=== PATIENT | male | born 1955 | race Hispanic/Latino ===

== ENCOUNTER 2017-08-30 22:08 | Observation (INO) | payer BC, OTHER ==
[2017-08-30] MEDS ORDERED: oxyCODONE 10 mg Immediate Release Tab PO STA (22:39)
[2017-08-30] MEDS ORDERED: Insulin Regular 100 units/ml SC STA (22:51)
[2017-08-30 23:16] LABS: BASO # 0.1 K/uL (0.0-0.2); EOS % 0.2 % (0.0-4.0); HEMOGLOBIN 8.4 g/dL (12.0-18.0); LYMPH # 0.5 K/uL (1.0-4.3); LYMPH % 8.2 % (20.0-40.0); MEAN CELL VOLUME 93.8 fl (80.0-94.0); MEAN CORPUSCULAR HEMOGLOBIN 30.8 pg (27.0-31.0); MEAN CORPUSCULAR HGB CONC 32.8 g/dL (33.0-37.0); MEAN PLATELET VOLUME 8.3 fl (7.2-11.7); MONO # 0.5 K/uL (0.0-0.8); MONO % 8.2 % (0.0-10.0); NEUT % 82.4 % (50.0-75.0); NRBC % 0.4 % (0.0-0.0); PLATELET COUNT 196 K/uL (130-400); RBC 2.74 Mil/uL (4.40-5.90); RED CELL DISTRIBUTION WIDTH 26.3 % (11.5-14.5); WHITE BLOOD COUNT 6.1 K/uL (4.8-10.8)
[2017-08-30] MEDS ORDERED: oxyCODONE 40 mg ER Tab (oxyCONTIN) PO STA (23:18)
[2017-08-30] MEDS ORDERED: oxyCODONE 40 mg ER Tab (oxyCONTIN) PO ONE (23:21)
[2017-08-30] MEDS ORDERED: Lidocaine 1% Inj (20ml) ONE (23:21)
[2017-08-30 23:26] LABS: GFR AFRICAN-AMERICAN > 60; GFR NON-AFRICAN AMERICAN > 60
[2017-08-30 23:28] LABS: PARTIAL THROMBOPLASTIN TIME 28.7 Seconds (25.6-37.1); PROTHROMBIN TIME 10.5 Seconds (9.8-13.1)
[2017-08-30 23:29] LABS: ALB/GLOB RATIO 1.3 (1.0-2.1); ALBUMIN 3.6 g/dL (3.5-5.0); ALT/SGPT 47 U/L (21-72); AST/SGOT 82 U/L (17-59); BLOOD UREA NITROGEN 26 mg/dl (9-20)
[2017-08-30] MEDS ORDERED: Insulin Regular 100 units/ml ONE (23:29)
[2017-08-30 23:33] LABS: B-TYPE NATRIURETIC PEPTIDE 609 pg/ml (0-900)
[2017-08-30] MEDS ORDERED: Povidone Iodine Oint 10% Foilpak UD ONE (23:36)
--- NOTE | 2017-08-30 23:45 | ED PDOC ---
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 Patient currently reports pain to the site and states there was excessive bleeding, which has now stopped. He also reports left leg swelling and weakness secondary to the sarcoma; he denies any new weakness or numbness. Patient states he irrigated the wound prior to arrival. Additionally, patient states he was discharged from [facility] this morning after a 10 day stay. He has no other complaints. PMD: Dr. Wellington MSK - Risk Factors DVT Risk Factors: Pos: History Of DVT Past Medical History Reviewed: Historical Data, Nursing Documentation, Vital Signs Vital Signs: Last Vital Signs Temp 98 F 08/30/17 22:12 Pulse 84 08/30/17 22:12 Resp 16 08/30/17 22:12 BP 131/70 08/30/17 22:12 Pulse Ox 95 08/30/17 22:12 - Medical History PMH: Asthma, Diabetes, Deep Vein Thrombosis, HTN, Hypercholesterolemia, Chronic Pain Other PMH: sarcoma left thigh - Family History Family History: States: No Known Family Hx - Social History Current smoker - smoking cessation education provided: No Alcohol: None Drugs: Denies - Home Medications Home Medications: Ambulatory Orders Medication Instructions Recorded Albuterol HFA [Ventolin HFA 90 2 puff INH Q4 PRN 08/31/17 mcg/actuation (8 g)] Albuterol/Ipratropium [Duoneb 3 2.5 ml NEB Q4 PRN 08/31/17 mg/0.5 mg (3 ml) UD] Atorvastatin [Lipitor] 20 mg PO DAILY 08/31/17 Azithromycin [Z-Abdoulaye] 250 mg PO MWF 08/31/17 Benzonatate [Tessalon Perle] 100 mg PO TID 08/31/17 Budesonide [Pulmicort Respules] 2 ml NEB BID 08/31/17 Celecoxib [CeleBREX] 100 mg PO DAILY PRN 08/31/17 Codeine Phosphate/Guaifenesin 10 ml PO Q4 PRN 08/31/17 [Codeine-Guaifen 10-100 mg/5 ml] Docusate Sodium [Roberts' 100 mg PO TID 08/31/17 Laxative] Empagliflozin [Jardiance] 10 mg PO DAILY 08/31/17 Enoxaparin Sodium [Enoxaparin 40 mg SUBCON Q12 08/31/17 Sodium] Insulin Aspart [Novolog Flexpen] 0 - 12 units SUBCON TID 08/31/17 Insulin Glargine, Recombina 32 units SUBCON HS 08/31/17 [Lantus] Ipratropium [Atrovent HFA] 17 mcg INH Q6 PRN 08/31/17 LORazepam [Ativan] 0.5 mg PO BID PRN 08/31/17 Liraglutide [Saxenda] 18 mg SUBCUT DAILY 08/31/17 MetFORMIN [glucoPHAGE] 2,000 mg PO DAILY 08/31/17 Montelukast [Singulair] 10 mg PO DAILY 08/31/17 Nystatin [Nystop Topical Powder] 100,000 units TOP Q6 08/31/17 Ondansetron [Zofran Tab] 8 mg PO TID PRN 08/31/17 Oxybutynin [Ditropan Tab] 5 mg PO DAILY 08/31/17 PARoxetine [Paxil] 40 mg PO DAILY 08/31/17 Pantoprazole [Protonix EC Tab] 40 mg PO DAILY 08/31/17 Polyethylene Glycol 3350 [Miralax] 17 gm PO BID 08/31/17 Prednisone [Prednisone] 35 mg PO DAILY 08/31/17 QUEtiapine [SEROquel] 50 mg PO HS 08/31/17 Sennosides [Senna] 17.2 mg PO HS 08/31/17 Sulfamethoxazole/Trimethoprim 1 tab PO DAILY 08/31/17 [Bactrim DS Tab] Tamsulosin [Flomax] 0.4 mg PO DAILY 08/31/17 Triamcinolone 0.1% [Triamcinolone 1 appl TOP Q12 08/31/17 0.1% Cream] buPROPion [Wellbutrin] 50 mg PO Q12 08/31/17 oxyCODONE [oxyCODONE Immediate 20 mg PO Q4 PRN 08/31/17 Release Tab] oxyCODONE [oxyCONTIN Extended 40 mg PO Q12 08/31/17 Release Tab] - Allergies Allergies/Adverse Reactions: Allergies Allergy/AdvReac Type Severity Reaction Status Date / Time DOXYTACIL Allergy ANAPHYLAXIS Uncoded 08/30/17 22:18 Review of Systems ROS Statement: Except As Marked, All Systems Reviewed And Found Negative (as per HPI) Cardiovascular: Negative for: Chest Pain Respiratory: Negative for: Shortness of Breath Musculoskeletal: Positive for: Leg Pain (laceration left lower leg) Physical Exam - Reviewed Nursing Documentation Reviewed: Yes Vital Signs Reviewed: Yes - Physical Exam Appears: Positive for: Non-toxic, No Acute Distress (Morbidly obese) Head Exam: Positive for: ATRAUMATIC, NORMOCEPHALIC Skin: Positive for: Warm, Dry, Pallor Eye Exam: Positive for: EOMI, PERRL ENT: Negative for: Pharyngeal Erythema, Tonsillar Exudate Neck: Positive for: Painless ROM, Supple Cardiovascular/Chest: Positive for: Regular Rate, Rhythm, Edema. Negative for: Murmur Respiratory: Negative for: Accessory Muscle Use, Respiratory Distress Gastrointestinal/Abdominal: Positive for: Soft, Other (multiple ecchymotic lesions noted to abdomen). Negative for: Tenderness Back: Negative for: Vertebral Tenderness Extremity: Positive for: Normal ROM, Pedal Edema (left > right), Other (18cm crescent shaped gaping (5cm wide) laceration to left mid anterior tibia with visible muscle fascia; muscle appears to be intact through movement of ankle. No exposed bone, no muscle laceration. Mild oozing noted. +multiple ecchymotic lesions to arms and legs). Negative for: Calf Tenderness, Deformity Lymphatic: Negative for: Adenopathy Neurologic/Psych: Positive for: Alert, Oriented. Negative for: Motor/Sensory Deficits - Laboratory Results Result Diagrams: 08/31/17 18:29 08/31/17 12:10 - ECG O2 Sat by Pulse Oximetry: 95 (RA) Pulse Ox Interpretation: Normal Medical Decision Making Medical Decision Making: Impression: 1. Left lower extremity laceration, complicated 2. Acute on chronic pain 3. Hyperglycemia Plan: -- EKG -- Labs -- CXR -- Insulin 6 units -- Oxycodone 40mg PO Time: 2237 Surgical consult placed with Dr. Grant, surgeon auto parts salesperson due to complicated laceration. vice president supply chain to evaluate patient at bedside. 2344 Pt with difficulty walking secondary to chronic medical conditions, now with complicated laceration to LEFT lower leg. Risk for falls high given history and management of leg. Will hospitalize for PT/OT. Dr Nye made aware. ----- Scribe Attestation: Documented by Katie Aceves, acting as a scribe for Helen Wesley MD. Provider Scribe Attestation: All medical record entries made by the Scribe were at my direction and personally dictated by me. I have reviewed the chart and agree that the record accurately reflects my personal performance of the history, physical exam, medical decision making, and the department course for this patient. I have also personally directed, reviewed, and agree with the discharge instructions and disposition. Disposition - Clinical Impression Clinical Impression: Leg laceration, Sarcoma Counseled Patient/Family Regarding: Studies Performed, Diagnosis - Disposition Disposition Time: 23:30 Condition: FAIR - Pt Status Changed To: Hospital Disposition Of: Observation - POA Present On Arrival: Falls Or Trauma, Deep Vein Thrombosis / PE
[2017-08-31] MEDS ORDERED: oxyCODONE 10 mg Immediate Release Tab PO PRN (00:28)
[2017-08-31 01:48] LABS: LYMPHOCYTE 9 % (20-50); MONOCYTE 4 % (0-10); NEUTROPHIL 87 % (42-75); PLATELET ESTIMATE NORMAL (NORMAL); SMUDGE CELLS PRESENT; TOTAL CELLS COUNTED 100
[2017-08-31 01:49] LABS: ANISOCYTOSIS SLIGHT
[2017-08-31 01:50] LABS: ACANTHOCYTES SLIGHT
[2017-08-31 01:52] LABS: HYPOCHROMIC SLIGHT
--- NOTE | 2017-08-31 03:01 | PCM.PROC ---
Procedures Attestation:: I certify that I have explained the specified Operation(s) or Procedure(s), risks, benefits and reasonable alternatives to the Patient and/or other person responsible. The opportunity was given to ask questions and all questions answered - Laceration lidocaine 1% simple, single layer irregular irrigated extensively left lower extremity 3-0 other Site: lower extremity Side (if applicable): left Description: irregular Depth: simple, single layer Anesthesia used: lidocaine 1% Anesthesia technique: local infiltration Amount (mLs): 10 Pre-repair: irrigated extensively (with normal saline) Skin layer closed with: other (nylon ) Size: 3-0 Number of sutures: 15 Technique: other (vertical mattress)
[2017-08-31] MEDS ORDERED: Albuterol-Ipratrop 3 mg / 0.5 (3 ml) UD INH STA ×2 (03:06→07:30)
--- NOTE | 2017-08-31 03:07 | CP.PCM.CON ---
History of Present Illness - History of Present Illness History of Present Illness: General Surgery Consult Note: Dr. 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 General surgery was consulted to evaluate the wound and repair the laceration. At time of examination patient was laying in bed comfortably. He was noted to have a left lower extremity irregular laceration. Deep tissue structures were observed to be intact. There was no fascia violation. Wound was extensively irrigated with normal saline. Circumferential laceration area was prepped with betadine. 1% lidocaine was used for local anesthesia. 3-0 Nylon was used to approximate wound edges using vertical mattress x15. After laceration was repaired bacitracin was applied to the site and sterile dressing was applied. Patient tolerated procedure well with no complications. PMHx: as stated above PSurgHx: Sarcoma resection of left lower leg Allergies: Doxytacil Fam Hx: non-contributory Review of Systems - Review of Systems Review of Systems: 12 pt ROS unremarkable, except as stated in HPI Past Patient History - Past Social History Alcohol: None Drugs: Denies - CARDIAC Hx Cardiac Disorders: Yes (HTN) - PULMONARY Hx Asthma: Yes - ENDOCRINE/METABOLIC Hx Endocrine Disorders: Yes (DM) - MUSCULOSKELETAL/RHEUMATOLOGICAL Other/Comment: chronic pain due to left thigh sarcoma - PSYCHIATRIC Hx Anxiety: Yes Hx Substance Use: No - SURGICAL HISTORY Other/Comment: removal of left thigh sarcoma. 2 lung Laparoscopy due to sarcoma - ANESTHESIA Hx Anesthesia: Yes Hx Anesthesia Reactions: No Meds Allergies/Adverse Reactions: Allergies Allergy/AdvReac Type Severity Reaction Status Date / Time DOXYTACIL Allergy ANAPHYLAXIS Uncoded 08/30/17 22:18 - Medications Medications: Current Medications Oxycodone HCl (Oxycodone Immediate Release Tab) 20 mg PO Q6 PRN PRN Reason: Pain, severe (8-10) Physical Exam - Constitutional Appears: Non-toxic, Chronically Ill Additional comments: obese - Head Exam Head Exam: NORMOCEPHALIC - Eye Exam Eye Exam: Normal appearance - ENT Exam ENT Exam: Mucous Membranes Moist - Respiratory Exam Respiratory Exam: NORMAL BREATHING PATTERN - Cardiovascular Exam Cardiovascular Exam: +S1, +S2 - GI/Abdominal Exam Additional comments: abdominal wall hematoma - Extremities Exam Extremities exam: Positive for: pedal edema Additional comments: left anterior frias laceration, irregular superficial laceration - Neurological Exam Neurological exam: Alert, Oriented x3 - Psychiatric Exam Psychiatric exam: Normal Mood - Skin Skin Exam: Warm Results - Vital Signs Recent Vital Signs: Last Vital Signs Temp 98.2 F 08/31/17 02:42 Pulse 73 08/31/17 02:42 Resp 20 08/31/17 02:42 BP 117/72 08/31/17 02:42 Pulse Ox 98 08/31/17 02:42 - Labs Result Diagrams: 08/30/17 23:12 08/30/17 23:12 Labs: Laboratory Results - last 24 hr 08/30/17 08/30/17 08/30/17 22:41 23:12 23:12 WBC 6.1 RBC 2.74 L Hgb 8.4 L Hct 25.7 L MCV 93.8 MCH 30.8 MCHC 32.8 L RDW 26.3 H Plt Count 196 MPV 8.3 Neut % (Auto) 82.4 H Lymph % (Auto) 8.2 L [place] % (Auto) 8.2 Eos % (Auto) 0.2 Baso % (Auto) 1.0 Neut # (Auto) 5.0 Lymph # (Auto) 0.5 L [place] # (Auto) 0.5 Eos # (Auto) 0.0 Baso # (Auto) 0.1 Neutrophils % (Manual) 87 H Lymphocytes % (Manual) 9 L Monocytes % (Manual) 4 Smudge Cells Present Platelet Estimate Normal Hypochromasia (manual) Slight Anisocytosis (manual) Slight Macrocytosis (manual) Slight Acanthocytes (Spur) Slight PT INR APTT Sodium 133 Potassium 5.6 H Chloride 94 L Carbon Dioxide 28 Anion Gap 17 BUN 26 H Creatinine 0.6 L Est GFR ( Amer) > 60 Est GFR (Non-Af Amer) > 60 POC Glucose (mg/dL) 307 H Random Glucose 311 H Calcium 9.0 Total Bilirubin 1.7 H AST 82 H ALT 47 Alkaline Phosphatase 49 NT-Pro-B Natriuret Pep 609 Total Protein 6.5 Albumin 3.6 Globulin 2.9 Albumin/Globulin Ratio 1.3 Alcohol, Quantitative < 10 08/30/17 08/31/17 23:12 00:48 WBC RBC Hgb Hct MCV MCH MCHC RDW Plt Count MPV Neut % (Auto) Lymph % (Auto) Harmon % (Auto) Eos % (Auto) Baso % (Auto) Neut # (Auto) Lymph # (Auto) [place] # (Auto) Eos # (Auto) Baso # (Auto) Neutrophils % (Manual) Lymphocytes % (Manual) Monocytes % (Manual) Smudge Cells Platelet Estimate Hypochromasia (manual) Anisocytosis (manual) Macrocytosis (manual) Acanthocytes (Spur) PT 10.5 INR 1.0 APTT 28.7 Sodium Potassium Chloride Carbon Dioxide Anion Gap BUN Creatinine Est GFR ( Amer) Est GFR (Non-Af Amer) POC Glucose (mg/dL) 277 H Random Glucose Calcium Total Bilirubin AST ALT Alkaline Phosphatase NT-Pro-B Natriuret Pep Total Protein Albumin Globulin Albumin/Globulin Ratio Alcohol, Quantitative Assessment & Plan - Assessment and Plan (Free Text) Assessment: 61M with left lower leg anterior laceration s/p laceration repair Plan: No further surgical intervention needed C/w ABx Daily dressing changes Return to ED or Surgery clinic office in 10-14 days for removal of stitches Keep area clean and dry Further recs per Dr. Rudy LAU PGY2
[2017-08-31] MEDS ORDERED: Albuterol-Ipratrop 3 mg / 0.5 (3 ml) UD ONE (07:34)
[2017-08-31] MEDS ORDERED: POLYETHYLENE GLYCOL 3350 17 GM/Dose PACKET PO PRN (08:21)
[2017-08-31] MEDS ORDERED: Enoxaparin 120 mg Syringe SC SCH (09:00)
[2017-08-31] MEDS ORDERED: LIRAGLUTIDE 1.8 MG SUBCUT SCH (09:00)
[2017-08-31] MEDS: oxyCODONE 10 mg Immediate Release Tab PO PRN ×3 (09:16→17:14)
[2017-08-31] MEDS: oxyCODONE 40 mg ER Tab (oxyCONTIN) PO SCH ×2 (09:17→21:01)
--- NOTE | 2017-08-31 09:20 | RAD ---
HISTORY: fall COMPARISON: 02/16/2008 FINDINGS: LUNGS: Examination limited due to oblique positioning of patient. There is small moderate left pleural effusion. There is no definite consolidation. There is diffusely increased density of the left emmie thorax likely due to pleural effusion. Also likely due to body habitus and patient positioning. PLEURA: No significant pleural effusion identified, no pneumothorax apparent. CARDIOVASCULAR: Normal. OSSEOUS STRUCTURES: No significant abnormalities. VISUALIZED UPPER ABDOMEN: Normal. OTHER FINDINGS: None. IMPRESSION: Left pleural effusion.
[2017-08-31] MEDS: Tmp-Smz 800 mg-160 mg DS Tab PO SCH (10:26)
[2017-08-31] MEDS: Pantoprazole 40 mg EC Tab PO SCH (10:27)
[2017-08-31] MEDS: Enoxaparin 40 mg Syringe SC SCH ×2 (10:29→22:21)
[2017-08-31] MEDS: buPROPion SR 150 MG TABLET PO SCH ×2 (10:31→21:01)
[2017-08-31] MEDS ORDERED: Insulin Lispro (humaLOG) 100 Units/ml Inj SC SCH (11:30)
[2017-08-31] MEDS: Albuterol-Ipratrop 3 mg / 0.5 (3 ml) UD INH SCH ×5 (11:35→23:21)
--- NOTE | 2017-08-31 11:56 | CARD ---
APPROVED REPORT EKG Measurement Heart [id number] OH [id number] [id number] <Conclusion> Normal sinus rhythm Normal ECG
[2017-08-31 12:14] LABS: HEMOGLOBIN 8.3 g/dL (12.0-18.0); MEAN CELL VOLUME 94.7 fl (80.0-94.0); MEAN CORPUSCULAR HEMOGLOBIN 30.4 pg (27.0-31.0); MEAN CORPUSCULAR HGB CONC 32.1 g/dL (33.0-37.0); RBC 2.73 Mil/uL (4.40-5.90); RED CELL DISTRIBUTION WIDTH 27.7 % (11.5-14.5); WHITE BLOOD COUNT 4.6 K/uL (4.8-10.8)
[2017-08-31 12:41] LABS: BLOOD UREA NITROGEN 23 mg/dl (9-20); CALCIUM 8.7 mg/dL (8.4-10.2); GFR AFRICAN-AMERICAN > 60; GFR NON-AFRICAN AMERICAN > 60
[2017-08-31] MEDS: Insulin Lispro (humaLOG) 100 Units/ml Inj SC SCH ×4 (12:52→22:21)
--- NOTE | 2017-08-31 17:02 | CP.PCM.HP ---
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 Present on Admission - Present on Admission Any Indicators Present on Admission: No Past Patient History - Past Medical History & Family History Past Medical History?: Yes - Past Social History Smoking Status: Former Smoker - CARDIAC Hx Cardiac Disorders: Yes (HTN) Hx Hypercholesterolemia: Yes Hx Hypertension: Yes - PULMONARY Hx Respiratory Disorders: Yes Hx Asthma: Yes - RENAL Hx Chronic Kidney Disease: No - ENDOCRINE/METABOLIC Hx Endocrine Disorders: Yes (DM) Hx Diabetes Mellitus Type 2: Yes - HEMATOLOGICAL/ONCOLOGICAL Hx Blood Disorders: Yes - MUSCULOSKELETAL/RHEUMATOLOGICAL Hx Musculoskeletal Disorders: Yes Hx Falls: No Other/Comment: chronic pain due to left thigh sarcoma - GASTROINTESTINAL Hx Gastrointestinal Disorders: No - GENITOURINARY/GYNECOLOGICAL Hx Genitourinary Disorders: No - PSYCHIATRIC Hx Psychophysiologic Disorder: Yes Hx Anxiety: Yes Hx Substance Use: No - SURGICAL HISTORY Other/Comment: removal of left thigh sarcoma. 2 lung Laparoscopy due to sarcoma - ANESTHESIA Hx Anesthesia: Yes Hx Anesthesia Reactions: No Meds Allergies/Adverse Reactions: Allergies Allergy/AdvReac Type Severity Reaction Status Date / Time DOXYTACIL Allergy ANAPHYLAXIS Uncoded 08/30/17 22:18 Physical Exam - Respiratory Exam Respiratory Exam: NORMAL BREATHING PATTERN - Cardiovascular Exam Cardiovascular Exam: REGULAR RHYTHM - GI/Abdominal Exam GI & Abdominal Exam: Normal Bowel Sounds Results - Vital Signs Recent Vital Signs: Last Vital Signs Temp 97.7 F 08/31/17 15:38 Pulse 91 H 08/31/17 15:38 Resp 20 08/31/17 15:38 BP 111/69 08/31/17 15:38 Pulse Ox 93 L 08/31/17 15:38 - Labs Result Diagrams: 08/31/17 12:10 08/31/17 12:10 Labs: Laboratory Results - last 24 hr 08/30/17 08/30/17 08/30/17 22:41 23:12 23:12 WBC 6.1 RBC 2.74 L Hgb 8.4 L Hct 25.7 L MCV 93.8 MCH 30.8 MCHC 32.8 L RDW 26.3 H Plt Count 196 MPV 8.3 Neut % (Auto) 82.4 H Lymph % (Auto) 8.2 L [place] % (Auto) 8.2 Eos % (Auto) 0.2 Baso % (Auto) 1.0 Neut # (Auto) 5.0 Lymph # (Auto) 0.5 L [place] # (Auto) 0.5 Eos # (Auto) 0.0 Baso # (Auto) 0.1 Neutrophils % (Manual) 87 H Lymphocytes % (Manual) 9 L Monocytes % (Manual) 4 Smudge Cells Present Platelet Estimate Normal Hypochromasia (manual) Slight Anisocytosis (manual) Slight Macrocytosis (manual) Slight Acanthocytes (Spur) Slight PT INR APTT Sodium 133 Potassium 5.6 H Chloride 94 L Carbon Dioxide 28 Anion Gap 17 BUN 26 H Creatinine 0.6 L Est GFR ( Amer) > 60 Est GFR (Non-Af Amer) > 60 POC Glucose (mg/dL) 307 H Random Glucose 311 H Calcium 9.0 Total Bilirubin 1.7 H AST 82 H ALT 47 Alkaline Phosphatase 49 NT-Pro-B Natriuret Pep 609 Total Protein 6.5 Albumin 3.6 Globulin 2.9 Albumin/Globulin Ratio 1.3 Alcohol, Quantitative < 10 Blood Type Blood Type Confirm Antibody Screen BBK History Checked 08/30/17 08/31/17 08/31/17 23:12 00:48 05:40 WBC RBC Hgb Hct MCV MCH MCHC RDW Plt Count MPV Neut % (Auto) Lymph % (Auto) [place] % (Auto) Eos % (Auto) Baso % (Auto) Neut # (Auto) Lymph # (Auto) [place] # (Auto) Eos # (Auto) Baso # (Auto) Neutrophils % (Manual) Lymphocytes % (Manual) Monocytes % (Manual) Smudge Cells Platelet Estimate Hypochromasia (manual) Anisocytosis (manual) Macrocytosis (manual) Acanthocytes (Spur) PT 10.5 INR 1.0 APTT 28.7 Sodium Potassium Chloride Carbon Dioxide Anion Gap BUN Creatinine Est GFR ( Amer) Est GFR (Non-Af Amer) POC Glucose (mg/dL) 277 H 160 H Random Glucose Calcium Total Bilirubin AST ALT Alkaline Phosphatase NT-Pro-B Natriuret Pep Total Protein Albumin Globulin Albumin/Globulin Ratio Alcohol, Quantitative Blood Type Blood Type Confirm Antibody Screen BBK History Checked 08/31/17 08/31/17 08/31/17 06:25 07:56 11:12 WBC RBC Hgb Hct MCV MCH MCHC RDW Plt Count MPV Neut % (Auto) Lymph % (Auto) [place] % (Auto) Eos % (Auto) Baso % (Auto) Neut # (Auto) Lymph # (Auto) [place] # (Auto) Eos # (Auto) Baso # (Auto) Neutrophils % (Manual) Lymphocytes % (Manual) Monocytes % (Manual) Smudge Cells Platelet Estimate Hypochromasia (manual) Anisocytosis (manual) Macrocytosis (manual) Acanthocytes (Spur) PT INR APTT Sodium Potassium Chloride Carbon Dioxide Anion Gap BUN Creatinine Est GFR ( Amer) Est GFR (Non-Af Amer) POC Glucose (mg/dL) 264 H Random Glucose Calcium Total Bilirubin AST ALT Alkaline Phosphatase NT-Pro-B Natriuret Pep Total Protein Albumin Globulin Albumin/Globulin Ratio Alcohol, Quantitative Blood Type AB POSITIVE Blood Type Confirm AB POSITIVE Antibody Screen Negative BBK History Checked No verified bt 08/31/17 08/31/17 08/31/17 12:10 12:10 16:00 WBC 4.6 L RBC 2.73 L Hgb 8.3 L Hct 25.8 L MCV 94.7 H MCH 30.4 MCHC 32.1 L RDW 27.7 H Plt Count 176 MPV Neut % (Auto) Lymph % (Auto) [place] % (Auto) Eos % (Auto) Baso % (Auto) Neut # (Auto) Lymph # (Auto) [place] # (Auto) Eos # (Auto) Baso # (Auto) Neutrophils % (Manual) Lymphocytes % (Manual) Monocytes % (Manual) Smudge Cells Platelet Estimate Hypochromasia (manual) Anisocytosis (manual) Macrocytosis (manual) Acanthocytes (Spur) PT INR APTT Sodium 137 Potassium 4.0 Chloride 96 L Carbon Dioxide 31 H Anion Gap 14 BUN 23 H Creatinine 0.6 L Est GFR ( Amer) > 60 Est GFR (Non-Af Amer) > 60 POC Glucose (mg/dL) 307 H Random Glucose 123 H Calcium 8.7 Total Bilirubin AST ALT Alkaline Phosphatase NT-Pro-B Natriuret Pep Total Protein Albumin Globulin Albumin/Globulin Ratio Alcohol, Quantitative Blood Type Blood Type Confirm Antibody Screen BBK History Checked Assessment & Plan - Assessment and Plan (Free Text) Assessment: Laceration left lower extremity 2 to fall Surgery Hx Sarcoma left thigh Oncology Chronic pain Pain management Diabetes Metformin 4000?? Endo - Date & Time Date: 08/31/17 Time: 22:22
--- NOTE | 2017-08-31 17:27 | CP.PCM.PN ---
Subjective - Date & Time of Evaluation Date of Evaluation: 08/31/17 Time of Evaluation: 17:22 - Subjective Subjective: Surgery Pt s&e with Dr. Grant. Pain controlled. Pt has appointment at [facility] and wishes to be seen by his oncologist. Objective - Vital Signs/Intake and Output Vital Signs (last 24 hours): Temp Pulse Resp BP Pulse Ox 97.7 F 91 H 20 111/69 93 L 08/31/17 15:38 08/31/17 15:38 08/31/17 15:38 08/31/17 15:38 08/31/17 15:38 - Medications Medications: Current Medications Albuterol/Ipratropium (Duoneb 3 Mg/0.5 Mg (3 Ml) Ud) 2.5 ml INH RQ4 [facility] Last Admin: 08/31/17 15:49 Dose: 2.5 ml Atorvastatin Calcium (Lipitor) 20 mg PO DAILY [facility] Last Admin: 08/31/17 10:29 Dose: 20 mg Benzonatate (Tessalon Perles) 100 mg PO TID [facility] Last Admin: 08/31/17 17:17 Dose: 100 mg Bupropion HCl (Wellbutrin Sr 150 Mg) 150 mg PO Q12 [facility] Last Admin: 08/31/17 10:31 Dose: 150 mg Celecoxib (Celebrex) 100 mg PO DAILY PRN PRN Reason: Pain, moderate (4-7) Cephalexin Monohydrate (Keflex) 500 mg PO Q6 [facility] PRN Reason: Protocol Last Admin: 08/31/17 17:16 Dose: 500 mg Docusate Sodium (Colace) 100 mg PO TID PRN PRN Reason: Constipation Enoxaparin Sodium (Lovenox) 40 mg SC Q12 [facility] PRN Reason: Protocol Last Admin: 08/31/17 10:29 Dose: 40 mg Home Med (Empagliflozin [Jardiance]) 10 mg PO DAILY [facility] Home Med (Liraglutide [Saxenda]) 1.8 mg SUBCUT DAILY [facility] Insulin Detemir (Levemir) 32 units SC HS [facility] Insulin Human Lispro (Humalog) 8 units SC AC [facility] Last Admin: 08/31/17 17:16 Dose: 8 units Insulin Human Lispro (Humalog) 0 units SC ACHS [facility] PRN Reason: Protocol Last Admin: 08/31/17 17:17 Dose: 4 units Lorazepam (Ativan) 0.5 mg PO BID PRN PRN Reason: Anxiety Metformin HCl (Glucophage) 1,000 mg PO BID [facility] Last Admin: 08/31/17 17:17 Dose: 1,000 mg Montelukast Sodium (Singulair) 10 mg PO DAILY [facility] Last Admin: 08/31/17 10:27 Dose: 10 mg Nystatin (Nystop Topical Powder) 1 applic TOP Q6 [facility] Last Admin: 08/31/17 17:09 Dose: Not Given Ondansetron HCl (Zofran Tab) 8 mg PO TID PRN PRN Reason: nauesa Last Admin: 08/31/17 14:35 Dose: 8 mg Oxybutynin Chloride (Ditropan Tab) 5 mg PO DAILY [facility] Last Admin: 08/31/17 10:30 Dose: 5 mg Oxycodone HCl (Oxycodone Immediate Release Tab) 20 mg PO Q4 PRN PRN Reason: Pain, moderate (4-7) Last Admin: 08/31/17 17:14 Dose: 20 mg Oxycodone HCl (Oxycontin Extended Release Tab) 40 mg PO Q12 [facility] Last Admin: 08/31/17 09:17 Dose: 40 mg Pantoprazole Sodium (Protonix Ec Tab) 40 mg PO DAILY [facility] Last Admin: 08/31/17 10:27 Dose: 40 mg Paroxetine HCl (Paxil) 40 mg PO DAILY [facility] Last Admin: 08/31/17 10:28 Dose: 40 mg Polyethylene Glycol (Miralax) 17 gm PO BID PRN PRN Reason: Constipation Prednisone (Prednisone Tab) 35 mg PO DAILY [facility] Last Admin: 08/31/17 10:33 Dose: 35 mg Quetiapine Fumarate (Seroquel) 50 mg PO HS [facility] Sennosides (Senokot Tab) 17.2 mg PO HS PRN PRN Reason: Constipation Tamsulosin HCl (Flomax) 0.4 mg PO DAILY [facility] Last Admin: 08/31/17 10:27 Dose: 0.4 mg Triamcinolone Acetonide (Kenalog 0.1% Cream) 1 appl TOP Q12 [facility] Last Admin: 08/31/17 10:28 Dose: 1 appl Trimethoprim/Sulfamethoxazole (Bactrim Ds Tab) 1 tab PO DAILY [facility] PRN Reason: Protocol Last Admin: 08/31/17 10:26 Dose: 1 tab - Labs Labs: 08/31/17 12:10 08/31/17 12:10 PT 10.5 Seconds (9.8-13.1) 08/30/17 23:12 INR 1.0 (0.9-1.2) 08/30/17 23:12 APTT 28.7 Seconds (25.6-37.1) 08/30/17 23:12 - Constitutional Appears: No Acute Distress - Head Exam Head Exam: ATRAUMATIC, NORMAL INSPECTION, NORMOCEPHALIC - Eye Exam Eye Exam: EOMI, Normal appearance, PERRL Pupil Exam: NORMAL ACCOMODATION, PERRL - ENT Exam ENT Exam: Mucous Membranes Moist, Normal Exam - Neck Exam Neck Exam: Full ROM, Normal Inspection. absent: Lymphadenopathy - Respiratory Exam Respiratory Exam: Clear to Ausculation Bilateral, NORMAL BREATHING PATTERN - Cardiovascular Exam Cardiovascular Exam: REGULAR RHYTHM, +S1, +S2. absent: Murmur - GI/Abdominal Exam GI & Abdominal Exam: Soft, Normal Bowel Sounds. absent: Tenderness - Extremities Exam Extremities Exam: Pedal Edema, Tenderness. absent: Normal Inspection Additional comments: multiple ecchymosis. Dressing in place. Incision C/D?I - Back Exam Back Exam: NORMAL INSPECTION - Neurological Exam Neurological Exam: Alert, Awake, CN II-XII Intact, Oriented x3. absent: Normal Gait - Psychiatric Exam Psychiatric exam: Normal Affect, Normal Mood - Skin Skin Exam: Abrasion, Dry, Intact, Warm. absent: Normal Color Additional comments: multiple ecchymosis Assessment and Plan - Assessment and Plan (Free Text) Assessment: venous stasis with LLE laceration s/p repair -Ok to DC tomorrow to follow up with his oncologist at [facility] -May follow up at Dr. Grant's office in 10-14days (09/10-09/13) to get stitches removed. May get them removed by your primary doctor as well. -Keep legs elevated. -compression Stocking DW Dr. Grant
[2017-08-31 19:22] LABS: HEMOGLOBIN 8.2 g/dL (12.0-18.0); MEAN CELL VOLUME 95.9 fl (80.0-94.0); MEAN CORPUSCULAR HEMOGLOBIN 30.2 pg (27.0-31.0); MEAN CORPUSCULAR HGB CONC 31.5 g/dL (33.0-37.0); RBC 2.7 Mil/uL (4.40-5.90); RED CELL DISTRIBUTION WIDTH 27.2 % (11.5-14.5); WHITE BLOOD COUNT 5.5 K/uL (4.8-10.8)
[2017-08-31] MEDS ORDERED: Insulin Detemir 100 Units/ml Inj SC SCH (22:00)
--- NOTE | 2017-08-31 22:57 | CON ---
ENDOCRINOLOGY CONSULT DATE: LOCATION: In room 663. HISTORY OF PRESENT ILLNESS: This is a 61-year-old male with known history of type 2 insulin-requiring diabetes and hypertension, presenting here with left lower extremity laceration from a recent physical injury and is now being referred for diabetic evaluation because of persistent hyperglycemic accelerations as noted thereof. 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 He admits to chronic pain in the lower extremities and also the lower lumbosacral area as noted. FAMILY HISTORY: Positive for hypertension and diabetes. SOCIAL HISTORY: The patient has a supportive family. No known substance use. REVIEW OF SYSTEMS: As mentioned above, admits to generalized body weakness with episodic bouts of dizziness and lightheadedness worse on the day of admission. Also admits to occasional bifrontal headaches and visual blurring, again worse in the last few days prior to admission. Also admits to precordial chest pain especially on exertion with occasional bouts of shortness of breath also on exertion. His oral intake has been variable with occasional dyspepsia and vague upper abdominal pain with recent marked polyuria, nocturia, and polydipsia. Also admits to lower extremity painful paresthesias, especially nocturnally and sustained a left lower extremity laceration as mentioned. PHYSICAL EXAMINATION: GENERAL: This is an obese male in no apparent distress. VITAL SIGNS: Blood pressure /90, pulse of 70 beats per minute and regular, temperature 98, respirations 20, height is 5 feet 11 inches, and weight is 320 pounds. HEENT: Head is normocephalic. Eyes anicteric with pink conjunctivae. Funduscopy not possible at this time. Ears, nose, and throat otherwise normal. NECK: Supple. Thyroid gland is normal in size. No carotid bruits or cervical adenopathy. CARDIOPULMONARY: Some adynamic precordium. S1 and S2 is rapid and regular. LUNGS: Clear to auscultation. ABDOMEN: Obese and soft with positive bowel sounds. EXTREMITIES: The left lower extremity lacerations has a dry dressing as noted. Pulses are +2 bilaterally. LABORATORY DATA: His chemistry showed a BUN of 26, sodium 133, potassium 5.6, chloride 94, CO2 of , and creatinine is 0.6. The glucose levels have ranged from 264 to 277 and 307 mg/dL. ASSESSMENT: This is a 61-year-old male with uncontrolled and decompensated type 2 insulin-requiring diabetes with marked hyperglycemic accelerations and also concomitant hyperosmolar hyperglycemic state with dehydration and prerenal azotemia with spurious hyponatremia and hyperkalemia as noted thereof. He also has sarcoma of the left thigh with chronic pain syndrome and intractable lower back pain episodically as noted and is currently on prednisone given as 35 mg once daily as ordered. This will also contribute to the increased insulin resistance and further impaired glucose tolerance thereof besides these underlying super morbid obesity, which will also further contribute to the impaired glucose tolerance thereof. PLAN OF MANAGEMENT: As discussed with the patient and staff, we will modify his current basal and bolus insulin regimen as the patient is clearly insulin resistant and needs a higher dose regimen to override the underlying metabolic syndrome as noted thereof. We will add Humalog given as 10 units subcutaneously t.i.d. before meals to start today as ordered. We will modify the coverage scale to obviate hypoglycemia and detailed orders have been given. We will also continue the Levemir given as 32 units subcutaneously at bedtime daily and we will titrate to a much higher dose to optimize metabolic control. We will reinforce diabetic education and especially dietary evaluation with emphasis on healthier food choices and weight loss efforts as noted. We will also obtain a hemoglobin A1c to confirm his prior glycemic control and baseline thyroid function studies will be ordered. We will follow and advise accordingly. Sheryl Adams MD
--- NOTE | 2017-08-31 23:19 | CP.PCM.CON ---
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 The patient reports to being diagnosed with a left thigh sarcoma during prostate cancer staging. He underwent sarcoma treatment for localized disease but was found to have lung metastasis shortly after tumor resection. He underwent radiation and lung resection for oligometastatic disease but unfortunately was later found to have more pronounced lung metastasis and was placed on systemic therapy. He notes to a new treatment which was initiated in the last few weeks. He plans to f/u with his primary oncologist on D/C for further oncologic treatment. 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 Past surgical history: Left thigh sarcoma resection Family history: Father had prostate cancer Social history: Denies tobacco, alcohol, and illicit drug use. Allergies: Docetaxel Review of systems: All remaining review of systems including HEENT, cardiovascular, respiratory, gastrointestinal, genitourinary, musculoskeletal, dermatologic, neurologic, and psychiatric are negative unless mentioned in the HPI. Past Patient History - Past Medical History & Family History Past Medical History?: Yes - Past Social History Smoking Status: Former Smoker - CARDIAC Hx Cardiac Disorders: Yes (HTN) Hx Hypercholesterolemia: Yes Hx Hypertension: Yes - PULMONARY Hx Respiratory Disorders: Yes Hx Asthma: Yes - RENAL Hx Chronic Kidney Disease: No - ENDOCRINE/METABOLIC Hx Endocrine Disorders: Yes (DM) Hx Diabetes Mellitus Type 2: Yes - HEMATOLOGICAL/ONCOLOGICAL Hx Blood Disorders: Yes - MUSCULOSKELETAL/RHEUMATOLOGICAL Hx Musculoskeletal Disorders: Yes Hx Falls: No Other/Comment: chronic pain due to left thigh sarcoma - GASTROINTESTINAL Hx Gastrointestinal Disorders: No - GENITOURINARY/GYNECOLOGICAL Hx Genitourinary Disorders: No - PSYCHIATRIC Hx Psychophysiologic Disorder: Yes Hx Anxiety: Yes Hx Substance Use: No - SURGICAL HISTORY Other/Comment: removal of left thigh sarcoma. 2 lung Laparoscopy due to sarcoma - ANESTHESIA Hx Anesthesia: Yes Hx Anesthesia Reactions: No Meds Allergies/Adverse Reactions: Allergies Allergy/AdvReac Type Severity Reaction Status Date / Time DOXYTACIL Allergy ANAPHYLAXIS Uncoded 08/30/17 22:18 - Medications Medications: Current Medications Albuterol/Ipratropium (Duoneb 3 Mg/0.5 Mg (3 Ml) Ud) 2.5 ml INH RQ4 [facility] Last Admin: 08/31/17 19:49 Dose: 2.5 ml Atorvastatin Calcium (Lipitor) 20 mg PO DAILY [facility] Last Admin: 08/31/17 10:29 Dose: 20 mg Benzonatate (Tessalon Perles) 100 mg PO TID [facility] Last Admin: 08/31/17 17:17 Dose: 100 mg Bupropion HCl (Wellbutrin Sr 150 Mg) 150 mg PO Q12 [facility] Last Admin: 08/31/17 21:01 Dose: 150 mg Celecoxib (Celebrex) 100 mg PO DAILY PRN PRN Reason: Pain, moderate (4-7) Cephalexin Monohydrate (Keflex) 500 mg PO Q6 [facility] PRN Reason: Protocol Last Admin: 08/31/17 21:01 Dose: 500 mg Docusate Sodium (Colace) 100 mg PO TID PRN PRN Reason: Constipation Enoxaparin Sodium (Lovenox) 40 mg SC Q12 [facility] PRN Reason: Protocol Last Admin: 08/31/17 22:21 Dose: 40 mg Home Med (Empagliflozin [Jardiance]) 10 mg PO DAILY [facility] Home Med (Liraglutide [Saxenda]) 1.8 mg SUBCUT DAILY [facility] Insulin Detemir (Levemir) 32 units SC HS [facility] Last Admin: 08/31/17 22:19 Dose: 32 units Insulin Human Lispro (Humalog) 8 units SC AC [facility] Last Admin: 08/31/17 17:16 Dose: 8 units Insulin Human Lispro (Humalog) 0 units SC ACHS [facility] PRN Reason: Protocol Last Admin: 08/31/17 22:21 Dose: Not Given Lorazepam (Ativan) 0.5 mg PO BID PRN PRN Reason: Anxiety Metformin HCl (Glucophage) 1,000 mg PO BID [facility] Last Admin: 08/31/17 17:17 Dose: 1,000 mg Montelukast Sodium (Singulair) 10 mg PO DAILY [facility] Last Admin: 08/31/17 10:27 Dose: 10 mg Nystatin (Nystop Topical Powder) 1 applic TOP Q6 [facility] Last Admin: 08/31/17 22:22 Dose: Not Given Ondansetron HCl (Zofran Tab) 8 mg PO TID PRN PRN Reason: nauesa Last Admin: 08/31/17 14:35 Dose: 8 mg Oxybutynin Chloride (Ditropan Tab) 5 mg PO DAILY [facility] Last Admin: 08/31/17 10:30 Dose: 5 mg Oxycodone HCl (Oxycodone Immediate Release Tab) 20 mg PO Q4 PRN PRN Reason: Pain, moderate (4-7) Last Admin: 08/31/17 17:14 Dose: 20 mg Oxycodone HCl (Oxycontin Extended Release Tab) 40 mg PO Q12 [facility] Last Admin: 08/31/17 21:01 Dose: 40 mg Pantoprazole Sodium (Protonix Ec Tab) 40 mg PO DAILY [facility] Last Admin: 08/31/17 10:27 Dose: 40 mg Paroxetine HCl (Paxil) 40 mg PO DAILY [facility] Last Admin: 08/31/17 10:28 Dose: 40 mg Polyethylene Glycol (Miralax) 17 gm PO BID PRN PRN Reason: Constipation Prednisone (Prednisone Tab) 35 mg PO DAILY [facility] Last Admin: 08/31/17 10:33 Dose: 35 mg Quetiapine Fumarate (Seroquel) 50 mg PO HS [facility] Last Admin: 08/31/17 22:23 Dose: Not Given Sennosides (Senokot Tab) 17.2 mg PO HS PRN PRN Reason: Constipation Tamsulosin HCl (Flomax) 0.4 mg PO DAILY [facility] Last Admin: 08/31/17 10:27 Dose: 0.4 mg Triamcinolone Acetonide (Kenalog 0.1% Cream) 1 appl TOP Q12 [facility] Last Admin: 08/31/17 22:19 Dose: 1 appl Trimethoprim/Sulfamethoxazole (Bactrim Ds Tab) 1 tab PO DAILY [facility] PRN Reason: Protocol Last Admin: 08/31/17 10:26 Dose: 1 tab Physical Exam - Head Exam Head Exam: ATRAUMATIC - Eye Exam Eye Exam: Normal appearance - ENT Exam ENT Exam: Mucous Membranes Dry - Respiratory Exam Respiratory Exam: Decreased Breath Sounds - Cardiovascular Exam Cardiovascular Exam: +S1, +S2 - GI/Abdominal Exam GI & Abdominal Exam: Normal Bowel Sounds - Extremities Exam Extremities exam: Positive for: pedal edema - Neurological Exam Neurological exam: Oriented x3 - Psychiatric Exam Psychiatric exam: Normal Affect, Normal Mood - Skin Skin Exam: Warm Results - Vital Signs Recent Vital Signs: Last Vital Signs Temp 97.7 F 08/31/17 15:38 Pulse 91 H 08/31/17 15:38 Resp 20 08/31/17 15:38 BP 111/69 08/31/17 15:38 Pulse Ox 93 L 08/31/17 15:38 - Labs Result Diagrams: 08/31/17 18:29 08/31/17 12:10 Labs: Laboratory Results - last 24 hr 08/30/17 08/30/17 08/30/17 23:12 23:12 23:12 WBC 6.1 RBC 2.74 L Hgb 8.4 L Hct 25.7 L MCV 93.8 MCH 30.8 MCHC 32.8 L RDW 26.3 H Plt Count 196 MPV 8.3 Neut % (Auto) 82.4 H Lymph % (Auto) 8.2 L [place] % (Auto) 8.2 Eos % (Auto) 0.2 Baso % (Auto) 1.0 Neut # (Auto) 5.0 Lymph # (Auto) 0.5 L [place] # (Auto) 0.5 Eos # (Auto) 0.0 Baso # (Auto) 0.1 Neutrophils % (Manual) 87 H Lymphocytes % (Manual) 9 L Monocytes % (Manual) 4 Smudge Cells Present Platelet Estimate Normal Hypochromasia (manual) Slight Anisocytosis (manual) Slight Macrocytosis (manual) Slight Acanthocytes (Spur) Slight PT 10.5 INR 1.0 APTT 28.7 Sodium 133 Potassium 5.6 H Chloride 94 L Carbon Dioxide 28 Anion Gap 17 BUN 26 H Creatinine 0.6 L Est GFR ( Amer) > 60 Est GFR (Non-Af Amer) > 60 POC Glucose (mg/dL) Random Glucose 311 H Calcium 9.0 Total Bilirubin 1.7 H AST 82 H ALT 47 Alkaline Phosphatase 49 NT-Pro-B Natriuret Pep 609 Total Protein 6.5 Albumin 3.6 Globulin 2.9 Albumin/Globulin Ratio 1.3 Alcohol, Quantitative < 10 Blood Type Blood Type Confirm Antibody Screen BBK History Checked 08/31/17 08/31/17 08/31/17 00:48 05:40 06:25 WBC RBC Hgb Hct MCV MCH MCHC RDW Plt Count MPV Neut % (Auto) Lymph % (Auto) [place] % (Auto) Eos % (Auto) Baso % (Auto) Neut # (Auto) Lymph # (Auto) [place] # (Auto) Eos # (Auto) Baso # (Auto) Neutrophils % (Manual) Lymphocytes % (Manual) Monocytes % (Manual) Smudge Cells Platelet Estimate Hypochromasia (manual) Anisocytosis (manual) Macrocytosis (manual) Acanthocytes (Spur) PT INR APTT Sodium Potassium Chloride Carbon Dioxide Anion Gap BUN Creatinine Est GFR ( Amer) Est GFR (Non-Af Amer) POC Glucose (mg/dL) 277 H 160 H Random Glucose Calcium Total Bilirubin AST ALT Alkaline Phosphatase NT-Pro-B Natriuret Pep Total Protein Albumin Globulin Albumin/Globulin Ratio Alcohol, Quantitative Blood Type AB POSITIVE Blood Type Confirm Antibody Screen Negative BBK History Checked No verified bt 08/31/17 08/31/17 08/31/17 07:56 11:12 12:10 WBC 4.6 L RBC 2.73 L Hgb 8.3 L Hct 25.8 L MCV 94.7 H MCH 30.4 MCHC 32.1 L RDW 27.7 H Plt Count 176 MPV Neut % (Auto) Lymph % (Auto) [place] % (Auto) Eos % (Auto) Baso % (Auto) Neut # (Auto) Lymph # (Auto) [place] # (Auto) Eos # (Auto) Baso # (Auto) Neutrophils % (Manual) Lymphocytes % (Manual) Monocytes % (Manual) Smudge Cells Platelet Estimate Hypochromasia (manual) Anisocytosis (manual) Macrocytosis (manual) Acanthocytes (Spur) PT INR APTT Sodium Potassium Chloride Carbon Dioxide Anion Gap BUN Creatinine Est GFR ( Amer) Est GFR (Non-Af Amer) POC Glucose (mg/dL) 264 H Random Glucose Calcium Total Bilirubin AST ALT Alkaline Phosphatase NT-Pro-B Natriuret Pep Total Protein Albumin Globulin Albumin/Globulin Ratio Alcohol, Quantitative Blood Type Blood Type Confirm AB POSITIVE Antibody Screen BBK History Checked 08/31/17 08/31/17 08/31/17 12:10 16:00 18:29 WBC 5.5 RBC 2.70 L Hgb 8.2 L Hct 25.9 L MCV 95.9 H MCH 30.2 MCHC 31.5 L RDW 27.2 H Plt Count 168 MPV Neut % (Auto) Lymph % (Auto) [place] % (Auto) Eos % (Auto) Baso % (Auto) Neut # (Auto) Lymph # (Auto) [place] # (Auto) Eos # (Auto) Baso # (Auto) Neutrophils % (Manual) Lymphocytes % (Manual) Monocytes % (Manual) Smudge Cells Platelet Estimate Hypochromasia (manual) Anisocytosis (manual) Macrocytosis (manual) Acanthocytes (Spur) PT INR APTT Sodium 137 Potassium 4.0 Chloride 96 L Carbon Dioxide 31 H Anion Gap 14 BUN 23 H Creatinine 0.6 L Est GFR ( Amer) > 60 Est GFR (Non-Af Amer) > 60 POC Glucose (mg/dL) 307 H Random Glucose 123 H Calcium 8.7 Total Bilirubin AST ALT Alkaline Phosphatase NT-Pro-B Natriuret Pep Total Protein Albumin Globulin Albumin/Globulin Ratio Alcohol, Quantitative Blood Type Blood Type Confirm Antibody Screen BBK History Checked 08/31/17 21:27 WBC RBC Hgb Hct MCV MCH MCHC RDW Plt Count MPV Neut % (Auto) Lymph % (Auto) [place] % (Auto) Eos % (Auto) Baso % (Auto) Neut # (Auto) Lymph # (Auto) [place] # (Auto) Eos # (Auto) Baso # (Auto) Neutrophils % (Manual) Lymphocytes % (Manual) Monocytes % (Manual) Smudge Cells Platelet Estimate Hypochromasia (manual) Anisocytosis (manual) Macrocytosis (manual) Acanthocytes (Spur) PT INR APTT Sodium Potassium Chloride Carbon Dioxide Anion Gap BUN Creatinine Est GFR ( Amer) Est GFR (Non-Af Amer) POC Glucose (mg/dL) 253 H Random Glucose Calcium Total Bilirubin AST ALT Alkaline Phosphatase NT-Pro-B Natriuret Pep Total Protein Albumin Globulin Albumin/Globulin Ratio Alcohol, Quantitative Blood Type Blood Type Confirm Antibody Screen BBK History Checked Assessment & Plan (1) Sarcoma Assessment and Plan: stage IV with lung metastasis outpatient treatment with primary oncologist Status: Acute (2) Anemia Assessment and Plan: likely chronic disease from malignancy hx of intra abdominal hemorrhage while on anticoagulation Status: Acute (3) DVT (deep venous thrombosis) Assessment and Plan: provoked from malignancy hx of intra abdominal hemorrhage while on therapeutic anticoagulation on lower BID dosed lovenox Thank you for this interesting consult. Status: Acute
[2017-09-01 00:12] VITALS: RESP 18
[2017-09-01] MEDS: Albuterol-Ipratrop 3 mg / 0.5 (3 ml) UD INH SCH ×2 (04:13→07:07)
[2017-09-01] MEDS: Insulin Lispro (humaLOG) 100 Units/ml Inj SC SCH ×2 (07:09→07:43)
[2017-09-01] MEDS: Pantoprazole 40 mg EC Tab PO SCH (08:29)
[2017-09-01] MEDS: Enoxaparin 40 mg Syringe SC SCH (08:30)
[2017-09-01] MEDS: Tmp-Smz 800 mg-160 mg DS Tab PO SCH (08:31)
[2017-09-01] MEDS: buPROPion SR 150 MG TABLET PO SCH (08:33)
[2017-09-01 08:39] VITALS: BP 103/67; PULSE 82; TEMP 98; O2SAT 94
[2017-09-01] MEDS: oxyCODONE 40 mg ER Tab (oxyCONTIN) PO SCH (08:39)
[2017-09-01] MEDS ORDERED: Enoxaparin 40 mg Syringe SC SCH (08:45)
--- NOTE | 2017-09-01 10:36 | CP.PCM.CON ---
History of Present Illness - History of Present Illness History of Present Illness: Patient seen but going shortly to [facility] [place]. He feels very stable on current narcotic regimen Thank you for thinking of my input to his care. 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 2 lung Laparoscopy due to sarcoma - ANESTHESIA Hx Anesthesia: Yes Hx Anesthesia Reactions: No Meds Home Medications: Home Medication List Medication Instructions Recorded Confirmed Type Cephalexin [Keflex] 500 mg PO Q8 #15 cap 09/01/17 Rx Enoxaparin [Lovenox] 40 mg SC Q12 syr 09/01/17 Rx Lactobacillus Acidophilus [Bacid 1 cap PO BID #10 cap 09/01/17 Rx Acidophilus] Allergies/Adverse Reactions: Allergies Allergy/AdvReac Type Severity Reaction Status Date / Time DOXYTACIL Allergy ANAPHYLAXIS Uncoded 08/30/17 22:18 - Medications Medications: Current Medications Albuterol/Ipratropium (Duoneb 3 Mg/0.5 Mg (3 Ml) Ud) 3 ml INH RQ4 [facility] Atorvastatin Calcium (Lipitor) 20 mg PO DAILY [facility] Last Admin: 09/01/17 08:29 Dose: 20 mg Benzonatate (Tessalon Perles) 100 mg PO TID [facility] Last Admin: 09/01/17 08:28 Dose: 100 mg Bupropion HCl (Wellbutrin Sr 150 Mg) 150 mg PO Q12 [facility] Last Admin: 09/01/17 08:33 Dose: 150 mg Celecoxib (Celebrex) 100 mg PO DAILY PRN PRN Reason: Pain, moderate (4-7) Cephalexin Monohydrate (Keflex) 500 mg PO Q6 [facility] PRN Reason: Protocol Last Admin: 09/01/17 05:00 Dose: 500 mg Docusate Sodium (Colace) 100 mg PO TID PRN PRN Reason: Constipation Enoxaparin Sodium (Lovenox) 40 mg SC Q12 [facility] PRN Reason: Protocol Last Admin: 09/01/17 09:24 Dose: Not Given Home Med (Empagliflozin [Jardiance]) 10 mg PO DAILY [facility] Home Med (Liraglutide [Saxenda]) 1.8 mg SUBCUT DAILY [facility] Insulin Detemir (Levemir) 32 units SC HS [facility] Last Admin: 08/31/17 22:19 Dose: 32 units Insulin Human Lispro (Humalog) 8 units SC AC [facility] Last Admin: 09/01/17 07:43 Dose: 8 units Insulin Human Lispro (Humalog) 0 units SC ACHS [facility] PRN Reason: Protocol Last Admin: 09/01/17 07:09 Dose: Not Given Lorazepam (Ativan) 0.5 mg PO BID PRN PRN Reason: Anxiety Metformin HCl (Glucophage) 1,000 mg PO BID [facility] Last Admin: 09/01/17 08:25 Dose: 1,000 mg Montelukast Sodium (Singulair) 10 mg PO DAILY [facility] Last Admin: 09/01/17 08:29 Dose: 10 mg Nystatin (Nystop Topical Powder) 1 applic TOP Q6 [facility] Last Admin: 09/01/17 04:00 Dose: Not Given Ondansetron HCl (Zofran Tab) 8 mg PO TID PRN PRN Reason: nauesa Last Admin: 08/31/17 14:35 Dose: 8 mg Oxybutynin Chloride (Ditropan Tab) 5 mg PO DAILY [facility] Last Admin: 09/01/17 08:29 Dose: 5 mg Oxycodone HCl (Oxycodone Immediate Release Tab) 20 mg PO Q4 PRN PRN Reason: Pain, moderate (4-7) Last Admin: 08/31/17 17:14 Dose: 20 mg Oxycodone HCl (Oxycontin Extended Release Tab) 40 mg PO Q12 [facility] Last Admin: 09/01/17 08:39 Dose: 40 mg Pantoprazole Sodium (Protonix Ec Tab) 40 mg PO DAILY [facility] Last Admin: 09/01/17 08:29 Dose: 40 mg Paroxetine HCl (Paxil) 40 mg PO DAILY [facility] Last Admin: 09/01/17 08:32 Dose: 40 mg Polyethylene Glycol (Miralax) 17 gm PO BID PRN PRN Reason: Constipation Last Admin: 09/01/17 08:29 Dose: 17 gm Prednisone (Prednisone Tab) 35 mg PO DAILY [facility] Last Admin: 09/01/17 08:30 Dose: 35 mg Quetiapine Fumarate (Seroquel) 50 mg PO HS [facility] Last Admin: 08/31/17 22:23 Dose: Not Given Sennosides (Senokot Tab) 17.2 mg PO HS PRN PRN Reason: Constipation Tamsulosin HCl (Flomax) 0.4 mg PO DAILY [facility] Last Admin: 09/01/17 08:25 Dose: 0.4 mg Triamcinolone Acetonide (Kenalog 0.1% Cream) 1 appl TOP Q12 [facility] Last Admin: 09/01/17 08:32 Dose: 1 appl Trimethoprim/Sulfamethoxazole (Bactrim Ds Tab) 1 tab PO DAILY [facility] PRN Reason: Protocol Last Admin: 09/01/17 08:31 Dose: 1 tab Results - Vital Signs Recent Vital Signs: Last Vital Signs Temp 98 F 09/01/17 08:38 Pulse 82 09/01/17 08:38 Resp 18 09/01/17 08:38 BP 103/67 09/01/17 08:38 Pulse Ox 94 L 09/01/17 08:38 - Labs Result Diagrams: 08/31/17 18:29 08/31/17 12:10 Labs: Laboratory Results - last 24 hr 08/31/17 08/31/17 08/31/17 11:12 12:10 12:10 WBC 4.6 L RBC 2.73 L Hgb 8.3 L Hct 25.8 L MCV 94.7 H MCH 30.4 MCHC 32.1 L RDW 27.7 H Plt Count 176 Sodium 137 Potassium 4.0 Chloride 96 L Carbon Dioxide 31 H Anion Gap 14 BUN 23 H Creatinine 0.6 L Est GFR ( Amer) > 60 Est GFR (Non-Af Amer) > 60 POC Glucose (mg/dL) 264 H Random Glucose 123 H Calcium 8.7 08/31/17 08/31/17 08/31/17 16:00 18:29 21:27 WBC 5.5 RBC 2.70 L Hgb 8.2 L Hct 25.9 L MCV 95.9 H MCH 30.2 MCHC 31.5 L RDW 27.2 H Plt Count 168 Sodium Potassium Chloride Carbon Dioxide Anion Gap BUN Creatinine Est GFR ( Amer) Est GFR (Non-Af Amer) POC Glucose (mg/dL) 307 H 253 H Random Glucose Calcium 09/01/17 06:43 WBC RBC Hgb Hct MCV MCH MCHC RDW Plt Count Sodium Potassium Chloride Carbon Dioxide Anion Gap BUN Creatinine Est GFR ( Amer) Est GFR (Non-Af Amer) POC Glucose (mg/dL) 199 H Random Glucose Calcium
[2017-09-01] MEDS ORDERED: Insulin Lispro (humaLOG) 100 Units/ml Inj SC SCH (11:30)
[2017-09-01] MEDS ORDERED: Albuterol-Ipratrop 3 mg / 0.5 (3 ml) UD INH SCH (12:00)
--- NOTE | 2017-09-01 13:16 | PN ---
DATE: 09/01/2017 ENDO FOLLOWUP NOTE LOCATION: Room 663. SUBJECTIVE: This is a 61-year-old male with recent uncontrolled type 2 insulin-requiring diabetes, now being followed closely for metabolic management. He presented here with left lower extremity laceration and is undergoing local debridement and IV antibiotic management as given. His glycemic levels are fluctuating, but improved and the latest glucose values have ranged from 199 mg/dL to 266 mg/dL. It was 253 at bedtime last night. His latest chemistries showed BUN of 23, sodium of 137, potassium of 4, chloride of 96, CO2 of , glucose of 123, and creatinine of 0.6. ASSESSMENT: This is a -61-year-old male with uncontrolled and decompensated type 2 insulin-requiring diabetes presenting here with the lower extremity laceration and supervening hyperglycemic accelerations and is now being followed closely for metabolic management. PLAN OF MANAGEMENT: We will modify once again his basal and bolus insulin regimen and increase the Humalog to 10 units subcu 3 times a day before meals to start today as ordered. We will also titrate and increase his basal insulin with Levemir to be given as 34 units subcu at bedtime daily to start tonight. We will modify the coverage scale with very low dose of Humalog coverage to obviate hypoglycemia and detailed order has been given. We will obtain serial chemistries and supplement accordingly as needed. He is also on metformin given as 1 g 2 times a day as ordered. We will obtain serial chemistries and supplement accordingly as needed. We will reinforce diabetic education and dietary instructions at the time of this admission, especially for healthier food choices and weight loss efforts as noted. We will follow. Sheryl Adams MD
--- NOTE | 2017-09-01 19:32 | CP.PCM.PN ---
Subjective - Date & Time of Evaluation Date of Evaluation: 09/01/17 Time of Evaluation: 22:22 - Subjective Subjective: Above noted Objective - Vital Signs/Intake and Output Vital Signs (last 24 hours): Temp Pulse Resp BP Pulse Ox 98 F 82 18 103/67 94 L 09/01/17 08:38 09/01/17 08:38 09/01/17 08:38 09/01/17 08:38 09/01/17 08:38 - Labs Labs: 08/31/17 18:29 08/31/17 12:10 PT 10.5 Seconds (9.8-13.1) 08/30/17 23:12 INR 1.0 (0.9-1.2) 08/30/17 23:12 APTT 28.7 Seconds (25.6-37.1) 08/30/17 23:12 - Respiratory Exam Respiratory Exam: NORMAL BREATHING PATTERN - Cardiovascular Exam Cardiovascular Exam: REGULAR RHYTHM - GI/Abdominal Exam GI & Abdominal Exam: Normal Bowel Sounds Assessment and Plan - Assessment and Plan (Free Text) Assessment: Laceration left lower extremity 2 to fall Surgery Hx Sarcoma left thigh Oncology Chronic pain Pain management Diabetes Metformin 4000?? Endo
[2017-09-01] MEDS ORDERED: Insulin Detemir 100 Units/ml Inj SC SCH (22:00)
== END 2017-09-01 12:20 | disposition home or self-care (01) ==
LOC: H.ER 22:08 → INTOOBSV 08-31 00:19 → H.ERHOLD 08-31 00:19 → H.MEDSURG1 08-31 02:14
PROVIDERS: ADMIT Family Medicine Geriatric Medicine; ATTEND Family Medicine Geriatric Medicine
DX: S81.812A Laceration without foreign body, left lower leg, initial encounter (principal); C49.22 Malignant neoplasm of connective and soft tissue of left lower limb, including hip; G89.4 Chronic pain syndrome; M54.5 Low back pain; E11.65 Type 2 diabetes mellitus with hyperglycemia; E66.01 Morbid (severe) obesity due to excess calories; Z68.41 Body mass index [BMI] 40.0-44.9, adult; W01.0XXA Fall on same level from slipping, tripping and stumbling without subsequent striking against object, initial encounter; D63.0 Anemia in neoplastic disease; C78.00 Secondary malignant neoplasm of unspecified lung; I10 Essential (primary) hypertension; E78.00 Pure hypercholesterolemia, unspecified; I87.8 Other specified disorders of veins; J45.909 Unspecified asthma, uncomplicated; F41.9 Anxiety disorder, unspecified; Z85.46 Personal history of malignant neoplasm of prostate; Z86.718 Personal history of other venous thrombosis and embolism; Z92.21 Personal history of antineoplastic chemotherapy; Z92.3 Personal history of irradiation; Z87.891 Personal history of nicotine dependence; Z79.4 Long term (current) use of insulin; Z79.01 Long term (current) use of anticoagulants; Z79.84 Long term (current) use of oral hypoglycemic drugs; Y92.9 Unspecified place or not applicable
CPT/HCPCS: 12001; 36415; 71045; 80048; 80053; 82948; 83880; 85025; 85027; 85610; 85730; 86850; 86900; 93005; 94640; 96372; 97162; 97166; 99283; G0378; G0480; G8978; G8979; G8987; G8988; J1650

== ENCOUNTER 2018-01-29 01:34 | Emergency (ER) | payer BC ==
[2018-01-29 01:59] VITALS: O2SAT 98
[2018-01-29] MEDS ORDERED: Albuterol-Ipratrop 3 mg / 0.5 (3 ml) UD INH STA ×2 (02:12)
[2018-01-29] MEDS ORDERED: Budesonide 0.25 mg/2 ml Inhal Susp UD INH STA (02:12)
[2018-01-29] MEDS ORDERED: Budesonide 0.25 mg/2 ml Inhal Susp UD ONE ×2 (02:32→02:40)
[2018-01-29] MEDS ORDERED: Albuterol-Ipratrop 3 mg / 0.5 (3 ml) UD ONE (02:33)
[2018-01-29] MEDS ORDERED: oxyCODONE 10 mg Immediate Release Tab PO STA (02:36)
[2018-01-29 02:59] LABS: VENOUS BLOOD GAS BASE EXCESS 5.7 mmol/L (0.0-2.0); VENOUS BLOOD GAS PCO2 53 mmHg (40-60); VENOUS BLOOD GAS PO2 62 mm/Hg (30-55); VENOUS BLOOD PH 7.39 (7.32-7.43)
--- NOTE | 2018-01-29 03:02 | ED PDOC ---
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 Otherwise denies fever and significant cough. PMD: Andrew Nye Oncologist: Dr. Acuña at [facility] Past Medical History Reviewed: Historical Data, Nursing Documentation, Vital Signs Vital Signs: Last Vital Signs Temp 98.3 F 01/29/18 01:54 Pulse 94 H 01/29/18 01:54 Resp 20 01/29/18 01:59 BP 123/74 01/29/18 01:54 Pulse Ox 98 01/29/18 01:59 - Medical History PMH: Anxiety, Asthma, Diabetes, Deep Vein Thrombosis, HTN, Hypercholesterolemia, Malignancy (metastatic lung cancer, sarcoma), Pulmonary Embolism, Chronic Pain Denies: Chronic Kidney Disease - Surgical History Other surgeries: removal of left thigh sarcoma. 2 lung Laparoscopy due to sarcoma - Family History Family History: States: Unknown Family Hx - Social History Ex-Smoker (has not smoked in the last 12 months): Yes Alcohol: None Drugs: Denies - Home Medications Home Medications: Ambulatory Orders Medication Instructions Recorded Albuterol HFA [Ventolin HFA 90 2 puff INH Q4 PRN 08/31/17 mcg/actuation (8 g)] Albuterol/Ipratropium [Duoneb 3 2.5 ml NEB Q4 PRN 08/31/17 mg/0.5 mg (3 ml) UD] Atorvastatin [Lipitor] 20 mg PO DAILY 08/31/17 Azithromycin [Z-Abdoulaye] 250 mg PO MW 08/31/17 Benzonatate [Tessalon Perle] 100 mg PO TID 08/31/17 Budesonide [Pulmicort Respules] 2 ml NEB BID 08/31/17 Celecoxib [celeBREX] 100 mg PO DAILY PRN 08/31/17 Codeine Phosphate/Guaifenesin 10 ml PO Q4 PRN 08/31/17 [Codeine-Guaifen 10-100 mg/5 ml] Docusate Sodium [Roberts' 100 mg PO TID 08/31/17 Laxative] Empagliflozin [Jardiance] 10 mg PO DAILY 08/31/17 Enoxaparin Sodium 40 mg SUBCON Q12 08/31/17 Insulin Aspart [Novolog Flexpen] 0 - 12 units SUBCON TID 08/31/17 Insulin Glargine, Recombina 32 units SUBCON HS 08/31/17 [Lantus] Ipratropium [Atrovent HFA] 17 mcg INH Q6 PRN 08/31/17 LORazepam [Ativan] 0.5 mg PO BID PRN 08/31/17 Liraglutide [Saxenda] 18 mg SUBCUT DAILY 08/31/17 MetFORMIN [glucoPHAGE] 2,000 mg PO DAILY 08/31/17 Montelukast [Singulair] 10 mg PO DAILY 08/31/17 Nystatin [Nystop Topical Powder] 100,000 units TOP Q6 08/31/17 Ondansetron [Zofran Tab] 8 mg PO TID PRN 08/31/17 Oxybutynin [Ditropan Tab] 5 mg PO DAILY 08/31/17 PARoxetine [Paxil] 40 mg PO DAILY 08/31/17 Pantoprazole [Protonix EC Tab] 40 mg PO DAILY 08/31/17 Polyethylene Glycol 3350 [Miralax] 17 gm PO BID 08/31/17 Prednisone 35 mg PO DAILY 08/31/17 QUEtiapine [SEROquel] 50 mg PO HS 08/31/17 Sennosides [Senna] 17.2 mg PO HS 08/31/17 Sulfamethoxazole/Trimethoprim 1 tab PO DAILY 08/31/17 [Bactrim DS Tab] Tamsulosin [Flomax] 0.4 mg PO DAILY 08/31/17 Triamcinolone 0.1% [Triamcinolone 1 appl TOP Q12 08/31/17 0.1% Cream] buPROPion [Wellbutrin] 50 mg PO Q12 08/31/17 oxyCODONE [oxyCODONE Immediate 20 mg PO Q4 PRN 08/31/17 Release Tab] oxyCODONE [oxyCONTIN Extended 40 mg PO Q12 08/31/17 Release Tab] Cephalexin [Keflex] 500 mg PO Q8 #15 cap 09/01/17 Enoxaparin [Lovenox] 40 mg SC Q12 syr 09/01/17 Lactobacillus Acidophilus [Bacid 1 cap PO BID #10 cap 09/01/17 Acidophilus] - Allergies Allergies/Adverse Reactions: Allergies Allergy/AdvReac Type Severity Reaction Status Date / Time DOXYTACIL Allergy ANAPHYLAXIS Uncoded 08/30/17 22:18 Review of Systems ROS Statement: Except As Marked, All Systems Reviewed And Found Negative Constitutional: Negative for: Fever Cardiovascular: Positive for: Other (chest tightness) Respiratory: Positive for: Shortness of Breath. Negative for: Cough Psych: Positive for: Anxiety Physical Exam - Reviewed Nursing Documentation Reviewed: Yes Vital Signs Reviewed: Yes - Physical Exam Appears: Positive for: No Acute Distress (but obese) Head Exam: Positive for: ATRAUMATIC, NORMOCEPHALIC Skin: Positive for: Normal Color Eye Exam: Positive for: Normal appearance ENT: Positive for: Normal ENT Inspection Neck: Positive for: Normal, Painless ROM, Supple Cardiovascular/Chest: Positive for: Regular Rate, Rhythm Respiratory: Positive for: Wheezing (best heard anteriorly bilaterally). Negative for: Respiratory Distress (speaking in full sentences) Gastrointestinal/Abdominal: Positive for: Normal Exam, Soft. Negative for: Tenderness Extremity: Positive for: Normal ROM. Negative for: Calf Tenderness Neurologic/Psych: Positive for: Alert, Oriented (x3) - Laboratory Results Result Diagrams: 01/29/18 02:50 01/29/18 02:50 - ECG ECG: Positive for: Interpreted By Me, Viewed By Me ECG Rhythm: Positive for: Sinus Rhythm (normal at 94bpm) Interpretation Of ECG: t wave inversion in avl O2 Sat by Pulse Oximetry: 98 (RA) Pulse Ox Interpretation: Normal Medical Decision Making Medical Decision Making: A/P: pt with hx of metastatic lung cancer, sarcoma, and PE presenting with SOB -- comfortable appearing, vitals currently stable --ddx includes: asthma vs URI vs anxiety vs possible PE Time: 211 Initial Plan: --VBG --EKG --BMP --Trop I --D Dimer --PT / PTT --Duoneb 3ml INH x2 --Budesonide 0.5mg INH --Percocet 20mg PO --Peak flow pre/post --Urinalysis --Reevaluation 6AM --Labwork shows normal testing, no evidence of PE or acute pathology --Patient is feeling better, no longer wheezing, breathing better --Advised patient to followup today at [facility] for re-eval and potential medi-port placement --Well appearing with normal vitals upon discharge Scribe Attestation: Documented by Georgina Díaz, acting as a scribe for Guero Morris MD. Provider Scribe Attestation: All medical record entries made by the Scribe were at my direction and personally dictated by me. I have reviewed the chart and agree that the record accurately reflects my personal performance of the history, physical exam, medi vanessa decision making, and the department course for this patient. I have also personally directed, reviewed, and agree with the discharge instructions and disposition. Disposition - Clinical Impression Clinical Impression: Dyspnea - Disposition Referrals: Andrew Nye MD [Staff Provider] - Disposition Time: 06:00 Condition: STABLE Additional Instructions: Please followup with [facility] today for your medi-port placement. Instructions: Shortness of Breath (Dyspnea) (DC) Forms: [employer] (Dominican)
[2018-01-29 03:22] LABS: BASO % 0.3 % (0.0-2.0); EOS % 0.1 % (0.0-4.0); HEMOGLOBIN 12.4 g/dL (12.0-18.0); LYMPH # 0.3 K/uL (1.0-4.3); LYMPH % 3.6 % (20.0-40.0); MEAN CORPUSCULAR HEMOGLOBIN 28.4 pg (27.0-31.0); MEAN CORPUSCULAR HGB CONC 32.2 g/dL (33.0-37.0); MEAN PLATELET VOLUME 9.4 fl (7.2-11.7); MONO # 0.3 K/uL (0.0-0.8); MONO % 4.9 % (0.0-10.0); NEUT # 6.3 K/uL (1.8-7.0); NEUT % 91.1 % (50.0-75.0); NRBC % 0.1 % (0.0-0.0); PLATELET COUNT 155 K/uL (130-400); RBC 4.35 Mil/uL (4.40-5.90); RED CELL DISTRIBUTION WIDTH 18.3 % (11.5-14.5); WHITE BLOOD COUNT 6.9 K/uL (4.8-10.8)
[2018-01-29 03:24] LABS: PROTHROMBIN TIME 10.6 Seconds (9.8-13.1)
[2018-01-29] MEDS ORDERED: Insulin Regular 100 units/ml SC STA (03:24)
[2018-01-29] MEDS ORDERED: oxyCODONE 10 mg Immediate Release Tab PO PRN (03:24)
[2018-01-29 03:26] LABS: PARTIAL THROMBOPLASTIN TIME 29.5 Seconds (25.6-37.1)
[2018-01-29 03:27] LABS: BLOOD UREA NITROGEN 24 mg/dl (9-20); GFR NON-AFRICAN AMERICAN > 60
[2018-01-29 03:28] LABS: D DIMER < 200 ng/mlDDU (0-230)
[2018-01-29 03:56] LABS: B-TYPE NATRIURETIC PEPTIDE 340 pg/ml (0-900)
[2018-01-29] MEDS ORDERED: Levalbuterol 1.25 MG/3 ML Inhal Soln UD INH ONE (04:50)
[2018-01-29 05:34] LABS: URINE BILIRUBIN NEGATIVE (NEGATIVE); URINE BLOOD NEGATIVE (NEGATIVE); URINE CLARITY CLEAR (Clear); URINE COLOR STRAW (YELLOW); URINE GLUCOSE (UA) >=500 mg/dL (Normal); URINE LEUKOCYTE ESTERASE NEG Leu/uL (Negative); URINE PROTEIN 30 mg/dL (NEGATIVE); URINE UROBILINOGEN 0.2-1.0 mg/dL (0.2-1.0)
[2018-01-29 05:41] LABS: ANISOCYTOSIS SLIGHT; BANDS 2 % (0-2); BASOPHIL 1 % (0-2); HYPOCHROMIC SLIGHT; LYMPHOCYTE 2 % (20-50); MONOCYTE 4 % (0-10); NEUTROPHIL 91 % (42-75); OVALOCYTES SLIGHT; PLATELET ESTIMATE NORMAL (NORMAL); TOTAL CELLS COUNTED 100
[2018-01-29 06:14] VITALS: BP 118/68; PULSE 86; RESP 21; TEMP 98.4
--- NOTE | 2018-01-29 10:41 | RAD ---
Date of service: 01/29/2018 HISTORY: SOB COMPARISON: Frontal chest radiograph 08/31/2017. FINDINGS: LUNGS: Right lung remains clear diffusely. Left lung volume loss is reiterated with chronic fibrosis or pleural effusion blunts the left costophrenic sulcus once again. PLEURA: No significant pleural effusion identified, no pneumothorax apparent. CARDIOVASCULAR: Somewhat distorted but stable mediastinal silhouette related to elevated left hemidiaphragm/volume loss left lung OSSEOUS STRUCTURES: No significant abnormalities. VISUALIZED UPPER ABDOMEN: Normal. OTHER FINDINGS: Unchanged in the interval. IMPRESSION: Chronic volume loss left lung with fibrosis or possible pleural effusion blunting left costophrenic sulcus reiterated. No definite pulmonary vascular congestion. Right lung remains clear.
--- NOTE | 2018-01-29 14:51 | CARD ---
APPROVED REPORT Date of service: 01/29/2018 EKG Measurement Heart [id number] <Conclusion> Normal sinus rhythm Left anterior fascicular block Inferior infarct, age undetermined Abnormal ECG
== END 2018-01-29 06:58 | disposition home or self-care (01) ==
LOC: H.ER 01:34
DX: R06.00 Dyspnea, unspecified (principal); C34.90 Malignant neoplasm of unspecified part of unspecified bronchus or lung; E78.00 Pure hypercholesterolemia, unspecified; F41.9 Anxiety disorder, unspecified; Z79.4 Long term (current) use of insulin; Z86.718 Personal history of other venous thrombosis and embolism

== ENCOUNTER 2018-06-26 13:48 | Inpatient (IN) | payer BC ==
[2018-06-26] MEDS ORDERED: oxyCODONE 10 mg ER Tab (oxyCONTIN) PO STA (15:23)
--- NOTE | 2018-06-26 15:49 | ED PDOC ---
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 Yan Acuña. Patient reports throat pain since yesterday, states he was informed oral thrush is a side effect of his medications and is concerned his symptom is related tot hat. Patient also states he is non-compliant with his medication, has not taken his prednisone or lasix. Patient states for the throat pain, he took methadone 2x this morning, then when pain worsened took 2 30mg oxycodone with no relief, prompting ER visit. Patient also reports some nasal irritation, and took Claritin and Benadryl at home. Patient states since he was missing his water pills, he now has developed weeping wounds to his legs. Patient is concerned with medication list and going over each individual medication and wanting to know what he can and cannot take. No fever, chills, chest pain or other complaints. PMD: Dr. Bardales Past Medical History Reviewed: Historical Data, Nursing Documentation, Vital Signs Vital Signs: Last Vital Signs Temp 98.3 F 06/26/18 13:53 Pulse 108 H 06/26/18 13:53 Resp 20 06/26/18 13:53 BP 129/69 06/26/18 13:53 Pulse Ox 100 06/26/18 13:53 - Medical History PMH: Anxiety, Asthma, Diabetes, Deep Vein Thrombosis, HTN, Hypercholesterolemia, Malignancy (metastatic lung cancer, sarcoma), Pulmonary Embolism, Chronic Pain Denies: Chronic Kidney Disease - Surgical History Surgical History: No Surg Hx - Family History Family History: States: Unknown Family Hx - Social History Current smoker - smoking cessation education provided: No Alcohol: None Drugs: Denies - Immunization History Hx Tetanus Toxoid Vaccination: No Hx Influenza Vaccination: No Hx Pneumococcal Vaccination: No - Home Medications Home Medications: Ambulatory Orders Medication Instructions Recorded Albuterol HFA [Ventolin HFA 90 2 puff INH Q4 PRN 08/31/17 mcg/actuation (8 g)] Albuterol/Ipratropium [Duoneb 3 3 ml IH Q6 PRN 08/31/17 mg/0.5 mg (3 ml) UD] Atorvastatin [Lipitor] 20 mg PO DAILY 08/31/17 Azithromycin [Z-Abdoulaye] 250 mg PO MWF 08/31/17 Docusate Sodium [Roberts' 100 mg PO Q8 PRN 08/31/17 Laxative] Empagliflozin [Jardiance] 10 mg PO DAILY 08/31/17 LORazepam [Ativan] 0.5 mg PO BID PRN 08/31/17 Montelukast [Singulair] 10 mg PO DAILY 08/31/17 PARoxetine [Paxil] 40 mg PO DAILY 08/31/17 Pantoprazole [Protonix EC Tab] 40 mg PO DAILY 08/31/17 Polyethylene Glycol 3350 [Miralax] 17 gm PO BID PRN 08/31/17 Sennosides [Senna] 8.6 mg PO BID PRN 08/31/17 Sulfamethoxazole/Trimethoprim 1 tab PO [facility] 08/31/17 [Bactrim DS Tab] Tamsulosin [Flomax] 0.4 mg PO DAILY 08/31/17 Triamcinolone 0.1% [Triamcinolone 1 appl TOP Q12 08/31/17 0.1% Cream] Enoxaparin [Lovenox] 40 mg SC Q12 syr 09/01/17 Bisacodyl [Dulcolax] 10 mg PO DAILY PRN 06/26/18 Budesonide [Pulmicort Respules] 0.5 mg IH Q12 06/26/18 Fluticasone Nasal [Flonase] 2 spray TIM DAILY 06/26/18 Furosemide [Lasix] 20 mg PO DAILY 06/26/18 Guaifenesin [Mucinex] 600 mg PO Q12 PRN 06/26/18 Insulin Glargine, Recombina 26 unit SC DAILY 06/26/18 [Lantus] Insulin Lispro [humALOG] 12 unit SC DAILY 06/26/18 Lactulose [Generlac] 30 ml PO DAILY PRN 06/26/18 Lidocaine 5% [Lidoderm] 1 patch TD DAILY PRN 06/26/18 Liraglutide [Victoza 2-Abdoulaye] 1.8 mg SC DAILY 06/26/18 MetFORMIN ER [Glucophage XR] 1,000 mg PO DAILY 06/26/18 Methadone 25 mg PO Q12 06/26/18 Ondansetron ODT [Zofran ODT] 8 mg PO Q8 PRN 06/26/18 Oxybutynin XL [Ditropan XL] 5 mg PO DAILY 06/26/18 Prochlorperazine [Compazine] 10 mg PO Q6 PRN 06/26/18 oxyCODONE [oxyCODONE Immediate 60 mg PO Q4 PRN 06/26/18 Release Tab] predniSONE [predniSONE Tab] 35 mg PO DAILY 06/26/18 traZODone [Desyrel] 50 mg PO HS 06/26/18 - Allergies Allergies/Adverse Reactions: Allergies Allergy/AdvReac Type Severity Reaction Status Date / Time DOXYTACIL Allergy ANAPHYLAXIS Uncoded 08/30/17 22:18 Review of Systems ROS Statement: Except As Marked, All Systems Reviewed And Found Negative Constitutional: Negative for: Fever, Chills ENT: Positive for: Throat Pain Cardiovascular: Negative for: Chest Pain Respiratory: Positive for: Shortness of Breath Physical Exam - Reviewed Nursing Documentation Reviewed: Yes Vital Signs Reviewed: Yes (vitals stable, O2 via NC, sitting upright) - Physical Exam Appears: Positive for: Non-toxic Head Exam: Positive for: ATRAUMATIC, NORMAL INSPECTION, NORMOCEPHALIC Skin: Positive for: Normal Color Eye Exam: Positive for: EOMI, PERRL ENT: Positive for: Other (beefy red ooropharynx, no white plaques noted). Negative for: Tonsillar Swelling Neck: Positive for: Supple Cardiovascular/Chest: Positive for: Regular Rate, Rhythm, Other (observable asymmetry with left side of neck and chest being greater than right) Respiratory: Positive for: Crackles (mild bilaterally). Negative for: Wheezing Gastrointestinal/Abdominal: Positive for: Normal Exam, Soft. Negative for: Tenderness Extremity: Positive for: Other (difficulty to visualize & examine asa patient is wearing pants and socks) Neurological/Psych: Positive for: Awake, Oriented (x 3) - Laboratory Results Result Diagrams: 06/26/18 16:58 06/26/18 16:58 - ECG O2 Sat by Pulse Oximetry: 100 (RA) Pulse Ox Interpretation: Normal Medical Decision Making Medical Decision Making: Patient to be given lasix in ER, agreeable Symptoms likely due to fluid overload Patient agrees to take one oxycodone for pain management, per pain protocol; will only get more if pain is unrelieved. -- Chest x-ray -- EKG -- labs Likely shortness of breath, fluid overload vs. infection vs. progression of metastatic cancer Will consult with Dr. Bardales [id number] Labs reviewed. Case discussed with Dr. Bardales, who is agreeable with plan for admission; Dr. Barnett for heme-onc consult. Discussed with Dr. Barnett regarding plan, patient to be given magic mouthwash with nystatin; order placed as recommended. Plan for admission discussed with patient, who is agreeable. Scribe Attestation: Documented by Katie Aceves acting as a scribe for Yi Booth MD. Provider Attestation: All medical record entries made by the Scribe were at my direction and personally dictated by me. I have reviewed the chart and agree that the record accurately reflects my personal performance of the history, physical exam, medical decision making, and the department course for this patient. I have also personally directed, reviewed, and agree with the discharge instructions and disposition. Disposition - Clinical Impression Clinical Impression: Sore throat, Cancer associated pain - Disposition Disposition Time: 17:51 Condition: GUARDED
[2018-06-26] MEDS ORDERED: oxyCODONE 10 mg ER Tab (oxyCONTIN) PO ONE (16:03)
[2018-06-26] MEDS ORDERED: Morphine 4 MG/ML VIAL IVP ONE ×2 (16:19→18:17)
[2018-06-26] MEDS ORDERED: Morphine 4 MG/ML VIAL ONE ×2 (16:52→18:24)
[2018-06-26 17:00] LABS: VENOUS BLOOD GAS BASE EXCESS 10.4 mmol/L (0.0-2.0); VENOUS BLOOD GAS PCO2 59 mmHg (40-60); VENOUS BLOOD GAS PO2 46 mm/Hg (30-55); VENOUS BLOOD PH 7.41 (7.32-7.43)
[2018-06-26 17:07] LABS: BASO % 0.5 % (0.0-2.0); EOS % 0.5 % (0.0-4.0); HEMOGLOBIN 9.8 g/dL (12.0-18.0); LYMPH # 0.3 K/uL (1.0-4.3); LYMPH % 5.9 % (20.0-40.0); MEAN CELL VOLUME 80.3 fl (80.0-94.0); MEAN CORPUSCULAR HEMOGLOBIN 25.5 pg (27.0-31.0); MEAN CORPUSCULAR HGB CONC 31.7 g/dL (33.0-37.0); MEAN PLATELET VOLUME 7.9 fl (7.2-11.7); MONO # 0.2 K/uL (0.0-0.8); MONO % 4.3 % (0.0-10.0); NEUT # 3.8 K/uL (1.8-7.0); NEUT % 88.8 % (50.0-75.0); NRBC % 0.1 % (0.0-0.0); PLATELET COUNT 154 K/uL (130-400); RBC 3.87 Mil/uL (4.40-5.90); RED CELL DISTRIBUTION WIDTH 18.7 % (11.5-14.5); WHITE BLOOD COUNT 4.3 K/uL (4.8-10.8)
[2018-06-26] MEDS ORDERED: Albuterol-Ipratrop 3 mg / 0.5 (3 ml) UD INH STA (17:10)
[2018-06-26] MEDS ORDERED: Albuterol-Ipratrop 3 mg / 0.5 (3 ml) UD ONE (17:21)
[2018-06-26 17:22] LABS: ALB/GLOB RATIO 1.3 (1.0-2.1); ALBUMIN 3.4 g/dL (3.5-5.0); ALT/SGPT 25 U/L (21-72); AST/SGOT 27 U/L (17-59); BLOOD UREA NITROGEN 12 mg/dl (9-20); CALCIUM 8.9 mg/dL (8.4-10.2); GFR NON-AFRICAN AMERICAN > 60
[2018-06-26] MEDS ORDERED: Potassium CL 10 MEQ/50 ML 50 ML ONE (17:22)
[2018-06-26] MEDS ORDERED: Potassium CL 10 MEQ/50 ML 50 ML IVPB STA (17:29)
[2018-06-26 17:33] LABS: B-TYPE NATRIURETIC PEPTIDE 684 pg/ml (0-900)
[2018-06-26] MEDS ORDERED: Nystatin 100,000 Units/ml Oral Susp 5 ml UD PO STA (17:48)
--- NOTE | 2018-06-26 17:48 | RAD ---
Date of service: 06/26/2018 HISTORY: possible admission COMPARISON: 01/29/2018 single-view chest FINDINGS: LUNGS: Progressive opacification of the left hemithorax. Underlying mass occupies most of the left hemithorax displacing mediastinal structures to the right. There is a component of volume loss in the left lung. PLEURA: Left pleural effusion inseparable from consolidative changes in the left lung. CARDIOVASCULAR: No atherosclerotic calcification present No radiographic findings to suggest acute or significant cardiovascular disease. Venous access catheter in satisfactory position. OSSEOUS STRUCTURES: No significant abnormalities. VISUALIZED UPPER ABDOMEN: Normal. OTHER FINDINGS: None. IMPRESSION: Progressive changes in the left hemithorax primarily related to increase in size of the left upper lobe mass. Progressive shift of mediastinal structures to the contralateral side. Satisfactory position venous access catheter right IJ approach representing a new finding compared to the prior study.
[2018-06-26] MEDS ORDERED: Mag&Al/Simet/Diphen/Lido 237 ML KIT PO STA (17:49)
[2018-06-26] MEDS ORDERED: Potassium CL 10 MEQ/50 ML 50 ML IVPB SCH (18:00)
--- NOTE | 2018-06-26 18:29 | CP.PCM.PN ---
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 admitted for sore throat Objective - Vital Signs/Intake and Output Vital Signs (last 24 hours): Temp Pulse Resp BP Pulse Ox 98.3 F 108 H 20 129/69 100 06/26/18 13:53 06/26/18 13:53 06/26/18 13:53 06/26/18 13:53 06/26/18 17:52 - Medications Medications: Current Medications Potassium Chloride (Potassium Cl 10meq/50ml Sterile Water) 50 mls @ 50 mls/hr IVPB STAT STA Stop: 06/26/18 18:28 Morphine Sulfate (Morphine) 4 mg IVP ONCE ONE Stop: 06/26/18 18:18 - Labs Labs: 06/26/18 16:58 06/26/18 16:58 - Respiratory Exam Respiratory Exam: NORMAL BREATHING PATTERN - Cardiovascular Exam Cardiovascular Exam: Tachycardia - GI/Abdominal Exam GI & Abdominal Exam: Normal Bowel Sounds Assessment and Plan - Assessment and Plan (Free Text) Assessment: Mucositis/ Thrush Sore throat 2 to chemotherapy Oncology Topical Prostate cancer / sarcoma with metastatic dx to the lung Hx COPD Asthma [facility] Chronic pain Pain management consult
[2018-06-26 19:30] LABS: BANDS 2 % (0-2); BASOPHIL 1 % (0-2); EOSINOPHIL 2 % (0-7); LYMPHOCYTE 7 % (20-50); MONOCYTE 5 % (0-10); NEUTROPHIL 83 % (42-75); PLATELET ESTIMATE NORMAL (NORMAL); TOTAL CELLS COUNTED 100
[2018-06-26 19:31] LABS: ANISOCYTOSIS SLIGHT; HYPOCHROMIC SLIGHT; MICROCYTOSIS SLIGHT; POIKILOCYTOSIS SLIGHT
[2018-06-26 20:23] LABS: SQUAMOUS EPITHIAL < 1 /hpf (0-5); URINE BILIRUBIN NEGATIVE (NEGATIVE); URINE BLOOD NEGATIVE (NEGATIVE); URINE CLARITY CLOUDY (Clear); URINE COLOR AMBER (YELLOW); URINE GLUCOSE (UA) NEG (NEGATIVE); URINE LEUKOCYTE ESTERASE NEG Leu/uL (Negative); URINE PROTEIN 30 mg/dL (NEGATIVE)
--- NOTE | 2018-06-26 21:37 | CP.PCM.CON ---
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 The patient recently began a new chemotherapy this past Monday and notes to worsening sores in his mouth over the past 1-2 days. He also admits to sore throat but denies fevers and chills. He has chronic shortness of breath which requires oxygen (4L). In regards to his sarcoma history, he was diagnosed with a left thigh sarcoma during prostate cancer staging. He underwent sarcoma treatment for localized disease but was found to have lung metastasis shortly after tumor resection. He underwent radiation and lung resection for oligometastatic disease but unfortunately was later found to have more pronounced lung metastasis and was placed on systemic therapy. 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 Past surgical history: Left thigh sarcoma resection Family history: Father had prostate cancer Social history: Denies tobacco, alcohol, and illicit drug use. Allergies: Docetaxel Review of systems: All remaining review of systems including HEENT, cardiovascular, respiratory, gastrointestinal, genitourinary, musculoskeletal, dermatologic, neurologic, and psychiatric are negative unless mentioned in the HPI. Past Patient History - Past Medical History & Family History Past Medical History?: Yes - Past Social History Alcohol: None Drugs: Denies - CARDIAC Hx Hypercholesterolemia: Yes Hx Hypertension: Yes - PULMONARY Hx Asthma: Yes Hx Pulmonary Embolism: Yes - RENAL Hx Chronic Kidney Disease: No - ENDOCRINE/METABOLIC Hx Diabetes Mellitus Type 2: Yes - HEMATOLOGICAL/ONCOLOGICAL Hx Blood Disorders: Yes - MUSCULOSKELETAL/RHEUMATOLOGICAL Hx Musculoskeletal Disorders: Yes Hx Falls: No Other/Comment: 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 2 lung Laparoscopy due to sarcoma - ANESTHESIA Hx Anesthesia: Yes Hx Anesthesia Reactions: No Meds Allergies/Adverse Reactions: Allergies Allergy/AdvReac Type Severity Reaction Status Date / Time DOXYTACIL Allergy ANAPHYLAXIS Uncoded 05/16/18 22:18 Physical Exam - Head Exam Head Exam: ATRAUMATIC - Eye Exam Eye Exam: Normal appearance - ENT Exam ENT Exam: Mucous Membranes Dry - Respiratory Exam Respiratory Exam: NORMAL BREATHING PATTERN - Cardiovascular Exam Cardiovascular Exam: +S1, +S2 - GI/Abdominal Exam GI & Abdominal Exam: Normal Bowel Sounds - Neurological Exam Neurological exam: Oriented x3 - Psychiatric Exam Psychiatric exam: Normal Affect, Normal Mood - Skin Skin Exam: Warm Results - Vital Signs Recent Vital Signs: Last Vital Signs Temp 98.3 F 06/26/18 13:53 Pulse 102 H 06/26/18 20:23 Resp 18 06/26/18 20:23 BP 114/70 06/26/18 20:23 Pulse Ox 100 06/26/18 20:23 - Labs Result Diagrams: 06/26/18 16:58 06/26/18 16:58 Labs: Laboratory Results - last 24 hr 06/26/18 06/26/18 06/26/18 16:45 16:58 16:58 WBC 4.3 L RBC 3.87 L Hgb 9.8 L D Hct 31.1 L MCV 80.3 D MCH 25.5 L MCHC 31.7 L RDW 18.7 H Plt Count 154 MPV 7.9 Neut % (Auto) 88.8 H Lymph % (Auto) 5.9 L [place] % (Auto) 4.3 Eos % (Auto) 0.5 Baso % (Auto) 0.5 Neut # (Auto) 3.8 Lymph # (Auto) 0.3 L [place] # (Auto) 0.2 Eos # (Auto) 0.0 Baso # (Auto) 0.0 Neutrophils % (Manual) 83 H Band Neutrophils % 2 Lymphocytes % (Manual) 7 L Monocytes % (Manual) 5 Eosinophils % (Manual) 2 Basophils % (Manual) 1 Platelet Estimate Normal Hypochromasia (manual) Slight Poikilocytosis (manual Slight Anisocytosis (manual) Slight Microcytosis (manual) Slight pO2 46 VBG pH 7.41 VBG pCO2 59 VBG HCO3 32.6 VBG Total CO2 39.2 H VBG O2 Sat (Calc) 87.3 H VBG Base Excess 10.4 H VBG Potassium 3.1 L Sodium 134.0 133 Chloride 97.0 L 93 L Glucose 82 Lactate 1.0 FiO2 21.0 Potassium 3.2 L Carbon Dioxide 34 H Anion Gap 9 L BUN 12 Creatinine 0.6 L Est GFR ( Amer) > 60 Est GFR (Non-Af Amer) > 60 Random Glucose 80 Calcium 8.9 Total Bilirubin 0.7 AST 27 ALT 25 Alkaline Phosphatase 55 Troponin I < 0.0120 NT-Pro-B Natriuret Pep 684 Total Protein 6.1 L Albumin 3.4 L Globulin 2.7 Albumin/Globulin Ratio 1.3 Venous Blood Potassium 3.1 L Urine Color Urine Clarity Urine pH Ur Specific [place] Urine Protein Urine Glucose (UA) Urine Ketones Urine Blood Urine Nitrate Urine Bilirubin Urine Urobilinogen Ur Leukocyte Esterase Urine RBC (Auto) Urine Microscopic WBC Ur Squamous Epith Cells Influenza Typ A,B (EIA) Grp A Beta Strep Ag 06/26/18 06/26/18 06/26/18 19:50 19:50 19:50 WBC RBC Hgb Hct MCV MCH MCHC RDW Plt Count MPV Neut % (Auto) Lymph % (Auto) [place] % (Auto) Eos % (Auto) Baso % (Auto) Neut # (Auto) Lymph # (Auto) [place] # (Auto) Eos # (Auto) Baso # (Auto) Neutrophils % (Manual) Band Neutrophils % Lymphocytes % (Manual) Monocytes % (Manual) Eosinophils % (Manual) Basophils % (Manual) Platelet Estimate Hypochromasia (manual) Poikilocytosis (manual Anisocytosis (manual) Microcytosis (manual) pO2 VBG pH VBG pCO2 VBG HCO3 VBG Total CO2 VBG O2 Sat (Calc) VBG Base Excess VBG Potassium Sodium Chloride Glucose Lactate FiO2 Potassium Carbon Dioxide Anion Gap BUN Creatinine Est GFR ( Amer) Est GFR (Non-Af Amer) Random Glucose Calcium Total Bilirubin AST ALT Alkaline Phosphatase Troponin I NT-Pro-B Natriuret Pep Total Protein Albumin Globulin Albumin/Globulin Ratio Venous Blood Potassium Urine Color [place] Urine Clarity Cloudy Urine pH 6.0 Ur Specific [place] 1.019 Urine Protein 30 Urine Glucose (UA) Neg Urine Ketones 20 Urine Blood Negative Urine Nitrate Negative Urine Bilirubin Negative Urine Urobilinogen 4.0 Ur Leukocyte Esterase Neg Urine RBC (Auto) 1 Urine Microscopic WBC 3 Ur Squamous Epith Cells < 1 Influenza Typ A,B (EIA) Negative for flu a/b Grp A Beta Strep Ag Negative Assessment & Plan (1) Mucositis Assessment and Plan: secondary to chemotherapy will start magic mouth wash + nystatin to cover for oral thrush IV fluids PRN if unable to tolerate much PO Status: Acute (2) Leukopenia Assessment and Plan: secondary to chemotherapy no current neutropenia Status: Acute (3) Anemia Assessment and Plan: chronic disease from malignancy anemia of chemotherapy no current transfusion requirement Status: Acute (4) Sarcoma Assessment and Plan: lung metastasis requires home oxygen outpatient chemotherapy with primary oncologist Status: Acute (5) History of DVT (deep vein thrombosis) Assessment and Plan: anticoagulation complicated by retroperitoneal bleeding okay to use DVT prophylaxis Thank you for this interesting consult. Status: Acute
[2018-06-26] MEDS ORDERED: Albuterol-Ipratrop 3 mg / 0.5 (3 ml) UD IH PRN (22:59)
[2018-06-26] MEDS ORDERED: Bisacodyl 5mg EC Tab PO PRN (22:59)
[2018-06-26] MEDS ORDERED: guaiFENesin 600 mg ER Tab PO PRN (23:00)
[2018-06-26] MEDS ORDERED: Lactulose 10 gm/15 ml (Rectal Use) PR PRN (23:02)
[2018-06-26] MEDS ORDERED: POLYETHYLENE GLYCOL 3350 17 GM/Dose PACKET PO PRN (23:02)
[2018-06-26] MEDS ORDERED: oxyCODONE 10 mg Immediate Release Tab PO PRN (23:18)
[2018-06-26] MEDS: oxyCODONE 10 mg Immediate Release Tab PO SCH (23:29)
--- NOTE | 2018-06-27 04:19 | CON ---
DATE: 06/26/2018 ENDOCRINOLOGY CONSULT LOCATION: Room 416. HISTORY OF PRESENT ILLNESS: This is a 62-year-old male with known history of type 2 insulin-requiring diabetes, presenting here with progressive shortness of breath and generalized body weakness and is now being referred for diabetic evaluation and management. 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 [place]. History of hypertension and dyslipidemia, history of generalized anxiety and depression, history of deep vein thrombosis and pulmonary embolism, on oral anticoagulant therapy. History of asthmatic bronchitis. FAMILY HISTORY: Positive for hypertension and heart disease. SOCIAL HISTORY: The patient has a supportive family. No known substance use. REVIEW OF SYSTEMS: As mentioned above. Admits to generalized body weakness with progressive bouts of dizziness and lightheadedness and suboptimal energy level. Also admits to episodic bifrontal headaches as noted. No chest pains, but admits to progressive shortness of breath initially on exertion and then at rest with paroxysmal nocturnal dyspnea. His oral intake has been variable with nausea, dyspepsia and vague upper abdominal pains. He denies any recent alterations of bowel and urinary patterns. PHYSICAL EXAMINATION: GENERAL: This is an average-built male in no apparent distress. VITAL SIGNS: Blood pressure of 150/90, pulse of 100 beats per minute and regular, temperature 98, respirations 20, height is 5 feet 10 inches. Weight is 300 pounds. HEENT: Head normocephalic. Eyes anicteric with pink conjunctivae. Funduscopy not possible at this time. Ears, nose, and throat otherwise normal. NECK: Supple. Thyroid gland is normal size. No carotid bruits or any cervical adenopathy. CARDIOPULMONARY: Some adynamic precordium. S1, S2. Rapid and regular. LUNGS: Show scattered rhonchi. ABDOMEN: Obese, soft with positive bowel sounds. EXTREMITIES: There is +1 bipedal edema. Pulses are +2 bilaterally. LABORATORY DATA: His chemistry showed a BUN of 12, sodium 133, potassium 3.2, chloride 93, CO2 of 34, glucose 80 and creatinine 0.6. His random glucose was 116. ASSESSMENT: This is a 62-year-old male with uncontrolled type 2 insulin-requiring diabetes with variable oral intake, presenting here with progressive shortness of breath and on the background of underlying metastatic lung carcinoma with known history of sarcoma and recent chemotherapy given. PLAN OF MANAGEMENT: We will modify his current insulin regimen because of the suboptimal meal portions at this time. We will lower the Levemir to 14 units subcu at bedtime daily to start tomorrow night. We will lower the Humalog to 4 units t.i.d. before meals to start tomorrow morning as ordered. We will also modify his coverage scale using a very low-dose algorithm with Humalog insulin as given. Hemoglobin A1c will be done to confirm his prior glycemic control and baseline thyroid function studies and a lipid panel will be ordered. We will continue the IV hydration as given and also obtain serial chemistries and supplement accordingly as needed. We will follow. Sheryl Adams MD
[2018-06-27 05:55] LABS: ALB/GLOB RATIO 1.3 (1.0-2.1); ALBUMIN 3.5 g/dL (3.5-5.0); ALT/SGPT 29 U/L (21-72); AST/SGOT 32 U/L (17-59); BLOOD UREA NITROGEN 11 mg/dl (9-20); GFR NON-AFRICAN AMERICAN > 60; HDL CHOLESTEROL 48 MG/DL (30-70)
[2018-06-27 05:56] LABS: BASO % 0.4 % (0.0-2.0); EOS % 0.6 % (0.0-4.0); HEMOGLOBIN 10.1 g/dL (12.0-18.0); LYMPH # 0.2 K/uL (1.0-4.3); MEAN CELL VOLUME 81.3 fl (80.0-94.0); MEAN CORPUSCULAR HEMOGLOBIN 25.5 pg (27.0-31.0); MEAN CORPUSCULAR HGB CONC 31.3 g/dL (33.0-37.0); MEAN PLATELET VOLUME 8.5 fl (7.2-11.7); MONO # 0.2 K/uL (0.0-0.8); MONO % 4.4 % (0.0-10.0); NEUT # 3.6 K/uL (1.8-7.0); NEUT % 88.6 % (50.0-75.0); NRBC % 0.1 % (0.0-0.0); RBC 3.98 Mil/uL (4.40-5.90); RED CELL DISTRIBUTION WIDTH 18.7 % (11.5-14.5); WHITE BLOOD COUNT 4.1 K/uL (4.8-10.8)
[2018-06-27 06:06] LABS: LDL CHOLESTEROL 78 mg/dL (0-129)
[2018-06-27] MEDS: Budesonide 0.5 mg/2 ml Inhal Susp UD IH SCH (07:59)
--- NOTE | 2018-06-27 08:40 | CARD ---
APPROVED REPORT Date of service: 06/26/2018 EKG Measurement Heart [id number] <Conclusion> Sinus tachycardia Left axis deviation Inferior infarct, age undetermined Abnormal ECG
[2018-06-27] MEDS: oxyCODONE 10 mg Immediate Release Tab PO SCH (08:50)
[2018-06-27] MEDS: Enoxaparin 80 mg Syringe SC SCH (08:52)
[2018-06-27] MEDS: Pantoprazole 40 mg EC Tab PO SCH (08:54)
[2018-06-27] MEDS: Tmp-Smz 800 mg-160 mg DS Tab PO SCH ×2 (08:59→16:57)
[2018-06-27] MEDS ORDERED: Insulin Detemir 100 Units/ml Inj SC SCH ×3 (09:00→22:00)
[2018-06-27] MEDS ORDERED: Enoxaparin 40 mg Syringe SC SCH (09:00)
[2018-06-27] MEDS ORDERED: INSULIN GLARGINE SC SCH (09:00)
[2018-06-27] MEDS ORDERED: METFORMIN 1000 MG PO SCH (09:00)
[2018-06-27] MEDS ORDERED: Insulin Lispro (humaLOG) 100 Units/ml Inj SC SCH (09:00)
[2018-06-27] MEDS: Insulin Lispro (humaLOG) 100 Units/ml Inj SC SCH ×7 (09:02→21:52)
--- NOTE | 2018-06-27 10:06 | CP.PCM.CON ---
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 He has been receiving therapy at [facility] in [facility] and presented to the emergency room here because of severe pain in the thr oat which was not relieved by his medications at home. He is slightly somnolent this morning having had opiate analgesics earlier today. His medical record is reviewed for details regarding his illness. He avila been having throat discomfort and voice change for a few days which has worsened subsequent to his last chemo treatment which he received last week. He also states that there has been productive cough at home with expectoration of green colored phlegm. He has a lengthy list of medications that he has been prescribed, but he has been not completely compliant with these recently. He does relate being aware of the lung metastases and has been on supplemental oxygen at home. He is unaware of any recent fever and denies chills. Past Patient History - Past Medical History & Family History Past Medical History?: Yes - Past Social History Smoking Status: Former Smoker Chewing Tobacco Use: No Cigar Use: No Alcohol: None Drugs: Denies - CARDIAC Hx Hypercholesterolemia: Yes Hx Hypertension: Yes - PULMONARY Hx Asthma: Yes Hx Pulmonary Embolism: Yes Other/Comment: metastatic lung disease - HEENT Other/Comment: throat pain and hoarsness of voice - RENAL Hx Chronic Kidney Disease: No - ENDOCRINE/METABOLIC Hx Diabetes Mellitus Type 2: Yes - HEMATOLOGICAL/ONCOLOGICAL Hx Anemia: Yes Hx Cancer: Yes - INTEGUMENTARY Hx Dermatological Problems: Yes Other/Comment: Left thigh sarcoma - MUSCULOSKELETAL/RHEUMATOLOGICAL Hx Musculoskeletal Disorders: Yes Hx Falls: No Other/Comment: 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 2 lung Laparoscopy due to sarcoma - ANESTHESIA Hx Anesthesia: Yes Hx Anesthesia Reactions: No Meds Allergies/Adverse Reactions: Allergies Allergy/AdvReac Type Severity Reaction Status Date / Time DOXYTACIL Allergy ANAPHYLAXIS Uncoded 08/30/17 22:18 - Medications Medications: Current Medications Albuterol/Ipratropium (Duoneb 3 Mg/0.5 Mg (3 Ml) Ud) 3 ml IH RQ6 PRN PRN Reason: Shortness of Breath Atorvastatin Calcium (Lipitor) 20 mg PO DAILY [facility] Last Admin: 06/27/18 08:58 Dose: 20 mg Bisacodyl (Dulcolax) 10 mg PO DAILY PRN PRN Reason: Constipation Budesonide (Pulmicort Respules) 0.5 mg IH Q12 [facility] Last Admin: 06/27/18 07:59 Dose: 0.5 mg Docusate Sodium (Colace) 100 mg PO Q8 PRN PRN Reason: Constipation Enoxaparin Sodium (Lovenox) 70 mg SC DAILY [facility]; Protocol Last Admin: 06/27/18 08:52 Dose: 70 mg Fluticasone Propionate (Flonase) 2 spr TIM DAILY [facility] Last Admin: 06/27/18 08:52 Dose: 2 spr Furosemide (Lasix) 20 mg PO DAILY [facility] Last Admin: 06/27/18 08:55 Dose: Not Given Guaifenesin (Mucinex La) 600 mg PO Q12 PRN PRN Reason: Cough Last Admin: 06/27/18 09:15 Dose: 600 mg Insulin Detemir (Levemir) 14 units SC HS [facility] Insulin Human Lispro (Humalog) 4 units SC AC [facility] Last Admin: 06/27/18 09:02 Dose: 4 unit Insulin Human Lispro (Humalog) 0 units SC ACHS [facility] Last Admin: 06/27/18 09:04 Dose: Not Given Lactulose (Generlac) 20 gm WA DAILY PRN PRN Reason: Constipation Lidocaine (Lidoderm) 1 ea TD DAILY PRN PRN Reason: Pain, moderate (4-7) Lorazepam (Ativan) 0.5 mg PO BID PRN PRN Reason: Anxiety Metformin HCl (Glucophage) 500 mg PO BIDWM [facility] Last Admin: 06/27/18 08:55 Dose: 500 mg Methadone HCl (Methadone) 25 mg PO Q12 [facility] Montelukast Sodium (Singulair) 10 mg PO DAILY [facility] Last Admin: 06/27/18 08:54 Dose: 10 mg Ondansetron HCl (Zofran Odt) 8 mg PO Q8 PRN PRN Reason: Nausea/Vomiting Oxybutynin Chloride (Ditropan Tab) 5 mg PO DAILY [facility] Last Admin: 06/27/18 08:55 Dose: 5 mg Oxycodone HCl (Oxycodone Immediate Release Tab) 40 mg PO Q12 [facility] Last Admin: 06/27/18 08:50 Dose: 40 mg Oxycodone HCl (Oxycodone Immediate Release Tab) 20 mg PO Q4H PRN PRN Reason: Pain, moderate (4-7) Last Admin: 06/26/18 23:30 Dose: 20 mg Pantoprazole Sodium (Protonix Ec Tab) 40 mg PO DAILY [facility] Last Admin: 06/27/18 08:54 Dose: 40 mg Paroxetine HCl (Paxil) 40 mg PO DAILY [facility] Last Admin: 06/27/18 08:56 Dose: 40 mg Polyethylene Glycol (Miralax) 17 gm PO BID PRN PRN Reason: Constipation Prednisone (Prednisone Tab) 35 mg PO DAILY [facility] Last Admin: 06/27/18 08:55 Dose: 35 mg Prochlorperazine (Compazine Tab) 10 mg PO Q6 PRN PRN Reason: Nausea/Vomiting Sennosides (Senokot Tab) 8.6 mg PO BID PRN PRN Reason: Constipation Tamsulosin HCl (Flomax) 0.4 mg PO DAILY [facility] Last Admin: 06/27/18 08:55 Dose: 0.4 mg Trazodone HCl (Desyrel) 50 mg PO HS [facility] Last Admin: 06/26/18 23:59 Dose: 50 mg Triamcinolone Acetonide (Kenalog 0.1% Cream) 1 appl TOP Q12 [facility] Last Admin: 06/27/18 08:52 Dose: 1 appl Trimethoprim/Sulfamethoxazole (Bactrim Ds Tab) 1 tab PO BID [facility]; Protocol Last Admin: 06/27/18 08:59 Dose: 1 tab Physical Exam - Additional Findings Additional findings: Obese male seated in a bedside chair. Whitish patches are visible on the soft palate. Voice is horse, but speech is clear. Sedated and having jerking type movements of the hands. Dependant edema ++. Dusky nail beds, cool digits. Neck is supple and trachea seems midline. Dullness on percussion over the left hemithorax. Breath sounds are diminished bilaterally, much more so on the left. Expiratory phase is prolonged with low pitched E wheezes heard. Scattered sonorous rhonchi are heard bilaterally. Scattered medium rales bilaterally, more right than left. heart sounds are very distant, appear regular. Results - Vital Signs Recent Vital Signs: Last Vital Signs Temp 98.5 F 06/27/18 08:00 Pulse 114 H 06/27/18 08:00 Resp 18 06/27/18 08:00 BP 94/72 L 06/27/18 08:00 Pulse Ox 97 06/27/18 08:00 - Labs Result Diagrams: 06/27/18 04:50 06/27/18 04:50 Labs: Laboratory Results - last 24 hr 06/26/18 06/26/18 06/26/18 16:45 16:58 16:58 WBC 4.3 L RBC 3.87 L Hgb 9.8 L D Hct 31.1 L MCV 80.3 D MCH 25.5 L MCHC 31.7 L RDW 18.7 H Plt Count 154 MPV 7.9 Neut % (Auto) 88.8 H Lymph % (Auto) 5.9 L Coffey % (Auto) 4.3 Eos % (Auto) 0.5 Baso % (Auto) 0.5 Neut # (Auto) 3.8 Lymph # (Auto) 0.3 L Coffey # (Auto) 0.2 Eos # (Auto) 0.0 Baso # (Auto) 0.0 Neutrophils % (Manual) 83 H Band Neutrophils % 2 Lymphocytes % (Manual) 7 L Monocytes % (Manual) 5 Eosinophils % (Manual) 2 Basophils % (Manual) 1 Platelet Estimate Normal Hypochromasia (manual) Slight Poikilocytosis (manual Slight Anisocytosis (manual) Slight Microcytosis (manual) Slight pO2 46 VBG pH 7.41 VBG pCO2 59 VBG HCO3 32.6 VBG Total CO2 39.2 H VBG O2 Sat (Calc) 87.3 H VBG Base Excess 10.4 H VBG Potassium 3.1 L Sodium 134.0 133 Chloride 97.0 L 93 L Glucose 82 Lactate 1.0 FiO2 21.0 Potassium 3.2 L Carbon Dioxide 34 H Anion Gap 9 L BUN 12 Creatinine 0.6 L Est GFR ( Amer) > 60 Est GFR (Non-Af Amer) > 60 POC Glucose (mg/dL) Random Glucose 80 Calcium 8.9 Magnesium Total Bilirubin 0.7 AST 27 ALT 25 Alkaline Phosphatase 55 Troponin I < 0.0120 NT-Pro-B Natriuret Pep 684 Total Protein 6.1 L Albumin 3.4 L Globulin 2.7 Albumin/Globulin Ratio 1.3 Triglycerides Cholesterol LDL Cholesterol Direct HDL Cholesterol TSH 3rd Generation Venous Blood Potassium 3.1 L Urine Color Urine Clarity Urine pH Ur Specific Sheldon Urine Protein Urine Glucose (UA) Urine Ketones Urine Blood Urine Nitrate Urine Bilirubin Urine Urobilinogen Ur Leukocyte Esterase Urine RBC (Auto) Urine Microscopic WBC Ur Squamous Epith Cells Influenza Typ A,B (EIA) Grp A Beta Strep Ag 06/26/18 06/26/18 06/26/18 19:50 19:50 19:50 WBC RBC Hgb Hct MCV MCH MCHC RDW Plt Count MPV Neut % (Auto) Lymph % (Auto) Coffey % (Auto) Eos % (Auto) Baso % (Auto) Neut # (Auto) Lymph # (Auto) Coffey # (Auto) Eos # (Auto) Baso # (Auto) Neutrophils % (Manual) Band Neutrophils % Lymphocytes % (Manual) Monocytes % (Manual) Eosinophils % (Manual) Basophils % (Manual) Platelet Estimate Hypochromasia (manual) Poikilocytosis (manual Anisocytosis (manual) Microcytosis (manual) pO2 VBG pH VBG pCO2 VBG HCO3 VBG Total CO2 VBG O2 Sat (Calc) VBG Base Excess VBG Potassium Sodium Chloride Glucose Lactate FiO2 Potassium Carbon Dioxide Anion Gap BUN Creatinine Est GFR ( Amer) Est GFR (Non-Af Amer) POC Glucose (mg/dL) Random Glucose Calcium Magnesium Total Bilirubin AST ALT Alkaline Phosphatase Troponin I NT-Pro-B Natriuret Pep Total Protein Albumin Globulin Albumin/Globulin Ratio Triglycerides Cholesterol LDL Cholesterol Direct HDL Cholesterol TSH 3rd Generation Venous Blood Potassium Urine Color Maryjo Urine Clarity Cloudy Urine pH 6.0 Ur Specific Sheldon 1.019 Urine Protein 30 Urine Glucose (UA) Neg Urine Ketones 20 Urine Blood Negative Urine Nitrate Negative Urine Bilirubin Negative Urine Urobilinogen 4.0 Ur Leukocyte Esterase Neg Urine RBC (Auto) 1 Urine Microscopic WBC 3 Ur Squamous Epith Cells < 1 Influenza Typ A,B (EIA) Negative for flu a/b Grp A Beta Strep Ag Negative 06/26/18 06/27/18 06/27/18 21:43 04:50 04:50 WBC 4.1 L RBC 3.98 L Hgb 10.1 L Hct 32.4 L MCV 81.3 MCH 25.5 L MCHC 31.3 L RDW 18.7 H Plt Count 164 MPV 8.5 Neut % (Auto) 88.6 H Lymph % (Auto) 6.0 L Coffey % (Auto) 4.4 Eos % (Auto) 0.6 Baso % (Auto) 0.4 Neut # (Auto) 3.6 Lymph # (Auto) 0.2 L Coffey # (Auto) 0.2 Eos # (Auto) 0.0 Baso # (Auto) 0.0 Neutrophils % (Manual) Band Neutrophils % Lymphocytes % (Manual) Monocytes % (Manual) Eosinophils % (Manual) Basophils % (Manual) Platelet Estimate Hypochromasia (manual) Poikilocytosis (manual Anisocytosis (manual) Microcytosis (manual) pO2 VBG pH VBG pCO2 VBG HCO3 VBG Total CO2 VBG O2 Sat (Calc) VBG Base Excess VBG Potassium Sodium 135 Chloride 92 L Glucose Lactate FiO2 Potassium 3.6 Carbon Dioxide 36 H Anion Gap 11 BUN 11 Creatinine 0.7 L Est GFR ( Amer) > 60 Est GFR (Non-Af Amer) > 60 POC Glucose (mg/dL) 116 H Random Glucose 171 H Calcium 9.0 Magnesium 1.9 Total Bilirubin 0.8 AST 32 ALT 29 Alkaline Phosphatase 56 Troponin I NT-Pro-B Natriuret Pep Total Protein 6.2 L Albumin 3.5 Globulin 2.7 Albumin/Globulin Ratio 1.3 Triglycerides 196 H Cholesterol 160 LDL Cholesterol Direct 78 HDL Cholesterol 48 TSH 3rd Generation 7.30 H Venous Blood Potassium Urine Color Urine Clarity Urine pH Ur Specific Sheldon Urine Protein Urine Glucose (UA) Urine Ketones Urine Blood Urine Nitrate Urine Bilirubin Urine Urobilinogen Ur Leukocyte Esterase Urine RBC (Auto) Urine Microscopic WBC Ur Squamous Epith Cells Influenza Typ A,B (EIA) Grp A Beta Strep Ag 06/27/18 05:05 WBC RBC Hgb Hct MCV MCH MCHC RDW Plt Count MPV Neut % (Auto) Lymph % (Auto) Coffey % (Auto) Eos % (Auto) Baso % (Auto) Neut # (Auto) Lymph # (Auto) Coffey # (Auto) Eos # (Auto) Baso # (Auto) Neutrophils % (Manual) Band Neutrophils % Lymphocytes % (Manual) Monocytes % (Manual) Eosinophils % (Manual) Basophils % (Manual) Platelet Estimate Hypochromasia (manual) Poikilocytosis (manual Anisocytosis (manual) Microcytosis (manual) pO2 VBG pH VBG pCO2 VBG HCO3 VBG Total CO2 VBG O2 Sat (Calc) VBG Base Excess VBG Potassium Sodium Chloride Glucose Lactate FiO2 Potassium Carbon Dioxide Anion Gap BUN Creatinine Est GFR ( Amer) Est GFR (Non-Af Amer) POC Glucose (mg/dL) 183 H Random Glucose Calcium Magnesium Total Bilirubin AST ALT Alkaline Phosphatase Troponin I NT-Pro-B Natriuret Pep Total Protein Albumin Globulin Albumin/Globulin Ratio Triglycerides Cholesterol LDL Cholesterol Direct HDL Cholesterol TSH 3rd Generation Venous Blood Potassium Urine Color Urine Clarity Urine pH Ur Specific Sheldon Urine Protein Urine Glucose (UA) Urine Ketones Urine Blood Urine Nitrate Urine Bilirubin Urine Urobilinogen Ur Leukocyte Esterase Urine RBC (Auto) Urine Microscopic WBC Ur Squamous Epith Cells Influenza Typ A,B (EIA) Grp A Beta Strep Ag Assessment & Plan (1) Oral thrush Status: Acute Priority: High 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 He has been placed on Bactrim orally at the time of admission. He has apparently been on suppressive therapy with Bactrim and azithromycin as an outpatient. A sputum culture has been requested and treatment can be dictated by these results. Capnography has been requested as well, but this may be difficult to manage with the treatment required because of cancer related pain. I will change his aerosol therapy to scheduled rather than PRN for the present time. I will temporarily hold the Budesonide aerosol treatments considering he is on PO prednisone at 35MG daily and already has evidence of thrush. - Date & Time Date: 06/27/18 Time: 10:18
[2018-06-27] MEDS ORDERED: Sodium Chloride 3% for Inhalation 4 ML VIAL.NEB IH PRN (10:22)
[2018-06-27] MEDS ORDERED: oxyCODONE 10 mg Immediate Release Tab PO PRN (10:55)
--- NOTE | 2018-06-27 11:06 | CP.PCM.CON ---
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 Patient is difficult to arouse this morning. At home, he states that his pain regimen include Methadone 25mg q12h, and R oxicodone every 4 hours from 40-60mg depending on the pain. His pain is diffuse, but not the reason for this admission. Review of drug monitoring program only revealed Fentanyl patches 100mcg/hr and Oxycodone 30mg only, I didn't see scripts for Methadone. Past Patient History - Past Medical History & Family History Past Medical History?: Yes - Past Social History Smoking Status: Former Smoker Chewing Tobacco Use: No Cigar Use: No Alcohol: None Drugs: Denies - CARDIAC Hx Hypercholesterolemia: Yes Hx Hypertension: Yes - PULMONARY Hx Asthma: Yes Hx Pulmonary Embolism: Yes Other/Comment: metastatic lung disease - HEENT Other/Comment: throat pain and hoarsness of voice - RENAL Hx Chronic Kidney Disease: No - ENDOCRINE/METABOLIC Hx Diabetes Mellitus Type 2: Yes - HEMATOLOGICAL/ONCOLOGICAL Hx Anemia: Yes Hx Cancer: Yes - INTEGUMENTARY Hx Dermatological Problems: Yes Other/Comment: Left thigh sarcoma - MUSCULOSKELETAL/RHEUMATOLOGICAL Hx Musculoskeletal Disorders: Yes Hx Falls: No Other/Comment: 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 2 lung Laparoscopy due to sarcoma - ANESTHESIA Hx Anesthesia: Yes Hx Anesthesia Reactions: No Meds Allergies/Adverse Reactions: Allergies Allergy/AdvReac Type Severity Reaction Status Date / Time DOXYTACIL Allergy ANAPHYLAXIS Uncoded 08/30/17 22:18 - Medications Medications: Current Medications Albuterol Sulfate (Albuterol 0.083% Inhal Emilia (2.5 Mg/3 Ml) Ud) 2.5 mg INH RQ4 PRN PRN Reason: Shortness of Breath Albuterol/Ipratropium (Duoneb 3 Mg/0.5 Mg (3 Ml) Ud) 3 ml INH RQID [facility] Atorvastatin Calcium (Lipitor) 20 mg PO DAILY [facility] Last Admin: 06/27/18 08:58 Dose: 20 mg Bisacodyl (Dulcolax) 10 mg PO DAILY PRN PRN Reason: Constipation Budesonide (Pulmicort Respules) 0.5 mg IH Q12 [facility] Last Admin: 06/27/18 07:59 Dose: 0.5 mg Docusate Sodium (Colace) 100 mg PO Q8 PRN PRN Reason: Constipation Enoxaparin Sodium (Lovenox) 70 mg SC DAILY [facility]; Protocol Last Admin: 06/27/18 08:52 Dose: 70 mg Fluticasone Propionate (Flonase) 2 spr TIM DAILY [facility] Last Admin: 06/27/18 08:52 Dose: 2 spr Furosemide (Lasix) 20 mg PO DAILY [facility] Last Admin: 06/27/18 08:55 Dose: Not Given Guaifenesin (Mucinex La) 600 mg PO Q12 PRN PRN Reason: Cough Last Admin: 06/27/18 09:15 Dose: 600 mg Insulin Detemir (Levemir) 14 units SC HS [facility] Insulin Human Lispro (Humalog) 4 units SC AC [facility] Last Admin: 06/27/18 09:02 Dose: 4 unit Insulin Human Lispro (Humalog) 0 units SC ACHS [facility] Last Admin: 06/27/18 09:04 Dose: Not Given Lactulose (Generlac) 20 gm MT DAILY PRN PRN Reason: Constipation Lidocaine (Lidoderm) 1 ea TD DAILY PRN PRN Reason: Pain, moderate (4-7) Lorazepam (Ativan) 0.5 mg PO BID PRN PRN Reason: Anxiety Metformin HCl (Glucophage) 500 mg PO BIDWM [facility] Last Admin: 06/27/18 08:55 Dose: 500 mg Methadone HCl (Methadone) 25 mg PO Q12 [facility] Montelukast Sodium (Singulair) 10 mg PO DAILY [facility] Last Admin: 06/27/18 08:54 Dose: 10 mg Nystatin (Nystatin Oral Susp) 5 ml PO QID [facility] Ondansetron HCl (Zofran Odt) 8 mg PO Q8 PRN PRN Reason: Nausea/Vomiting Oxybutynin Chloride (Ditropan Tab) 5 mg PO DAILY [facility] Last Admin: 06/27/18 08:55 Dose: 5 mg Oxycodone HCl (Oxycodone Immediate Release Tab) 30 mg PO Q4 PRN PRN Reason: Pain, moderate (4-7) Oxycodone HCl (Oxycodone Immediate Release Tab) 40 mg PO Q4 PRN PRN Reason: Pain, severe (8-10) Pantoprazole Sodium (Protonix Ec Tab) 40 mg PO DAILY [facility] Last Admin: 06/27/18 08:54 Dose: 40 mg Paroxetine HCl (Paxil) 40 mg PO DAILY [facility] Last Admin: 06/27/18 08:56 Dose: 40 mg Polyethylene Glycol (Miralax) 17 gm PO BID PRN PRN Reason: Constipation Prednisone (Prednisone Tab) 35 mg PO DAILY [facility] Last Admin: 06/27/18 08:55 Dose: 35 mg Prochlorperazine (Compazine Tab) 10 mg PO Q6 PRN PRN Reason: Nausea/Vomiting Sennosides (Senokot Tab) 8.6 mg PO BID PRN PRN Reason: Constipation Tamsulosin HCl (Flomax) 0.4 mg PO DAILY [facility] Last Admin: 06/27/18 08:55 Dose: 0.4 mg Trazodone HCl (Desyrel) 50 mg PO HS [facility] Last Admin: 06/26/18 23:59 Dose: 50 mg Triamcinolone Acetonide (Kenalog 0.1% Cream) 1 appl TOP Q12 [facility] Last Admin: 06/27/18 08:52 Dose: 1 appl Trimethoprim/Sulfamethoxazole (Bactrim Ds Tab) 1 tab PO BID [facility]; Protocol Last Admin: 06/27/18 08:59 Dose: 1 tab Physical Exam - Constitutional Appears: No Acute Distress Additional comments: Somnolent, but arousable. Results - Vital Signs Recent Vital Signs: Last Vital Signs Temp 98.5 F 06/27/18 08:00 Pulse 114 H 06/27/18 08:00 Resp 18 06/27/18 08:00 BP 94/72 L 06/27/18 08:00 Pulse Ox 97 06/27/18 08:00 - Labs Result Diagrams: 06/27/18 04:50 06/27/18 04:50 Labs: Laboratory Results - last 24 hr 06/26/18 06/26/18 06/26/18 16:45 16:58 16:58 WBC 4.3 L RBC 3.87 L Hgb 9.8 L D Hct 31.1 L MCV 80.3 D MCH 25.5 L MCHC 31.7 L RDW 18.7 H Plt Count 154 MPV 7.9 Neut % (Auto) 88.8 H Lymph % (Auto) 5.9 L [place] % (Auto) 4.3 Eos % (Auto) 0.5 Baso % (Auto) 0.5 Neut # (Auto) 3.8 Lymph # (Auto) 0.3 L [place] # (Auto) 0.2 Eos # (Auto) 0.0 Baso # (Auto) 0.0 Neutrophils % (Manual) 83 H Band Neutrophils % 2 Lymphocytes % (Manual) 7 L Monocytes % (Manual) 5 Eosinophils % (Manual) 2 Basophils % (Manual) 1 Platelet Estimate Normal Hypochromasia (manual) Slight Poikilocytosis (manual Slight Anisocytosis (manual) Slight Microcytosis (manual) Slight pO2 46 VBG pH 7.41 VBG pCO2 59 VBG HCO3 32.6 VBG Total CO2 39.2 H VBG O2 Sat (Calc) 87.3 H VBG Base Excess 10.4 H VBG Potassium 3.1 L Sodium 134.0 133 Chloride 97.0 L 93 L Glucose 82 Lactate 1.0 FiO2 21.0 Potassium 3.2 L Carbon Dioxide 34 H Anion Gap 9 L BUN 12 Creatinine 0.6 L Est GFR ( Amer) > 60 Est GFR (Non-Af Amer) > 60 POC Glucose (mg/dL) Random Glucose 80 Calcium 8.9 Magnesium Total Bilirubin 0.7 AST 27 ALT 25 Alkaline Phosphatase 55 Troponin I < 0.0120 NT-Pro-B Natriuret Pep 684 Total Protein 6.1 L Albumin 3.4 L Globulin 2.7 Albumin/Globulin Ratio 1.3 Triglycerides Cholesterol LDL Cholesterol Direct HDL Cholesterol TSH 3rd Generation Venous Blood Potassium 3.1 L Urine Color Urine Clarity Urine pH Ur Specific [place] Urine Protein Urine Glucose (UA) Urine Ketones Urine Blood Urine Nitrate Urine Bilirubin Urine Urobilinogen Ur Leukocyte Esterase Urine RBC (Auto) Urine Microscopic WBC Ur Squamous Epith Cells Influenza Typ A,B (EIA) Grp A Beta Strep Ag 06/26/18 06/26/18 06/26/18 19:50 19:50 19:50 WBC RBC Hgb Hct MCV MCH MCHC RDW Plt Count MPV Neut % (Auto) Lymph % (Auto) [place] % (Auto) Eos % (Auto) Baso % (Auto) Neut # (Auto) Lymph # (Auto) [place] # (Auto) Eos # (Auto) Baso # (Auto) Neutrophils % (Manual) Band Neutrophils % Lymphocytes % (Manual) Monocytes % (Manual) Eosinophils % (Manual) Basophils % (Manual) Platelet Estimate Hypochromasia (manual) Poikilocytosis (manual Anisocytosis (manual) Microcytosis (manual) pO2 VBG pH VBG pCO2 VBG HCO3 VBG Total CO2 VBG O2 Sat (Calc) VBG Base Excess VBG Potassium Sodium Chloride Glucose Lactate FiO2 Potassium Carbon Dioxide Anion Gap BUN Creatinine Est GFR ( Amer) Est GFR (Non-Af Amer) POC Glucose (mg/dL) Random Glucose Calcium Magnesium Total Bilirubin AST ALT Alkaline Phosphatase Troponin I NT-Pro-B Natriuret Pep Total Protein Albumin Globulin Albumin/Globulin Ratio Triglycerides Cholesterol LDL Cholesterol Direct HDL Cholesterol TSH 3rd Generation Venous Blood Potassium Urine Color Mary[place] Urine Clarity Cloudy Urine pH 6.0 Ur Specific [place] 1.019 Urine Protein 30 Urine Glucose (UA) Neg Urine Ketones 20 Urine Blood Negative Urine Nitrate Negative Urine Bilirubin Negative Urine Urobilinogen 4.0 Ur Leukocyte Esterase Neg Urine RBC (Auto) 1 Urine Microscopic WBC 3 Ur Squamous Epith Cells < 1 Influenza Typ A,B (EIA) Negative for flu a/b Grp A Beta Strep Ag Negative 06/26/18 06/27/18 06/27/18 21:43 04:50 04:50 WBC 4.1 L RBC 3.98 L Hgb 10.1 L Hct 32.4 L MCV 81.3 MCH 25.5 L MCHC 31.3 L RDW 18.7 H Plt Count 164 MPV 8.5 Neut % (Auto) 88.6 H Lymph % (Auto) 6.0 L [place] % (Auto) 4.4 Eos % (Auto) 0.6 Baso % (Auto) 0.4 Neut # (Auto) 3.6 Lymph # (Auto) 0.2 L [place] # (Auto) 0.2 Eos # (Auto) 0.0 Baso # (Auto) 0.0 Neutrophils % (Manual) Band Neutrophils % Lymphocytes % (Manual) Monocytes % (Manual) Eosinophils % (Manual) Basophils % (Manual) Platelet Estimate Hypochromasia (manual) Poikilocytosis (manual Anisocytosis (manual) Microcytosis (manual) pO2 VBG pH VBG pCO2 VBG HCO3 VBG Total CO2 VBG O2 Sat (Calc) VBG Base Excess VBG Potassium Sodium 135 Chloride 92 L Glucose Lactate FiO2 Potassium 3.6 Carbon Dioxide 36 H Anion Gap 11 BUN 11 Creatinine 0.7 L Est GFR ( Amer) > 60 Est GFR (Non-Af Amer) > 60 POC Glucose (mg/dL) 116 H Random Glucose 171 H Calcium 9.0 Magnesium 1.9 Total Bilirubin 0.8 AST 32 ALT 29 Alkaline Phosphatase 56 Troponin I NT-Pro-B Natriuret Pep Total Protein 6.2 L Albumin 3.5 Globulin 2.7 Albumin/Globulin Ratio 1.3 Triglycerides 196 H Cholesterol 160 LDL Cholesterol Direct 78 HDL Cholesterol 48 TSH 3rd Generation 7.30 H Venous Blood Potassium Urine Color Urine Clarity Urine pH Ur Specific [place] Urine Protein Urine Glucose (UA) Urine Ketones Urine Blood Urine Nitrate Urine Bilirubin Urine Urobilinogen Ur Leukocyte Esterase Urine RBC (Auto) Urine Microscopic WBC Ur Squamous Epith Cells Influenza Typ A,B (EIA) Grp A Beta Strep Ag 06/27/18 05:05 WBC RBC Hgb Hct MCV MCH MCHC RDW Plt Count MPV Neut % (Auto) Lymph % (Auto) [place] % (Auto) Eos % (Auto) Baso % (Auto) Neut # (Auto) Lymph # (Auto) [place] # (Auto) Eos # (Auto) Baso # (Auto) Neutrophils % (Manual) Band Neutrophils % Lymphocytes % (Manual) Monocytes % (Manual) Eosinophils % (Manual) Basophils % (Manual) Platelet Estimate Hypochromasia (manual) Poikilocytosis (manual Anisocytosis (manual) Microcytosis (manual) pO2 VBG pH VBG pCO2 VBG HCO3 VBG Total CO2 VBG O2 Sat (Calc) VBG Base Excess VBG Potassium Sodium Chloride Glucose Lactate FiO2 Potassium Carbon Dioxide Anion Gap BUN Creatinine Est GFR ( Amer) Est GFR (Non-Af Amer) POC Glucose (mg/dL) 183 H Random Glucose Calcium Magnesium Total Bilirubin AST ALT Alkaline Phosphatase Troponin I NT-Pro-B Natriuret Pep Total Protein Albumin Globulin Albumin/Globulin Ratio Triglycerides Cholesterol LDL Cholesterol Direct HDL Cholesterol TSH 3rd Generation Venous Blood Potassium Urine Color Urine Clarity Urine pH Ur Specific [place] Urine Protein Urine Glucose (UA) Urine Ketones Urine Blood Urine Nitrate Urine Bilirubin Urine Urobilinogen Ur Leukocyte Esterase Urine RBC (Auto) Urine Microscopic WBC Ur Squamous Epith Cells Influenza Typ A,B (EIA) Grp A Beta Strep Ag Assessment & Plan (1) Cancer associated pain Assessment and Plan: 62 yo w/ extensive cancer history with chronic pain and on high dose opioids. Monitoring program showed Fentanyl patch but not Methadone. Patien is being managed by [facility] for his pain. - check patient for Fentanyl patch - will stay with Methadone for now, if too sedating need to wean patient down - will stay with Oxycodone for now, but patient may not need the high dosage that he is supposed on Status: Chronic Priority: High
[2018-06-27] MEDS: Nystatin 100,000 Units/ml Oral Susp 5 ml UD PO SCH ×3 (12:38→21:48)
[2018-06-27] MEDS: Albuterol-Ipratrop 3 mg / 0.5 (3 ml) UD INH SCH ×3 (13:26→19:08)
[2018-06-27 13:52] LABS: ABG ALLEN TEST YES; ARTERIAL BLOOD GAS HCO3 31.6 mmol/L (21-28); ARTERIAL BLOOD GAS O2 CAPACITY 13.8 mL/dL (16-24); ARTERIAL BLOOD GAS O2 CONTENT 13.7 ML/dL (15-23); ARTERIAL BLOOD GAS O2 SAT 99.6 % (95-98); ARTERIAL BLOOD GAS PCO2 47 mm/Hg (35-45); ARTERIAL BLOOD GAS PH 7.46 (7.35-7.45); ARTERIAL BLOOD GAS PO2 96 mm/Hg (80-100); ARTERIAL BLOOD GAS TCO2 34.8 mmol/L (22-28)
--- NOTE | 2018-06-27 18:22 | CP.PCM.PN ---
Subjective - Date & Time of Evaluation Date of Evaluation: 06/27/18 Time of Evaluation: 22:22 - Subjective Subjective: Multiple calls to staff Transfer to [facility] Objective - Vital Signs/Intake and Output Vital Signs (last 24 hours): Temp Pulse Resp BP Pulse Ox 98.2 F 99 H 18 90/57 L 98 06/27/18 16:10 06/27/18 16:10 06/27/18 16:10 06/27/18 16:10 06/27/18 16:10 - Medications Medications: Current Medications Albuterol Sulfate (Albuterol 0.083% Inhal Emilia (2.5 Mg/3 Ml) Ud) 2.5 mg INH RQ4 PRN PRN Reason: Shortness of Breath Albuterol/Ipratropium (Duoneb 3 Mg/0.5 Mg (3 Ml) Ud) 3 ml INH RQID [facility] Last Admin: 06/27/18 15:43 Dose: 3 ml Atorvastatin Calcium (Lipitor) 20 mg PO DAILY [facility] Last Admin: 06/27/18 08:58 Dose: 20 mg Bisacodyl (Dulcolax) 10 mg PO DAILY PRN PRN Reason: Constipation Budesonide (Pulmicort Respules) 0.5 mg IH Q12 [facility] Last Admin: 06/27/18 07:59 Dose: 0.5 mg Docusate Sodium (Colace) 100 mg PO Q8 PRN PRN Reason: Constipation Enoxaparin Sodium (Lovenox) 70 mg SC DAILY [facility]; Protocol Last Admin: 06/27/18 08:52 Dose: 70 mg Fluticasone Propionate (Flonase) 2 spr TIM DAILY [facility] Last Admin: 06/27/18 08:52 Dose: 2 spr Furosemide (Lasix) 20 mg PO DAILY [facility] Last Admin: 06/27/18 08:55 Dose: Not Given Guaifenesin (Mucinex La) 600 mg PO Q12 PRN PRN Reason: Cough Last Admin: 06/27/18 09:15 Dose: 600 mg Insulin Detemir (Levemir) 20 units SC HS [facility] Insulin Human Lispro (Humalog) 0 units SC ACHS [facility] Last Admin: 06/27/18 16:59 Dose: Not Given Insulin Human Lispro (Humalog) 6 units SC AC [facility] Last Admin: 06/27/18 16:58 Dose: 6 unit Lactulose (Generlac) 20 gm ID DAILY PRN PRN Reason: Constipation Lidocaine (Lidoderm) 1 ea TD DAILY PRN PRN Reason: Pain, moderate (4-7) Lorazepam (Ativan) 0.5 mg PO BID PRN PRN Reason: Anxiety Metformin HCl (Glucophage) 500 mg PO BIDWM [facility] Last Admin: 06/27/18 16:58 Dose: 500 mg Methadone HCl (Methadone) 25 mg PO Q12 [facility] Montelukast Sodium (Singulair) 10 mg PO DAILY [facility] Last Admin: 06/27/18 08:54 Dose: 10 mg Nystatin (Nystatin Oral Susp) 5 ml PO QID [facility] Last Admin: 06/27/18 16:58 Dose: 5 ml Ondansetron HCl (Zofran Odt) 8 mg PO Q8 PRN PRN Reason: Nausea/Vomiting Oxybutynin Chloride (Ditropan Tab) 5 mg PO DAILY [facility] Last Admin: 06/27/18 08:55 Dose: 5 mg Oxycodone HCl (Oxycodone Immediate Release Tab) 30 mg PO Q4 PRN PRN Reason: Pain, moderate (4-7) Oxycodone HCl (Oxycodone Immediate Release Tab) 40 mg PO Q4 PRN PRN Reason: Pain, severe (8-10) Pantoprazole Sodium (Protonix Ec Tab) 40 mg PO DAILY [facility] Last Admin: 06/27/18 08:54 Dose: 40 mg Paroxetine HCl (Paxil) 40 mg PO DAILY [facility] Last Admin: 06/27/18 08:56 Dose: 40 mg Polyethylene Glycol (Miralax) 17 gm PO BID PRN PRN Reason: Constipation Prednisone (Prednisone Tab) 35 mg PO DAILY [facility] Last Admin: 06/27/18 08:55 Dose: 35 mg Prochlorperazine (Compazine Tab) 10 mg PO Q6 PRN PRN Reason: Nausea/Vomiting Sennosides (Senokot Tab) 8.6 mg PO BID PRN PRN Reason: Constipation Tamsulosin HCl (Flomax) 0.4 mg PO DAILY [facility] Last Admin: 06/27/18 08:55 Dose: 0.4 mg Trazodone HCl (Desyrel) 50 mg PO HS [facility] Last Admin: 06/26/18 23:59 Dose: 50 mg Triamcinolone Acetonide (Kenalog 0.1% Cream) 1 appl TOP Q12 [facility] Last Admin: 06/27/18 08:52 Dose: 1 appl Trimethoprim/Sulfamethoxazole (Bactrim Ds Tab) 1 tab PO BID [facility]; Protocol Last Admin: 06/27/18 16:57 Dose: Not Given - Labs Labs: 06/27/18 04:50 06/27/18 04:50 - Respiratory Exam Respiratory Exam: NORMAL BREATHING PATTERN - Cardiovascular Exam Cardiovascular Exam: REGULAR RHYTHM - GI/Abdominal Exam GI & Abdominal Exam: Normal Bowel Sounds Assessment and Plan - Assessment and Plan (Free Text) Assessment: ? Pneumonia Hx Prostate cancer / sarcoma with metastatic dx to the lung Hx COPD Asthma [facility] Pulmonary ID ABX Mucositis/ Thrush 2 to chemotherapy Oncology Topical Chronic pain Pain management consult
--- NOTE | 2018-06-27 19:16 | PN ---
DATE: 06/27/2018 SUBJECTIVE: This is a 62-year-old male with metastatic lung carcinoma, presenting here with progressive shortness of breath and generalized body weakness with electrolyte abnormalities including hyponatremia as noted thereof. He is being followed closely now also for metabolic management of recent hyperglycemic accelerations as noted. His glucose levels have ranged from 183-205 mg/dL today as noted and it was 116 at bedtime last night. His TSH, however, is elevated at 7.30 which is only an initial screening tool at this time with no prior usage of any levothyroxine replacement therapy. LABORATORY DATA: His chemistry showed a BUN of 11, sodium 135, potassium 3.6, chloride 92, CO2 of 36, glucose 171 and creatinine 0.7. His A1c is optimal range which is 6.9% as noted. ASSESSMENT This is a 62-year-old male with uncontrolled and decompensated type 2 insulin-requiring diabetes with metastatic lung carcinoma and underlying sarcoma in the left lower extremity and is now being followed closely for metabolic management. PLAN OF MANAGEMENT: With a variability of his oral intake, further we will hold off marked dose adjustments and only titrate prudently his insulin dose regimen as ordered. We will increase the Humalog to 6 units t.i.d. before meals to start today as ordered. We will titrate his basal insulin with Levemir to be given as 20 units subcu at bedtime daily as given. He was taking a much higher dose regimen at home with Lantus given as 26 units at bedtime and NovoLog given as 12 units t.i.d. before meals as ordered. Would recommend a followup of his thyroid studies to be done on an outpatient if he is discharged from the hospital and if indeed persistently elevated would recommend hormonal replacement therapy for the thyroid dysfunction accordingly. We will obtain serial chemistries and supplement accordingly as needed. We will follow. Sheryl Adams MD
--- NOTE | 2018-06-27 21:30 | CP.PCM.PN ---
Subjective - Date & Time of Evaluation Date of Evaluation: 06/27/18 Time of Evaluation: 12:00 - Subjective Subjective: Has pain in mouth. Objective - Vital Signs/Intake and Output Vital Signs (last 24 hours): Temp Pulse Resp BP Pulse Ox 97.7 F 105 H 18 109/64 97 06/27/18 19:58 06/27/18 19:58 06/27/18 19:58 06/27/18 19:58 06/27/18 19:58 - Medications Medications: Current Medications Albuterol Sulfate (Albuterol 0.083% Inhal Emilia (2.5 Mg/3 Ml) Ud) 2.5 mg INH RQ4 PRN PRN Reason: Shortness of Breath Albuterol/Ipratropium (Duoneb 3 Mg/0.5 Mg (3 Ml) Ud) 3 ml INH RQID [facility] Last Admin: 06/27/18 19:08 Dose: 3 ml Atorvastatin Calcium (Lipitor) 20 mg PO DAILY [facility] Last Admin: 06/27/18 08:58 Dose: 20 mg Bisacodyl (Dulcolax) 10 mg PO DAILY PRN PRN Reason: Constipation Budesonide (Pulmicort Respules) 0.5 mg IH Q12 [facility] Last Admin: 06/27/18 07:59 Dose: 0.5 mg Docusate Sodium (Colace) 100 mg PO Q8 PRN PRN Reason: Constipation Enoxaparin Sodium (Lovenox) 70 mg SC DAILY [facility]; Protocol Last Admin: 06/27/18 08:52 Dose: 70 mg Fluticasone Propionate (Flonase) 2 spr TIM DAILY [facility] Last Admin: 06/27/18 08:52 Dose: 2 spr Furosemide (Lasix) 20 mg PO DAILY [facility] Last Admin: 06/27/18 08:55 Dose: Not Given Guaifenesin (Mucinex La) 600 mg PO Q12 PRN PRN Reason: Cough Last Admin: 06/27/18 09:15 Dose: 600 mg Insulin Detemir (Levemir) 20 units SC HS [facility] Insulin Human Lispro (Humalog) 0 units SC ACHS [facility] Last Admin: 06/27/18 16:59 Dose: Not Given Insulin Human Lispro (Humalog) 6 units SC AC [facility] Last Admin: 06/27/18 16:58 Dose: 6 unit Lactulose (Generlac) 20 gm CO DAILY PRN PRN Reason: Constipation Lidocaine (Lidoderm) 1 ea TD DAILY PRN PRN Reason: Pain, moderate (4-7) Lorazepam (Ativan) 0.5 mg PO BID PRN PRN Reason: Anxiety Metformin HCl (Glucophage) 500 mg PO BIDWM [facility] Last Admin: 06/27/18 16:58 Dose: 500 mg Methadone HCl (Methadone) 25 mg PO Q12 [facility] Montelukast Sodium (Singulair) 10 mg PO DAILY [facility] Last Admin: 06/27/18 08:54 Dose: 10 mg Nystatin (Nystatin Oral Susp) 5 ml PO QID [facility] Last Admin: 06/27/18 16:58 Dose: 5 ml Ondansetron HCl (Zofran Odt) 8 mg PO Q8 PRN PRN Reason: Nausea/Vomiting Oxybutynin Chloride (Ditropan Tab) 5 mg PO DAILY [facility] Last Admin: 06/27/18 08:55 Dose: 5 mg Oxycodone HCl (Oxycodone Immediate Release Tab) 30 mg PO Q4 PRN PRN Reason: Pain, moderate (4-7) Oxycodone HCl (Oxycodone Immediate Release Tab) 40 mg PO Q4 PRN PRN Reason: Pain, severe (8-10) Pantoprazole Sodium (Protonix Ec Tab) 40 mg PO DAILY [facility] Last Admin: 06/27/18 08:54 Dose: 40 mg Paroxetine HCl (Paxil) 40 mg PO DAILY [facility] Last Admin: 06/27/18 08:56 Dose: 40 mg Polyethylene Glycol (Miralax) 17 gm PO BID PRN PRN Reason: Constipation Prednisone (Prednisone Tab) 35 mg PO DAILY [facility] Last Admin: 06/27/18 08:55 Dose: 35 mg Prochlorperazine (Compazine Tab) 10 mg PO Q6 PRN PRN Reason: Nausea/Vomiting Sennosides (Senokot Tab) 8.6 mg PO BID PRN PRN Reason: Constipation Tamsulosin HCl (Flomax) 0.4 mg PO DAILY [facility] Last Admin: 06/27/18 08:55 Dose: 0.4 mg Trazodone HCl (Desyrel) 50 mg PO HS [facility] Last Admin: 06/26/18 23:59 Dose: 50 mg Triamcinolone Acetonide (Kenalog 0.1% Cream) 1 appl TOP Q12 [facility] Last Admin: 06/27/18 08:52 Dose: 1 appl Trimethoprim/Sulfamethoxazole (Bactrim Ds Tab) 1 tab PO BID [facility]; Protocol Last Admin: 06/27/18 16:57 Dose: Not Given - Labs Labs: 06/27/18 04:50 06/27/18 04:50 - Head Exam Head Exam: ATRAUMATIC - Eye Exam Eye Exam: Normal appearance - ENT Exam ENT Exam: Mucous Membranes Dry - Respiratory Exam Respiratory Exam: Decreased Breath Sounds - Cardiovascular Exam Cardiovascular Exam: +S1, +S2 - GI/Abdominal Exam GI & Abdominal Exam: Normal Bowel Sounds - Extremities Exam Extremities Exam: Pedal Edema Assessment and Plan (1) Mucositis Assessment & Plan: secondary to chemotherapy on magic mouth wash + nystatin Status: Acute (2) Leukopenia Assessment & Plan: secondary to chemotherapy no neutropenia Status: Acute (3) Anemia Assessment & Plan: anemia of chronic disease from malignancy anemia of chemotherapy Status: Acute (4) 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
[2018-06-27] MEDS: oxyCODONE 10 mg Immediate Release Tab PO PRN (21:44)
[2018-06-27] MEDS ORDERED: guaiFENesin 200 mg/10 ml Syrup UD PO PRN (22:08)
[2018-06-28] MEDS: Lidocaine 5% Patch TD PRN (00:02)
[2018-06-28 06:47] LABS: MEAN CELL VOLUME 80.4 fl (80.0-94.0); MEAN CORPUSCULAR HEMOGLOBIN 25.6 pg (27.0-31.0); MEAN CORPUSCULAR HGB CONC 31.8 g/dL (33.0-37.0); RBC 3.5 Mil/uL (4.40-5.90); RED CELL DISTRIBUTION WIDTH 18.9 % (11.5-14.5); WHITE BLOOD COUNT 2.1 K/uL (4.8-10.8)
[2018-06-28 06:54] LABS: BLOOD UREA NITROGEN 11 mg/dl (9-20); CALCIUM 8.8 mg/dL (8.4-10.2); GFR NON-AFRICAN AMERICAN > 60
[2018-06-28] MEDS: Insulin Lispro (humaLOG) 100 Units/ml Inj SC SCH ×9 (07:02→23:40)
[2018-06-28] MEDS: Albuterol-Ipratrop 3 mg / 0.5 (3 ml) UD INH SCH ×4 (07:38→19:08)
[2018-06-28] MEDS: Tmp-Smz 800 mg-160 mg DS Tab PO SCH (08:02)
[2018-06-28] MEDS: Enoxaparin 80 mg Syringe SC SCH (08:15)
[2018-06-28] MEDS: Nystatin 100,000 Units/ml Oral Susp 5 ml UD PO SCH ×4 (08:16→21:42)
[2018-06-28] MEDS: Pantoprazole 40 mg EC Tab PO SCH (08:26)
--- NOTE | 2018-06-28 08:43 | CP.PCM.CON ---
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 Patient reports that he is feeling more depressed because he feels like he is not receiving adequate medical treatment and wants to be transferred to [facility]. He reports that he has a history of major depression, treated with Paxil and sleep disturbances, treated with Trazodone PRN. He is not agreeable to increasing his depression medications at this time because he feels that his current depressed mood is d irectly a result of feeling he is not receiving the medical treatment he believes he needs and he does not have the emotional strength he used to have to advocate for himself. He denies acute AH/VH/SI/HI. 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 Past surgical history: Left thigh sarcoma resection Family history: Father had prostate cancer Social history: Denies tobacco, alcohol, and illicit drug use. Allergies: Docetaxel Impression: 62 yo male w/ h/o major depressive disorder, does not require acute psychiatric admission at this time. -Continue Paxil and Trazodone -Recommend treatment team discuss the patient's treatment options with the patient Past Patient History - Past Medical History & Family History Past Medical History?: Yes - Past Social History Smoking Status: Former Smoker Chewing Tobacco Use: No Cigar Use: No Alcohol: None Drugs: Denies - CARDIAC Hx Hypercholesterolemia: Yes Hx Hypertension: Yes - PULMONARY Hx Asthma: Yes Hx Pulmonary Embolism: Yes Other/Comment: metastatic lung disease - HEENT Other/Comment: throat pain and hoarsness of voice - RENAL Hx Chronic Kidney Disease: No - ENDOCRINE/METABOLIC Hx Diabetes Mellitus Type 2: Yes - HEMATOLOGICAL/ONCOLOGICAL Hx Anemia: Yes Hx Cancer: Yes - INTEGUMENTARY Hx Dermatological Problems: Yes Other/Comment: Left thigh sarcoma - MUSCULOSKELETAL/RHEUMATOLOGICAL Hx Musculoskeletal Disorders: Yes Hx Falls: No Other/Comment: 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 2 lung Laparoscopy due to sarcoma - ANESTHESIA Hx Anesthesia: Yes Hx Anesthesia Reactions: No Meds Allergies/Adverse Reactions: Allergies Allergy/AdvReac Type Severity Reaction Status Date / Time DOXYTACIL Allergy ANAPHYLAXIS Uncoded 08/30/17 22:18 - Medications Medications: Current Medications Albuterol Sulfate (Albuterol 0.083% Inhal Emilia (2.5 Mg/3 Ml) Ud) 2.5 mg INH RQ4 PRN PRN Reason: Shortness of Breath Albuterol/Ipratropium (Duoneb 3 Mg/0.5 Mg (3 Ml) Ud) 3 ml INH RQID [facility] Last Admin: 06/28/18 07:38 Dose: 3 ml Atorvastatin Calcium (Lipitor) 20 mg PO DAILY [facility] Last Admin: 06/28/18 08:15 Dose: 20 mg Bisacodyl (Dulcolax) 10 mg PO DAILY PRN PRN Reason: Constipation Last Admin: 06/28/18 08:09 Dose: 10 mg Budesonide (Pulmicort Respules) 0.5 mg IH Q12 [facility] Last Admin: 06/27/18 07:59 Dose: 0.5 mg Docusate Sodium (Colace) 100 mg PO Q8 PRN PRN Reason: Constipation Enoxaparin Sodium (Lovenox) 70 mg SC DAILY [facility]; Protocol Last Admin: 06/28/18 08:15 Dose: 70 mg Fluticasone Propionate (Flonase) 2 spr TIM DAILY [facility] Last Admin: 06/28/18 08:04 Dose: 2 spr Furosemide (Lasix) 20 mg PO DAILY [facility] Last Admin: 06/27/18 08:55 Dose: Not Given Guaifenesin (Robitussin) 200 mg PO Q4 PRN PRN Reason: Cough Last Admin: 06/27/18 22:28 Dose: 200 mg Insulin Detemir (Levemir) 20 units SC HS [facility] Last Admin: 06/27/18 21:56 Dose: 20 units Insulin Human Lispro (Humalog) 0 units SC ACHS [facility] Last Admin: 06/28/18 07:02 Dose: Not Given Insulin Human Lispro (Humalog) 6 units SC AC [facility] Last Admin: 06/28/18 08:12 Dose: 6 unit Lactulose (Generlac) 20 gm [place] DAILY PRN PRN Reason: Constipation Lidocaine (Lidoderm) 1 ea TD DAILY PRN PRN Reason: Pain, moderate (4-7) Last Admin: 06/28/18 00:02 Dose: 1 ea Lorazepam (Ativan) 0.5 mg PO BID PRN PRN Reason: Anxiety Last Admin: 06/28/18 08:31 Dose: 0.5 mg Metformin HCl (Glucophage) 500 mg PO BIDWM [facility] Last Admin: 06/28/18 08:05 Dose: 500 mg Methadone HCl (Methadone) 25 mg PO Q12 [facility] Last Admin: 06/28/18 08:32 Dose: 25 mg Montelukast Sodium (Singulair) 10 mg PO DAILY [facility] Last Admin: 06/28/18 08:27 Dose: 10 mg Nystatin (Nystatin Oral Susp) 5 ml PO QID [facility] Last Admin: 06/28/18 08:16 Dose: 5 ml Ondansetron HCl (Zofran Odt) 8 mg PO Q8 PRN PRN Reason: Nausea/Vomiting Oxybutynin Chloride (Ditropan Tab) 5 mg PO DAILY [facility] Last Admin: 06/28/18 08:04 Dose: 5 mg Oxycodone HCl (Oxycodone Immediate Release Tab) 30 mg PO Q4 PRN PRN Reason: Pain, moderate (4-7) Oxycodone HCl (Oxycodone Immediate Release Tab) 40 mg PO Q4 PRN PRN Reason: Pain, severe (8-10) Last Admin: 06/27/18 21:44 Dose: 40 mg Pantoprazole Sodium (Protonix Ec Tab) 40 mg PO DAILY [facility] Last Admin: 06/28/18 08:26 Dose: 40 mg Paroxetine HCl (Paxil) 40 mg PO DAILY [facility] Last Admin: 06/28/18 08:25 Dose: 40 mg Polyethylene Glycol (Miralax) 17 gm PO BID PRN PRN Reason: Constipation Potassium Chloride (Potassium Chloride Oral Soln) 20 meq PO ONCE ONE Stop: 06/28/18 08:46 Prednisone (Prednisone Tab) 35 mg PO DAILY [facility] Last Admin: 06/28/18 08:25 Dose: 35 mg Prochlorperazine (Compazine Tab) 10 mg PO Q6 PRN PRN Reason: Nausea/Vomiting Sennosides (Senokot Tab) 8.6 mg PO BID PRN PRN Reason: Constipation Tamsulosin HCl (Flomax) 0.4 mg PO DAILY [facility] Last Admin: 06/28/18 08:04 Dose: 0.4 mg Trazodone HCl (Desyrel) 50 mg PO HS [facility] Last Admin: 06/27/18 21:48 Dose: 50 mg Triamcinolone Acetonide (Kenalog 0.1% Cream) 1 appl TOP Q12 [facility] Last Admin: 06/28/18 08:12 Dose: 1 appl Trimethoprim/Sulfamethoxazole (Bactrim Ds Tab) 1 tab PO BID [facility]; Protocol Last Admin: 06/28/18 08:02 Dose: 1 tab Results - Vital Signs Recent Vital Signs: Last Vital Signs Temp 97.0 F L 06/28/18 05:31 Pulse 90 06/28/18 05:31 Resp 16 06/28/18 05:31 BP 124/72 06/28/18 05:31 Pulse Ox 99 06/28/18 05:31 - Labs Result Diagrams: 06/28/18 06:15 06/28/18 06:15 Labs: Laboratory Results - last 24 hr 06/27/18 06/27/18 06/27/18 04:50 11:20 12:27 WBC RBC Hgb Hct MCV MCH MCHC RDW Plt Count pCO2 47 H pO2 96 HCO3 31.6 H ABG pH 7.46 H ABG Total CO2 34.8 H ABG O2 Saturation 99.6 H ABG O2 Content 13.7 L ABG Base Excess 8.5 H ABG Hemoglobin 10.0 L ABG Carboxyhemoglobin 2.2 H POC ABG HHb (Measured) 0.4 ABG Methemoglobin 1.1 ABG O2 Capacity 13.8 L Gilbert Test Yes A-a O2 Difference 102.0 Hgb O2 Saturation 96.4 Liter Flow 4 Vent Mode Nc FiO2 36.0 Sodium Potassium Chloride Carbon Dioxide Anion Gap BUN Creatinine Est GFR ( Amer) Est GFR (Non-Af Amer) POC Glucose (mg/dL) 205 H Random Glucose Hemoglobin A1c 6.9 H Calcium 06/27/18 06/27/18 06/28/18 16:19 20:49 05:45 WBC RBC Hgb Hct MCV MCH MCHC RDW Plt Count pCO2 pO2 HCO3 ABG pH ABG Total CO2 ABG O2 Saturation ABG O2 Content ABG Base Excess ABG Hemoglobin ABG Carboxyhemoglobin POC ABG HHb (Measured) ABG Methemoglobin ABG O2 Capacity Gilbert Test A-a O2 Difference Hgb O2 Saturation Liter Flow Vent Mode FiO2 Sodium Potassium Chloride Carbon Dioxide Anion Gap BUN Creatinine Est GFR ( Amer) Est GFR (Non-Af Amer) POC Glucose (mg/dL) 257 H 353 H 138 H Random Glucose Hemoglobin A1c Calcium 06/28/18 06/28/18 06:15 06:15 WBC 2.1 L RBC 3.50 L Hgb 9.0 L Hct 28.1 L MCV 80.4 MCH 25.6 L MCHC 31.8 L RDW 18.9 H Plt Count 138 pCO2 pO2 HCO3 ABG pH ABG Total CO2 ABG O2 Saturation ABG O2 Content ABG Base Excess ABG Hemoglobin ABG Carboxyhemoglobin POC ABG HHb (Measured) ABG Methemoglobin ABG O2 Capacity Gilbert Test A-a O2 Difference Hgb O2 Saturation Liter Flow Vent Mode FiO2 Sodium 136 Potassium 3.4 L Chloride 92 L Carbon Dioxide 38 H Anion Gap 9 L BUN 11 Creatinine 0.6 L Est GFR ( Amer) > 60 Est GFR (Non-Af Amer) > 60 POC Glucose (mg/dL) Random Glucose 134 H Hemoglobin A1c Calcium 8.8
[2018-06-28] MEDS ORDERED: Potassium Chloride 20 mEq/15 ml LIQ UD PO ONE (08:45)
--- NOTE | 2018-06-28 09:59 | CP.PCM.PN ---
Subjective - Date & Time of Evaluation Date of Evaluation: 06/28/18 Time of Evaluation: 09:59 - Subjective Subjective: Seated in bedside chair. Congested cough ++. Claims copious green sputum overnight. Remains afebrile, WBC down to 2.1 this morning. Coarse rhonchi on the right with bronchial breath sounds in right mid-lung popsteriorly. Oral thrush appears slightly better this morning. Will initiate antibiotic coverage for nosocomial process with cefepime and vancomycin. Suggest infectious disease consult as well. Reduce PO steroid dose and resume Budesonide aerosol. Objective - Vital Signs/Intake and Output Vital Signs (last 24 hours): Temp Pulse Resp BP Pulse Ox 99.3 F 103 H 18 92/57 L 100 06/28/18 08:00 06/28/18 09:00 06/28/18 08:00 06/28/18 08:00 06/28/18 08:00 - Medications Medications: Current Medications Albuterol Sulfate (Albuterol 0.083% Inhal Emilia (2.5 Mg/3 Ml) Ud) 2.5 mg INH RQ4 PRN PRN Reason: Shortness of Breath Albuterol/Ipratropium (Duoneb 3 Mg/0.5 Mg (3 Ml) Ud) 3 ml INH RQID [facility] Last Admin: 06/28/18 07:38 Dose: 3 ml Atorvastatin Calcium (Lipitor) 20 mg PO DAILY [facility] Last Admin: 06/28/18 08:15 Dose: 20 mg Bisacodyl (Dulcolax) 10 mg PO DAILY PRN PRN Reason: Constipation Last Admin: 06/28/18 08:09 Dose: 10 mg Budesonide (Pulmicort Respules) 0.5 mg IH Q12 [facility] Last Admin: 06/27/18 07:59 Dose: 0.5 mg Docusate Sodium (Colace) 100 mg PO Q8 PRN PRN Reason: Constipation Enoxaparin Sodium (Lovenox) 70 mg SC DAILY [facility]; Protocol Last Admin: 06/28/18 08:15 Dose: 70 mg Fluticasone Propionate (Flonase) 2 spr TIM DAILY [facility] Last Admin: 06/28/18 08:04 Dose: 2 spr Furosemide (Lasix) 20 mg PO DAILY [facility] Last Admin: 06/27/18 08:55 Dose: Not Given Guaifenesin (Robitussin) 200 mg PO Q4 PRN PRN Reason: Cough Last Admin: 06/27/18 22:28 Dose: 200 mg Insulin Detemir (Levemir) 20 units SC HS [facility] Last Admin: 06/27/18 21:56 Dose: 20 units Insulin Human Lispro (Humalog) 0 units SC ACHS [facility] Last Admin: 06/28/18 07:02 Dose: Not Given Insulin Human Lispro (Humalog) 6 units SC AC [facility] Last Admin: 06/28/18 08:12 Dose: 6 unit Lactulose (Generlac) 20 gm [place] DAILY PRN PRN Reason: Constipation Lidocaine (Lidoderm) 1 ea TD DAILY PRN PRN Reason: Pain, moderate (4-7) Last Admin: 06/28/18 00:02 Dose: 1 ea Lorazepam (Ativan) 0.5 mg PO BID PRN PRN Reason: Anxiety Last Admin: 06/28/18 08:31 Dose: 0.5 mg Metformin HCl (Glucophage) 500 mg PO BIDWM [facility] Last Admin: 06/28/18 08:05 Dose: 500 mg Methadone HCl (Methadone) 25 mg PO Q12 [facility] Last Admin: 06/28/18 08:32 Dose: 25 mg Montelukast Sodium (Singulair) 10 mg PO DAILY [facility] Last Admin: 06/28/18 08:27 Dose: 10 mg Nystatin (Nystatin Oral Susp) 5 ml PO QID [facility] Last Admin: 06/28/18 08:16 Dose: 5 ml Ondansetron HCl (Zofran Odt) 8 mg PO Q8 PRN PRN Reason: Nausea/Vomiting Oxybutynin Chloride (Ditropan Tab) 5 mg PO DAILY [facility] Last Admin: 06/28/18 08:04 Dose: 5 mg Oxycodone HCl (Oxycodone Immediate Release Tab) 30 mg PO Q4 PRN PRN Reason: Pain, moderate (4-7) Oxycodone HCl (Oxycodone Immediate Release Tab) 40 mg PO Q4 PRN PRN Reason: Pain, severe (8-10) Last Admin: 06/27/18 21:44 Dose: 40 mg Pantoprazole Sodium (Protonix Ec Tab) 40 mg PO DAILY [facility] Last Admin: 06/28/18 08:26 Dose: 40 mg Paroxetine HCl (Paxil) 40 mg PO DAILY [facility] Last Admin: 06/28/18 08:25 Dose: 40 mg Polyethylene Glycol (Miralax) 17 gm PO BID PRN PRN Reason: Constipation Prednisone (Prednisone Tab) 35 mg PO DAILY [facility] Last Admin: 06/28/18 08:25 Dose: 35 mg Prochlorperazine (Compazine Tab) 10 mg PO Q6 PRN PRN Reason: Nausea/Vomiting Sennosides (Senokot Tab) 8.6 mg PO BID PRN PRN Reason: Constipation Tamsulosin HCl (Flomax) 0.4 mg PO DAILY [facility] Last Admin: 06/28/18 08:04 Dose: 0.4 mg Trazodone HCl (Desyrel) 50 mg PO HS [facility] Last Admin: 06/27/18 21:48 Dose: 50 mg Triamcinolone Acetonide (Kenalog 0.1% Cream) 1 appl TOP Q12 [facility] Last Admin: 06/28/18 08:12 Dose: 1 appl Trimethoprim/Sulfamethoxazole (Bactrim Ds Tab) 1 tab PO BID [facility]; Protocol Last Admin: 06/28/18 08:02 Dose: 1 tab - Labs Labs: 06/28/18 06:15 06/28/18 06:15 Assessment and Plan (1) Oral thrush Status: Acute 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
--- NOTE | 2018-06-28 10:39 | CP.PCM.CON ---
History of Present Illness - History of Present Illness History of Present Illness: THE PATIENT IS A 62 YEAR OLD MALE WITH A HISTORY OF ANGIOSARCOMA WITH LUNG METASTASIS WHO HAS BEEN RECEIVING CHEMOTHERAPY AT [facility], PROSTATE CA, HYPERLIPIDEMIA, DIABETES MELLITUS AND DEPRESSION. HE WENT TO THE HOSPITAL FOR T HROAT PAIN. CARDIOLOGY WAS CALLED FOR AN ABNORMAL EKG. HE DENIES AND HISTORY OF CAD SUCH AN OR OR TYPICAL CHEST PAIN. HE DOES HAVE OCCASIONAL CHEST WALL SYNDROME PAIN. Past Patient History - Past Medical History & Family History Past Medical History?: Yes - Past Social History Smoking Status: Former Smoker Chewing Tobacco Use: No Cigar Use: No Alcohol: None Drugs: Denies - CARDIAC Hx Hypercholesterolemia: Yes Hx Hypertension: Yes - PULMONARY Hx Asthma: Yes Hx Pulmonary Embolism: Yes Other/Comment: metastatic lung disease - HEENT Other/Comment: throat pain and hoarsness of voice - RENAL Hx Chronic Kidney Disease: No - ENDOCRINE/METABOLIC Hx Diabetes Mellitus Type 2: Yes - HEMATOLOGICAL/ONCOLOGICAL Hx Anemia: Yes Hx Cancer: Yes - INTEGUMENTARY Hx Dermatological Problems: Yes Other/Comment: Left thigh sarcoma - MUSCULOSKELETAL/RHEUMATOLOGICAL Hx Musculoskeletal Disorders: Yes Hx Falls: No Other/Comment: 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 2 lung Laparoscopy due to sarcoma - ANESTHESIA Hx Anesthesia: Yes Hx Anesthesia Reactions: No Meds Allergies/Adverse Reactions: Allergies Allergy/AdvReac Type Severity Reaction Status Date / Time DOXYTACIL Allergy ANAPHYLAXIS Uncoded 08/30/17 22:18 - Medications Medications: Current Medications Albuterol Sulfate (Albuterol 0.083% Inhal Emilia (2.5 Mg/3 Ml) Ud) 2.5 mg INH RQ4 PRN PRN Reason: Shortness of Breath Albuterol/Ipratropium (Duoneb 3 Mg/0.5 Mg (3 Ml) Ud) 3 ml INH RQID [facility] Last Admin: 06/28/18 07:38 Dose: 3 ml Atorvastatin Calcium (Lipitor) 20 mg PO DAILY [facility] Last Admin: 06/28/18 08:15 Dose: 20 mg Bisacodyl (Dulcolax) 10 mg PO DAILY PRN PRN Reason: Constipation Last Admin: 03/14/19 08:09 Dose: 10 mg Budesonide (Pulmicort Respules) 0.5 mg IH Q12 [facility] Last Admin: 06/27/18 07:59 Dose: 0.5 mg Docusate Sodium (Colace) 100 mg PO Q8 PRN PRN Reason: Constipation Enoxaparin Sodium (Lovenox) 70 mg SC DAILY [facility]; Protocol Last Admin: 06/28/18 08:15 Dose: 70 mg Fluticasone Propionate (Flonase) 2 spr TIM DAILY [facility] Last Admin: 06/28/18 08:04 Dose: 2 spr Furosemide (Lasix) 20 mg PO DAILY [facility] Last Admin: 06/27/18 08:55 Dose: Not Given Guaifenesin/Dextromethorphan (Mucinex-Dm 600-30 Mg) 2 tab PO Q12 [facility] Cefepime HCl 1 gm/ Sodium (Chloride) 100 mls @ 100 mls/hr IVPB Q12 [facility]; Protocol Vancomycin HCl 1,000 mg/ (Sodium Chloride) 250 mls @ 250 mls/hr IVPB ONCE ONE; Protocol Stop: 06/28/18 11:21 Insulin Detemir (Levemir) 20 units SC HS [facility] Last Admin: 06/27/18 21:56 Dose: 20 units Insulin Human Lispro (Humalog) 0 units SC ACHS [facility] Last Admin: 06/28/18 07:02 Dose: Not Given Insulin Human Lispro (Humalog) 6 units SC AC [facility] Last Admin: 06/28/18 08:12 Dose: 6 unit Lactulose (Generlac) 20 gm CO DAILY PRN PRN Reason: Constipation Lidocaine (Lidoderm) 1 ea TD DAILY PRN PRN Reason: Pain, moderate (4-7) Last Admin: 06/28/18 00:02 Dose: 1 ea Lorazepam (Ativan) 0.5 mg PO BID PRN PRN Reason: Anxiety Last Admin: 06/28/18 08:31 Dose: 0.5 mg Metformin HCl (Glucophage) 500 mg PO BIDWM [facility] Last Admin: 06/28/18 08:05 Dose: 500 mg Methadone HCl (Methadone) 25 mg PO Q12 [facility] Last Admin: 06/28/18 08:32 Dose: 25 mg Montelukast Sodium (Singulair) 10 mg PO DAILY [facility] Last Admin: 06/28/18 08:27 Dose: 10 mg Nystatin (Nystatin Oral Susp) 5 ml PO QID [facility] Last Admin: 06/28/18 08:16 Dose: 5 ml Ondansetron HCl (Zofran Odt) 8 mg PO Q8 PRN PRN Reason: Nausea/Vomiting Oxybutynin Chloride (Ditropan Tab) 5 mg PO DAILY [facility] Last Admin: 06/28/18 08:04 Dose: 5 mg Oxycodone HCl (Oxycodone Immediate Release Tab) 30 mg PO Q4 PRN PRN Reason: Pain, moderate (4-7) Oxycodone HCl (Oxycodone Immediate Release Tab) 40 mg PO Q4 PRN PRN Reason: Pain, severe (8-10) Last Admin: 06/27/18 21:44 Dose: 40 mg Pantoprazole Sodium (Protonix Ec Tab) 40 mg PO DAILY [facility] Last Admin: 06/28/18 08:26 Dose: 40 mg Paroxetine HCl (Paxil) 40 mg PO DAILY [facility] Last Admin: 06/28/18 08:25 Dose: 40 mg Polyethylene Glycol (Miralax) 17 gm PO BID PRN PRN Reason: Constipation Prednisone (Prednisone Tab) 20 mg PO DAILY [facility] Prochlorperazine (Compazine Tab) 10 mg PO Q6 PRN PRN Reason: Nausea/Vomiting Sennosides (Senokot Tab) 8.6 mg PO BID PRN PRN Reason: Constipation Tamsulosin HCl (Flomax) 0.4 mg PO DAILY [facility] Last Admin: 06/28/18 08:04 Dose: 0.4 mg Trazodone HCl (Desyrel) 50 mg PO HS [facility] Last Admin: 06/27/18 21:48 Dose: 50 mg Triamcinolone Acetonide (Kenalog 0.1% Cream) 1 appl TOP Q12 [facility] Last Admin: 06/28/18 08:12 Dose: 1 appl Physical Exam - Respiratory Exam Respiratory Exam: Decreased Breath Sounds, Rhonchi - Cardiovascular Exam Cardiovascular Exam: REGULAR RHYTHM, +S1, +S2 - Additional Findings Additional findings: EKG SHOWS SINUS RHYTHM AND WAS READ BY THE EKG MACHINE SHOWING AN IWMI BUT UPON CLOSE INSPECTION A SMALL R BLIP CAN BE SEEN IN THE INFERIOR WALL LEADS Results - Vital Signs Recent Vital Signs: Last Vital Signs Temp 99.3 F 06/28/18 08:00 Pulse 103 H 06/28/18 09:00 Resp 18 06/28/18 08:00 BP 92/57 L 06/28/18 08:00 Pulse Ox 100 06/28/18 08:00 - Labs Result Diagrams: 06/28/18 06:15 06/28/18 06:15 Labs: Laboratory Results - last 24 hr 06/27/18 06/27/18 06/27/18 04:50 11:20 12:27 WBC RBC Hgb Hct MCV MCH MCHC RDW Plt Count pCO2 47 H pO2 96 HCO3 31.6 H ABG pH 7.46 H ABG Total CO2 34.8 H ABG O2 Saturation 99.6 H ABG O2 Content 13.7 L ABG Base Excess 8.5 H ABG Hemoglobin 10.0 L ABG Carboxyhemoglobin 2.2 H POC ABG HHb (Measured) 0.4 ABG Methemoglobin 1.1 ABG O2 Capacity 13.8 L Gilbert Test Yes A-a O2 Difference 102.0 Hgb O2 Saturation 96.4 Liter Flow 4 Vent Mode Nc FiO2 36.0 Sodium Potassium Chloride Carbon Dioxide Anion Gap BUN Creatinine Est GFR ( Amer) Est GFR (Non-Af Amer) POC Glucose (mg/dL) 205 H Random Glucose Hemoglobin A1c 6.9 H Calcium 06/27/18 06/27/18 06/28/18 16:19 20:49 05:45 WBC RBC Hgb Hct MCV MCH MCHC RDW Plt Count pCO2 pO2 HCO3 ABG pH ABG Total CO2 ABG O2 Saturation ABG O2 Content ABG Base Excess ABG Hemoglobin ABG Carboxyhemoglobin POC ABG HHb (Measured) ABG Methemoglobin ABG O2 Capacity Gilbert Test A-a O2 Difference Hgb O2 Saturation Liter Flow Vent Mode FiO2 Sodium Potassium Chloride Carbon Dioxide Anion Gap BUN Creatinine Est GFR ( Amer) Est GFR (Non-Af Amer) POC Glucose (mg/dL) 257 H 353 H 138 H Random Glucose Hemoglobin A1c Calcium 06/28/18 06/28/18 06:15 06:15 WBC 2.1 L RBC 3.50 L Hgb 9.0 L Hct 28.1 L MCV 80.4 MCH 25.6 L MCHC 31.8 L RDW 18.9 H Plt Count 138 pCO2 pO2 HCO3 ABG pH ABG Total CO2 ABG O2 Saturation ABG O2 Content ABG Base Excess ABG Hemoglobin ABG Carboxyhemoglobin POC ABG HHb (Measured) ABG Methemoglobin ABG O2 Capacity Gilbert Test A-a O2 Difference Hgb O2 Saturation Liter Flow Vent Mode FiO2 Sodium 136 Potassium 3.4 L Chloride 92 L Carbon Dioxide 38 H Anion Gap 9 L BUN 11 Creatinine 0.6 L Est GFR ( Amer) > 60 Est GFR (Non-Af Amer) > 60 POC Glucose (mg/dL) Random Glucose 134 H Hemoglobin A1c Calcium 8.8 Assessment & Plan - Assessment and Plan (Free Text) Assessment: ANGIOSARCOMA WITH LUNG METASTASIS HYPERLIPIDEMIA DM DEPRESSION PROBABLE PNEUMONIA Plan: CONTINUE ATORVASTATIN, FUROSEMIDE, INSULIN, METFORMEN, ANTIBIOTICS, BRONCHODILATORS AND DEPRESSION MEDICATIONS LIPID PROFILE IN AM
--- NOTE | 2018-06-28 10:54 | CP.PCM.PCO ---
Assessment & Plan - Assessment and Plan (Free Text) Assessment: pt. seen and examined reports worsening sore throat, cough and congestion sinc last night lungs w/ scattered ronchi, sitting oob to chair w/ periods of sob able to tolerate soft diet pt. requesting transfer to [facility]; Dr.William Acuña's office contacted at and spoke with clerical secretary Ainsley /Guero. All records were sent to yesterday; awaiting call back from who is covering ; pending transfer to [facility] upon callback from MD flores. IV abx CT chest w/o contrast PT eval - Functional Status Prior to Admission: . Current Status: . Impairment Code: .
[2018-06-28] MEDS: oxyCODONE 10 mg Immediate Release Tab PO PRN (11:01)
[2018-06-28] MEDS: Budesonide 0.5 mg/2 ml Inhal Susp UD IH SCH ×2 (11:20→19:08)
[2018-06-28] MEDS: Cefepime 1 GM in Sodium Chloride 0.9% 100 ML IVPB SCH ×2 (12:29→21:50)
--- NOTE | 2018-06-28 16:30 | CP.PCM.PN ---
Subjective - Date & Time of Evaluation Date of Evaluation: 06/28/18 Time of Evaluation: 14:00 - Subjective Subjective: Less pain in mouth, seen eating lunch. Objective - Vital Signs/Intake and Output Vital Signs (last 24 hours): Temp Pulse Resp BP Pulse Ox 99.2 F 107 H 18 101/66 94 L 06/28/18 12:00 06/28/18 12:00 06/28/18 12:00 06/28/18 12:27 06/28/18 12:00 Intake and Output: 06/28/18 06/28/18 06:59 18:59 Intake Total 710 Output Total 300 Balance 410 - Medications Medications: Current Medications Albuterol Sulfate (Albuterol 0.083% Inhal Emilia (2.5 Mg/3 Ml) Ud) 2.5 mg INH RQ4 PRN PRN Reason: Shortness of Breath Albuterol/Ipratropium (Duoneb 3 Mg/0.5 Mg (3 Ml) Ud) 3 ml INH RQID [facility] Last Admin: 06/28/18 15:32 Dose: 3 ml Atorvastatin Calcium (Lipitor) 20 mg PO DAILY [facility] Last Admin: 06/28/18 08:15 Dose: 20 mg Bisacodyl (Dulcolax) 10 mg PO DAILY PRN PRN Reason: Constipation Last Admin: 06/28/18 08:09 Dose: 10 mg Budesonide (Pulmicort Respules) 0.5 mg IH Q12 [facility] Last Admin: 06/28/18 11:20 Dose: 0.5 mg Docusate Sodium (Colace) 100 mg PO Q8 PRN PRN Reason: Constipation Enoxaparin Sodium (Lovenox) 70 mg SC DAILY [facility]; Protocol Last Admin: 06/28/18 08:15 Dose: 70 mg Fluticasone Propionate (Flonase) 2 spr TIM DAILY [facility] Last Admin: 06/28/18 08:04 Dose: 2 spr Furosemide (Lasix) 20 mg PO DAILY [facility] Last Admin: 06/28/18 12:27 Dose: 20 mg Guaifenesin/Dextromethorphan (Mucinex-Dm 600-30 Mg) 2 tab PO Q12 [facility] Cefepime HCl 1 gm/ Sodium (Chloride) 100 mls @ 100 mls/hr IVPB Q12 [facility]; Protocol Last Admin: 06/28/18 12:29 Dose: 100 mls/hr Insulin Detemir (Levemir) 20 units SC HS [facility] Last Admin: 06/27/18 21:56 Dose: 20 units Insulin Human Lispro (Humalog) 0 units SC ACHS [facility] Last Admin: 06/28/18 12:25 Dose: Not Given Insulin Human Lispro (Humalog) 6 units SC AC [facility] Last Admin: 06/28/18 12:26 Dose: 6 unit Lactulose (Enulose) 20 gm PO DAILY PRN PRN Reason: Constipation Lidocaine (Lidoderm) 1 ea TD DAILY PRN PRN Reason: Pain, moderate (4-7) Last Admin: 06/28/18 00:02 Dose: 1 ea Lorazepam (Ativan) 0.5 mg PO BID PRN PRN Reason: Anxiety Last Admin: 06/28/18 08:31 Dose: 0.5 mg Metformin HCl (Glucophage) 500 mg PO BIDWM [facility] Last Admin: 06/28/18 08:05 Dose: 500 mg Methadone HCl (Methadone) 25 mg PO Q12 [facility] Last Admin: 06/28/18 08:32 Dose: 25 mg Montelukast Sodium (Singulair) 10 mg PO DAILY [facility] Last Admin: 06/28/18 08:27 Dose: 10 mg Nystatin (Nystatin Oral Susp) 5 ml PO QID [facility] Last Admin: 06/28/18 12:30 Dose: 5 ml Ondansetron HCl (Zofran Odt) 8 mg PO Q8 PRN PRN Reason: Nausea/Vomiting Oxybutynin Chloride (Ditropan Tab) 5 mg PO DAILY [facility] Last Admin: 06/28/18 08:04 Dose: 5 mg Oxycodone HCl (Oxycodone Immediate Release Tab) 30 mg PO Q4 PRN PRN Reason: Pain, moderate (4-7) Oxycodone HCl (Oxycodone Immediate Release Tab) 40 mg PO Q4 PRN PRN Reason: Pain, severe (8-10) Last Admin: 06/28/18 11:01 Dose: 40 mg Pantoprazole Sodium (Protonix Ec Tab) 40 mg PO DAILY [facility] Last Admin: 06/28/18 08:26 Dose: 40 mg Paroxetine HCl (Paxil) 40 mg PO DAILY [facility] Last Admin: 06/28/18 08:25 Dose: 40 mg Polyethylene Glycol (Miralax) 17 gm PO BID PRN PRN Reason: Constipation Prednisone (Prednisone Tab) 20 mg PO DAILY [facility] Prochlorperazine (Compazine Tab) 10 mg PO Q6 PRN PRN Reason: Nausea/Vomiting Sennosides (Senokot Tab) 8.6 mg PO BID PRN PRN Reason: Constipation Tamsulosin HCl (Flomax) 0.4 mg PO DAILY [facility] Last Admin: 06/28/18 08:04 Dose: 0.4 mg Trazodone HCl (Desyrel) 50 mg PO HS [facility] Last Admin: 06/27/18 21:48 Dose: 50 mg Triamcinolone Acetonide (Kenalog 0.1% Cream) 1 appl TOP Q12 [facility] Last Admin: 06/28/18 08:12 Dose: 1 appl - Labs Labs: 06/28/18 06:15 06/28/18 06:15 - Head Exam Head Exam: ATRAUMATIC - Eye Exam Eye Exam: Normal appearance - ENT Exam Additional comments: +ulcerations on both sides of tongue beefy red tongue Assessment and Plan (1) Mucositis Assessment & Plan: improving with magic mouth wash + nystatin suspension pain meds tolerating liquids and soft foods Status: Acute (2) Leukopenia Assessment & Plan: secondary to recent chemotherapy no prior nuetropenia no diff today, will repeat CBC with diff in AM Status: Acute (3) Anemia Assessment & Plan: anemia of chronic disease and anemia of chemotherapy Status: Acute (4) Sarcoma Assessment & Plan: stage IV recently started on salvage eribulin at [facility] for possible transfer to [facility] per patients preference Status: Acute (5) History of DVT (deep vein thrombosis) Assessment & Plan: complicated by retroperitoneal bleeding okay for DVT prophylaxis Status: Acute
--- NOTE | 2018-06-28 16:45 | CT ---
Date of service: 06/28/2018 PROCEDURE: CT Chest without contrast HISTORY: r/o pna, cough COMPARISON: 06/26/2018 single-view chest. TECHNIQUE: Contiguous axial images were obtained through the chest without intravenous contrast enhancement. Sagittal and coronal reconstructions were performed. Radiation dose: Total exam DLP = 616.86 mGy-cm. This CT exam was performed using one or more of the following dose reduction techniques: Automated exposure control, adjustment of the mA and/or kV according to patient size, and/or use of iterative reconstruction technique. FINDINGS: LUNGS: Right lung: Multiple well-circumscribed solid pulmonary nodules indicative of metastatic disease. These range from 2.5 mm to 1.3 cm. Left lung: Redemonstration of large mass in the left upper lobe. Orthogonal measurements 15.2 x 15.8 x 11.4 cm. The mass extends into the superior mediastinum, crosses the midline. The mass almost completely envelopment the trachea. Although there is tracheal DVT the a frias there is no significant narrowing. Lower lobe and lingular consolidative changes. Narrowing of lingular branch bronchi identified. Segmental and subsegmental bronchi to the right lower lobe are clear. Dependent atelectasis, consolidative changes left lower lobe. MEDIASTINUM: Unremarkable thoracic aorta. No aneurysm. Normal sized heart. Main pulmonary artery unremarkable. No vascular congestion. No lymphadenopathy. No aortic atherosclerotic calcification. PLEURA: No pleural fluid. No pneumothorax. BONES: No fracture. No destructive lesion. UPPER ABDOMEN: Grossly unremarkable. OTHER FINDINGS: None. IMPRESSION: Large tumor mass left upper lobe described in greater detail above. Contralateral pulmonary metastatic disease. Consolidative changes lingula and left lower lobe.
--- NOTE | 2018-06-28 18:27 | CP.PCM.CON ---
History of Present Illness - History of Present Illness History of Present Illness: Podiatry consult note for attending Dr. 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 Patient states that he started to have superficial ulcers on his right side about 2 months ago as his leg kept weeping out fluid. He states that he has another ulcer on the left leg as he had trauma last fall and it healed complete.ly except this ulcer. Patients states that the ulcers are not painful. He states that his legs got swollen because of the medications he receives for cancer. PAtient denies any recent fevers and chills. He has chronic shortness of breath which requires oxygen. 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 Review of Systems - Review of Systems Review of Systems: As per HPI - Constitutional Constitutional: As Per HPI Past Patient History - Past Medical History & Family History Past Medical History?: Yes - Past Social History Smoking Status: Former Smoker Chewing Tobacco Use: No Cigar Use: No Alcohol: None Drugs: Denies - CARDIAC Hx Hypercholesterolemia: Yes Hx Hypertension: Yes - PULMONARY Hx Asthma: Yes Hx Pulmonary Embolism: Yes Other/Comment: metastatic lung disease - HEENT Other/Comment: throat pain and hoarsness of voice - RENAL Hx Chronic Kidney Disease: No - ENDOCRINE/METABOLIC Hx Diabetes Mellitus Type 2: Yes - HEMATOLOGICAL/ONCOLOGICAL Hx Anemia: Yes Hx Cancer: Yes - INTEGUMENTARY Hx Dermatological Problems: Yes Other/Comment: Left thigh sarcoma - MUSCULOSKELETAL/RHEUMATOLOGICAL Hx Musculoskeletal Disorders: Yes Hx Falls: No Other/Comment: 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 2 lung Laparoscopy due to sarcoma - ANESTHESIA Hx Anesthesia: Yes Hx Anesthesia Reactions: No Meds Allergies/Adverse Reactions: Allergies Allergy/AdvReac Type Severity Reaction Status Date / Time DOXYTACIL Allergy ANAPHYLAXIS Uncoded 08/30/17 22:18 - Medications Medications: Current Medications Albuterol Sulfate (Albuterol 0.083% Inhal Emilia (2.5 Mg/3 Ml) Ud) 2.5 mg INH RQ4 PRN PRN Reason: Shortness of Breath Albuterol/Ipratropium (Duoneb 3 Mg/0.5 Mg (3 Ml) Ud) 3 ml INH RQID [facility] Last Admin: 06/28/18 15:32 Dose: 3 ml Atorvastatin Calcium (Lipitor) 20 mg PO DAILY [facility] Last Admin: 06/28/18 08:15 Dose: 20 mg Bisacodyl (Dulcolax) 10 mg PO DAILY PRN PRN Reason: Constipation Last Admin: 06/28/18 08:09 Dose: 10 mg Budesonide (Pulmicort Respules) 0.5 mg IH Q12 [facility] Last Admin: 06/28/18 11:20 Dose: 0.5 mg Docusate Sodium (Colace) 100 mg PO Q8 PRN PRN Reason: Constipation Enoxaparin Sodium (Lovenox) 70 mg SC DAILY [facility]; Protocol Last Admin: 06/28/18 08:15 Dose: 70 mg Fluticasone Propionate (Flonase) 2 spr TIM DAILY [facility] Last Admin: 06/28/18 08:04 Dose: 2 spr Furosemide (Lasix) 20 mg PO DAILY [facility] Last Admin: 06/28/18 12:27 Dose: 20 mg Guaifenesin/Dextromethorphan (Mucinex-Dm 600-30 Mg) 2 tab PO Q12 [facility] Cefepime HCl 1 gm/ Sodium (Chloride) 100 mls @ 100 mls/hr IVPB Q12 [facility]; Protocol Last Admin: 06/28/18 12:29 Dose: 100 mls/hr Insulin Detemir (Levemir) 30 units SC HS [facility] Insulin Human Lispro (Humalog) 0 units SC ACHS [facility] Last Admin: 06/28/18 16:41 Dose: 5 units Insulin Human Lispro (Humalog) 10 units SC AC [facility] Last Admin: 06/28/18 16:44 Dose: 10 units Lactulose (Enulose) 20 gm PO DAILY PRN PRN Reason: Constipation Lidocaine (Lidoderm) 1 ea TD DAILY PRN PRN Reason: Pain, moderate (4-7) Last Admin: 06/28/18 00:02 Dose: 1 ea Lorazepam (Ativan) 0.5 mg PO BID PRN PRN Reason: Anxiety Last Admin: 06/28/18 08:31 Dose: 0.5 mg Metformin HCl (Glucophage) 500 mg PO BIDWM [facility] Last Admin: 06/28/18 16:41 Dose: 500 mg Methadone HCl (Methadone) 25 mg PO Q12 [facility] Last Admin: 06/28/18 08:32 Dose: 25 mg Montelukast Sodium (Singulair) 10 mg PO DAILY [facility] Last Admin: 06/28/18 08:27 Dose: 10 mg Nystatin (Nystatin Oral Susp) 5 ml PO QID [facility] Last Admin: 06/28/18 16:42 Dose: 5 ml Ondansetron HCl (Zofran Odt) 8 mg PO Q8 PRN PRN Reason: Nausea/Vomiting Oxybutynin Chloride (Ditropan Tab) 5 mg PO DAILY [facility] Last Admin: 06/28/18 08:04 Dose: 5 mg Oxycodone HCl (Oxycodone Immediate Release Tab) 30 mg PO Q4 PRN PRN Reason: Pain, moderate (4-7) Oxycodone HCl (Oxycodone Immediate Release Tab) 40 mg PO Q4 PRN PRN Reason: Pain, severe (8-10) Last Admin: 06/28/18 11:01 Dose: 40 mg Pantoprazole Sodium (Protonix Ec Tab) 40 mg PO DAILY [facility] Last Admin: 06/28/18 08:26 Dose: 40 mg Paroxetine HCl (Paxil) 40 mg PO DAILY [facility] Last Admin: 06/28/18 08:25 Dose: 40 mg Polyethylene Glycol (Miralax) 17 gm PO BID PRN PRN Reason: Constipation Prednisone (Prednisone Tab) 20 mg PO DAILY [facility] Prochlorperazine (Compazine Tab) 10 mg PO Q6 PRN PRN Reason: Nausea/Vomiting Sennosides (Senokot Tab) 8.6 mg PO BID PRN PRN Reason: Constipation Tamsulosin HCl (Flomax) 0.4 mg PO DAILY [facility] Last Admin: 06/28/18 08:04 Dose: 0.4 mg Trazodone HCl (Desyrel) 50 mg PO [facility] Last Admin: 03/13/19 21:48 Dose: 50 mg Triamcinolone Acetonide (Kenalog 0.1% Cream) 1 appl TOP Q12 [facility] Last Admin: 06/28/18 08:12 Dose: 1 appl Physical Exam - Head Exam Head Exam: ATRAUMATIC, NORMOCEPHALIC - Extremities Exam Additional comments: B/L LE focused exam: VASC: DP and PT pulses palpable 1/4 due to edema; cap refill <3 seconds to all digits; Temp gradient Warm to warm; +2 pitting edema noted b/l. NEURO: Gross and protective sensation Diminished. DERM: Superficial stasis ulcerations noted on the right side the largest is on the frias of the tibia measuring 4 cm X 2.5 cm x 0.1 m, with fibrotic base, and serous fluid drainage, no depth appreciated, An ulcer noted on the left frias of tibia measuring 1.2 cm X 1.2 cm X 0.2 cm with fibrogranular base, no drainage, no tracking, undermining or probe to bone. Erythema present to the upper 1/3 of the leg b/l. MSK: No pain on palpation of left lower extremity mid leg. - Neurological Exam Neurological exam: Alert, Oriented x3 Results - Vital Signs Recent Vital Signs: Last Vital Signs Temp 98.8 F 06/28/18 16:41 Pulse 105 H 06/28/18 16:41 Resp 18 06/28/18 16:41 BP 104/59 L 06/28/18 16:41 Pulse Ox 98 06/28/18 16:41 - Labs Result Diagrams: 06/28/18 06:15 06/28/18 06:15 Labs: Laboratory Results - last 24 hr 06/27/18 06/28/18 06/28/18 20:49 05:45 06:15 WBC 2.1 L RBC 3.50 L Hgb 9.0 L Hct 28.1 L MCV 80.4 MCH 25.6 L MCHC 31.8 L RDW 18.9 H Plt Count 138 Sodium Potassium Chloride Carbon Dioxide Anion Gap BUN Creatinine Est GFR ( Amer) Est GFR (Non-Af Amer) POC Glucose (mg/dL) 353 H 138 H Random Glucose Calcium 06/28/18 06/28/18 06/28/18 06:15 10:39 16:16 WBC RBC Hgb Hct MCV MCH MCHC RDW Plt Count Sodium 136 Potassium 3.4 L Chloride 92 L Carbon Dioxide 38 H Anion Gap 9 L BUN 11 Creatinine 0.6 L Est GFR ( Amer) > 60 Est GFR (Non-Af Amer) > 60 POC Glucose (mg/dL) 210 H 373 H Random Glucose 134 H Calcium 8.8 Assessment & Plan - Assessment and Plan (Free Text) Assessment: 62 year old male with a history of prostate cancer , 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 Plan: Patient seen and evaluated at the bedside Discussed in detail with Dr. Myrick Charts, labs and vitals reviewed; Afebrile, WBCs 2.1 B/L wound cultures collected and sent to lab. Continue IV Abx as per primary team. Ordered b/l Venous duplex B/L LE dressed with DSD. Silvadene cream ordered to be added to the dressing starting tomorrow Podiatry Will follow up the patient while patient in house Thank you for the consult - Date & Time Date: 06/28/18 Time: 18:28
--- NOTE | 2018-06-28 20:28 | PN ---
DATE: 06/28/2018 LOCATION: In room 416. SUBJECTIVE: This is a 62-year-old male with known history of metastatic lung carcinoma with underlying sarcoma of the left thigh and is now being followed closely also for metabolic management because of recent hyperglycemic accelerations as noted thereof. His glucose levels are fluctuating with the variability of his oral intake and today's glucose values have ranged from 138 to 210 and 373 mg/dL. LABORATORY DATA: His chemistry showed a BUN of 11, sodium 136, potassium 3.4, chloride 92, CO2 of 38, glucose 134, and creatinine 0.6. ASSESSMENT AND PLAN: So at this time, we will modify once again his basal and bolus insulin regimen to optimize metabolic control. We will increase the Humalog to 10 units t.i.d. before meals to start today as ordered. We will continue the low-dose correction scale using Humalog insulin to obviate hypoglycemia and detailed orders have been given. We will also titrate his basal insulin and increase the Levemir to 30 units subcutaneously at bedtime daily to start tonight. We will titrate incrementally as indicated to optimize metabolic control. We will obtain serial chemistries and supplement accordingly as needed. We will follow. Sheryl Adams MD
[2018-06-28] MEDS ORDERED: guaiFENesin-DM 600-30 mg ER Tab PO SCH (21:00)
[2018-06-28] MEDS: Insulin Detemir 100 Units/ml Inj SC SCH (21:44)
[2018-06-28] MEDS ORDERED: guaiFENesin DM 200 mg-20 mg/10 ml UD PO PRN (22:04)
[2018-06-28] MEDS ORDERED: oxyCODONE 10 mg Immediate Release Tab PO PRN ×2 (22:45)
[2018-06-28] MEDS: Albuterol 0.083% Inhal Sol (2.5 mg/3 mL) UD INH PRN (23:41)
[2018-06-29 05:48] LABS: BASO % 0.8 % (0.0-2.0); EOS % 0.4 % (0.0-4.0); HEMOGLOBIN 9.4 g/dL (12.0-18.0); LYMPH # 0.2 K/uL (1.0-4.3); LYMPH % 15.9 % (20.0-40.0); MEAN CELL VOLUME 80.6 fl (80.0-94.0); MEAN CORPUSCULAR HEMOGLOBIN 25.9 pg (27.0-31.0); MEAN CORPUSCULAR HGB CONC 32.1 g/dL (33.0-37.0); MEAN PLATELET VOLUME 8.3 fl (7.2-11.7); MONO # 0.2 K/uL (0.0-0.8); MONO % 14.8 % (0.0-10.0); NEUT # 0.9 K/uL (1.8-7.0); NEUT % 68.1 % (50.0-75.0); RBC 3.61 Mil/uL (4.40-5.90); RED CELL DISTRIBUTION WIDTH 18.9 % (11.5-14.5)
[2018-06-29 05:51] LABS: WHITE BLOOD COUNT 1.3 K/uL (4.8-10.8)
[2018-06-29 05:59] LABS: BLOOD UREA NITROGEN 11 mg/dl (9-20); CALCIUM 8.8 mg/dL (8.4-10.2); GFR NON-AFRICAN AMERICAN > 60; HDL CHOLESTEROL 41 MG/DL (30-70)
[2018-06-29 06:03] LABS: LDL CHOLESTEROL 75 mg/dL (0-129)
--- NOTE | 2018-06-29 06:23 | CP.PCM.PN ---
Subjective - Date & Time of Evaluation Date of Evaluation: 06/28/18 Time of Evaluation: 22:22 - Subjective Subjective: ## Note for 06/28 visit Above noted Improved respirations Multiple calls to staff regarding transfer to [facility] Objective - Vital Signs/Intake and Output Vital Signs (last 24 hours): Temp Pulse Resp BP Pulse Ox 97.0 F L 112 H 16 100/61 95 06/29/18 00:57 06/29/18 00:57 06/29/18 00:57 06/29/18 00:57 06/29/18 00:57 Intake and Output: 06/28/18 06/29/18 18:59 06:59 Intake Total 710 Output Total 300 Balance 410 - Medications Medications: Current Medications Albuterol Sulfate (Albuterol 0.083% Inhal Emilia (2.5 Mg/3 Ml) Ud) 2.5 mg INH RQ4 PRN PRN Reason: Shortness of Breath Last Admin: 06/28/18 23:41 Dose: 2.5 mg Albuterol/Ipratropium (Duoneb 3 Mg/0.5 Mg (3 Ml) Ud) 3 ml INH RQID [facility] Last Admin: 06/28/18 19:08 Dose: 3 ml Atorvastatin Calcium (Lipitor) 20 mg PO DAILY [facility] Last Admin: 06/28/18 08:15 Dose: 20 mg Bisacodyl (Dulcolax) 10 mg PO DAILY PRN PRN Reason: Constipation Last Admin: 06/28/18 08:09 Dose: 10 mg Budesonide (Pulmicort Respules) 0.5 mg IH Q12 [facility] Last Admin: 06/28/18 19:08 Dose: 0.5 mg Docusate Sodium (Colace) 100 mg PO Q8 PRN PRN Reason: Constipation Enoxaparin Sodium (Lovenox) 70 mg SC DAILY [facility]; Protocol Last Admin: 06/28/18 08:15 Dose: 70 mg Fluticasone Propionate (Flonase) 2 spr TIM DAILY [facility] Last Admin: 06/28/18 08:04 Dose: 2 spr Furosemide (Lasix) 20 mg PO DAILY [facility] Last Admin: 06/28/18 12:27 Dose: 20 mg Guaifenesin/Dextromethorphan (Robitussin Dm) 10 ml PO Q6 PRN PRN Reason: Cough Cefepime HCl 1 gm/ Sodium (Chloride) 100 mls @ 100 mls/hr IVPB Q12 [facility]; Protocol Last Admin: 06/28/18 21:50 Dose: 100 mls/hr Insulin Detemir (Levemir) 30 units SC HS [facility] Last Admin: 06/28/18 21:44 Dose: 30 u Insulin Human Lispro (Humalog) 0 units SC ACHS [facility] Last Admin: 06/28/18 23:40 Dose: 4 units Insulin Human Lispro (Humalog) 10 units SC AC [facility] Last Admin: 06/28/18 16:44 Dose: 10 units Lactulose (Enulose) 20 gm PO DAILY PRN PRN Reason: Constipation Lidocaine (Lidoderm) 1 ea TD DAILY PRN PRN Reason: Pain, moderate (4-7) Last Admin: 06/28/18 00:02 Dose: 1 ea Lorazepam (Ativan) 0.5 mg PO BID PRN PRN Reason: Anxiety Last Admin: 06/28/18 08:31 Dose: 0.5 mg Metformin HCl (Glucophage) 500 mg PO BIDWM [facility] Last Admin: 06/28/18 16:41 Dose: 500 mg Methadone HCl (Methadone) 25 mg PO Q12 [facility] Last Admin: 06/28/18 23:19 Dose: 25 mg Montelukast Sodium (Singulair) 10 mg PO DAILY [facility] Last Admin: 06/28/18 08:27 Dose: 10 mg Nystatin (Nystatin Oral Susp) 5 ml PO QID [facility] Last Admin: 06/28/18 21:42 Dose: 5 ml Ondansetron HCl (Zofran Odt) 8 mg PO Q8 PRN PRN Reason: Nausea/Vomiting Last Admin: 06/28/18 23:52 Dose: 8 mg Oxybutynin Chloride (Ditropan Tab) 5 mg PO DAILY [facility] Last Admin: 06/28/18 08:04 Dose: 5 mg Oxycodone HCl (Oxycodone Immediate Release Tab) 30 mg PO Q4 PRN PRN Reason: Pain, moderate (4-7) Last Admin: 06/28/18 23:18 Dose: 30 mg Oxycodone HCl (Oxycodone Immediate Release Tab) 40 mg PO Q4 PRN PRN Reason: Pain, severe (8-10) Pantoprazole Sodium (Protonix Ec Tab) 40 mg PO DAILY [facility] Last Admin: 06/28/18 08:26 Dose: 40 mg Paroxetine HCl (Paxil) 40 mg PO DAILY [facility] Last Admin: 06/28/18 08:25 Dose: 40 mg Polyethylene Glycol (Miralax) 17 gm PO BID PRN PRN Reason: Constipation Prednisone (Prednisone Tab) 20 mg PO DAILY [facility] Prochlorperazine (Compazine Tab) 10 mg PO Q6 PRN PRN Reason: Nausea/Vomiting Sennosides (Senokot Tab) 8.6 mg PO BID PRN PRN Reason: Constipation Tamsulosin HCl (Flomax) 0.4 mg PO DAILY [facility] Last Admin: 06/28/18 08:04 Dose: 0.4 mg Trazodone HCl (Desyrel) 50 mg PO HS [facility] Last Admin: 06/28/18 21:51 Dose: 50 mg Triamcinolone Acetonide (Kenalog 0.1% Cream) 1 appl TOP Q12 [facility] Last Admin: 06/28/18 21:51 Dose: 1 appl - Labs Labs: 06/29/18 04:30 06/29/18 04:30 Assessment and Plan - Assessment and Plan (Free Text) Assessment: ? Pneumonia Hx Prostate cancer / sarcoma with metastatic dx to the lung Hx COPD Asthma [facility] Pulmonary ID ABX Mucositis/ Thrush 2 to chemotherapy Oncology Topical Chronic pain Pain management consult Transfer to [facility]
[2018-06-29] MEDS: Budesonide 0.5 mg/2 ml Inhal Susp UD IH SCH ×3 (07:35→21:00)
[2018-06-29] MEDS: Albuterol-Ipratrop 3 mg / 0.5 (3 ml) UD INH SCH ×4 (07:35→19:51)
[2018-06-29] MEDS ORDERED: Silver Sulfadiazine 1% Cream (20 gm) TOP SCH (09:00)
[2018-06-29] MEDS: Insulin Lispro (humaLOG) 100 Units/ml Inj SC SCH ×7 (10:41→21:28)
--- NOTE | 2018-06-29 10:42 | CP.PCM.PCO ---
Assessment and Plan - Assessment and Plan (Free Text) Assessment: pt. received in bed more lethargic today, opens eyes intermittently only to verbal cues, +AMS + respiratory distress, + chest congestion, scatterred rochi, wheezing b/l on O2 4L labs noted, wbc1.3; anc 900 CT chest noted pt. was started on IV abx A/p 62 yr M with stg V sacrcoma w/ Lung mets Acute respiratory failure; hypoxia, AMS -check stat ABG -ICU MD consulted and case discussed w/ - pt. placed on bipap pt. transferred to ICU Above d/w , and Palliative care consult
[2018-06-29] MEDS: Enoxaparin 80 mg Syringe SC SCH (10:43)
[2018-06-29] MEDS: Cefepime 1 GM in Sodium Chloride 0.9% 100 ML IVPB SCH (10:43)
[2018-06-29] MEDS: Pantoprazole 40 mg EC Tab PO SCH (10:45)
[2018-06-29] MEDS: Nystatin 100,000 Units/ml Oral Susp 5 ml UD PO SCH ×4 (10:45→21:46)
[2018-06-29 11:03] LABS: ABG ALLEN TEST YES; ARTERIAL BLOOD GAS O2 CAPACITY 12.6 mL/dL (16-24); ARTERIAL BLOOD GAS O2 CONTENT 12.5 ML/dL (15-23); ARTERIAL BLOOD GAS O2 SAT 99.6 % (95-98); ARTERIAL BLOOD GAS PCO2 57 mm/Hg (35-45); ARTERIAL BLOOD GAS PH 7.44 (7.35-7.45); ARTERIAL BLOOD GAS PO2 89 mm/Hg (80-100); ARTERIAL BLOOD GAS TCO2 40.4 mmol/L (22-28)
--- NOTE | 2018-06-29 11:13 | PCM.RRT ---
<Lexa MartinezOtis - Last Filed: 06/29/18 15:02> DITCH RIDER Nurse Assessment - Situation DITCH RIDER Responder Arrival Time: 06:15 - Ventilator Settings Peak Flow: 160 I.Reason for DITCH RIDER - A) Acute Change in Patient: Subjective: DITCH RIDER Arrival time: 11AM DITCH RIDER Location: [facility]- DITCH RIDER VS: BP 139/68, HR 116, O2Sat 97 on 2L NC, RR 22. S: DITCH RIDER called by nurse after patient was found in respiratory distress and with AMS. Of Note the patient is a 62 Y/O male with PMH of leg sarcoma with lung metastatsis, who has been recieving chemotherapy, has also h/o Prostate CA, HLD, DM, obesity and depression. At time of DITCH RIDER the patient is no responding to any questions. O: HEENT: AT/NC RESP: Decreased BS , rhonchi heard through out lung luque. CV: Tacycardic, S1 S2 present ABD: Obese, soft EXT: Bilateral LE edema Assessment and interventions: 62 Y/O male with PMH of leg sarcoma with lung metastatsis, who has been recieving chemotherapy, has also h/o Prostate CA, HLD, DM, obesity and depression, who was called DITCH RIDER due to respiratory depression. -Patient to be transferred to ICU. -Initiate BiPAP. <Gayle Ernandez - Last Filed: 06/30/18 19:08> DITCH RIDER Nurse Assessment - Vital Signs Vital Signs: Rapid Response Vital Sign Blood Pressure 139/68 Pulse Rate 123 Respiratory Rate 21 Temperature 99.6 F Oxygen Saturation 96 - Vital Signs at end of DITCH RIDER Vital Signs at end of DITCH RIDER: Rapid Response End Vital Sign Blood Pressure 138/80 Respiratory Rate 113 Temperature 99.6 F O2 Sat by Pulse Oximetry 96 Attending/Attestation - Attestation I have personally seen and examined this patient.: Yes I have fully participated in the care of the patient.: Yes I have reviewed all pertinent clinical information, including history, physical exam and plan: Yes Notes (Text): 06/30/18 19:08 Agree with findings and plan as above.
--- NOTE | 2018-06-29 12:17 | CP.PCM.CON ---
History of Present Illness - History of Present Illness History of Present Illness: called to rapid response for SOB, started patient on BIPAP and transferred to ICU. Review of Systems - Review of Systems Systems not reviewed;Unavailable: Altered Mental Status Past Patient History - Past Medical History & Family History Past Medical History?: Yes - Past Social History Smoking Status: Former Smoker Chewing Tobacco Use: No Cigar Use: No Alcohol: None Drugs: Denies - CARDIAC Hx Hypercholesterolemia: Yes Hx Hypertension: Yes - PULMONARY Hx Asthma: Yes Hx Pulmonary Embolism: Yes Other/Comment: metastatic lung disease - HEENT Other/Comment: throat pain and hoarsness of voice - RENAL Hx Chronic Kidney Disease: No - ENDOCRINE/METABOLIC Hx Diabetes Mellitus Type 2: Yes - HEMATOLOGICAL/ONCOLOGICAL Hx Anemia: Yes Hx Cancer: Yes - INTEGUMENTARY Hx Dermatological Problems: Yes Other/Comment: Left thigh sarcoma - MUSCULOSKELETAL/RHEUMATOLOGICAL Hx Musculoskeletal Disorders: Yes Hx Falls: No Other/Comment: 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 2 lung Laparoscopy due to sarcoma - ANESTHESIA Hx Anesthesia: Yes Hx Anesthesia Reactions: No Meds Allergies/Adverse Reactions: Allergies Allergy/AdvReac Type Severity Reaction Status Date / Time DOXYTACIL Allergy ANAPHYLAXIS Uncoded 08/30/17 22:18 - Medications Medications: Current Medications Albuterol Sulfate (Albuterol 0.083% Inhal Emilia (2.5 Mg/3 Ml) Ud) 2.5 mg INH RQ4 PRN PRN Reason: Shortness of Breath Last Admin: 06/28/18 23:41 Dose: 2.5 mg Albuterol/Ipratropium (Duoneb 3 Mg/0.5 Mg (3 Ml) Ud) 3 ml INH RQID [facility] Last Admin: 06/29/18 11:32 Dose: 3 ml Atorvastatin Calcium (Lipitor) 20 mg PO DAILY [facility] Last Admin: 06/29/18 10:42 Dose: Not Given Bisacodyl (Dulcolax) 10 mg PO DAILY PRN PRN Reason: Constipation Last Admin: 06/28/18 08:09 Dose: 10 mg Budesonide (Pulmicort Respules) 0.5 mg IH Q12 [facility] Last Admin: 06/29/18 07:35 Dose: 0.5 mg Docusate Sodium (Colace) 100 mg PO Q8 PRN PRN Reason: Constipation Enoxaparin Sodium (Lovenox) 70 mg SC DAILY [facility]; Protocol Last Admin: 06/29/18 10:43 Dose: 70 mg Fluticasone Propionate (Flonase) 2 spr TIM DAILY [facility] Last Admin: 06/29/18 10:40 Dose: 2 spr Furosemide (Lasix) 20 mg PO DAILY [facility] Last Admin: 06/29/18 10:42 Dose: Not Given Guaifenesin/Dextromethorphan (Robitussin Dm) 10 ml PO Q6 PRN PRN Reason: Cough Cefepime HCl 1 gm/ Sodium (Chloride) 100 mls @ 100 mls/hr IVPB Q12 [facility]; Protocol Last Admin: 06/29/18 10:43 Dose: 100 mls/hr Vancomycin HCl 1 gm/ Sodium (Chloride) 250 mls @ 166.667 mls/hr IVPB DAILY [facility]; Protocol Insulin Detemir (Levemir) 30 units SC HS [facility] Last Admin: 06/28/18 21:44 Dose: 30 u Insulin Human Lispro (Humalog) 0 units SC ACHS [facility] Last Admin: 06/29/18 10:41 Dose: Not Given Insulin Human Lispro (Humalog) 10 units SC AC [facility] Last Admin: 06/29/18 10:42 Dose: Not Given Lactulose (Enulose) 20 gm PO DAILY PRN PRN Reason: Constipation Lidocaine (Lidoderm) 1 ea TD DAILY PRN PRN Reason: Pain, moderate (4-7) Last Admin: 06/28/18 00:02 Dose: 1 ea Lorazepam (Ativan) 0.5 mg PO BID PRN PRN Reason: Anxiety Last Admin: 06/28/18 08:31 Dose: 0.5 mg Metformin HCl (Glucophage) 500 mg PO BIDWM [facility] Last Admin: 06/29/18 10:41 Dose: Not Given Methadone HCl (Methadone) 25 mg PO Q12 [facility] Last Admin: 06/29/18 10:44 Dose: Not Given Montelukast Sodium (Singulair) 10 mg PO DAILY [facility] Last Admin: 06/29/18 10:45 Dose: Not Given Nystatin (Nystatin Oral Susp) 5 ml PO QID [facility] Last Admin: 06/29/18 10:45 Dose: Not Given Ondansetron HCl (Zofran Odt) 8 mg PO Q8 PRN PRN Reason: Nausea/Vomiting Last Admin: 06/28/18 23:52 Dose: 8 mg Oxybutynin Chloride (Ditropan Tab) 5 mg PO DAILY [facility] Last Admin: 06/29/18 10:40 Dose: Not Given Oxycodone HCl (Oxycodone Immediate Release Tab) 30 mg PO Q4 PRN PRN Reason: Pain, moderate (4-7) Last Admin: 06/28/18 23:18 Dose: 30 mg Oxycodone HCl (Oxycodone Immediate Release Tab) 40 mg PO Q4 PRN PRN Reason: Pain, severe (8-10) Pantoprazole Sodium (Protonix Ec Tab) 40 mg PO DAILY [facility] Last Admin: 06/29/18 10:45 Dose: Not Given Paroxetine HCl (Paxil) 40 mg PO DAILY [facility] Last Admin: 06/29/18 10:45 Dose: Not Given Polyethylene Glycol (Miralax) 17 gm PO BID PRN PRN Reason: Constipation Prednisone (Prednisone Tab) 20 mg PO DAILY [facility] Last Admin: 06/29/18 10:45 Dose: Not Given Prochlorperazine (Compazine Tab) 10 mg PO Q6 PRN PRN Reason: Nausea/Vomiting Sennosides (Senokot Tab) 8.6 mg PO BID PRN PRN Reason: Constipation Tamsulosin HCl (Flomax) 0.4 mg PO DAILY [facility] Last Admin: 06/29/18 10:40 Dose: Not Given Trazodone HCl (Desyrel) 50 mg PO HS [facility] Last Admin: 06/28/18 21:51 Dose: 50 mg Triamcinolone Acetonide (Kenalog 0.1% Cream) 1 appl TOP Q12 [facility] Last Admin: 06/29/18 10:42 Dose: 1 appl Physical Exam - Constitutional Additional comments: morbidly obese - Head Exam Head Exam: ATRAUMATIC, NORMAL INSPECTION, NORMOCEPHALIC - Eye Exam Eye Exam: EOMI, Normal appearance, PERRL Pupil Exam: NORMAL ACCOMODATION, PERRL - ENT Exam ENT Exam: Mucous Membranes Moist - Respiratory Exam Respiratory Exam: Rhonchi Additional comments: decreased breath sounds in left lung luque. - Cardiovascular Exam Cardiovascular Exam: Tachycardia - GI/Abdominal Exam GI & Abdominal Exam: Normal Bowel Sounds, Soft. absent: Tenderness - Neurological Exam Neurological exam: Alert Results - Vital Signs Recent Vital Signs: Last Vital Signs Temp 99.4 F 06/29/18 09:53 Pulse 106 H 06/29/18 11:34 Resp 20 06/29/18 09:53 BP 120/80 06/29/18 09:53 Pulse Ox 97 06/29/18 09:53 - Labs Result Diagrams: 06/29/18 04:30 06/29/18 04:30 Labs: Laboratory Results - last 24 hr 06/28/18 06/28/18 06/29/18 16:16 21:57 04:30 WBC RBC Hgb Hct MCV MCH MCHC RDW Plt Count MPV Neut % (Auto) Lymph % (Auto) [place] % (Auto) Eos % (Auto) Baso % (Auto) Neut # (Auto) Lymph # (Auto) [place] # (Auto) Eos # (Auto) Baso # (Auto) pCO2 pO2 HCO3 ABG pH ABG Total CO2 ABG O2 Saturation ABG O2 Content ABG Base Excess ABG Hemoglobin ABG Carboxyhemoglobin POC ABG HHb (Measured) ABG Methemoglobin ABG O2 Capacity Gilbert Test A-a O2 Difference Hgb O2 Saturation Liter Flow Vent Mode FiO2 Sodium 136 Potassium 4.3 Chloride 93 L Carbon Dioxide 36 H Anion Gap 11 BUN 11 Creatinine 0.7 L Est GFR ( Amer) > 60 Est GFR (Non-Af Amer) > 60 POC Glucose (mg/dL) 373 H 320 H Random Glucose 213 H Calcium 8.8 Triglycerides 131 D Cholesterol 145 LDL Cholesterol Direct 75 HDL Cholesterol 41 06/29/18 06/29/18 06/29/18 04:30 07:05 10:42 WBC 1.3 L* RBC 3.61 L Hgb 9.4 L Hct 29.1 L MCV 80.6 MCH 25.9 L MCHC 32.1 L RDW 18.9 H Plt Count 170 MPV 8.3 Neut % (Auto) 68.1 Lymph % (Auto) 15.9 L [place] % (Auto) 14.8 H Eos % (Auto) 0.4 Baso % (Auto) 0.8 Neut # (Auto) 0.9 L Lymph # (Auto) 0.2 L [place] # (Auto) 0.2 Eos # (Auto) 0.0 Baso # (Auto) 0.0 pCO2 57 H pO2 89 HCO3 35.0 H ABG pH 7.44 ABG Total CO2 40.4 H ABG O2 Saturation 99.6 H ABG O2 Content 12.5 L ABG Base Excess 12.9 H ABG Hemoglobin 9.0 L ABG Carboxyhemoglobin 1.6 H POC ABG HHb (Measured) 0.4 ABG Methemoglobin 0.5 ABG O2 Capacity 12.6 L Gilbert Test Yes A-a O2 Difference 96.0 Hgb O2 Saturation 97.5 Liter Flow 4 Vent Mode Nc FiO2 36.0 Sodium Potassium Chloride Carbon Dioxide Anion Gap BUN Creatinine Est GFR ( Amer) Est GFR (Non-Af Amer) POC Glucose (mg/dL) 245 H Random Glucose Calcium Triglycerides Cholesterol LDL Cholesterol Direct HDL Cholesterol 06/29/18 11:01 WBC RBC Hgb Hct MCV MCH MCHC RDW Plt Count MPV Neut % (Auto) Lymph % (Auto) [place] % (Auto) Eos % (Auto) Baso % (Auto) Neut # (Auto) Lymph # (Auto) [place] # (Auto) Eos # (Auto) Baso # (Auto) pCO2 pO2 HCO3 ABG pH ABG Total CO2 ABG O2 Saturation ABG O2 Content ABG Base Excess ABG Hemoglobin ABG Carboxyhemoglobin POC ABG HHb (Measured) ABG Methemoglobin ABG O2 Capacity [place] Test A-a O2 Difference Hgb O2 Saturation Liter Flow Vent Mode FiO2 Sodium Potassium Chloride Carbon Dioxide Anion Gap BUN Creatinine Est GFR ( Amer) Est GFR (Non-Af Amer) POC Glucose (mg/dL) 240 H Random Glucose Calcium Triglycerides Cholesterol LDL Cholesterol Direct HDL Cholesterol Assessment & Plan (1) Acute respiratory failure Assessment and Plan: 62 yo with hx prostate ca / 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 Neuro: altered mental status secondary to hypercarbia. patient was also on methadone with prn oxycodone which could also contribute to his obtundation. Continue methadone to prevent withdrawal, holding oxycodone. Holding trazodone. Pulm: acute hypercapnic respiratory failure. Patient most likely has GALEN and obesity hypoventilation with a concomitant obstructive mass in his left lung, giving him very little functional left lung and mostly breathing with one good right lung. Started on BIPAP to see if any improvement. High possibility of intubation. CV: hemodynamically stable. 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 If this is correct his prognosis is poor. Worsening leukopenia, continue Filgastrim. Renal: no acute issues Endo: DM type 2, continue GI: NPO while on BIPAP. ID: [email or web address] coverage Cefepime and Vancomycin. DVT proph - lovenox GI proph - protonix Code status - full code Palliative care to be consulted once patient is alert. advance directives need to be addressed. Critical Care time spent 45 minutes Multi-disciplinary rounds were performed with house staff, nursing, speech therapy, respiratory therapy, pharmacy and nutrition with integrated input from the primary team/attending and other consulting services. The documented time is cumulative and includes review of patient data/exams/labs/chart review and examination of the patient on rounds and throughout the day; time is exclusive of any procedures or teaching time. Status: Acute
--- NOTE | 2018-06-29 12:33 | PQF ---
PROVIDER RESPONSE TEXT: Right venous stasis ulceration limited to skin breakdown REVIEWER QUERY TEXT: Skin Ulcer Type and Severity Venous Stasis Skin Ulcers is documented in the Medical Record. 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
--- NOTE | 2018-06-29 12:37 | CP.PCM.PN ---
Subjective - Date & Time of Evaluation Date of Evaluation: 06/29/18 Time of Evaluation: 07:45 - Subjective Subjective: NO NEW COMPLAINTS Objective - Vital Signs/Intake and Output Vital Signs (last 24 hours): Temp Pulse Resp BP Pulse Ox 99.4 F 106 H 20 120/80 97 06/29/18 09:53 06/29/18 11:34 06/29/18 09:53 06/29/18 09:53 06/29/18 09:53 - Medications Medications: Current Medications Albuterol Sulfate (Albuterol 0.083% Inhal Emilia (2.5 Mg/3 Ml) Ud) 2.5 mg INH RQ4 PRN PRN Reason: Shortness of Breath Last Admin: 06/28/18 23:41 Dose: 2.5 mg Albuterol/Ipratropium (Duoneb 3 Mg/0.5 Mg (3 Ml) Ud) 3 ml INH RQID [facility] Last Admin: 06/29/18 11:32 Dose: 3 ml Atorvastatin Calcium (Lipitor) 20 mg PO DAILY [facility] Last Admin: 06/29/18 10:42 Dose: Not Given Bisacodyl (Dulcolax) 10 mg PO DAILY PRN PRN Reason: Constipation Last Admin: 06/28/18 08:09 Dose: 10 mg Budesonide (Pulmicort Respules) 0.5 mg IH Q12 [facility] Last Admin: 06/29/18 07:35 Dose: 0.5 mg Docusate Sodium (Colace) 100 mg PO Q8 PRN PRN Reason: Constipation Enoxaparin Sodium (Lovenox) 70 mg SC DAILY [facility]; Protocol Last Admin: 06/29/18 10:43 Dose: 70 mg Fluticasone Propionate (Flonase) 2 spr TIM DAILY [facility] Last Admin: 06/29/18 10:40 Dose: 2 spr Furosemide (Lasix) 20 mg PO DAILY [facility] Last Admin: 06/29/18 10:42 Dose: Not Given Guaifenesin/Dextromethorphan (Robitussin Dm) 10 ml PO Q6 PRN PRN Reason: Cough Cefepime HCl 1 gm/ Sodium (Chloride) 100 mls @ 100 mls/hr IVPB Q12 [facility]; Protocol Last Admin: 06/29/18 10:43 Dose: 100 mls/hr Vancomycin HCl 1 gm/ Sodium (Chloride) 250 mls @ 166.667 mls/hr IVPB DAILY [facility]; Protocol Insulin Detemir (Levemir) 30 units SC HS [facility] Last Admin: 06/28/18 21:44 Dose: 30 u Insulin Human Lispro (Humalog) 0 units SC ACHS [facility] Last Admin: 06/29/18 10:41 Dose: Not Given Insulin Human Lispro (Humalog) 10 units SC AC [facility] Last Admin: 06/29/18 10:42 Dose: Not Given Lactulose (Enulose) 20 gm PO DAILY PRN PRN Reason: Constipation Lidocaine (Lidoderm) 1 ea TD DAILY PRN PRN Reason: Pain, moderate (4-7) Last Admin: 06/28/18 00:02 Dose: 1 ea Lorazepam (Ativan) 0.5 mg PO BID PRN PRN Reason: Anxiety Last Admin: 06/28/18 08:31 Dose: 0.5 mg Metformin HCl (Glucophage) 500 mg PO BIDWM [facility] Last Admin: 06/29/18 10:41 Dose: Not Given Methadone HCl (Methadone) 25 mg PO Q12 [facility] Last Admin: 06/29/18 10:44 Dose: Not Given Montelukast Sodium (Singulair) 10 mg PO DAILY [facility] Last Admin: 06/29/18 10:45 Dose: Not Given Nystatin (Nystatin Oral Susp) 5 ml PO QID [facility] Last Admin: 06/29/18 10:45 Dose: Not Given Ondansetron HCl (Zofran Odt) 8 mg PO Q8 PRN PRN Reason: Nausea/Vomiting Last Admin: 06/28/18 23:52 Dose: 8 mg Oxybutynin Chloride (Ditropan Tab) 5 mg PO DAILY [facility] Last Admin: 06/29/18 10:40 Dose: Not Given Oxycodone HCl (Oxycodone Immediate Release Tab) 30 mg PO Q4 PRN PRN Reason: Pain, moderate (4-7) Last Admin: 06/28/18 23:18 Dose: 30 mg Oxycodone HCl (Oxycodone Immediate Release Tab) 40 mg PO Q4 PRN PRN Reason: Pain, severe (8-10) Pantoprazole Sodium (Protonix Ec Tab) 40 mg PO DAILY [facility] Last Admin: 06/29/18 10:45 Dose: Not Given Paroxetine HCl (Paxil) 40 mg PO DAILY [facility] Last Admin: 06/29/18 10:45 Dose: Not Given Polyethylene Glycol (Miralax) 17 gm PO BID PRN PRN Reason: Constipation Prednisone (Prednisone Tab) 20 mg PO DAILY [facility] Last Admin: 06/29/18 10:45 Dose: Not Given Prochlorperazine (Compazine Tab) 10 mg PO Q6 PRN PRN Reason: Nausea/Vomiting Sennosides (Senokot Tab) 8.6 mg PO BID PRN PRN Reason: Constipation Tamsulosin HCl (Flomax) 0.4 mg PO DAILY [facility] Last Admin: 06/29/18 10:40 Dose: Not Given Trazodone HCl (Desyrel) 50 mg PO HS [facility] Last Admin: 06/28/18 21:51 Dose: 50 mg Triamcinolone Acetonide (Kenalog 0.1% Cream) 1 appl TOP Q12 [facility] Last Admin: 06/29/18 10:42 Dose: 1 appl - Labs Labs: 06/29/18 04:30 06/29/18 04:30 - Respiratory Exam Respiratory Exam: Decreased Breath Sounds, Rhonchi - Cardiovascular Exam Cardiovascular Exam: REGULAR RHYTHM, +S1, +S2 - Additional Findings Additional findings: T CHOL 145 LDL 75 [id number] Assessment and Plan - Assessment and Plan (Free Text) Assessment: ANGIOSARCOMA WITH LUNG METASTASIS PNEUMONIA HYPERLIPIDEMIA DM Plan: CONTINUE ANTIBIOTICS, BRONCHODILATORS, INSULIN, METFORMEN, FUROSEMIDE AND ATORVASTATIN
--- NOTE | 2018-06-29 13:11 | CP.PCM.PN ---
Subjective - Date & Time of Evaluation Date of Evaluation: 06/29/18 Time of Evaluation: 13:08 - Subjective Subjective: Podiatry progress note for attending Dr. Myrick: 62 year old male patient Seen and evaluated at the bedside for b/l LE erythema, edema and superficial ulceration. [employer] was called for the patient as he developed respiratory depression. Patient moved to ICU and now on BiPAP mask. as per patient chart he didn't have any overnight fevers and chills. Objective - Vital Signs/Intake and Output Vital Signs (last 24 hours): Temp Pulse Resp BP Pulse Ox 99.4 F 106 H 20 120/80 97 06/29/18 09:53 06/29/18 11:34 06/29/18 09:53 06/29/18 09:53 06/29/18 09:53 - Medications Medications: Current Medications Albuterol Sulfate (Albuterol 0.083% Inhal Emilia (2.5 Mg/3 Ml) Ud) 2.5 mg INH RQ4 PRN PRN Reason: Shortness of Breath Last Admin: 06/28/18 23:41 Dose: 2.5 mg Albuterol/Ipratropium (Duoneb 3 Mg/0.5 Mg (3 Ml) Ud) 3 ml INH RQID [facility] Last Admin: 06/29/18 11:32 Dose: 3 ml Atorvastatin Calcium (Lipitor) 20 mg PO DAILY [facility] Last Admin: 06/29/18 10:42 Dose: Not Given Bisacodyl (Dulcolax) 10 mg PO DAILY PRN PRN Reason: Constipation Last Admin: 06/28/18 08:09 Dose: 10 mg Budesonide (Pulmicort Respules) 0.5 mg IH Q12 [facility] Last Admin: 06/29/18 07:35 Dose: 0.5 mg Docusate Sodium (Colace) 100 mg PO Q8 PRN PRN Reason: Constipation Enoxaparin Sodium (Lovenox) 70 mg SC DAILY [facility]; Protocol Last Admin: 06/29/18 10:43 Dose: 70 mg Fluticasone Propionate (Flonase) 2 spr TIM DAILY [facility] Last Admin: 06/29/18 10:40 Dose: 2 spr Furosemide (Lasix) 20 mg PO DAILY [facility] Last Admin: 06/29/18 10:42 Dose: Not Given Guaifenesin/Dextromethorphan (Robitussin Dm) 10 ml PO Q6 PRN PRN Reason: Cough Cefepime HCl 1 gm/ Sodium (Chloride) 100 mls @ 100 mls/hr IVPB Q12 [facility]; Protoc ol Last Admin: 06/29/18 10:43 Dose: 100 mls/hr Vancomycin HCl 1 gm/ Sodium (Chloride) 250 mls @ 166.667 mls/hr IVPB DAILY [facility]; Protocol Insulin Detemir (Levemir) 30 units SC HS [facility] Last Admin: 06/28/18 21:44 Dose: 30 u Insulin Human Lispro (Humalog) 0 units SC ACHS [facility] Last Admin: 06/29/18 12:38 Dose: Not Given Insulin Human Lispro (Humalog) 10 units SC AC [facility] Last Admin: 06/29/18 12:39 Dose: Not Given Lactulose (Enulose) 20 gm PO DAILY PRN PRN Reason: Constipation Lidocaine (Lidoderm) 1 ea TD DAILY PRN PRN Reason: Pain, moderate (4-7) Last Admin: 06/28/18 00:02 Dose: 1 ea Methadone HCl (Methadone) 25 mg PO Q12 [facility] Last Admin: 06/29/18 10:44 Dose: Not Given Montelukast Sodium (Singulair) 10 mg PO DAILY [facility] Last Admin: 06/29/18 10:45 Dose: Not Given Nystatin (Nystatin Oral Susp) 5 ml PO QID [facility] Last Admin: 06/29/18 12:42 Dose: Not Given Ondansetron HCl (Zofran Odt) 8 mg PO Q8 PRN PRN Reason: Nausea/Vomiting Last Admin: 06/28/18 23:52 Dose: 8 mg Oxybutynin Chloride (Ditropan Tab) 5 mg PO DAILY [facility] Last Admin: 06/29/18 10:40 Dose: Not Given Pantoprazole Sodium (Protonix Ec Tab) 40 mg PO DAILY [facility] Last Admin: 06/29/18 10:45 Dose: Not Given Paroxetine HCl (Paxil) 40 mg PO DAILY [facility] Last Admin: 06/29/18 10:45 Dose: Not Given Polyethylene Glycol (Miralax) 17 gm PO BID PRN PRN Reason: Constipation Prednisone (Prednisone Tab) 20 mg PO DAILY [facility] Last Admin: 06/29/18 10:45 Dose: Not Given Prochlorperazine (Compazine Tab) 10 mg PO Q6 PRN PRN Reason: Nausea/Vomiting Sennosides (Senokot Tab) 8.6 mg PO BID PRN PRN Reason: Constipation Tamsulosin HCl (Flomax) 0.4 mg PO DAILY [facility] Last Admin: 06/29/18 10:40 Dose: Not Given Trazodone HCl (Desyrel) 50 mg PO HS [facility] Last Admin: 06/28/18 21:51 Dose: 50 mg Triamcinolone Acetonide (Kenalog 0.1% Cream) 1 appl TOP Q12 [facility] Last Admin: 06/29/18 10:42 Dose: 1 appl - Labs Labs: 06/29/18 04:30 06/29/18 04:30 - Constitutional Appears: In Acute Distress - Head Exam Head Exam: ATRAUMATIC - Extremities Exam Additional comments: B/L LE focused exam: VASC: DP and PT pulses palpable 1/4 due to edema; cap refill <3 seconds to all digits; Temp gradient Warm to warm; +2 pitting edema noted b/l. NEURO: Gross and protective sensation Diminished. DERM: Superficial stasis ulcerations noted on the right side the largest is on the frias of the tibia measuring 3.4 cm X 2.5 cm x 0.1 m, with fibrotic base, and serous fluid drainage, no depth appreciated, An ulcer noted on the left frias of tibia measuring 1.2 cm X 1.2 cm X 0.2 cm with fibrogranular base, no drainage, no tracking, undermining or probe to bone. Mild erythema extends from the ankle to the upper 1/3 of the leg b/l. MSK: No pain on palpation of left lower extremity mid leg. Assessment and Plan - Assessment and Plan (Free Text) Assessment: 62 year old male patient Seen and evaluated at the bedside for b/l LE erythema, edema and superficial ulceration. Plan: Patient seen and evaluated at the bedside Discussed in detail with Dr. Myrick Charts, labs and vitals reviewed; Afebrile, WBCs 1.3 B/L wound cultures: gram positive cocci. Continue IV Abx as per primary team. B/L Venous duplex B/L LE dressed with DSD and adaptic. Podiatry Will continue to follow up the patient while patient in house.
--- NOTE | 2018-06-29 13:26 | CP.PCM.PN ---
Subjective - Date & Time of Evaluation Date of Evaluation: 06/29/18 Time of Evaluation: 12:00 - Subjective Subjective: More lethargic and short of breath case discussed with mill tender second operator; to transfer to ICU on bipap for closer monitoring Objective - Vital Signs/Intake and Output Vital Signs (last 24 hours): Temp Pulse Resp BP Pulse Ox 99.4 F 106 H 20 120/80 97 06/29/18 09:53 06/29/18 11:34 06/29/18 09:53 06/29/18 09:53 06/29/18 09:53 - Medications Medications: Current Medications Albuterol Sulfate (Albuterol 0.083% Inhal Emilia (2.5 Mg/3 Ml) Ud) 2.5 mg INH RQ4 PRN PRN Reason: Shortness of Breath Last Admin: 06/28/18 23:41 Dose: 2.5 mg Albuterol/Ipratropium (Duoneb 3 Mg/0.5 Mg (3 Ml) Ud) 3 ml INH RQID [facility] Last Admin: 06/29/18 11:32 Dose: 3 ml Atorvastatin Calcium (Lipitor) 20 mg PO DAILY [facility] Last Admin: 06/29/18 10:42 Dose: Not Given Bisacodyl (Dulcolax) 10 mg PO DAILY PRN PRN Reason: Constipation Last Admin: 06/28/18 08:09 Dose: 10 mg Budesonide (Pulmicort Respules) 0.5 mg IH Q12 [facility] Last Admin: 06/29/18 07:35 Dose: 0.5 mg Docusate Sodium (Colace) 100 mg PO Q8 PRN PRN Reason: Constipation Enoxaparin Sodium (Lovenox) 70 mg SC DAILY [facility]; Protocol Last Admin: 06/29/18 10:43 Dose: 70 mg Fluticasone Propionate (Flonase) 2 spr TIM DAILY [facility] Last Admin: 06/29/18 10:40 Dose: 2 spr Furosemide (Lasix) 20 mg PO DAILY [facility] Last Admin: 06/29/18 10:42 Dose: Not Given Guaifenesin/Dextromethorphan (Robitussin Dm) 10 ml PO Q6 PRN PRN Reason: Cough Cefepime HCl 1 gm/ Sodium (Chloride) 100 mls @ 100 mls/hr IVPB Q12 [facility]; Protocol Last Admin: 06/29/18 10:43 Dose: 100 mls/hr Vancomycin HCl 1 gm/ Sodium (Chloride) 250 mls @ 166.667 mls/hr IVPB DAILY [facility]; Protocol Insulin Detemir (Levemir) 30 units SC HS [facility] Last Admin: 06/28/18 21:44 Dose: 30 u Insulin Human Lispro (Humalog) 0 units SC ACHS [facility] Last Admin: 06/29/18 12:38 Dose: Not Given Insulin Human Lispro (Humalog) 10 units SC AC [facility] Last Admin: 06/29/18 12:39 Dose: Not Given Lactulose (Enulose) 20 gm PO DAILY PRN PRN Reason: Constipation Lidocaine (Lidoderm) 1 ea TD DAILY PRN PRN Reason: Pain, moderate (4-7) Last Admin: 06/28/18 00:02 Dose: 1 ea Methadone HCl (Methadone) 25 mg PO Q12 [facility] Last Admin: 06/29/18 10:44 Dose: Not Given Montelukast Sodium (Singulair) 10 mg PO DAILY [facility] Last Admin: 06/29/18 10:45 Dose: Not Given Nystatin (Nystatin Oral Susp) 5 ml PO QID [facility] Last Admin: 06/29/18 12:42 Dose: Not Given Ondansetron HCl (Zofran Odt) 8 mg PO Q8 PRN PRN Reason: Nausea/Vomiting Last Admin: 06/28/18 23:52 Dose: 8 mg Oxybutynin Chloride (Ditropan Tab) 5 mg PO DAILY [facility] Last Admin: 06/29/18 10:40 Dose: Not Given Pantoprazole Sodium (Protonix Ec Tab) 40 mg PO DAILY [facility] Last Admin: 06/29/18 10:45 Dose: Not Given Paroxetine HCl (Paxil) 40 mg PO DAILY [facility] Last Admin: 06/29/18 10:45 Dose: Not Given Polyethylene Glycol (Miralax) 17 gm PO BID PRN PRN Reason: Constipation Prednisone (Prednisone Tab) 20 mg PO DAILY [facility] Last Admin: 06/29/18 10:45 Dose: Not Given Prochlorperazine (Compazine Tab) 10 mg PO Q6 PRN PRN Reason: Nausea/Vomiting Sennosides (Senokot Tab) 8.6 mg PO BID PRN PRN Reason: Constipation Tamsulosin HCl (Flomax) 0.4 mg PO DAILY [facility] Last Admin: 06/29/18 10:40 Dose: Not Given Trazodone HCl (Desyrel) 50 mg PO HS [facility] Last Admin: 06/28/18 21:51 Dose: 50 mg Triamcinolone Acetonide (Kenalog 0.1% Cream) 1 appl TOP Q12 [facility] Last Admin: 06/29/18 10:42 Dose: 1 appl - Labs Labs: 06/29/18 04:30 06/29/18 04:30 - Head Exam Head Exam: ATRAUMATIC - Eye Exam Eye Exam: Normal appearance - ENT Exam ENT Exam: Mucous Membranes Dry - Respiratory Exam Respiratory Exam: Decreased Breath Sounds - Cardiovascular Exam Cardiovascular Exam: +S1, +S2 - GI/Abdominal Exam GI & Abdominal Exam: Normal Bowel Sounds Assessment and Plan (1) Mucositis Assessment & Plan: magic mouth wash with nystatin Status: Acute (2) Leukopenia Assessment & Plan: will give a dose of growth factor as neutropenia worsening Status: Acute (3) Anemia Assessment & Plan: chronic disease and recent chemotherapy Status: Acute (4) Sarcoma Assessment & Plan: stage IV lung mets treated at [facility] [place] Status: Acute (5) History of DVT (deep vein thrombosis) Assessment & Plan: complicated by retroperitoneal bleed in the past okay for DVT prophylaxis Status: Acute
[2018-06-29 13:27] LABS: ABG ALLEN TEST YES; ARTERIAL BLOOD GAS HCO3 35.6 mmol/L (21-28); ARTERIAL BLOOD GAS O2 SAT 100.2 % (95-98); ARTERIAL BLOOD GAS PCO2 65 mm/Hg (35-45); ARTERIAL BLOOD GAS PO2 104 mm/Hg (80-100); ARTERIAL BLOOD GAS TCO2 42.3 mmol/L (22-28)
--- NOTE | 2018-06-29 13:36 | CP.PCM.CON ---
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 He underwent sarcoma treatment for localized disease but was found to have lung metastasis shortly after tumor resection. He underwent radiation and lung resection for oligometastatic disease but unfortunately was later found to have more pronounced lung metastasis and was placed on systemic therapy. Past surgical history: Left thigh sarcoma resection Allergies: Docetaxel Family history: Father had prostate cancer Social history: Denies tobacco, alcohol, and illicit drug use. Review of Systems - Review of Systems Systems not reviewed;Unavailable: Altered Mental Status All systems: reviewed and no additional remarkable complaints except - Constitutional Constitutional: As Per HPI - EENT Eyes: absent: As Per HPI, Blind Spots, Blurred Vision, Change in Vision, Decreased Night Vision, Diplopia, Discharge, Dry Eye, Exophthalmos, Floaters, Irritation, Itchy Eyes, Loss of Peripheral Vision, Pain, Photophobia, Requires Corrective Lenses, Sees Flashes, Spots in Vision, Tunnel Vision, Other Visual Disturbances, Loss of Vision, Other Ears: absent: As Per HPI, Decreased Hearing, Ear Discharge, Ear Pain, Tinnitus, Abnormal Hearing, Disequilibrium, Dizziness, Other Nose/Mouth/Throat: absent: As Per HPI, Epistaxis, Nasal Congestion, Nasal Discharge, Nasal Obstruction, Nasal Trauma, Nose Pain, Post Nasal Drip, Sinus Pain, Sinus Pressure, Bleeding Gums, Change in Voice, Dental Pain, Dry Mouth, Dysphagia, Halitosis, Hoarsness, Lip Swelling, Mouth Lesions, Mouth Pain, Odynophagia, Sore Throat, Throat Swelling, Tongue Swelling, Facial Pain, Neck Pain, Neck Mass, Other - Cardiovascular Cardiovascular: As Per HPI - Respiratory Respiratory: As Per HPI, Cough, Dyspnea. absent: Hemoptysis - Gastrointestinal Gastrointestinal: absent: As Per HPI, Abdominal Pain, Belching, Bloating, Change in Bowel Habits, Change in Stool Character, Coffee Ground Emesis, Constipation, Cramping, Diarrhea, Dyspepsia, Dysphagia, Early Satiety, Excessive Flatus, Fecal Incontinence, Heartburn, Hematemesis, Hematochezia, Loose Stools, Melena, Nausea, Odynophagia, Temesmus, Vomiting, Other - Genitourinary Genitourinary: absent: As Per HPI, Change in Urinary Stream, Difficulty Urinating, Dysuria, Flank Pain, Hematuria, Pyuria, Nocturia, Urinary Incontinence, Urinary Frequency, Urinary Hesitance, Urinary Urgency, Voiding Freq/Small Amts, Freq UTI, Hx Renal/Bladder Calculi, Hx /Renal Surgery, Bladder Distension, Other - Musculoskeletal Musculoskeletal: As Per HPI, Abnormal Gait, Muscle Weakness - Integumentary Integumentary: As Per HPI, Skin Pain, Skin Ulcer, Sores, Wounds - Neurological Neurological: As Per HPI - Psychiatric Psychiatric: absent: As Per HPI, Abnormal Sleep Pattern, Anhedonia, Anxiety, Auditory Hallucinations, Behavioral Changes, Change in Appetite, Change in Libido, Confusion, Depression, Difficulty Concentrating, Hallucinations, Homicidal Ideation, Hopelessness, Irritability, Memory Loss, Mood Swings, Panic Attacks, Paranoia, Suicidal Ideation, Visual Hallucinations, Tactile Hallucinations, Other - Endocrine Endocrine: absent: As Per HPI, Change in Body Appearance, Change in Libido, Cold Intolorance, Deepening of Voice, Excessive Sweating, Fatigue, Flushing, Heat Intolorance, Increase in Ring/Shoe/Hat Size, Palpitations, Polydipsia, Polyphagia, Polyuria, Other - Hematologic/Lymphatic Hematologic: absent: As Per HPI, Easy Bleeding, Easy Bruising, Lymphadenopathy, Other Past Patient History - Past Medical History & Family History Past Medical History?: Yes - Past Social History Smoking Status: Former Smoker Chewing Tobacco Use: No Cigar Use: No Alcohol: None Drugs: Denies - CARDIAC Hx Hypercholesterolemia: Yes Hx Hypertension: Yes - PULMONARY Hx Asthma: Yes Hx Pulmonary Embolism: Yes Other/Comment: metastatic lung disease - HEENT Other/Comment: throat pain and hoarsness of voice - RENAL Hx Chronic Kidney Disease: No - ENDOCRINE/METABOLIC Hx Diabetes Mellitus Type 2: Yes - HEMATOLOGICAL/ONCOLOGICAL Hx Anemia: Yes Hx Cancer: Yes - INTEGUMENTARY Hx Dermatological Problems: Yes Other/Comment: Left thigh sarcoma - MUSCULOSKELETAL/RHEUMATOLOGICAL Hx Musculoskeletal Disorders: Yes Hx Falls: No Other/Comment: 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 2 lung Laparoscopy due to sarcoma - ANESTHESIA Hx Anesthesia: Yes Hx Anesthesia Reactions: No Meds Allergies/Adverse Reactions: Allergies Allergy/AdvReac Type Severity Reaction Status Date / Time DOXYTACIL Allergy ANAPHYLAXIS Uncoded 08/30/17 22:18 - Medications Medications: Current Medications Albuterol Sulfate (Albuterol 0.083% Inhal Emilia (2.5 Mg/3 Ml) Ud) 2.5 mg INH RQ4 PRN PRN Reason: Shortness of Breath Last Admin: 06/28/18 23:41 Dose: 2.5 mg Albuterol/Ipratropium (Duoneb 3 Mg/0.5 Mg (3 Ml) Ud) 3 ml INH RQID [facility] Last Admin: 06/29/18 11:32 Dose: 3 ml Atorvastatin Calcium (Lipitor) 20 mg PO DAILY [facility] Last Admin: 06/29/18 10:42 Dose: Not Given Bisacodyl (Dulcolax) 10 mg PO DAILY PRN PRN Reason: Constipation Last Admin: 06/28/18 08:09 Dose: 10 mg Budesonide (Pulmicort Respules) 0.5 mg IH Q12 [facility] Last Admin: 06/29/18 07:35 Dose: 0.5 mg Docusate Sodium (Colace) 100 mg PO Q8 PRN PRN Reason: Constipation Enoxaparin Sodium (Lovenox) 70 mg SC DAILY [facility]; Protocol Last Admin: 06/29/18 10:43 Dose: 70 mg Fluticasone Propionate (Flonase) 2 spr TIM DAILY [facility] Last Admin: 06/29/18 10:40 Dose: 2 spr Furosemide (Lasix) 20 mg PO DAILY [facility] Last Admin: 06/29/18 10:42 Dose: Not Given Guaifenesin/Dextromethorphan (Robitussin Dm) 10 ml PO Q6 PRN PRN Reason: Cough Cefepime HCl 1 gm/ Sodium (Chloride) 100 mls @ 100 mls/hr IVPB Q12 [facility]; Protocol Last Admin: 06/29/18 10:43 Dose: 100 mls/hr Vancomycin HCl 1 gm/ Sodium (Chloride) 250 mls @ 166.667 mls/hr IVPB DAILY [facility]; Protocol Insulin Detemir (Levemir) 30 units SC HS [facility] Last Admin: 06/28/18 21:44 Dose: 30 u Insulin Human Lispro (Humalog) 0 units SC ACHS [facility] Last Admin: 06/29/18 12:38 Dose: Not Given Insulin Human Lispro (Humalog) 10 units SC AC [facility] Last Admin: 06/29/18 12:39 Dose: Not Given Lactulose (Enulose) 20 gm PO DAILY PRN PRN Reason: Constipation Lidocaine (Lidoderm) 1 ea TD DAILY PRN PRN Reason: Pain, moderate (4-7) Last Admin: 06/28/18 00:02 Dose: 1 ea Methadone HCl (Methadone) 25 mg PO Q12 [facility] Last Admin: 06/29/18 10:44 Dose: Not Given Montelukast Sodium (Singulair) 10 mg PO DAILY [facility] Last Admin: 06/29/18 10:45 Dose: Not Given Nystatin (Nystatin Oral Susp) 5 ml PO QID [facility] Last Admin: 06/29/18 12:42 Dose: Not Given Ondansetron HCl (Zofran Odt) 8 mg PO Q8 PRN PRN Reason: Nausea/Vomiting Last Admin: 06/28/18 23:52 Dose: 8 mg Oxybutynin Chloride (Ditropan Tab) 5 mg PO DAILY [facility] Last Admin: 06/29/18 10:40 Dose: Not Given Pantoprazole Sodium (Protonix Ec Tab) 40 mg PO DAILY [facility] Last Admin: 06/29/18 10:45 Dose: Not Given Paroxetine HCl (Paxil) 40 mg PO DAILY [facility] Last Admin: 06/29/18 10:45 Dose: Not Given Polyethylene Glycol (Miralax) 17 gm PO BID PRN PRN Reason: Constipation Prednisone (Prednisone Tab) 20 mg PO DAILY [facility] Last Admin: 06/29/18 10:45 Dose: Not Given Prochlorperazine (Compazine Tab) 10 mg PO Q6 PRN PRN Reason: Nausea/Vomiting Sennosides (Senokot Tab) 8.6 mg PO BID PRN PRN Reason: Constipation Tamsulosin HCl (Flomax) 0.4 mg PO DAILY [facility] Last Admin: 06/29/18 10:40 Dose: Not Given Trazodone HCl (Desyrel) 50 mg PO HS [facility] Last Admin: 06/28/18 21:51 Dose: 50 mg Triamcinolone Acetonide (Kenalog 0.1% Cream) 1 appl TOP Q12 [facility] Last Admin: 06/29/18 10:42 Dose: 1 appl Physical Exam - Constitutional Appears: In Acute Distress, Confused Additional comments: BiPaP mask in place arousable lethargic - Head Exam Head Exam: ATRAUMATIC, NORMAL INSPECTION, NORMOCEPHALIC - Eye Exam Eye Exam: EOMI, PERRL. absent: Scleral icterus Pupil Exam: NORMAL ACCOMODATION - ENT Exam ENT Exam: Mucous Membranes Dry, Normal External Ear Exam - Neck Exam Neck exam: Negative for: Lymphadenopathy - Respiratory Exam Respiratory Exam: Decreased Breath Sounds, Prolonged Expiratory Phase, Rhonchi - Cardiovascular Exam Cardiovascular Exam: Tachycardia, REGULAR RHYTHM, +S1, +S2 - GI/Abdominal Exam GI & Abdominal Exam: Diminished Bowel Sounds, Distended, Soft. absent: Guarding, Tenderness - Rectal Exam Rectal Exam: Deferred - Exam Exam: NORMAL INSPECTION - Extremities Exam Extremities exam: Positive for: pedal edema, tenderness, pedal pulses present. Negative for: calf tenderness, normal inspection Additional comments: bilat leg ulcers - Back Exam Back exam: absent: CVA tenderness (L), CVA tenderness (R) - Neurological Exam Neurological exam: Alert, Altered, CN II-XII Intact, Motor Sensory Deficit - Psychiatric Exam Psychiatric exam: Depressed - Skin Skin Exam: Dry Results - Vital Signs Recent Vital Signs: Last Vital Signs Temp 99.4 F 06/29/18 09:53 Pulse 106 H 06/29/18 11:34 Resp 20 06/29/18 09:53 BP 120/80 06/29/18 09:53 Pulse Ox 97 06/29/18 09:53 - Labs Result Diagrams: 06/29/18 04:30 06/29/18 04:30 Labs: Laboratory Results - last 24 hr 06/28/18 06/28/18 06/29/18 16:16 21:57 04:30 WBC RBC Hgb Hct MCV MCH MCHC RDW Plt Count MPV Neut % (Auto) Lymph % (Auto) Garden % (Auto) Eos % (Auto) Baso % (Auto) Neut # (Auto) Lymph # (Auto) Garden # (Auto) Eos # (Auto) Baso # (Auto) pCO2 pO2 HCO3 ABG pH ABG Total CO2 ABG O2 Saturation ABG O2 Content ABG Base Excess ABG Hemoglobin ABG Carboxyhemoglobin POC ABG HHb (Measured) ABG Methemoglobin ABG O2 Capacity Gilbert Test ABG Potassium A-a O2 Difference Hgb O2 Saturation Glucose Lactate Liter Flow Vent Mode Mechanical Rate FiO2 Inspiratory BiPAP Expiratory BiPAP Sodium 136 Potassium 4.3 Chloride 93 L Carbon Dioxide 36 H Anion Gap 11 BUN 11 Creatinine 0.7 L Est GFR ( Amer) > 60 Est GFR (Non-Af Amer) > 60 POC Glucose (mg/dL) 373 H 320 H Random Glucose 213 H Calcium 8.8 Triglycerides 131 D Cholesterol 145 LDL Cholesterol Direct 75 HDL Cholesterol 41 Arterial Blood Potassium 06/29/18 06/29/18 06/29/18 04:30 07:05 10:42 WBC 1.3 L* RBC 3.61 L Hgb 9.4 L Hct 29.1 L MCV 80.6 MCH 25.9 L MCHC 32.1 L RDW 18.9 H Plt Count 170 MPV 8.3 Neut % (Auto) 68.1 Lymph % (Auto) 15.9 L Garden % (Auto) 14.8 H Eos % (Auto) 0.4 Baso % (Auto) 0.8 Neut # (Auto) 0.9 L Lymph # (Auto) 0.2 L Garden # (Auto) 0.2 Eos # (Auto) 0.0 Baso # (Auto) 0.0 pCO2 57 H pO2 89 HCO3 35.0 H ABG pH 7.44 ABG Total CO2 40.4 H ABG O2 Saturation 99.6 H ABG O2 Content 12.5 L ABG Base Excess 12.9 H ABG Hemoglobin 9.0 L ABG Carboxyhemoglobin 1.6 H POC ABG HHb (Measured) 0.4 ABG Methemoglobin 0.5 ABG O2 Capacity 12.6 L Gilbert Test Yes ABG Potassium A-a O2 Difference 96.0 Hgb O2 Saturation 97.5 Glucose Lactate Liter Flow 4 Vent Mode Nc Mechanical Rate FiO2 36.0 Inspiratory BiPAP Expiratory BiPAP Sodium Potassium Chloride Carbon Dioxide Anion Gap BUN Creatinine Est GFR ( Amer) Est GFR (Non-Af Amer) POC Glucose (mg/dL) 245 H Random Glucose Calcium Triglycerides Cholesterol LDL Cholesterol Direct HDL Cholesterol Arterial Blood Potassium 06/29/18 06/29/18 11:01 12:00 WBC RBC Hgb Hct MCV MCH MCHC RDW Plt Count MPV Neut % (Auto) Lymph % (Auto) Garden % (Auto) Eos % (Auto) Baso % (Auto) Neut # (Auto) Lymph # (Auto) Garden # (Auto) Eos # (Auto) Baso # (Auto) pCO2 65 H pO2 104 H HCO3 35.6 H ABG pH 7.40 ABG Total CO2 42.3 H ABG O2 Saturation 100.2 H ABG O2 Content ABG Base Excess 13.6 H ABG Hemoglobin ABG Carboxyhemoglobin POC ABG HHb (Measured) ABG Methemoglobin ABG O2 Capacity Gilbert Test Yes ABG Potassium 3.9 A-a O2 Difference 100.0 Hgb O2 Saturation Glucose 187 H Lactate 0.9 Liter Flow Vent Mode Mechanical Rate 16 FiO2 40.0 Inspiratory BiPAP 12 Expiratory BiPAP 6 Sodium 132.0 Potassium Chloride 96.0 L Carbon Dioxide Anion Gap BUN Creatinine Est GFR ( Amer) Est GFR (Non-Af Amer) POC Glucose (mg/dL) 240 H Random Glucose Calcium Triglycerides Cholesterol LDL Cholesterol Direct HDL Cholesterol Arterial Blood Potassium 3.9 Assessment & Plan (1) Bilateral leg ulcer Status: Acute (2) Bilateral leg ulcer Status: Acute (3) History of DVT (deep vein thrombosis) Status: Acute (4) Leukopenia Status: Acute (5) Mucositis Status: Acute Priority: High (6) Oral thrush Status: Acute Priority: High (7) Sore throat Status: Acute (8) Cancer associated pain Status: Chronic Priority: High (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 Priority: High (10) Anemia Status: Acute (11) Sarcoma Status: Acute - Assessment and Plan (Free Text) Assessment: 62 year old male with 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 on systemic treatment at [facility], DVT complicated by intra abdominal hemorrhage while on anticoagulation, Left thigh sarcoma and DM Admitted with collapsed left lung , sepsis, pneumonia , resp failure and bilateral leg ulcers with cellulitis now in ICU with sepsis s/p chemo at [facility] , neutropenia, post obstructive pneumonia, mucositis , oral thrush , cellulitis of legs and resp failure Will switch to Vanco /Merrem for post obstructive pneumonia/ neutropenic sepsis as well as Mycfungin for coverage of jeanne Poor prognosis from outset as Insurance company has refused transfer to [facility] where he was being treated
[2018-06-29] MEDS ORDERED: Naloxone 0.4 mg/ml Inj (Adult) IVP STA (13:46)
--- NOTE | 2018-06-29 14:25 | US ---
Date of service: 06/28/2018 PROCEDURE: Bilateral lower extremity venous duplex Doppler. HISTORY: R/O DVT COMPARISON: None available. TECHNIQUE: Bilateral common femoral, superficial femoral, popliteal and posterior tibial veins were evaluated. Flow was assessed with color Doppler, compressibility, assessment of phasic flow and augmentation response. FINDINGS: COMMON FEMORAL VEIN: Right CFV: Unremarkable. Left CFV: Unremarkable. SUPERFICIAL FEMORAL VEIN: Right SFV: Unremarkable. Left SFV: Unremarkable. POPLITEAL VEIN: Right Popliteal: Unremarkable. Left Popliteal: Unremarkable. POSTERIOR TIBIAL VEIN: Right PTV: Unremarkable. Left PTV: Unremarkable. OTHER FINDINGS: None. IMPRESSION: No evidence of deep venous thrombosis.
--- NOTE | 2018-06-29 14:54 | CP.PCM.CON ---
History of Present Illness - History of Present Illness History of Present Illness: Patient is a 62 yearold male admitted to the hospital on 06/26/18 from home. Patient has a history of Metastatic Cancer. Patient stated that he had chemo 5 days prior to coming to the hospital. He has been getting chemo and cancer treatment from [facility]. His main complaint was throat pain that started a day before coming to the ER. He also complained of weeping lower extremity wounds and admits non compliance with prescribed Lasix. He was admitted to the Telemetry unit. During admission patient made multiple requests to be transferred to [facility]. According to Case Management, transfer was denied by insurance company. Rapid Response called for SOB today and patient placed on Bipap and transferred to ICU PMH: Anxiety, Asthma, Diabetes, DVT, Hypercholestremia, Stage IV sarcoma with mets, PE, chronic pain Soc Hx: denies smoking or drinking Fam Hx: father had prostate ca Chest CT 06/28 showed large tumor mass on left upper lobe, Pulmonary Metastatic Disease Review of Systems - Review of Systems Review of Systems: ROS not obtained, patient not easily arousable at bedside Past Patient History - Past Medical History & Family History Past Medical History?: Yes - Past Social History Smoking Status: Former Smoker Chewing Tobacco Use: No Cigar Use: No Alcohol: None Drugs: Denies - CARDIAC Hx Hypercholesterolemia: Yes Hx Hypertension: Yes - PULMONARY Hx Asthma: Yes Hx Pulmonary Embolism: Yes Other/Comment: metastatic lung disease - HEENT Other/Comment: throat pain and hoarsness of voice - RENAL Hx Chronic Kidney Disease: No - ENDOCRINE/METABOLIC Hx Diabetes Mellitus Type 2: Yes - HEMATOLOGICAL/ONCOLOGICAL Hx Anemia: Yes Hx Cancer: Yes - INTEGUMENTARY Hx Dermatological Problems: Yes Other/Comment: Left thigh sarcoma - MUSCULOSKELETAL/RHEUMATOLOGICAL Hx Musculoskeletal Disorders: Yes Hx Falls: No Other/Comment: 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 2 lung Laparoscopy due to sarcoma - ANESTHESIA Hx Anesthesia: Yes Hx Anesthesia Reactions: No Meds Allergies/Adverse Reactions: Allergies Allergy/AdvReac Type Severity Reaction Status Date / Time DOXYTACIL Allergy ANAPHYLAXIS Uncoded 08/30/17 22:18 - Medications Medications: Current Medications Acyclovir (Zovirax) 800 mg PO TID [facility]; Protocol Albuterol Sulfate (Albuterol 0.083% Inhal Emilia (2.5 Mg/3 Ml) Ud) 2.5 mg INH RQ4 PRN PRN Reason: Shortness of Breath Last Admin: 06/28/18 23:41 Dose: 2.5 mg Albuterol/Ipratropium (Duoneb 3 Mg/0.5 Mg (3 Ml) Ud) 3 ml INH RQID [facility] Last Admin: 06/29/18 11:32 Dose: 3 ml Atorvastatin Calcium (Lipitor) 20 mg PO DAILY [facility] Last Admin: 06/29/18 10:42 Dose: Not Given Bisacodyl (Dulcolax) 10 mg PO DAILY PRN PRN Reason: Constipation Last Admin: 06/28/18 08:09 Dose: 10 mg Budesonide (Pulmicort Respules) 0.5 mg IH Q12 [facility] Last Admin: 06/29/18 07:35 Dose: 0.5 mg Docusate Sodium (Colace) 100 mg PO Q8 PRN PRN Reason: Constipation Enoxaparin Sodium (Lovenox) 70 mg SC DAILY [facility]; Protocol Last Admin: 06/29/18 10:43 Dose: 70 mg Fluticasone Propionate (Flonase) 2 spr TIM DAILY [facility] Last Admin: 06/29/18 10:40 Dose: 2 spr Furosemide (Lasix) 20 mg PO DAILY [facility] Last Admin: 06/29/18 10:42 Dose: Not Given Guaifenesin/Dextromethorphan (Robitussin Dm) 10 ml PO Q6 PRN PRN Reason: Cough Meropenem 1 gm/ Sodium (Chloride) 100 mls @ 100 mls/hr IVPB Q8 [facility]; Protocol Micafungin Sodium 100 mg/ (Sodium Chloride) 100 mls @ 100 mls/hr IVPB DAILY [facility]; Protocol Vancomycin HCl 1 gm/ Sodium (Chloride) 250 mls @ 166.667 mls/hr IVPB Q12H [facility]; Protocol Insulin Detemir (Levemir) 30 units SC HS [facility] Last Admin: 06/28/18 21:44 Dose: 30 u Insulin Human Lispro (Humalog) 0 units SC ACHS [facility] Last Admin: 06/29/18 12:38 Dose: Not Given Insulin Human Lispro (Humalog) 10 units SC AC [facility] Last Admin: 06/29/18 12:39 Dose: Not Given Lactulose (Enulose) 20 gm PO DAILY PRN PRN Reason: Constipation Lidocaine (Lidoderm) 1 ea TD DAILY PRN PRN Reason: Pain, moderate (4-7) Last Admin: 06/28/18 00:02 Dose: 1 ea Methadone HCl (Methadone) 25 mg PO Q12 [facility] Last Admin: 06/29/18 10:44 Dose: Not Given Montelukast Sodium (Singulair) 10 mg PO DAILY [facility] Last Admin: 06/29/18 10:45 Dose: Not Given Nystatin (Nystatin Oral Susp) 5 ml PO QID [facility] Last Admin: 06/29/18 12:42 Dose: Not Given Ondansetron HCl (Zofran Odt) 8 mg PO Q8 PRN PRN Reason: Nausea/Vomiting Last Admin: 06/28/18 23:52 Dose: 8 mg Oxybutynin Chloride (Ditropan Tab) 5 mg PO DAILY [facility] Last Admin: 06/29/18 10:40 Dose: Not Given Pantoprazole Sodium (Protonix Ec Tab) 40 mg PO DAILY [facility] Last Admin: 06/29/18 10:45 Dose: Not Given Paroxetine HCl (Paxil) 40 mg PO DAILY [facility] Last Admin: 06/29/18 10:45 Dose: Not Given Polyethylene Glycol (Miralax) 17 gm PO BID PRN PRN Reason: Constipation Prednisone (Prednisone Tab) 20 mg PO DAILY [facility] Last Admin: 06/29/18 10:45 Dose: Not Given Prochlorperazine (Compazine Tab) 10 mg PO Q6 PRN PRN Reason: Nausea/Vomiting Sennosides (Senokot Tab) 8.6 mg PO BID PRN PRN Reason: Constipation Tamsulosin HCl (Flomax) 0.4 mg PO DAILY [facility] Last Admin: 06/29/18 10:40 Dose: Not Given Trazodone HCl (Desyrel) 50 mg PO HS [facility] Last Admin: 06/28/18 21:51 Dose: 50 mg Triamcinolone Acetonide (Kenalog 0.1% Cream) 1 appl TOP Q12 [facility] Last Admin: 06/29/18 10:42 Dose: 1 appl Physical Exam - Constitutional Appears: In Acute Distress, Chronically Ill Additional comments: obese male - Head Exam Head Exam: ATRAUMATIC, NORMAL INSPECTION, NORMOCEPHALIC - Eye Exam Eye Exam: Normal appearance - ENT Exam ENT Exam: Mucous Membranes Moist, Normal Exam - Respiratory Exam Respiratory Exam: Decreased Breath Sounds Additional comments: on Bipap - Cardiovascular Exam Cardiovascular Exam: Tachycardia - GI/Abdominal Exam GI & Abdominal Exam: Normal Bowel Sounds - Rectal Exam Rectal Exam: Deferred - Extremities Exam Additional comments: Bilateral lower extremity edema (pitting) - Neurological Exam Additional comments: not awake or alert, patient opened eyes only after name called several times along with touch, eyes stayed open very briefly - Skin Skin Exam: Pallor, Warm Additional comments: skin warm, not intact, multiple lower extremity skin openings, both legs currently wrapped in kerlix - Additional Findings Additional findings: not able to assess pain at this time Results - Vital Signs Recent Vital Signs: Last Vital Signs Temp 99.4 F 06/29/18 09:53 Pulse 102 H 06/29/18 14:00 Resp 27 H 06/29/18 14:00 BP 102/60 06/29/18 14:00 Pulse Ox 100 06/29/18 14:00 - Labs Result Diagrams: 06/29/18 04:30 06/29/18 04:30 Labs: Laboratory Results - last 24 hr 06/28/18 06/28/18 06/29/18 16:16 21:57 04:30 WBC RBC Hgb Hct MCV MCH MCHC RDW Plt Count MPV Neut % (Auto) Lymph % (Auto) Wilson % (Auto) Eos % (Auto) Baso % (Auto) Neut # (Auto) Lymph # (Auto) Wilson # (Auto) Eos # (Auto) Baso # (Auto) pCO2 pO2 HCO3 ABG pH ABG Total CO2 ABG O2 Saturation ABG O2 Content ABG Base Excess ABG Hemoglobin ABG Carboxyhemoglobin POC ABG HHb (Measured) ABG Methemoglobin ABG O2 Capacity Gilbert Test ABG Potassium A-a O2 Difference Hgb O2 Saturation Glucose Lactate Liter Flow Vent Mode Mechanical Rate FiO2 Inspiratory BiPAP Expiratory BiPAP Sodium 136 Potassium 4.3 Chloride 93 L Carbon Dioxide 36 H Anion Gap 11 BUN 11 Creatinine 0.7 L Est GFR ( Amer) > 60 Est GFR (Non-Af Amer) > 60 POC Glucose (mg/dL) 373 H 320 H Random Glucose 213 H Calcium 8.8 Triglycerides 131 D Cholesterol 145 LDL Cholesterol Direct 75 HDL Cholesterol 41 Arterial Blood Potassium 06/29/18 06/29/18 06/29/18 04:30 07:05 10:42 WBC 1.3 L* RBC 3.61 L Hgb 9.4 L Hct 29.1 L MCV 80.6 MCH 25.9 L MCHC 32.1 L RDW 18.9 H Plt Count 170 MPV 8.3 Neut % (Auto) 68.1 Lymph % (Auto) 15.9 L Wilson % (Auto) 14.8 H Eos % (Auto) 0.4 Baso % (Auto) 0.8 Neut # (Auto) 0.9 L Lymph # (Auto) 0.2 L Wilson # (Auto) 0.2 Eos # (Auto) 0.0 Baso # (Auto) 0.0 pCO2 57 H pO2 89 HCO3 35.0 H ABG pH 7.44 ABG Total CO2 40.4 H ABG O2 Saturation 99.6 H ABG O2 Content 12.5 L ABG Base Excess 12.9 H ABG Hemoglobin 9.0 L ABG Carboxyhemoglobin 1.6 H POC ABG HHb (Measured) 0.4 ABG Methemoglobin 0.5 ABG O2 Capacity 12.6 L Gilbert Test Yes ABG Potassium A-a O2 Difference 96.0 Hgb O2 Saturation 97.5 Glucose Lactate Liter Flow 4 Vent Mode Nc Mechanical Rate FiO2 36.0 Inspiratory BiPAP Expiratory BiPAP Sodium Potassium Chloride Carbon Dioxide Anion Gap BUN Creatinine Est GFR ( Amer) Est GFR (Non-Af Amer) POC Glucose (mg/dL) 245 H Random Glucose Calcium Triglycerides Cholesterol LDL Cholesterol Direct HDL Cholesterol Arterial Blood Potassium 06/29/18 06/29/18 11:01 12:00 WBC RBC Hgb Hct MCV MCH MCHC RDW Plt Count MPV Neut % (Auto) Lymph % (Auto) Wilson % (Auto) Eos % (Auto) Baso % (Auto) Neut # (Auto) Lymph # (Auto) Wilson # (Auto) Eos # (Auto) Baso # (Auto) pCO2 65 H pO2 104 H HCO3 35.6 H ABG pH 7.40 ABG Total CO2 42.3 H ABG O2 Saturation 100.2 H ABG O2 Content ABG Base Excess 13.6 H ABG Hemoglobin ABG Carboxyhemoglobin POC ABG HHb (Measured) ABG Methemoglobin ABG O2 Capacity Gilbert Test Yes ABG Potassium 3.9 A-a O2 Difference 100.0 Hgb O2 Saturation Glucose 187 H Lactate 0.9 Liter Flow Vent Mode Mechanical Rate 16 FiO2 40.0 Inspiratory BiPAP 12 Expiratory BiPAP 6 Sodium 132.0 Potassium Chloride 96.0 L Carbon Dioxide Anion Gap BUN Creatinine Est GFR ( Amer) Est GFR (Non-Af Amer) POC Glucose (mg/dL) 240 H Random Glucose Calcium Triglycerides Cholesterol LDL Cholesterol Direct HDL Cholesterol Arterial Blood Potassium 3.9 Assessment & Plan - Assessment and Plan (Free Text) Assessment: FULL CODE: there is no advanced directive in the chart. Palliative Performance Scale 30% I reviewed medical records, diagnostic studies, and examined patient in bed Goals of Care: not discussed because patient is not easily arousable at the moment. Patient brother who is listed as emergency contact was called and message left to return call. Emergency contact [phone]. Code Status: Patient currently full code. There is no advanced directive or any other legal documents available. Prior to transfer to ICU, patient was AAOx3 and made it clear that he wanted full treatment according to nursing staff. This topic will be revisited when patient is able to communicate or when emergency contact is reached Impression Stage IV Carcinoma Oral Thrush Weakness Shortness of Breath Decreased Mobility Impaired skin integrity Goals of Care needed Suggestion Continue with Nystatin oral suspension if pt not lethargic, mouth care max assist with ADLs and reposition Q2h wound care will revisit Goals of care/code status conversation when patient more arousable or when contact is reached Palliative Care will remain on board as needed. Ext [id number] Time spent 40 min
--- NOTE | 2018-06-29 15:25 | CP.PCM.PN ---
Subjective - Date & Time of Evaluation Date of Evaluation: 06/29/18 Time of Evaluation: 15:23 - Subjective Subjective: Patient was seen today in the intensive care unit. 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 Presently is on BiPAP mask ventilation with good tidal volumes generated (I-12, E-6, RR-16, O2-40%) He is somnolent sitting upright in the bed. ABG: PaCO2-65, PaO2 104, pH-7.40 at the beginning of NPPV. Started on meropenem, vancomycin and mycafungin by ID. Official CT report from yesterday's films do concur with LLL consolidation. Lethargic, but arousable briefly with loud verbal contact. Dependant edema ++ both LEs with dressings in place bilaterally. No cyanosis of extremities (which are warm and pink in color). Neck is supple, trachea is slightly shifted towards the right. Dullness on chest percussion is noted over most of the feft thorax. Breath sounds are heard in the area of the left lower lobe. Coarse rhonchi are presenrt in both lungs, more so LLL. No wheezes are appreciated. the right lung is otherwise clear. Heart sounds are miguel distant. Hypercapnic ventilatory failure, appears acute on chronic. Left lower lobe pneumonia. Metastatic sarcoma to both lungs with large MAYURI mass causing tracheal deviation to the right. Underlying obesity/hypoventilation? Continue present NPPV regimen. Follow arterial blood gas measurements. May indeed require endotracheal intubation and MV. Continue present antibiotic regimen for potential HCAP and immune suppressed host. ICU time 30min. Objective - Vital Signs/Intake and Output Vital Signs (last 24 hours): Temp Pulse Resp BP Pulse Ox 99.4 F 102 H 27 H 102/60 100 06/29/18 09:53 06/29/18 14:00 06/29/18 14:00 06/29/18 14:00 06/29/18 14:00 - Medications Medications: Current Medications Acyclovir (Zovirax) 800 mg PO TID [facility]; Protocol Albuterol Sulfate (Albuterol 0.083% Inhal Emilia (2.5 Mg/3 Ml) Ud) 2.5 mg INH RQ4 PRN PRN Reason: Shortness of Breath Last Admin: 06/28/18 23:41 Dose: 2.5 mg Albuterol/Ipratropium (Duoneb 3 Mg/0.5 Mg (3 Ml) Ud) 3 ml INH RQID [facility] Last Admin: 06/29/18 11:32 Dose: 3 ml Atorvastatin Calcium (Lipitor) 20 mg PO DAILY [facility] Last Admin: 06/29/18 10:42 Dose: Not Given Bisacodyl (Dulcolax) 10 mg PO DAILY PRN PRN Reason: Constipation Last Admin: 06/28/18 08:09 Dose: 10 mg Budesonide (Pulmicort Respules) 0.5 mg IH Q12 [facility] Last Admin: 06/29/18 07:35 Dose: 0.5 mg Docusate Sodium (Colace) 100 mg PO Q8 PRN PRN Reason: Constipation Enoxaparin Sodium (Lovenox) 70 mg SC DAILY [facility]; Protocol Last Admin: 06/29/18 10:43 Dose: 70 mg Fluticasone Propionate (Flonase) 2 spr TIM DAILY [facility] Last Admin: 06/29/18 10:40 Dose: 2 spr Furosemide (Lasix) 20 mg PO DAILY [facility] Last Admin: 06/29/18 10:42 Dose: Not Given Guaifenesin/Dextromethorphan (Robitussin Dm) 10 ml PO Q6 PRN PRN Reason: Cough Meropenem 1 gm/ Sodium (Chloride) 100 mls @ 100 mls/hr IVPB Q8 [facility]; Protocol Micafungin Sodium 100 mg/ (Sodium Chloride) 100 mls @ 100 mls/hr IVPB DAILY [facility]; Protocol Vancomycin HCl 1 gm/ Sodium (Chloride) 250 mls @ 166.667 mls/hr IVPB Q12H [facility]; Protocol Insulin Detemir (Levemir) 30 units SC HS [facility] Last Admin: 06/28/18 21:44 Dose: 30 u Insulin Human Lispro (Humalog) 0 units SC ACHS [facility] Last Admin: 06/29/18 12:38 Dose: Not Given Insulin Human Lispro (Humalog) 10 units SC AC [facility] Last Admin: 06/29/18 12:39 Dose: Not Given Lactulose (Enulose) 20 gm PO DAILY PRN PRN Reason: Constipation Lidocaine (Lidoderm) 1 ea TD DAILY PRN PRN Reason: Pain, moderate (4-7) Last Admin: 06/28/18 00:02 Dose: 1 ea Methadone HCl (Methadone) 25 mg PO Q12 [facility] Last Admin: 06/29/18 10:44 Dose: Not Given Montelukast Sodium (Singulair) 10 mg PO DAILY [facility] Last Admin: 06/29/18 10:45 Dose: Not Given Nystatin (Nystatin Oral Susp) 5 ml PO QID [facility] Last Admin: 06/29/18 12:42 Dose: Not Given Ondansetron HCl (Zofran Odt) 8 mg PO Q8 PRN PRN Reason: Nausea/Vomiting Last Admin: 06/28/18 23:52 Dose: 8 mg Oxybutynin Chloride (Ditropan Tab) 5 mg PO DAILY [facility] Last Admin: 06/29/18 10:40 Dose: Not Given Pantoprazole Sodium (Protonix Ec Tab) 40 mg PO DAILY [facility] Last Admin: 06/29/18 10:45 Dose: Not Given Paroxetine HCl (Paxil) 40 mg PO DAILY [facility] Last Admin: 06/29/18 10:45 Dose: Not Given Polyethylene Glycol (Miralax) 17 gm PO BID PRN PRN Reason: Constipation Prednisone (Prednisone Tab) 20 mg PO DAILY [facility] Last Admin: 06/29/18 10:45 Dose: Not Given Prochlorperazine (Compazine Tab) 10 mg PO Q6 PRN PRN Reason: Nausea/Vomiting Sennosides (Senokot Tab) 8.6 mg PO BID PRN PRN Reason: Constipation Tamsulosin HCl (Flomax) 0.4 mg PO DAILY [facility] Last Admin: 06/29/18 10:40 Dose: Not Given Trazodone HCl (Desyrel) 50 mg PO HS [facility] Last Admin: 06/28/18 21:51 Dose: 50 mg Triamcinolone Acetonide (Kenalog 0.1% Cream) 1 appl TOP Q12 [facility] Last Admin: 06/29/18 10:42 Dose: 1 appl - Labs Labs: 06/29/18 04:30 06/29/18 04:30 Assessment and Plan (1) Oral thrush Status: Acute 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
[2018-06-29] MEDS: Meropenem 1 GM in Sodium Chloride 0.9% 100 ML IVPB SCH (16:14)
[2018-06-29] MEDS: Micafungin 100 MG in Sodium Chloride 0.9% 100 ML IVPB SCH (16:15)
[2018-06-29] MEDS ORDERED: Chlorhexidine Gluconate 1 APPL/PKT TP ONE (16:33)
[2018-06-29 17:46] LABS: ABG ALLEN TEST YES; ARTERIAL BLOOD GAS HEMOGLOBIN 8.7 g/dL (11.7-17.4); ARTERIAL BLOOD GAS O2 CONTENT 9.9 ML/dL (15-23); ARTERIAL BLOOD GAS O2 SAT 82.7 % (95-98); ARTERIAL BLOOD GAS PCO2 72 mm/Hg (35-45); ARTERIAL BLOOD GAS PH 7.36 (7.35-7.45); ARTERIAL BLOOD GAS PO2 45 mm/Hg (80-100); ARTERIAL BLOOD GAS TCO2 42.9 mmol/L (22-28)
[2018-06-29] MEDS ORDERED: Etomidate 20 mg/10ml Inj IV ONE ×2 (17:53→18:24)
[2018-06-29] MEDS ORDERED: Propofol 10 mg/ml 3,000 MG/300 ML VIAL ONE (17:54)
[2018-06-29] MEDS ORDERED: Propofol 10 mg/ml Inj (20 ML) IV ONE (18:24)
[2018-06-29] MEDS: Propofol 10 mg/ml 1,000 MG/100 ML VIAL IV SCH ×2 (18:30→23:08)
[2018-06-29] MEDS ORDERED: Propofol 10 mg/ml 1,000 MG/100 ML VIAL IV SCH (18:30)
--- NOTE | 2018-06-29 18:31 | PCM.PROC ---
Procedures Attestation:: I certify that I have explained the specified Operation(s) or Procedure(s), risks, benefits and reasonable alternatives to the Patient and/or other person responsible. The opportunity was given to ask questions and all questions answered - Intubation Time Out Performed: Yes Sedative: Etomidate, Other (propofol) Laryngoscope: Glidescope ET Tube Size: 8.0 ET Tube Uncuffed: No (cuffed) ET Tube Secured at Depth: 26 ET Tube Secured Locarion: Lips ET Tube Placement Confirmation: Visualized Passing Through Cords, No Breath Sounds Over Epigastrum, Confirmation w/Capnometry Patient Tolerated Procedure: Well, No Complications Procedure Immediate Complications: None Additional comments: breath sounds not auscultated over left lung secondary to very large left lung obstructing mass overtaking entire left lung. Will need x-ray to secondarily confirm position.
--- NOTE | 2018-06-29 18:50 | CP.PCM.PN ---
Subjective - Date & Time of Evaluation Date of Evaluation: 06/29/18 Time of Evaluation: 22:22 - Subjective Subjective: Events noted Multiple calls to 4N/ staff Objective - Vital Signs/Intake and Output Vital Signs (last 24 hours): Temp Pulse Resp BP Pulse Ox 99.9 F H 95 H 12 104/63 98 06/29/18 16:00 06/29/18 16:00 06/29/18 16:00 06/29/18 16:00 06/29/18 16:00 - Medications Medications: Current Medications Acyclovir (Zovirax) 800 mg PO TID [facility]; Protocol Albuterol Sulfate (Albuterol 0.083% Inhal Emilia (2.5 Mg/3 Ml) Ud) 2.5 mg INH RQ4 PRN PRN Reason: Shortness of Breath Last Admin: 06/28/18 23:41 Dose: 2.5 mg Albuterol/Ipratropium (Duoneb 3 Mg/0.5 Mg (3 Ml) Ud) 3 ml INH RQID [facility] Last Admin: 06/29/18 15:37 Dose: 3 ml Atorvastatin Calcium (Lipitor) 20 mg PO DAILY [facility] Last Admin: 06/29/18 10:42 Dose: Not Given Bisacodyl (Dulcolax) 10 mg PO DAILY PRN PRN Reason: Constipation Last Admin: 06/28/18 08:09 Dose: 10 mg Budesonide (Pulmicort Respules) 0.5 mg IH Q12 [facility] Last Admin: 06/29/18 07:35 Dose: 0.5 mg Docusate Sodium (Colace) 100 mg PO Q8 PRN PRN Reason: Constipation Enoxaparin Sodium (Lovenox) 70 mg SC DAILY [facility]; Protocol Last Admin: 06/29/18 10:43 Dose: 70 mg Fluticasone Propionate (Flonase) 2 spr TIM DAILY [facility] Last Admin: 06/29/18 10:40 Dose: 2 spr Furosemide (Lasix) 20 mg PO DAILY [facility] Last Admin: 06/29/18 10:42 Dose: Not Given Guaifenesin/Dextromethorphan (Robitussin Dm) 10 ml PO Q6 PRN PRN Reason: Cough Meropenem 1 gm/ Sodium (Chloride) 100 mls @ 100 mls/hr IVPB Q8 [facility]; Protocol Last Admin: 06/29/18 16:14 Dose: 100 mls/hr Micafungin Sodium 100 mg/ (Sodium Chloride) 100 mls @ 100 mls/hr IVPB DAILY [facility]; Protocol Last Admin: 06/29/18 16:15 Dose: 100 mls/hr Vancomycin HCl 1 gm/ Sodium (Chloride) 250 mls @ 166.667 mls/hr IVPB Q12H [facility]; Protocol Last Admin: 06/29/18 16:17 Dose: 166.667 mls/hr Propofol (Diprivan) 1,000 mg in 100 mls @ 4.082 mls/hr IV .Q24H [facility]; Protocol Stop: 06/30/18 18:25 Insulin Detemir (Levemir) 30 units SC HS [facility] Last Admin: 06/28/18 21:44 Dose: 30 u Insulin Human Lispro (Humalog) 0 units SC ACHS [facility] Last Admin: 06/29/18 12:38 Dose: Not Given Insulin Human Lispro (Humalog) 10 units SC AC [facility] Last Admin: 06/29/18 12:39 Dose: Not Given Lactulose (Enulose) 20 gm PO DAILY PRN PRN Reason: Constipation Lidocaine (Lidoderm) 1 ea TD DAILY PRN PRN Reason: Pain, moderate (4-7) Last Admin: 06/28/18 00:02 Dose: 1 ea Methadone HCl (Methadone) 25 mg PO Q12 [facility] Last Admin: 06/29/18 10:44 Dose: Not Given Montelukast Sodium (Singulair) 10 mg PO DAILY [facility] Last Admin: 06/29/18 10:45 Dose: Not Given Nystatin (Nystatin Oral Susp) 5 ml PO QID [facility] Last Admin: 06/29/18 16:15 Dose: Not Given Ondansetron HCl (Zofran Odt) 8 mg PO Q8 PRN PRN Reason: Nausea/Vomiting Last Admin: 06/28/18 23:52 Dose: 8 mg Oxybutynin Chloride (Ditropan Tab) 5 mg PO DAILY [facility] Last Admin: 06/29/18 10:40 Dose: Not Given Pantoprazole Sodium (Protonix Ec Tab) 40 mg PO DAILY [facility] Last Admin: 06/29/18 10:45 Dose: Not Given Paroxetine HCl (Paxil) 40 mg PO DAILY [facility] Last Admin: 06/29/18 10:45 Dose: Not Given Polyethylene Glycol (Miralax) 17 gm PO BID PRN PRN Reason: Constipation Prednisone (Prednisone Tab) 20 mg PO DAILY [facility] Last Admin: 06/29/18 10:45 Dose: Not Given Prochlorperazine (Compazine Tab) 10 mg PO Q6 PRN PRN Reason: Nausea/Vomiting Sennosides (Senokot Tab) 8.6 mg PO BID PRN PRN Reason: Constipation Tamsulosin HCl (Flomax) 0.4 mg PO DAILY [facility] Last Admin: 06/29/18 10:40 Dose: Not Given Trazodone HCl (Desyrel) 50 mg PO HS [facility] Last Admin: 06/28/18 21:51 Dose: 50 mg Triamcinolone Acetonide (Kenalog 0.1% Cream) 1 appl TOP Q12 [facility] Last Admin: 06/29/18 10:42 Dose: 1 appl - Labs Labs: 06/29/18 04:30 06/29/18 04:30 Assessment and Plan - Assessment and Plan (Free Text) Assessment: Acute Hypercapnic Ventilatory Failure Pneumonia 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
--- NOTE | 2018-06-29 19:04 | PN ---
DATE: 06/29/2018 ENDOCRINOLOGY FOLLOWUP NOTE LOCATION: Room 423, ICU. SUBJECTIVE: This is a 62-year-old male with recent uncontrolled type 2 insulin-requiring diabetes with recent acute respiratory distress and hypoxemia and supervening lethargy and altered mental status and has been transferred to ICU for closer hemodynamic monitoring as noted. His glycemic levels are fluctuating but improved and the glucose levels overnight have ranged from 242-245 mg/dL. LABORATORY DATA: His chemistry showed a BUN of 11, sodium 136, potassium 4.3, chloride 93, CO2 of 36, glucose 213 and creatinine 0.7. ASSESSMENT: This is a 62-year-old male with metastatic lung carcinoma and underlying stage IV sarcoma in the left thigh with sudden respiratory distress and is now being followed closely for metabolic management. His glycemic levels have ranged from 320 to 373 at bedtime last night with uncontrolled and decompensated type 2 insulin-requiring diabetes with extremes of glycemic fluctuations related to the variability of his oral intake and now developed supervening acute respiratory distress and hypoxemia and placed on a BiPAP mask and transferred to ICU for closer hemodynamic monitoring and followup. He has significant metastatic lung carcinoma with underlying pleomorphic sarcoma stage IV as noted. PLAN: Plan of management, we will continue the same basal and bolus insulin regimen to allow for dose equilibration and keep him on the Humalog given as 10 units t.i.d. before meals as ordered. We will continue the Levemir given as basal insulin at 30 units subcutaneous at bedtime daily as given. We will continue also the low-dose correction scale using Humalog insulin as ordered. We will follow and advise accordingly. Sheryl Adams MD
[2018-06-29 19:46] LABS: ABG ALLEN TEST YES; ARTERIAL BLOOD GAS HCO3 34.9 mmol/L (21-28); ARTERIAL BLOOD GAS HEMOGLOBIN 8.6 g/dL (11.7-17.4); ARTERIAL BLOOD GAS O2 CAPACITY 12.1 mL/dL (16-24); ARTERIAL BLOOD GAS O2 CONTENT 12.2 ML/dL (15-23); ARTERIAL BLOOD GAS O2 SAT 100.9 % (95-98); ARTERIAL BLOOD GAS PCO2 55 mm/Hg (35-45); ARTERIAL BLOOD GAS PH 7.45 (7.35-7.45); ARTERIAL BLOOD GAS PO2 140 mm/Hg (80-100); ARTERIAL BLOOD GAS TCO2 39.9 mmol/L (22-28)
[2018-06-29] MEDS: Insulin Detemir 100 Units/ml Inj SC SCH (21:37)
[2018-06-30] MEDS: Meropenem 1 GM in Sodium Chloride 0.9% 100 ML IVPB SCH ×3 (00:48→16:22)
[2018-06-30 02:33] LABS: SQUAMOUS EPITHIAL 1 /hpf (0-5); URINE BILIRUBIN NEGATIVE (NEGATIVE); URINE BLOOD NEGATIVE (NEGATIVE); URINE CLARITY CLOUDY (Clear); URINE COLOR AMBER (YELLOW); URINE GLUCOSE (UA) 50 mg/dL (NEGATIVE); URINE HYALINE CAST >20 /hpf (0-2); URINE LEUKOCYTE ESTERASE NEG Leu/uL (Negative); URINE PROTEIN 100 mg/dL (NEGATIVE); URINE UROBILINOGEN 0.2-1.0 mg/dL (0.2-1.0)
[2018-06-30] MEDS: Propofol 10 mg/ml 1,000 MG/100 ML VIAL IV SCH ×2 (04:09→13:39)
[2018-06-30 04:38] LABS: ABG ALLEN TEST YES; ARTERIAL BLOOD GAS HCO3 37.9 mmol/L (21-28); ARTERIAL BLOOD GAS O2 SAT 100.7 % (95-98); ARTERIAL BLOOD GAS PCO2 43 mm/Hg (35-45); ARTERIAL BLOOD GAS PH 7.58 (7.35-7.45); ARTERIAL BLOOD GAS PO2 198 mm/Hg (80-100); ARTERIAL BLOOD GAS TCO2 41.6 mmol/L (22-28)
[2018-06-30] MEDS ORDERED: Potassium Chloride 20 mEq/15 ml LIQ UD NG ONE (04:47)
[2018-06-30 05:57] LABS: ALB/GLOB RATIO 1.1 (1.0-2.1); ALBUMIN 2.8 g/dL (3.5-5.0); ALT/SGPT 25 U/L (21-72); AST/SGOT 21 U/L (17-59); BLOOD UREA NITROGEN 8 mg/dl (9-20); CALCIUM 8.7 mg/dL (8.4-10.2); GFR NON-AFRICAN AMERICAN > 60
[2018-06-30] MEDS: Insulin Lispro (humaLOG) 100 Units/ml Inj SC SCH ×4 (06:31→18:24)
[2018-06-30 07:38] LABS: HEMOGLOBIN 8.1 g/dL (12.0-18.0); MEAN CELL VOLUME 80.3 fl (80.0-94.0); MEAN CORPUSCULAR HEMOGLOBIN 25.5 pg (27.0-31.0); MEAN CORPUSCULAR HGB CONC 31.8 g/dL (33.0-37.0); RBC 3.16 Mil/uL (4.40-5.90); RED CELL DISTRIBUTION WIDTH 19.1 % (11.5-14.5)
[2018-06-30 07:41] LABS: WHITE BLOOD COUNT 0.7 K/uL (4.8-10.8)
--- NOTE | 2018-06-30 07:54 | CP.PCM.PN ---
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 Objective - Vital Signs/Intake and Output Vital Signs (last 24 hours): Temp Pulse Resp BP Pulse Ox 99.7 F H 89 14 106/64 100 06/30/18 07:00 06/30/18 07:00 06/30/18 07:00 06/30/18 07:00 06/30/18 07:00 Intake and Output: 06/30/18 06/30/18 06:59 18:59 Intake Total 754 Output Total 1250 Balance -496 - Medications Medications: Current Medications Acyclovir (Zovirax) 800 mg PO TID [facility]; Protocol Last Admin: 06/29/18 19:14 Dose: Not Given Albuterol Sulfate (Albuterol 0.083% Inhal Emilia (2.5 Mg/3 Ml) Ud) 2.5 mg INH RQ4 PRN PRN Reason: Shortness of Breath Last Admin: 06/28/18 23:41 Dose: 2.5 mg Albuterol/Ipratropium (Duoneb 3 Mg/0.5 Mg (3 Ml) Ud) 3 ml INH RQID [facility] Last Admin: 06/29/18 19:51 Dose: 3 ml Atorvastatin Calcium (Lipitor) 20 mg PO DAILY [facility] Last Admin: 06/29/18 10:42 Dose: Not Given Bisacodyl (Dulcolax) 10 mg PO DAILY PRN PRN Reason: Constipation Last Admin: 06/28/18 08:09 Dose: 10 mg Budesonide (Pulmicort Respules) 0.5 mg IH Q12 [facility] Last Admin: 06/29/18 21:00 Dose: Not Given Docusate Sodium (Colace) 100 mg PO Q8 PRN PRN Reason: Constipation Enoxaparin Sodium (Lovenox) 70 mg SC DAILY [facility]; Protocol Last Admin: 06/29/18 10:43 Dose: 70 mg Fluticasone Propionate (Flonase) 2 spr TIM DAILY [facility] Last Admin: 06/29/18 10:40 Dose: 2 spr Furosemide (Lasix) 20 mg PO DAILY [facility] Last Admin: 06/29/18 10:42 Dose: Not Given Guaifenesin/Dextromethorphan (Robitussin Dm) 10 ml PO Q6 PRN PRN Reason: Cough Meropenem 1 gm/ Sodium (Chloride) 100 mls @ 100 mls/hr IVPB Q8 [facility]; Protocol Last Admin: 06/30/18 00:48 Dose: 100 mls/hr Micafungin Sodium 100 mg/ (Sodium Chloride) 100 mls @ 100 mls/hr IVPB DAILY [facility]; Protocol Last Admin: 06/29/18 16:15 Dose: 100 mls/hr Vancomycin HCl 1 gm/ Sodium (Chloride) 250 mls @ 166.667 mls/hr IVPB Q12H [facility]; Protocol Last Admin: 06/30/18 01:48 Dose: 166.667 mls/hr Propofol (Diprivan) 1,000 mg in 100 mls @ 4.082 mls/hr IV .Q24H [facility]; Protocol Stop: 06/30/18 18:25 Last Titration: 06/30/18 06:49 Dose: 10 mcg/kg/min, 8.165 mls/hr Insulin Detemir (Levemir) 30 units SC HS [facility] Last Admin: 06/29/18 21:37 Dose: 30 u Insulin Human Lispro (Humalog) 0 units SC ACHS [facility] Last Admin: 06/30/18 06:31 Dose: Not Given Insulin Human Lispro (Humalog) 10 units SC AC [facility] Last Admin: 06/30/18 06:32 Dose: Not Given Lactulose (Enulose) 20 gm PO DAILY PRN PRN Reason: Constipation Lidocaine (Lidoderm) 1 ea TD DAILY PRN PRN Reason: Pain, moderate (4-7) Last Admin: 06/28/18 00:02 Dose: 1 ea Methadone HCl (Methadone) 25 mg PO Q12 [facility] Last Admin: 06/29/18 21:58 Dose: Not Given Montelukast Sodium (Singulair) 10 mg PO DAILY [facility] Last Admin: 06/29/18 10:45 Dose: Not Given Nystatin (Nystatin Oral Susp) 5 ml PO QID [facility] Last Admin: 06/29/18 21:46 Dose: Not Given Ondansetron HCl (Zofran Odt) 8 mg PO Q8 PRN PRN Reason: Nausea/Vomiting Last Admin: 06/28/18 23:52 Dose: 8 mg Oxybutynin Chloride (Ditropan Tab) 5 mg PO DAILY [facility] Last Admin: 06/29/18 10:40 Dose: Not Given Pantoprazole Sodium (Protonix Ec Tab) 40 mg PO DAILY [facility] Last Admin: 06/29/18 10:45 Dose: Not Given Paroxetine HCl (Paxil) 40 mg PO DAILY [facility] Last Admin: 06/29/18 10:45 Dose: Not Given Polyethylene Glycol (Miralax) 17 gm PO BID PRN PRN Reason: Constipation Prednisone (Prednisone Tab) 20 mg PO DAILY [facility] Last Admin: 06/29/18 10:45 Dose: Not Given Prochlorperazine (Compazine Tab) 10 mg PO Q6 PRN PRN Reason: Nausea/Vomiting Sennosides (Senokot Tab) 8.6 mg PO BID PRN PRN Reason: Constipation Tamsulosin HCl (Flomax) 0.4 mg PO DAILY [facility] Last Admin: 06/29/18 10:40 Dose: Not Given Trazodone HCl (Desyrel) 50 mg PO HS [facility] Last Admin: 06/28/18 21:51 Dose: 50 mg Triamcinolone Acetonide (Kenalog 0.1% Cream) 1 appl TOP Q12 [facility] Last Admin: 06/29/18 21:29 Dose: 1 appl - Labs Labs: 06/30/18 04:30 06/30/18 04:30 - Respiratory Exam Respiratory Exam: NORMAL BREATHING PATTERN - Cardiovascular Exam Cardiovascular Exam: REGULAR RHYTHM - GI/Abdominal Exam GI & Abdominal Exam: Normal Bowel Sounds Assessment and Plan - Assessment and Plan (Free Text) Assessment: Acute Hypercapnic Ventilatory Failure Pneumonia 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
--- NOTE | 2018-06-30 08:18 | RAD ---
Date of service: 06/29/2018 HISTORY: hypercarbia COMPARISON: 06/26/2018 FINDINGS: LUNGS: There is evidence of previously identified enlarged heart and moderate opacification of the left hemithorax which may reflect increased atelectasis and additionally some pleural fluid. There is also some mild increased atelectasis seen in the right lung. Right central line is unchanged. There is limited evaluation of the upper abdomen. PLEURA: Left pleural effusion is once again seen. CARDIOVASCULAR: Aorta is obscured by the overlying density. Mild atherosclerotic changes not excluded. Enlarged. Mild congestion not excluded. OSSEOUS STRUCTURES: Unchanged. VISUALIZED UPPER ABDOMEN: Limited in evaluation. OTHER FINDINGS: Trachea is once again deviated towards the right by the upper lobe density. IMPRESSION: Left upper lobe density and atelectasis with shift of the trachea towards the right is once again identified. Left pleural effusion. Mild subsegmental atelectasis at the right lung base. This film has only been now made available to this radiologist for evaluation.
--- NOTE | 2018-06-30 08:28 | RAD ---
Date of service: 06/30/2018 HISTORY: vented COMPARISON: Yesterday FINDINGS: LUNGS: There is no interval change in the appearance of the lung luque from the examination performed yesterday. PLEURA: There is stable left pleural effusion and atelectasis at the left lung base. CARDIOVASCULAR: There is limited evaluation of the aorta with probable stable mild atherosclerotic calcification. Unchanged cardiac size. Vasculature is stable. Endotracheal tube and right catheter are stable. There is also once again stable deviation of the trachea towards the right. OSSEOUS STRUCTURES: No significant abnormalities. VISUALIZED UPPER ABDOMEN: Normal. OTHER FINDINGS: None. IMPRESSION: No interval change in the appearance of the lung luque.
--- NOTE | 2018-06-30 08:33 | CP.PCM.PN ---
Subjective - Date & Time of Evaluation Date of Evaluation: 06/30/18 Time of Evaluation: 08:30 - Subjective Subjective: Podiatry progress note for attending Dr. Myrick 62 year old male patient Seen and evaluated at the bedside for b/l LE erythema, edema and superficial ulceration. Patient was transferred to the ICU yesterday, and currently intubated. As per nursing, no overnight events, patient responsive to verbal stimuli and pain. Patient has strong sugar drier. Patient B/L LE dressings clean dry and intact. Objective - Vital Signs/Intake and Output Vital Signs (last 24 hours): Temp Pulse Resp BP Pulse Ox 99.7 F H 89 14 106/64 100 06/30/18 07:00 06/30/18 07:00 06/30/18 07:00 06/30/18 07:00 06/30/18 07:00 Intake and Output: 06/30/18 06/30/18 06:59 18:59 Intake Total 754 Output Total 1250 Balance -496 - Medications Medications: Current Medications Acyclovir (Zovirax) 800 mg PO TID [facility]; Protocol Last Admin: 06/29/18 19:14 Dose: Not Given Albuterol Sulfate (Albuterol 0.083% Inhal Emilia (2.5 Mg/3 Ml) Ud) 2.5 mg INH RQ4 PRN PRN Reason: Shortness of Breath Last Admin: 06/28/18 23:41 Dose: 2.5 mg Albuterol/Ipratropium (Duoneb 3 Mg/0.5 Mg (3 Ml) Ud) 3 ml INH RQID [facility] Last Admin: 06/29/18 19:51 Dose: 3 ml Atorvastatin Calcium (Lipitor) 20 mg PO DAILY [facility] Last Admin: 06/29/18 10:42 Dose: Not Given Bisacodyl (Dulcolax) 10 mg PO DAILY PRN PRN Reason: Constipation Last Admin: 06/28/18 08:09 Dose: 10 mg Budesonide (Pulmicort Respules) 0.5 mg IH Q12 [facility] Last Admin: 06/29/18 21:00 Dose: Not Given Docusate Sodium (Colace) 100 mg PO Q8 PRN PRN Reason: Constipation Enoxaparin Sodium (Lovenox) 70 mg SC DAILY [facility]; Protocol Last Admin: 06/29/18 10:43 Dose: 70 mg Fluticasone Propionate (Flonase) 2 spr TIM DAILY [facility] Last Admin: 06/29/18 10:40 Dose: 2 spr Furosemide (Lasix) 20 mg PO DAILY [facility] Last Admin: 06/29/18 10:42 Dose: Not Given Guaifenesin/Dextromethorphan (Robitussin Dm) 10 ml PO Q6 PRN PRN Reason: Cough Meropenem 1 gm/ Sodium (Chloride) 100 mls @ 100 mls/hr IVPB Q8 [facility]; Protocol Last Admin: 06/30/18 00:48 Dose: 100 mls/hr Micafungin Sodium 100 mg/ (Sodium Chloride) 100 mls @ 100 mls/hr IVPB DAILY [facility]; Protocol Last Admin: 06/29/18 16:15 Dose: 100 mls/hr Vancomycin HCl 1 gm/ Sodium (Chloride) 250 mls @ 166.667 mls/hr IVPB Q12H [facility]; Protocol Last Admin: 06/30/18 01:48 Dose: 166.667 mls/hr Propofol (Diprivan) 1,000 mg in 100 mls @ 4.082 mls/hr IV .Q24H [facility]; Protocol Stop: 06/30/18 18:25 Last Titration: 06/30/18 06:49 Dose: 10 mcg/kg/min, 8.165 mls/hr Insulin Detemir (Levemir) 30 units SC HS [facility] Last Admin: 06/29/18 21:37 Dose: 30 u Insulin Human Lispro (Humalog) 0 units SC ACHS [facility] Last Admin: 06/30/18 06:31 Dose: Not Given Insulin Human Lispro (Humalog) 10 units SC AC [facility] Last Admin: 06/30/18 06:32 Dose: Not Given Lactulose (Enulose) 20 gm PO DAILY PRN PRN Reason: Constipation Lidocaine (Lidoderm) 1 ea TD DAILY PRN PRN Reason: Pain, moderate (4-7) Last Admin: 06/28/18 00:02 Dose: 1 ea Methadone HCl (Methadone) 25 mg PO Q12 [facility] Last Admin: 06/29/18 21:58 Dose: Not Given Montelukast Sodium (Singulair) 10 mg PO DAILY [facility] Last Admin: 06/29/18 10:45 Dose: Not Given Nystatin (Nystatin Oral Susp) 5 ml PO QID [facility] Last Admin: 06/29/18 21:46 Dose: Not Given Ondansetron HCl (Zofran Odt) 8 mg PO Q8 PRN PRN Reason: Nausea/Vomiting Last Admin: 06/28/18 23:52 Dose: 8 mg Oxybutynin Chloride (Ditropan Tab) 5 mg PO DAILY [facility] Last Admin: 06/29/18 10:40 Dose: Not Given Pantoprazole Sodium (Protonix Ec Tab) 40 mg PO DAILY [facility] Last Admin: 06/29/18 10:45 Dose: Not Given Paroxetine HCl (Paxil) 40 mg PO DAILY [facility] Last Admin: 06/29/18 10:45 Dose: Not Given Polyethylene Glycol (Miralax) 17 gm PO BID PRN PRN Reason: Constipation Prednisone (Prednisone Tab) 20 mg PO DAILY [facility] Last Admin: 06/29/18 10:45 Dose: Not Given Prochlorperazine (Compazine Tab) 10 mg PO Q6 PRN PRN Reason: Nausea/Vomiting Sennosides (Senokot Tab) 8.6 mg PO BID PRN PRN Reason: Constipation Tamsulosin HCl (Flomax) 0.4 mg PO DAILY [facility] Last Admin: 06/29/18 10:40 Dose: Not Given Trazodone HCl (Desyrel) 50 mg PO HS [facility] Last Admin: 06/28/18 21:51 Dose: 50 mg Triamcinolone Acetonide (Kenalog 0.1% Cream) 1 appl TOP Q12 [facility] Last Admin: 06/29/18 21:29 Dose: 1 appl - Labs Labs: 06/30/18 04:30 06/30/18 04:30 - Constitutional Appears: Well, No Acute Distress - Head Exam Head Exam: ATRAUMATIC, NORMOCEPHALIC - Extremities Exam Additional comments: B/L LE focused exam: VASC: DP and PT pulses palpable 1/4 due to edema; cap refill <3 seconds to all digits; Temp gradient Warm to warm; +2 pitting edema noted b/l. NEURO: Gross and protective sensation Diminished. DERM: Superficial stasis ulcerations noted on the right side the largest is on the frias of the tibia measuring 3.4 cm X 2.5 cm x 0.1 m, with fibrotic base, no active drainange , no depth appreciated, An ulcer noted on the left frias of tibia measuring 1.2 cm X 1.2 cm X 0.2 cm with fibrogranular base, no drainage, no tracking, undermining or probe to bone. Mild erythema extends from the ankle to the upper 1/3 of the leg b/l, significantly improved wounds, no weeping appreciated at this time. MSK: No pain on palpation of left lower extremity mid leg. - Psychiatric Exam Psychiatric exam: Normal Affect, Normal Mood Assessment and Plan - Assessment and Plan (Free Text) Assessment: 62 year old male patient Seen and evaluated at the bedside for b/l LE erythema, edema and superficial ulceration. Plan: Patient seen and evaluated at the bedside with Dr. Myrick Discussed in detail with Dr. Myrick Charts, labs and vitals reviewed; Afebrile, WBCs 0.7 B/L wound cultures: MRSA Continue IV Abx as per primary team. B/L Venous duplex B/L LE dressed with DSD and adaptic Podiatry Will continue to follow up the patient while patient in house
[2018-06-30] MEDS: Enoxaparin 80 mg Syringe SC SCH (08:43)
[2018-06-30] MEDS: Micafungin 100 MG in Sodium Chloride 0.9% 100 ML IVPB SCH (08:45)
[2018-06-30] MEDS: Pantoprazole 40 mg EC Tab PO SCH (08:49)
[2018-06-30] MEDS: Budesonide 0.5 mg/2 ml Inhal Susp UD IH SCH ×5 (08:50→21:03)
[2018-06-30] MEDS: Albuterol-Ipratrop 3 mg / 0.5 (3 ml) UD INH SCH ×4 (08:59→19:03)
--- NOTE | 2018-06-30 09:09 | RAD ---
Date of service: 06/29/2018 HISTORY: s/p intubation and ogt COMPARISON: 06/29/2018 at 15:51 FINDINGS: LUNGS: Patient is intubated. There is large amount of increased density in the left upper hemithorax with displacement of the trachea to the right. Right central line catheter is unchanged. There is not appear to be significant interval change in the appearance of the lung luque. No pneumothorax is seen. PLEURA: No significant pleural effusion identified, no pneumothorax apparent. CARDIOVASCULAR: Minor aortic atherosclerotic calcification is not excluded. Heart is probably mildly enlarged but obscured by the overlying density. No pulmonary vascular congestion. OSSEOUS STRUCTURES: No significant abnormalities. VISUALIZED UPPER ABDOMEN: Normal. OTHER FINDINGS: None. IMPRESSION: Status post intubation. Large left upper lobe mass density and displacement the trachea to the right.
[2018-06-30] MEDS: Nystatin 100,000 Units/ml Oral Susp 5 ml UD PO SCH ×4 (09:40→21:00)
[2018-06-30 10:06] LABS: ABG ALLEN TEST YES; ARTERIAL BLOOD GAS HCO3 37.5 mmol/L (21-28); ARTERIAL BLOOD GAS O2 SAT 100.5 % (95-98); ARTERIAL BLOOD GAS PCO2 42 mm/Hg (35-45); ARTERIAL BLOOD GAS PH 7.58 (7.35-7.45); ARTERIAL BLOOD GAS PO2 118 mm/Hg (80-100); ARTERIAL BLOOD GAS TCO2 40.7 mmol/L (22-28)
--- NOTE | 2018-06-30 10:34 | CP.PCM.PN ---
Subjective - Date & Time of Evaluation Date of Evaluation: 06/30/18 Time of Evaluation: 10:22 - Subjective Subjective: Seen on rounds in the ICU. Orally intubated and mechanically ventilated. Interim events were reviewed. Labs and x-rays reviewed as well. Case discussed with uptwist spinner, updates from nursing. Patient awakens readily with verbal and tactile stimulus. Acknowledges questions and answers with nod of the head. Ventilator changes have been made this morning after ABG resulted. Presently on PRVC/AC 14 with PEEP 8, Vt .50 and RR 14. Peak airways pressure 24cm, SpO2 99%. Scant secretions being suctioned from ETT (spec to lab for C&S). Neck is supple and trachea deviated towards the right. No dullness on percussion of the right chest wall. Dullness over the left chest wall. No subcut emphysema. Breath sounds are well heard on the right with few dry rales RLL posteriorly. Breath sounds on the left are very diminished, transmitted character. Breath sounds are present in the LLL postero-lateral region. No audible wheezes heard in either lung. Heart sounds are diminished, but present, regular. Abdomen is obese and soft with + bowel sounds. Dependant edema of LEs with clean dressings applied by podiatry this morning. Acute on chronic hypercapnic/hypoxemic ventilatory failure. Left lower lobe pneumonia (HCAP). Neutropenia secondary to chemotherapy. Metastatic sarcoma with large tumor volume in the left lung, small nodules in the right. Exogenous obesity with possible GALEN and obesity/hypoventilation syndrome. All of the above complicated by cancer-related pain requiring chronic opiate use. Continue mechanical ventilatory support. Wean as able. Antibiotic therapies for pneumonia and wound infection with neutropenia. Will need some steroids parenterally (on prednisone from home). Palliative care? Tracheostomy? ICU time 45min. Objective - Vital Signs/Intake and Output Vital Signs (last 24 hours): Temp Pulse Resp BP Pulse Ox 99.7 F H 89 14 103/61 100 06/30/18 07:00 06/30/18 07:00 06/30/18 07:00 06/30/18 08:42 06/30/18 07:00 Intake and Output: 06/29/18 06/30/18 23:59 11:59 Intake Total 108 666 Output Total 0 1250 Balance 108 -584 - Medications Medications: Current Medications Acyclovir (Zovirax) 800 mg PO TID [facility]; Protocol Last Admin: 06/30/18 08:52 Dose: 800 mg Albuterol Sulfate (Albuterol 0.083% Inhal Emilia (2.5 Mg/3 Ml) Ud) 2.5 mg INH RQ4 PRN PRN Reason: Shortness of Breath Last Admin: 06/28/18 23:41 Dose: 2.5 mg Albuterol/Ipratropium (Duoneb 3 Mg/0.5 Mg (3 Ml) Ud) 3 ml INH RQID [facility] Last Admin: 06/30/18 08:59 Dose: 3 ml Atorvastatin Calcium (Lipitor) 20 mg PO DAILY [facility] Last Admin: 06/30/18 08:43 Dose: 20 mg Bisacodyl (Dulcolax) 10 mg PO DAILY PRN PRN Reason: Constipation Last Admin: 06/28/18 08:09 Dose: 10 mg Budesonide (Pulmicort Respules) 0.5 mg IH Q12 [facility] Last Admin: 06/30/18 09:02 Dose: 0.5 mg Docusate Sodium (Colace) 100 mg PO Q8 PRN PRN Reason: Constipation Fluticasone Propionate (Flonase) 2 spr TIM DAILY [facility] Last Admin: 06/30/18 08:41 Dose: 2 spr Guaifenesin/Dextromethorphan (Robitussin Dm) 10 ml PO Q6 PRN PRN Reason: Cough Meropenem 1 gm/ Sodium (Chloride) 100 mls @ 100 mls/hr IVPB Q8 [facility]; Protocol Last Admin: 06/30/18 08:44 Dose: 100 mls/hr Micafungin Sodium 100 mg/ (Sodium Chloride) 100 mls @ 100 mls/hr IVPB DAILY [facility]; Protocol Last Admin: 06/30/18 08:45 Dose: 100 mls/hr Vancomycin HCl 1 gm/ Sodium (Chloride) 250 mls @ 166.667 mls/hr IVPB Q12H [facility]; Protocol Last Admin: 06/30/18 01:48 Dose: 166.667 mls/hr Propofol (Diprivan) 1,000 mg in 100 mls @ 4.082 mls/hr IV .Q24H [facility]; Protocol Stop: 06/30/18 18:25 Last Titration: 06/30/18 06:49 Dose: 10 mcg/kg/min, 8.165 mls/hr Insulin Detemir (Levemir) 12 units SC Q12H [facility] Insulin Human Lispro (Humalog) 0 units SC Q6H [facility] Lactulose (Enulose) 20 gm PO DAILY PRN PRN Reason: Constipation Lidocaine (Lidoderm) 1 ea TD DAILY PRN PRN Reason: Pain, moderate (4-7) Last Admin: 06/28/18 00:02 Dose: 1 ea Methadone HCl (Methadone) 25 mg PO Q12 [facility] Last Admin: 06/30/18 09:29 Dose: Not Given Montelukast Sodium (Singulair) 10 mg PO DAILY [facility] Last Admin: 06/30/18 08:50 Dose: 10 mg Nystatin (Nystatin Oral Susp) 5 ml PO QID [facility] Last Admin: 06/29/18 21:46 Dose: Not Given Ondansetron HCl (Zofran Odt) 8 mg PO Q8 PRN PRN Reason: Nausea/Vomiting Last Admin: 06/28/18 23:52 Dose: 8 mg Oxybutynin Chloride (Ditropan Tab) 5 mg PO DAILY [facility] Last Admin: 06/30/18 08:40 Dose: 5 mg Pantoprazole Sodium (Protonix Ec Tab) 40 mg PO DAILY [facility] Last Admin: 06/30/18 08:49 Dose: 40 mg Paroxetine HCl (Paxil) 40 mg PO DAILY [facility] Last Admin: 06/30/18 08:48 Dose: 40 mg Polyethylene Glycol (Miralax) 17 gm PO BID PRN PRN Reason: Constipation Prednisone (Prednisone Tab) 20 mg PO DAILY [facility] Last Admin: 06/30/18 08:48 Dose: 20 mg Prochlorperazine (Compazine Tab) 10 mg PO Q6 PRN PRN Reason: Nausea/Vomiting Sennosides (Senokot Tab) 8.6 mg PO BID PRN PRN Reason: Constipation Tamsulosin HCl (Flomax) 0.4 mg PO DAILY [facility] Last Admin: 06/30/18 08:41 Dose: 0.4 mg Trazodone HCl (Desyrel) 50 mg PO HS [facility] Last Admin: 06/28/18 21:51 Dose: 50 mg Triamcinolone Acetonide (Kenalog 0.1% Cream) 1 appl TOP Q12 [facility] Last Admin: 06/30/18 08:41 Dose: 1 appl - Labs Labs: 06/30/18 04:30 06/30/18 04:30 Assessment and Plan (1) Oral thrush Status: Acute 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
--- NOTE | 2018-06-30 11:57 | CP.CCUPN ---
CCU Subjective - Physician Review Events Since Last Encounter (Free Text): 06/30/18 12:03 intubated and sedated, weaning off of sedation. CCU Objective - Vital Signs / Intake & Output Vital Signs (Last 4 hours): Vital Signs Temp Pulse Resp BP Pulse Ox 06/30/18 10:00 99.9 F H 90 14 111/60 99 06/30/18 09:00 99.3 F 88 14 98/63 L 99 06/30/18 08:42 103/61 06/30/18 08:00 99.8 F H 86 14 103/61 99 Intake and Output (Last 8hrs): Intake & Output 06/29/18 06/30/18 06/30/18 22:59 06:59 14:59 Intake Total 38 736 460 Output Total 0 1250 Balance 38 -514 460 Weight 297 lb Intake: IV 38 174 200 Intake, Piggyback 350 Tube Feeding 12 160 Free Water Flush 200 100 Output: Urine 0 1250 Urethral (Newberry) 1250 Urine, Voided 0 0 Other: # Voids Urethral (Newberry) 150 - Physical Exam Head: Positive for: Atraumatic, Normocephalic Pupils: Positive for: PERRL Extroacular Muscles: Positive for: EOMI Conjunctiva: Positive for: Normal Ears: Positive for: Normal Mouth: Positive for: Moist Mucous Membranes Pharnyx: Positive for: Normal Nose (External): Positive for: Atraumatic Respiratory/Chest: Positive for: Decreased Breath Sounds (in left lung luque) Abdomen: Positive for: Normal Bowel Sounds. Negative for: Tenderness, Distention Upper Extremity: Positive for: Normal Inspection Lower Extremity: Negative for: Normal Inspection (RLE wound with dressing ) Neurological: Negative for: GCS=15 - Medications Active Medications: Active Medications Generic Name Dose Route Start Last Admin Trade Name Freq PRN Reason Stop Dose Admin Acyclovir 800 mg 06/29/18 17:00 06/30/18 08:52 Zovirax PO 800 mg TID BENI Administration Protocol Albuterol Sulfate 2.5 mg 06/27/18 10:32 06/28/18 23:41 Albuterol 0.083% Inhal Emilia (2.5 Mg/3 Ml) Ud INH 2.5 mg RQ4 PRN Administration Shortness of Breath Albuterol/Ipratropium 3 ml 06/27/18 12:00 06/30/18 11:23 Duoneb 3 Mg/0.5 Mg (3 Ml) Ud INH 3 ml RQID BENI Administration Atorvastatin Calcium 20 mg 06/27/18 09:00 06/30/18 08:43 Lipitor PO 20 mg DAILY BENI Administration Bisacodyl 10 mg 06/26/18 22:59 06/28/18 08:09 Dulcolax PO 10 mg DAILY PRN Administration Constipation Budesonide 0.5 mg 06/27/18 09:00 06/30/18 09:02 Pulmicort Respules IH 0.5 mg Q12 BENI Administration Docusate Sodium 100 mg 06/26/18 22:59 Colace PO Q8 PRN Constipation Fluticasone Propionate 2 spr 06/27/18 09:00 06/30/18 08:41 Flonase TIM 2 spr DAILY BENI Administration Guaifenesin/Dextromethorphan 10 ml 06/28/18 22:04 Robitussin Dm PO Q6 PRN Cough Meropenem 1 gm/ Sodium 100 mls @ 100 mls/hr 06/29/18 17:00 06/30/18 08:44 Chloride IVPB 100 mls/hr Q8 BENI Administration Protocol Micafungin Sodium 100 mg/ 100 mls @ 100 mls/hr 06/29/18 14:00 06/30/18 08:45 Sodium Chloride IVPB 100 mls/hr DAILY BENI Administration Protocol Vancomycin HCl 1 gm/ Sodium 250 mls @ 166.667 mls/hr 06/29/18 14:45 06/30/18 01:48 Chloride IVPB 166.667 mls/hr Q12H BENI Administration Protocol Propofol 1,000 mg in 100 mls @ 4.082 mls/hr 06/29/18 18:30 06/30/18 06:49 Diprivan IV 06/30/18 18:25 10 mcg/kg/min .Q24H BENI 8.165 mls/hr Titration Protocol 5 MCG/KG/MIN Insulin Detemir 12 units 06/30/18 18:00 Levemir SC Q12@0600,1800 BENI Insulin Human Lispro 0 units 06/30/18 12:00 Humalog SC 0000,0600,1200,1800 BENI Lactulose 20 gm 06/28/18 11:00 Enulose PO DAILY PRN Constipation Lidocaine 1 ea 03/12/19 23:02 06/28/18 00:02 Lidoderm TD 1 ea DAILY PRN Administration Pain, moderate (4-7) Methadone HCl 25 mg 06/28/18 22:45 06/30/18 09:29 Methadone PO Not Given Q12 [facility] Montelukast Sodium 10 mg 06/27/18 09:00 06/30/18 08:50 Singulair PO 10 mg DAILY BENI Administration Nystatin 5 ml 06/27/18 13:00 06/30/18 09:40 Nystatin Oral Susp PO 5 ml QID BENI Administration Ondansetron HCl 8 mg 06/26/18 23:02 06/28/18 23:52 Zofran Odt PO 8 mg Q8 PRN Administration Nausea/Vomiting Oxybutynin Chloride 5 mg 06/27/18 09:00 06/30/18 08:40 Ditropan Tab PO 5 mg DAILY [facility] Administration Pantoprazole Sodium 40 mg 06/27/18 09:00 06/30/18 08:49 Protonix Ec Tab PO 40 mg DAILY [facility] Administration Paroxetine HCl 40 mg 06/27/18 09:00 06/30/18 08:48 Paxil PO 40 mg DAILY [facility] Administration Polyethylene Glycol 17 gm 06/26/18 23:02 Miralax PO BID PRN Constipation Prednisone 20 mg 06/29/18 09:00 06/30/18 08:48 Prednisone Tab PO 20 mg DAILY [facility] Administration Prochlorperazine 10 mg 06/27/18 01:15 Compazine Tab PO Q6 PRN Nausea/Vomiting Sennosides 8.6 mg 06/26/18 23:02 Senokot Tab PO BID PRN Constipation Tamsulosin HCl 0.4 mg 06/27/18 09:00 06/30/18 08:41 Flomax PO 0.4 mg DAILY [facility] Administration Trazodone HCl 50 mg 06/26/18 23:15 06/28/18 21:51 Desyrel PO 50 mg HS BENI Administration Triamcinolone Acetonide 1 appl 06/27/18 09:00 06/30/18 08:41 Kenalog 0.1% Cream TOP 1 appl Q12 BENI Administration - Patient Studies Lab Studies: Microbiology Studies 06/28/18 18:00 Gram Stain - Final Leg - Right Wound Culture - Final Methicillin Resistant S Aureus Lab Studies 06/30/18 06/30/18 06/30/18 Range/Units 09:15 04:30 04:30 WBC 0.7 L* (4.8-10.8) K/uL RBC 3.16 L (4.40-5.90) Mil/uL Hgb 8.1 L (12.0-18.0) g/dL Hct 25.4 L (35.0-51.0) % MCV 80.3 (80.0-94.0) fl MCH 25.5 L (27.0-31.0) pg MCHC 31.8 L (33.0-37.0) g/dL RDW 19.1 H (11.5-14.5) % Plt Count 150 (130-400) K/uL pCO2 42 (35-45) mm/Hg pO2 118 H (80-100) mm/Hg HCO3 37.5 H (21-28) mmol/L ABG pH 7.58 H (7.35-7.45) ABG Total CO2 40.7 H (22-28) mmol/L ABG O2 Saturation 100.5 H (95-98) % ABG O2 Content (15-23) ML/dL ABG Base Excess 16.0 H (-2.0-3.0) mmol/L ABG Hemoglobin (11.7-17.4) g/dL ABG Carboxyhemoglobin (0.5-1.5) % POC ABG HHb (Measured) (0.0-5.0) % ABG Methemoglobin (0.0-3.0) % ABG O2 Capacity (16-24) mL/dL Gilbert Test Yes ABG Potassium 3.6 (3.6-5.2) mmol/L A-a O2 Difference 115.0 mm/Hg Hgb O2 Saturation (95.0-98.0) % Sodium 136.0 138 (132-148) mmol/L Chloride 101.0 95 L (98-107) mmol/L Glucose 93 (75-110) mg/dL Lactate 1.0 (0.7-2.1) mmol/L Vent Mode Prvc/ac Mechanical Rate 14 FiO2 40.0 % Tidal Volume 500 PEEP 8 Inspiratory BiPAP Expiratory BiPAP Crit Value Called To Crit Value Called By Crit Value Read Back Blood Gas Notified Time Potassium 3.2 L (3.6-5.0) MMOL/L Carbon Dioxide 40 H* (22-30) mmol/L Anion Gap 6 L (10-20) BUN 8 L (9-20) mg/dl Creatinine 0.6 L (0.8-1.5) mg/dl Est GFR ( Amer) > 60 Est GFR (Non-Af Amer) > 60 Random Glucose 67 L (75-110) mg/dL Calcium 8.7 (8.4-10.2) mg/dL Phosphorus 1.5 L (2.5-4.5) mg/dl Magnesium 1.8 (1.6-2.3) MG/DL Total Bilirubin 0.7 (0.2-1.3) mg/dl AST 21 (17-59) U/L ALT 25 (21-72) U/L Alkaline Phosphatase 45 (38-126) U/L Total Protein 5.4 L (6.3-8.2) G/DL Albumin 2.8 L (3.5-5.0) g/dL Globulin 2.5 (2.2-3.9) gm/dL Albumin/Globulin Ratio 1.1 (1.0-2.1) Procalcitonin (0.19-0.49) NG/ML Arterial Blood Potassium 3.6 (3.6-5.2) mmol/L Urine Color (YELLOW) Urine Clarity (Clear) Urine pH (5.0-8.0) Ur Specific [place] (1.003-1.030) Urine Protein (NEGATIVE) mg/dL Urine Glucose (UA) (NEGATIVE) mg/dL Urine Ketones (NEGATIVE) mg/dL Urine Blood (NEGATIVE) Urine Nitrate (NEGATIVE) Urine Bilirubin (NEGATIVE) Urine Urobilinogen (0.2-1.0) mg/dL Ur Leukocyte Esterase (Negative) [place]/uL Urine RBC (Auto) (0-3) /hpf Urine Microscopic WBC (0-5) /hpf Ur Squamous Epith Cells (0-5) /hpf Hyaline Casts (0-2) /hpf 06/30/18 06/30/18 06/29/18 Range/Units 04:22 02:27 19:37 WBC (4.8-10.8) K/uL RBC (4.40-5.90) Mil/uL Hgb (12.0-18.0) g/dL Hct (35.0-51.0) % MCV (80.0-94.0) fl MCH (27.0-31.0) pg MCHC (33.0-37.0) g/dL RDW (11.5-14.5) % Plt Count (130-400) K/uL pCO2 43 55 H (35-45) mm/Hg pO2 198 H 140 H (80-100) mm/Hg HCO3 37.9 H 34.9 H (21-28) mmol/L ABG pH 7.58 H 7.45 (7.35-7.45) ABG Total CO2 41.6 H 39.9 H (22-28) mmol/L ABG O2 Saturation 100.7 H 100.9 H (95-98) % ABG O2 Content 12.2 L (15-23) ML/dL ABG Base Excess 16.5 H 12.7 H (-2.0-3.0) mmol/L ABG Hemoglobin 8.6 L (11.7-17.4) g/dL ABG Carboxyhemoglobin 1.6 H (0.5-1.5) % POC ABG HHb (Measured) -0.9 L (0.0-5.0) % ABG Methemoglobin 0.6 (0.0-3.0) % ABG O2 Capacity 12.1 L (16-24) mL/dL Gilbert Test Yes Yes ABG Potassium 3.2 L (3.6-5.2) mmol/L A-a O2 Difference 105.0 148.0 mm/Hg Hgb O2 Saturation 98.7 H (95.0-98.0) % Sodium 136.0 (132-148) mmol/L Chloride 100.0 (98-107) mmol/L Glucose 72 L (75-110) mg/dL Lactate 0.9 (0.7-2.1) mmol/L Vent Mode A/c Prvc/ac Mechanical Rate 18 18 FiO2 50.0 50.0 % Tidal Volume 500 500 PEEP 8 8 Inspiratory BiPAP Expiratory BiPAP Crit Value Called To Crit Value Called By Crit Value Read Back Blood Gas Notified Time Potassium (3.6-5.0) MMOL/L Carbon Dioxide (22-30) mmol/L Anion Gap (10-20) BUN (9-20) mg/dl Creatinine (0.8-1.5) mg/dl Est GFR ( Amer) Est GFR (Non-Af Amer) Random Glucose (75-110) mg/dL Calcium (8.4-10.2) mg/dL Phosphorus (2.5-4.5) mg/dl Magnesium (1.6-2.3) MG/DL Total Bilirubin (0.2-1.3) mg/dl AST (17-59) U/L ALT (21-72) U/L Alkaline Phosphatase (38-126) U/L Total Protein (6.3-8.2) G/DL Albumin (3.5-5.0) g/dL Globulin (2.2-3.9) gm/dL Albumin/Globulin Ratio (1.0-2.1) Procalcitonin (0.19-0.49) NG/ML Arterial Blood Potassium 3.2 L (3.6-5.2) mmol/L Urine Color Maryjo (YELLOW) Urine Clarity Cloudy (Clear) Urine pH 5.0 (5.0-8.0) Ur Specific [place] 1.017 (1.003-1.030) Urine Protein 100 (NEGATIVE) mg/dL Urine Glucose (UA) 50 (NEGATIVE) mg/dL Urine Ketones Trace (NEGATIVE) mg/dL Urine Blood Negative (NEGATIVE) Urine Nitrate Negative (NEGATIVE) Urine Bilirubin Negative (NEGATIVE) Urine Urobilinogen 0.2-1.0 (0.2-1.0) mg/dL Ur Leukocyte Esterase Neg (Negative) [place]/uL Urine RBC (Auto) 1 (0-3) /hpf Urine Microscopic WBC 8 H (0-5) /hpf Ur Squamous Epith Cells 1 (0-5) /hpf Hyaline Casts >20 H (0-2) /hpf 06/29/18 06/29/18 06/29/18 Range/Units 17:30 14:15 12:00 WBC (4.8-10.8) K/uL RBC (4.40-5.90) Mil/uL Hgb (12.0-18.0) g/dL Hct (35.0-51.0) % MCV (80.0-94.0) fl MCH (27.0-31.0) pg MCHC (33.0-37.0) g/dL RDW (11.5-14.5) % Plt Count (130-400) K/uL pCO2 72 H* 65 H (35-45) mm/Hg pO2 45 L 104 H (80-100) mm/Hg HCO3 35.0 H 35.6 H (21-28) mmol/L ABG pH 7.36 7.40 (7.35-7.45) ABG Total CO2 42.9 H 42.3 H (22-28) mmol/L ABG O2 Saturation 82.7 L 100.2 H (95-98) % ABG O2 Content 9.9 L (15-23) ML/dL ABG Base Excess 13.3 H 13.6 H (-2.0-3.0) mmol/L ABG Hemoglobin 8.7 L (11.7-17.4) g/dL ABG Carboxyhemoglobin 1.8 H (0.5-1.5) % POC ABG HHb (Measured) 16.8 H (0.0-5.0) % ABG Methemoglobin 1.1 (0.0-3.0) % ABG O2 Capacity 12.0 L (16-24) mL/dL Gilbert Test Yes Yes ABG Potassium 3.9 (3.6-5.2) mmol/L A-a O2 Difference 150.0 100.0 mm/Hg Hgb O2 Saturation 80.4 L (95.0-98.0) % Sodium 132.0 (132-148) mmol/L Chloride 96.0 L (98-107) mmol/L Glucose 187 H (75-110) mg/dL Lactate 0.9 (0.7-2.1) mmol/L Vent Mode Bipap Mechanical Rate 18 16 FiO2 40.0 40.0 % Tidal Volume PEEP Inspiratory BiPAP 12 12 Expiratory BiPAP 8 6 Crit Value Called To sana Fay do Crit Value Called By Austin quinones Crit Value Read Back Y Blood Gas Notified Time 1745 Potassium (3.6-5.0) MMOL/L Carbon Dioxide (22-30) mmol/L Anion Gap (10-20) BUN (9-20) mg/dl Creatinine (0.8-1.5) mg/dl Est GFR ( Amer) Est GFR (Non-Af Amer) Random Glucose (75-110) mg/dL Calcium (8.4-10.2) mg/dL Phosphorus (2.5-4.5) mg/dl Magnesium (1.6-2.3) MG/DL Total Bilirubin (0.2-1.3) mg/dl AST (17-59) U/L ALT (21-72) U/L Alkaline Phosphatase (38-126) U/L Total Protein (6.3-8.2) G/DL Albumin (3.5-5.0) g/dL Globulin (2.2-3.9) gm/dL Albumin/Globulin Ratio (1.0-2.1) Procalcitonin 0.19 (0.19-0.49) NG/ML Arterial Blood Potassium 3.9 (3.6-5.2) mmol/L Urine Color (YELLOW) Urine Clarity (Clear) Urine pH (5.0-8.0) Ur Specific [place] (1.003-1.030) Urine Protein (NEGATIVE) mg/dL Urine Glucose (UA) (NEGATIVE) mg/dL Urine Ketones (NEGATIVE) mg/dL Urine Blood (NEGATIVE) Urine Nitrate (NEGATIVE) Urine Bilirubin (NEGATIVE) Urine Urobilinogen (0.2-1.0) mg/dL Ur Leukocyte Esterase (Negative) [place]/uL Urine RBC (Auto) (0-3) /hpf Urine Microscopic WBC (0-5) /hpf Ur Squamous Epith Cells (0-5) /hpf Hyaline Casts (0-2) /hpf Laboratory Results - last 24 hr 06/29/18 06/29/18 06/29/18 12:00 14:15 17:30 WBC RBC Hgb Hct MCV MCH MCHC RDW Plt Count pCO2 65 H 72 H* pO2 104 H 45 L HCO3 35.6 H 35.0 H ABG pH 7.40 7.36 ABG Total CO2 42.3 H 42.9 H ABG O2 Saturation 100.2 H 82.7 L ABG O2 Content 9.9 L ABG Base Excess 13.6 H 13.3 H ABG Hemoglobin 8.7 L ABG Carboxyhemoglobin 1.8 H POC ABG HHb (Measured) 16.8 H ABG Methemoglobin 1.1 ABG O2 Capacity 12.0 L Gilbert Test Yes Yes ABG Potassium 3.9 A-a O2 Difference 100.0 150.0 Hgb O2 Saturation 80.4 L Sodium 132.0 Chloride 96.0 L Glucose 187 H Lactate 0.9 Vent Mode Bipap Mechanical Rate 16 18 FiO2 40.0 40.0 Tidal Volume PEEP Inspiratory BiPAP 12 12 Expiratory BiPAP 6 8 Crit Value Called To sana Fay do Crit Value Called By Austin quinones Crit Value Read Back Y Blood Gas Notified Time 1745 Potassium Carbon Dioxide Anion Gap BUN Creatinine Est GFR ( Amer) Est GFR (Non-Af Amer) Random Glucose Calcium Phosphorus Magnesium Total Bilirubin AST ALT Alkaline Phosphatase Total Protein Albumin Globulin Albumin/Globulin Ratio Procalcitonin 0.19 Arterial Blood Potassium 3.9 Urine Color Urine Clarity Urine pH Ur Specific [place] Urine Protein Urine Glucose (UA) Urine Ketones Urine Blood Urine Nitrate Urine Bilirubin Urine Urobilinogen Ur Leukocyte Esterase Urine RBC (Auto) Urine Microscopic WBC Ur Squamous Epith Cells Hyaline Casts 06/29/18 06/30/18 06/30/18 19:37 02:27 04:22 WBC RBC Hgb Hct MCV MCH MCHC RDW Plt Count pCO2 55 H 43 pO2 140 H 198 H HCO3 34.9 H 37.9 H ABG pH 7.45 7.58 H ABG Total CO2 39.9 H 41.6 H ABG O2 Saturation 100.9 H 100.7 H ABG O2 Content 12.2 L ABG Base Excess 12.7 H 16.5 H ABG Hemoglobin 8.6 L ABG Carboxyhemoglobin 1.6 H POC ABG HHb (Measured) -0.9 L ABG Methemoglobin 0.6 ABG O2 Capacity 12.1 L Gilbert Test Yes Yes ABG Potassium 3.2 L A-a O2 Difference 148.0 105.0 Hgb O2 Saturation 98.7 H Sodium 136.0 Chloride 100.0 Glucose 72 L Lactate 0.9 Vent Mode Prvc/ac A/c Mechanical Rate 18 18 FiO2 50.0 50.0 Tidal Volume 500 500 PEEP 8 8 Inspiratory BiPAP Expiratory BiPAP Crit Value Called To Crit Value Called By Crit Value Read Back Blood Gas Notified Time Potassium Carbon Dioxide Anion Gap BUN Creatinine Est GFR ( Amer) Est GFR (Non-Af Amer) Random Glucose Calcium Phosphorus Magnesium Total Bilirubin AST ALT Alkaline Phosphatase Total Protein Albumin Globulin Albumin/Globulin Ratio Procalcitonin Arterial Blood Potassium 3.2 L Urine Color Maryjo Urine Clarity Cloudy Urine pH 5.0 Ur Specific [place] 1.017 Urine Protein 100 Urine Glucose (UA) 50 Urine Ketones Trace Urine Blood Negative Urine Nitrate Negative Urine Bilirubin Negative Urine Urobilinogen 0.2-1.0 Ur Leukocyte Esterase Neg Urine RBC (Auto) 1 Urine Microscopic WBC 8 H Ur Squamous Epith Cells 1 Hyaline Casts >20 H 06/30/18 06/30/18 06/30/18 04:30 04:30 09:15 WBC 0.7 L* RBC 3.16 L Hgb 8.1 L Hct 25.4 L MCV 80.3 MCH 25.5 L MCHC 31.8 L RDW 19.1 H Plt Count 150 pCO2 42 pO2 118 H HCO3 37.5 H ABG pH 7.58 H ABG Total CO2 40.7 H ABG O2 Saturation 100.5 H ABG O2 Content ABG Base Excess 16.0 H ABG Hemoglobin ABG Carboxyhemoglobin POC ABG HHb (Measured) ABG Methemoglobin ABG O2 Capacity Gilbert Test Yes ABG Potassium 3.6 A-a O2 Difference 115.0 Hgb O2 Saturation Sodium 138 136.0 Chloride 95 L 101.0 Glucose 93 Lactate 1.0 Vent Mode Prvc/ac Mechanical Rate 14 FiO2 40.0 Tidal Volume 500 PEEP 8 Inspiratory BiPAP Expiratory BiPAP Crit Value Called To Crit Value Called By Crit Value Read Back Blood Gas Notified Time Potassium 3.2 L Carbon Dioxide 40 H* Anion Gap 6 L BUN 8 L Creatinine 0.6 L Est GFR ( Amer) > 60 Est GFR (Non-Af Amer) > 60 Random Glucose 67 L Calcium 8.7 Phosphorus 1.5 L Magnesium 1.8 Total Bilirubin 0.7 AST 21 ALT 25 Alkaline Phosphatase 45 Total Protein 5.4 L Albumin 2.8 L Globulin 2.5 Albumin/Globulin Ratio 1.1 Procalcitonin Arterial Blood Potassium 3.6 Urine Color Urine Clarity Urine pH Ur Specific [place] Urine Protein Urine Glucose (UA) Urine Ketones Urine Blood Urine Nitrate Urine Bilirubin Urine Urobilinogen Ur Leukocyte Esterase Urine RBC (Auto) Urine Microscopic WBC Ur Squamous Epith Cells Hyaline Casts Radiology Impressions: Radiology Impressions Extremity Ultrasound 06/28/18 18:44 IMPRESSION: No evidence of deep venous thrombosis. Chest X-Ray 06/29/18 14:59 IMPRESSION: Left upper lobe density and atelectasis with shift of the trachea towards the right is once again identified. Left pleural effusion. Mild subsegmental atelectasis at the right lung base. This film has only been now made available to this radiologist for evaluation. Chest X-Ray 06/29/18 18:31 IMPRESSION: Status post intubation. Large left upper lobe mass density and displacement the trachea to the right. Chest X-Ray 06/30/18 04:00 IMPRESSION: No interval change in the appearance of the lung luque. 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 (06/29/18) intubated. Neuro: altered mental status secondary to hypercarbia. patient was also on methadone with prn oxycodone which could also contribute to his obtundation. holding methadone, holding oxycodone. restarting trazodone. Pulm: Patient most likely has GALEN and obesity hypoventilation with a concomitant obstructive mass in his left lung, giving him very little functional left lung and mostly breathing with one good right lung. Further complicated by chronic opioid usage. Patient was intubated for acute hypercapnic respiratory failure. He has a high likelihood of recurrent failure, since most of these problems cannot be quickly fixed, which is why I think the patient should go for early trach placement. Discussed with Pulm - Dr. Thayer, who agrees. Will consult surgery for trach placement. CV: hemodynamically stable. 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 If this is correct his prognosis is poor. Worsening neutropenia, continue Filgastrim. His ongoing issue of metastatic sarcoma may not improve, since his chemotx regimen was recently changed and he did not tolerate it (Mucositis, neutropenia, decompensation), his prognosis is poor. Onc - Dr. Barnett Renal: metabolic alkalosis, giving diamox. Endo: DM type 2, continue lispro q6h, levemir 12 units q12h. Endo - Dr. Adams GI: NPO, Glucerna with free water flushes 200 ml q6h. ID: Empiric broad spectrum coverage acyclovir, meropenem, micafungin, nystatin oral suspension, and vancomycin. ID - Dr. Purcell DVT proph - lovenox GI proph - protonix Code status - full code Palliative care to be consulted once patient is alert. advance directives need to be addressed. Critical Care time spent 35 minutes Multi-disciplinary rounds were performed with house staff, nursing, speech therapy, respiratory therapy, pharmacy and nutrition with integrated input from the primary team/attending and other consulting services. The documented time is cumulative and includes review of patient data/exams/labs/chart review and examination of the patient on rounds and throughout the day; time is exclusive of any procedures or teaching time. Current Visit: No Status: Acute
--- NOTE | 2018-06-30 13:38 | PN ---
DATE: 06/30/2018 LOCATION: ICU Room 423. SUBJECTIVE: This is a 62-year-old male with recent uncontrolled type 2 insulin-requiring diabetes, developing sudden acute respiratory distress yesterday with subsequent endotracheal intubation and is now being followed closely for hemodynamic monitoring in the ICU as noted. His glycemic levels are fluctuating and the glucose values have ranged from 240 to 245 mg/dL. His chemistries today showed a BUN of 8, sodium 138, potassium 3.2, chloride 95, CO2 is 40, glucose is 67 and creatinine is 0.6. ASSESSMENT: This is a 62-year-old male with uncontrolled and decompensated type 2 insulin-requiring diabetes with near optimal metabolic control on the current regimen, but developed acute respiratory distress and is currently endotracheally intubated and is now being followed closely for hemodynamic monitoring at this time. 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 PLAN OF MANAGEMENT: We will modify his current insulin regimen and discontinue the previous basal and bolus insulin regimen as ordered in the telemetry floor. We will only add basal insulin at the lower dose and we will titrate incrementally as indicated. We will give insulin at 12 units every 12 hours and we will titrate accordingly as indicated to optimize metabolic control. We will continue the low-dose correction scale using Humalog insulin as given. We will obtain serial chemistries and supplement accordingly as needed. We will follow. Sheryl Adams MD
--- NOTE | 2018-06-30 14:48 | CP.PCM.CON ---
History of Present Illness - History of Present Illness History of Present Illness: General Surgery Consult Note for Dr. 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 Patient seen and evaluated in the ICU. Patient initially admitted for painful sores in his mouth and oral infection. Patient recently began a new chemotherapy last Thursday 06/22. He has chronic dyspnea which requires home oxy gen. He was diagnosed with a left thigh sarcoma during prostate cancer staging. He underwent sarcoma treatment for localized disease but was found to have lung metastasis shortly after tumor resection. He underwent radiation and lung resection for oligometastatic disease. Unfortunately, he was found to have lung metastasis and required systemic therapy. Yesterday 06/29, [employer] was called at 11:00. Patient was found to be in respiratory distress with AMS. At that time, he had decreased breath sounds and rhonchi heard through out lung luque. He was placed on BiPAP and transferred to ICU. In the ICU, patient continued to have respiraotry distress despite BiPAP and required intubation. ROS limited due to intubation. 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 PSH: Left thigh sarcoma resection All: Docetaxel Review of Systems - Review of Systems Systems not reviewed;Unavailable: Intubated Past Patient History - Past Medical History & Family History Past Medical History?: Yes - Past Social History Smoking Status: Former Smoker Chewing Tobacco Use: No Cigar Use: No Alcohol: None Drugs: Denies - CARDIAC Hx Hypercholesterolemia: Yes Hx Hypertension: Yes - PULMONARY Hx Asthma: Yes Hx Pulmonary Embolism: Yes Other/Comment: metastatic lung disease - HEENT Other/Comment: throat pain and hoarsness of voice - RENAL Hx Chronic Kidney Disease: No - ENDOCRINE/METABOLIC Hx Diabetes Mellitus Type 2: Yes - HEMATOLOGICAL/ONCOLOGICAL Hx Anemia: Yes Hx Cancer: Yes - INTEGUMENTARY Hx Dermatological Problems: Yes Other/Comment: Left thigh sarcoma - MUSCULOSKELETAL/RHEUMATOLOGICAL Hx Musculoskeletal Disorders: Yes Hx Falls: No Other/Comment: 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 2 lung Laparoscopy due to sarcoma - ANESTHESIA Hx Anesthesia: Yes Hx Anesthesia Reactions: No Meds Allergies/Adverse Reactions: Allergies Allergy/AdvReac Type Severity Reaction Status Date / Time DOXYTACIL Allergy ANAPHYLAXIS Uncoded 08/30/17 22:18 - Medications Medications: Current Medications Acetazolamide (Diamox 500 Mg Inj) 500 mg IV Q12H [facility] Stop: 07/01/18 14:01 Acyclovir (Zovirax) 800 mg PO TID [facility]; Protocol Last Admin: 06/30/18 13:42 Dose: 800 mg Albuterol Sulfate (Albuterol 0.083% Inhal Emilia (2.5 Mg/3 Ml) Ud) 2.5 mg INH RQ4 PRN PRN Reason: Shortness of Breath Last Admin: 06/28/18 23:41 Dose: 2.5 mg Albuterol/Ipratropium (Duoneb 3 Mg/0.5 Mg (3 Ml) Ud) 3 ml INH RQID [facility] Last Admin: 06/30/18 11:23 Dose: 3 ml Atorvastatin Calcium (Lipitor) 20 mg PO DAILY [facility] Last Admin: 06/30/18 08:43 Dose: 20 mg Bisacodyl (Dulcolax) 10 mg PO DAILY PRN PRN Reason: Constipation Last Admin: 06/28/18 08:09 Dose: 10 mg Budesonide (Pulmicort Respules) 0.5 mg IH Q12 [facility] Last Admin: 06/30/18 09:02 Dose: 0.5 mg Docusate Sodium (Colace) 100 mg PO Q8 PRN PRN Reason: Constipation Fluticasone Propionate (Flonase) 2 spr TIM DAILY [facility] Last Admin: 06/30/18 08:41 Dose: 2 spr Guaifenesin/Dextromethorphan (Robitussin Dm) 10 ml PO Q6 PRN PRN Reason: Cough Meropenem 1 gm/ Sodium (Chloride) 100 mls @ 100 mls/hr IVPB Q8 [facility]; Protocol Last Admin: 06/30/18 08:44 Dose: 100 mls/hr Micafungin Sodium 100 mg/ (Sodium Chloride) 100 mls @ 100 mls/hr IVPB DAILY [facility]; Protocol Last Admin: 06/30/18 08:45 Dose: 100 mls/hr Vancomycin HCl 1 gm/ Sodium (Chloride) 250 mls @ 166.667 mls/hr IVPB Q12H [facility]; Protocol Last Admin: 06/30/18 14:16 Dose: 166.667 mls/hr Propofol (Diprivan) 1,000 mg in 100 mls @ 4.082 mls/hr IV .Q24H [facility]; Protocol Stop: 06/30/18 18:25 Last Admin: 06/30/18 13:39 Dose: 10 mcg/kg/min, 8.165 mls/hr Insulin Detemir (Levemir) 12 units SC Q12@0600,1800 [facility] Insulin Human Lispro (Humalog) 0 units SC 0000,0600,1200,1800 [facility] Last Admin: 06/30/18 12:44 Dose: Not Given Lactulose (Enulose) 20 gm PO DAILY PRN PRN Reason: Constipation Lidocaine (Lidoderm) 1 ea TD DAILY PRN PRN Reason: Pain, moderate (4-7) Last Admin: 06/28/18 00:02 Dose: 1 ea Methadone HCl (Methadone) 25 mg PO Q12 [facility] Last Admin: 06/30/18 09:29 Dose: Not Given Montelukast Sodium (Singulair) 10 mg PO DAILY [facility] Last Admin: 06/30/18 08:50 Dose: 10 mg Nystatin (Nystatin Oral Susp) 5 ml PO QID [facility] Last Admin: 06/30/18 13:40 Dose: 5 ml Ondansetron HCl (Zofran Odt) 8 mg PO Q8 PRN PRN Reason: Nausea/Vomiting Last Admin: 06/28/18 23:52 Dose: 8 mg Oxybutynin Chloride (Ditropan Tab) 5 mg PO DAILY [facility] Last Admin: 06/30/18 08:40 Dose: 5 mg Pantoprazole Sodium (Protonix Ec Tab) 40 mg PO DAILY [facility] Last Admin: 06/30/18 08:49 Dose: 40 mg Paroxetine HCl (Paxil) 40 mg PO DAILY [facility] Last Admin: 06/30/18 08:48 Dose: 40 mg Polyethylene Glycol (Miralax) 17 gm PO BID PRN PRN Reason: Constipation Prednisone (Prednisone Tab) 20 mg PO DAILY [facility] Last Admin: 06/30/18 08:48 Dose: 20 mg Prochlorperazine (Compazine Tab) 10 mg PO Q6 PRN PRN Reason: Nausea/Vomiting Sennosides (Senokot Tab) 8.6 mg PO BID PRN PRN Reason: Constipation Tamsulosin HCl (Flomax) 0.4 mg PO DAILY [facility] Last Admin: 06/30/18 08:41 Dose: 0.4 mg Trazodone HCl (Desyrel) 50 mg PO HS [facility] Last Admin: 06/28/18 21:51 Dose: 50 mg Triamcinolone Acetonide (Kenalog 0.1% Cream) 1 appl TOP Q12 [facility] Last Admin: 06/30/18 08:41 Dose: 1 appl Physical Exam - Constitutional Appears: No Acute Distress Additional comments: intubated and sedated - Head Exam Head Exam: ATRAUMATIC, NORMOCEPHALIC - Eye Exam Eye Exam: EOMI, Normal appearance Pupil Exam: PERRL - ENT Exam ENT Exam: Mucous Membranes Moist - Respiratory Exam Additional comments: intubated and on PRVC 500/18/50%/8 - Cardiovascular Exam Cardiovascular Exam: REGULAR RHYTHM - GI/Abdominal Exam GI & Abdominal Exam: Soft. absent: Distended, Firm, Guarding, Hernia, Rebound, Rigid, Tenderness - Rectal Exam Rectal Exam: Deferred - Extremities Exam Extremities exam: Positive for: normal capillary refill, pedal pulses present Additional comments: LLE sarcoma - Back Exam Back exam: absent: CVA tenderness (L), CVA tenderness (R) - Neurological Exam Additional comments: [id number], intubated and sedated with propofol - Psychiatric Exam Psychiatric exam: Flat Affect - Skin Skin Exam: Dry, Warm Results - Vital Signs Recent Vital Signs: Last Vital Signs Temp 99.5 F 06/30/18 14:00 Pulse 85 06/30/18 14:00 Resp 16 06/30/18 14:00 BP 108/54 L 06/30/18 14:00 Pulse Ox 99 06/30/18 14:00 - Labs Result Diagrams: 06/30/18 04:30 06/30/18 04:30 Labs: Laboratory Results - last 24 hr 06/29/18 06/29/18 06/29/18 14:15 17:30 19:37 WBC RBC Hgb Hct MCV MCH MCHC RDW Plt Count pCO2 72 H* 55 H pO2 45 L 140 H HCO3 35.0 H 34.9 H ABG pH 7.36 7.45 ABG Total CO2 42.9 H 39.9 H ABG O2 Saturation 82.7 L 100.9 H ABG O2 Content 9.9 L 12.2 L ABG Base Excess 13.3 H 12.7 H ABG Hemoglobin 8.7 L 8.6 L ABG Carboxyhemoglobin 1.8 H 1.6 H POC ABG HHb (Measured) 16.8 H -0.9 L ABG Methemoglobin 1.1 0.6 ABG O2 Capacity 12.0 L 12.1 L Gilbert Test Yes Yes ABG Potassium A-a O2 Difference 150.0 148.0 Hgb O2 Saturation 80.4 L 98.7 H Sodium Chloride Glucose Lactate Vent Mode Bipap Prvc/ac Mechanical Rate 18 18 FiO2 40.0 50.0 Tidal Volume 500 PEEP 8 Inspiratory BiPAP 12 Expiratory BiPAP 8 Crit Value Called To sana Fay do Crit Value Called By Austin quinones Crit Value Read Back Y Blood Gas Notified Time 1745 Potassium Carbon Dioxide Anion Gap BUN Creatinine Est GFR ( Amer) Est GFR (Non-Af Amer) Random Glucose Calcium Phosphorus Magnesium Total Bilirubin AST ALT Alkaline Phosphatase Total Protein Albumin Globulin Albumin/Globulin Ratio Procalcitonin 0.19 Arterial Blood Potassium Urine Color Urine Clarity Urine pH Ur Specific [place] Urine Protein Urine Glucose (UA) Urine Ketones Urine Blood Urine Nitrate Urine Bilirubin Urine Urobilinogen Ur Leukocyte Esterase Urine RBC (Auto) Urine Microscopic WBC Ur Squamous Epith Cells Hyaline Casts 06/30/18 06/30/18 06/30/18 02:27 04:22 04:30 WBC 0.7 L* RBC 3.16 L Hgb 8.1 L Hct 25.4 L MCV 80.3 MCH 25.5 L MCHC 31.8 L RDW 19.1 H Plt Count 150 pCO2 43 pO2 198 H HCO3 37.9 H ABG pH 7.58 H ABG Total CO2 41.6 H ABG O2 Saturation 100.7 H ABG O2 Content ABG Base Excess 16.5 H ABG Hemoglobin ABG Carboxyhemoglobin POC ABG HHb (Measured) ABG Methemoglobin ABG O2 Capacity Gilbert Test Yes ABG Potassium 3.2 L A-a O2 Difference 105.0 Hgb O2 Saturation Sodium 136.0 Chloride 100.0 Glucose 72 L Lactate 0.9 Vent Mode A/c Mechanical Rate 18 FiO2 50.0 Tidal Volume 500 PEEP 8 Inspiratory BiPAP Expiratory BiPAP Crit Value Called To Crit Value Called By Crit Value Read Back Blood Gas Notified Time Potassium Carbon Dioxide Anion Gap BUN Creatinine Est GFR ( Amer) Est GFR (Non-Af Amer) Random Glucose Calcium Phosphorus Magnesium Total Bilirubin AST ALT Alkaline Phosphatase Total Protein Albumin Globulin Albumin/Globulin Ratio Procalcitonin Arterial Blood Potassium 3.2 L Urine Color Maryjo Urine Clarity Cloudy Urine pH 5.0 Ur Specific [place] 1.017 Urine Protein 100 Urine Glucose (UA) 50 Urine Ketones Trace Urine Blood Negative Urine Nitrate Negative Urine Bilirubin Negative Urine Urobilinogen 0.2-1.0 Ur Leukocyte Esterase Neg Urine RBC (Auto) 1 Urine Microscopic WBC 8 H Ur Squamous Epith Cells 1 Hyaline Casts >20 H 06/30/18 06/30/18 04:30 09:15 WBC RBC Hgb Hct MCV MCH MCHC RDW Plt Count pCO2 42 pO2 118 H HCO3 37.5 H ABG pH 7.58 H ABG Total CO2 40.7 H ABG O2 Saturation 100.5 H ABG O2 Content ABG Base Excess 16.0 H ABG Hemoglobin ABG Carboxyhemoglobin POC ABG HHb (Measured) ABG Methemoglobin ABG O2 Capacity Gilbert Test Yes ABG Potassium 3.6 A-a O2 Difference 115.0 Hgb O2 Saturation Sodium 138 136.0 Chloride 95 L 101.0 Glucose 93 Lactate 1.0 Vent Mode Prvc/ac Mechanical Rate 14 FiO2 40.0 Tidal Volume 500 PEEP 8 Inspiratory BiPAP Expiratory BiPAP Crit Value Called To Crit Value Called By Crit Value Read Back Blood Gas Notified Time Potassium 3.2 L Carbon Dioxide 40 H* Anion Gap 6 L BUN 8 L Creatinine 0.6 L Est GFR ( Amer) > 60 Est GFR (Non-Af Amer) > 60 Random Glucose 67 L Calcium 8.7 Phosphorus 1.5 L Magnesium 1.8 Total Bilirubin 0.7 AST 21 ALT 25 Alkaline Phosphatase 45 Total Protein 5.4 L Albumin 2.8 L Globulin 2.5 Albumin/Globulin Ratio 1.1 Procalcitonin Arterial Blood Potassium 3.6 Urine Color Urine Clarity Urine pH Ur Specific [place] Urine Protein Urine Glucose (UA) Urine Ketones Urine Blood Urine Nitrate Urine Bilirubin Urine Urobilinogen Ur Leukocyte Esterase Urine RBC (Auto) Urine Microscopic WBC Ur Squamous Epith Cells Hyaline Casts Assessment & Plan - Assessment and Plan (Free Text) Assessment: 62 M with PMH that includes history of prostate cancer ([place] 8) s/p androgen deprivation therapy and radiation, 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 Li Sandoval PGY2 - Date & Time Date: 06/30/18 Time: 15:42
[2018-06-30] MEDS: Insulin Detemir 100 Units/ml Inj SC SCH (18:25)
--- NOTE | 2018-06-30 22:03 | CP.PCM.PN ---
Subjective - Date & Time of Evaluation Date of Evaluation: 06/30/18 Time of Evaluation: 17:00 - Subjective Subjective: Interim events noted Vented, awake Objective - Vital Signs/Intake and Output Vital Signs (last 24 hours): Temp Pulse Resp BP Pulse Ox 99.5 F 98 H 16 126/74 98 06/30/18 20:00 06/30/18 20:00 06/30/18 20:00 06/30/18 20:00 06/30/18 20:00 Intake and Output: 06/30/18 07/01/18 18:59 06:59 Intake Total 1860 200 Balance 1860 200 - Medications Medications: Current Medications Acetazolamide (Diamox 500 Mg Inj) 500 mg IV Q12H [facility] Stop: 07/01/18 14:01 Last Admin: 06/30/18 16:17 Dose: 500 mg Acyclovir (Zovirax) 800 mg PO TID [facility]; Protocol Last Admin: 06/30/18 16:24 Dose: 800 mg Albuterol Sulfate (Albuterol 0.083% Inhal Emilia (2.5 Mg/3 Ml) Ud) 2.5 mg INH RQ4 PRN PRN Reason: Shortness of Breath Last Admin: 06/28/18 23:41 Dose: 2.5 mg Albuterol/Ipratropium (Duoneb 3 Mg/0.5 Mg (3 Ml) Ud) 3 ml INH RQID [facility] Last Admin: 06/30/18 19:03 Dose: 3 ml Atorvastatin Calcium (Lipitor) 20 mg PO DAILY [facility] Last Admin: 06/30/18 08:43 Dose: 20 mg Bisacodyl (Dulcolax) 10 mg PO DAILY PRN PRN Reason: Constipation Last Admin: 06/28/18 08:09 Dose: 10 mg Budesonide (Pulmicort Respules) 0.5 mg IH Q12 [facility] Last Admin: 06/30/18 21:03 Dose: Not Given Docusate Sodium (Colace) 100 mg PO Q8 PRN PRN Reason: Constipation Fluticasone Propionate (Flonase) 2 spr TIM DAILY [facility] Last Admin: 06/30/18 08:41 Dose: 2 spr Guaifenesin/Dextromethorphan (Robitussin Dm) 10 ml PO Q6 PRN PRN Reason: Cough Meropenem 1 gm/ Sodium (Chloride) 100 mls @ 100 mls/hr IVPB Q8 [facility]; Protocol Last Admin: 06/30/18 16:22 Dose: 100 mls/hr Micafungin Sodium 100 mg/ (Sodium Chloride) 100 mls @ 100 mls/hr IVPB DAILY [facility]; Protocol Last Admin: 06/30/18 08:45 Dose: 100 mls/hr Vancomycin HCl 1 gm/ Sodium (Chloride) 250 mls @ 166.667 mls/hr IVPB Q12H [facility]; Protocol Last Admin: 06/30/18 14:16 Dose: 166.667 mls/hr Insulin Detemir (Levemir) 12 units SC Q12@0600,1800 [facility] Last Admin: 06/30/18 18:25 Dose: 12 unit Insulin Human Lispro (Humalog) 0 units SC 0000,0600,1200,1800 [facility] Last Admin: 06/30/18 18:24 Dose: Not Given Lactulose (Enulose) 20 gm PO DAILY PRN PRN Reason: Constipation Lidocaine (Lidoderm) 1 ea TD DAILY PRN PRN Reason: Pain, moderate (4-7) Last Admin: 06/28/18 00:02 Dose: 1 ea Methadone HCl (Methadone) 25 mg PO Q12 [facility] Last Admin: 06/30/18 09:29 Dose: Not Given Montelukast Sodium (Singulair) 10 mg PO DAILY [facility] Last Admin: 06/30/18 08:50 Dose: 10 mg Nystatin (Nystatin Oral Susp) 5 ml PO QID [facility] Last Admin: 06/30/18 16:23 Dose: 5 ml Ondansetron HCl (Zofran Odt) 8 mg PO Q8 PRN PRN Reason: Nausea/Vomiting Last Admin: 06/28/18 23:52 Dose: 8 mg Oxybutynin Chloride (Ditropan Tab) 5 mg PO DAILY [facility] Last Admin: 06/30/18 08:40 Dose: 5 mg Pantoprazole Sodium (Protonix Ec Tab) 40 mg PO DAILY [facility] Last Admin: 06/30/18 08:49 Dose: 40 mg Paroxetine HCl (Paxil) 40 mg PO DAILY [facility] Last Admin: 06/30/18 08:48 Dose: 40 mg Polyethylene Glycol (Miralax) 17 gm PO BID PRN PRN Reason: Constipation Prednisone (Prednisone Tab) 20 mg PO DAILY [facility] Last Admin: 06/30/18 08:48 Dose: 20 mg Prochlorperazine (Compazine Tab) 10 mg PO Q6 PRN PRN Reason: Nausea/Vomiting Sennosides (Senokot Tab) 8.6 mg PO BID PRN PRN Reason: Constipation Tamsulosin HCl (Flomax) 0.4 mg PO DAILY [facility] Last Admin: 06/30/18 08:41 Dose: 0.4 mg Trazodone HCl (Desyrel) 50 mg PO HS [facility] Last Admin: 06/28/18 21:51 Dose: 50 mg Triamcinolone Acetonide (Kenalog 0.1% Cream) 1 appl TOP Q12 [facility] Last Admin: 06/30/18 20:52 Dose: 1 appl - Labs Labs: 06/30/18 04:30 06/30/18 04:30 - Head Exam Head Exam: ATRAUMATIC - Eye Exam Eye Exam: Normal appearance - ENT Exam ENT Exam: Mucous Membranes Dry - Respiratory Exam Respiratory Exam: Decreased Breath Sounds - Cardiovascular Exam Cardiovascular Exam: +S1, +S2 - GI/Abdominal Exam GI & Abdominal Exam: Normal Bowel Sounds - Extremities Exam Extremities Exam: Pedal Edema Assessment and Plan (1) Neutropenia Assessment & Plan: secondary to chemotherapy on growth factor support neutropenic precautions infectious treatment Status: Acute (2) Anemia Assessment & Plan: chronic disease and chemotherapy transfusion support PRN Status: Acute (3) Sarcoma Assessment & Plan: stage IV [place] [facility] [place] [facility] [place] by insurance company on salvage eribulin Status: Acute (4) History of DVT (deep vein thrombosis) Assessment & Plan: past treatment complicated by retroperitoneal hemorrhage okay for DVT prophylaxis Status: Acute
[2018-07-01] MEDS ORDERED: DiphenhydrAMINE 50 mg/ml Inj IVP STA (00:25)
[2018-07-01] MEDS: Meropenem 1 GM in Sodium Chloride 0.9% 100 ML IVPB SCH ×3 (01:14→16:31)
[2018-07-01 04:56] LABS: ABG ALLEN TEST YES; ARTERIAL BLOOD GAS HCO3 31.8 mmol/L (21-28); ARTERIAL BLOOD GAS O2 SAT 100.4 % (95-98); ARTERIAL BLOOD GAS PCO2 54 mm/Hg (35-45); ARTERIAL BLOOD GAS PH 7.42 (7.35-7.45); ARTERIAL BLOOD GAS PO2 155 mm/Hg (80-100); ARTERIAL BLOOD GAS TCO2 36.7 mmol/L (22-28)
[2018-07-01] MEDS: Insulin Lispro (humaLOG) 100 Units/ml Inj SC SCH ×4 (06:29→17:49)
[2018-07-01] MEDS: Insulin Detemir 100 Units/ml Inj SC SCH ×2 (06:33→17:48)
[2018-07-01 06:45] LABS: HEMOGLOBIN 8.7 g/dL (12.0-18.0); MEAN CELL VOLUME 81.3 fl (80.0-94.0); MEAN CORPUSCULAR HEMOGLOBIN 26.2 pg (27.0-31.0); MEAN CORPUSCULAR HGB CONC 32.2 g/dL (33.0-37.0); RBC 3.32 Mil/uL (4.40-5.90)
[2018-07-01 06:53] LABS: BLOOD UREA NITROGEN 10 mg/dl (9-20); CALCIUM 8.7 mg/dL (8.4-10.2); GFR NON-AFRICAN AMERICAN > 60
[2018-07-01 06:55] LABS: WHITE BLOOD COUNT 0.9 K/uL (4.8-10.8)
[2018-07-01] MEDS: Budesonide 0.5 mg/2 ml Inhal Susp UD IH SCH ×2 (07:09→19:46)
[2018-07-01] MEDS: Albuterol-Ipratrop 3 mg / 0.5 (3 ml) UD INH SCH ×4 (07:09→19:46)
[2018-07-01] MEDS: Pantoprazole 40 mg EC Tab PO SCH (08:27)
[2018-07-01] MEDS: Nystatin 100,000 Units/ml Oral Susp 5 ml UD PO SCH ×4 (08:27→21:04)
[2018-07-01] MEDS: Micafungin 100 MG in Sodium Chloride 0.9% 100 ML IVPB SCH (08:30)
--- NOTE | 2018-07-01 08:52 | CP.PCM.PN ---
Subjective - Date & Time of Evaluation Date of Evaluation: 07/01/18 Time of Evaluation: 08:51 - Subjective Subjective: Podiatry progress note for attending Dr. Myrick 62 year old male patient Seen and evaluated at the bedside for b/l LE erythema, edema and superficial ulceration. Patient awake, alert and able to answer questions by writing. As per nursing, no overnight events. Patient B/L LE dressings clean dry and intact. Objective - Vital Signs/Intake and Output Vital Signs (last 24 hours): Temp Pulse Resp BP Pulse Ox 99.5 F 85 15 121/65 99 07/01/18 08:00 07/01/18 08:00 07/01/18 08:00 07/01/18 08:00 07/01/18 08:00 Intake and Output: 07/01/18 07/01/18 06:59 18:59 Intake Total 1350 120 Output Total 1200 Balance 150 120 - Medications Medications: Current Medications Acetazolamide (Diamox 500 Mg Inj) 500 mg IV Q12H [facility] Stop: 07/01/18 14:01 Last Admin: 07/01/18 01:14 Dose: 500 mg Acyclovir (Zovirax) 800 mg PO TID [facility]; Protocol Last Admin: 07/01/18 08:23 Dose: 800 mg Albuterol Sulfate (Albuterol 0.083% Inhal Emilia (2.5 Mg/3 Ml) Ud) 2.5 mg INH RQ4 PRN PRN Reason: Shortness of Breath Last Admin: 06/28/18 23:41 Dose: 2.5 mg Albuterol/Ipratropium (Duoneb 3 Mg/0.5 Mg (3 Ml) Ud) 3 ml INH RQID [facility] Last Admin: 07/01/18 07:09 Dose: 3 ml Atorvastatin Calcium (Lipitor) 20 mg PO DAILY [facility] Last Admin: 07/01/18 08:24 Dose: 20 mg Bisacodyl (Dulcolax) 10 mg PO DAILY PRN PRN Reason: Constipation Last Admin: 06/28/18 08:09 Dose: 10 mg Budesonide (Pulmicort Respules) 0.5 mg IH Q12 [facility] Last Admin: 07/01/18 07:09 Dose: 0.5 mg Docusate Sodium (Colace) 100 mg PO Q8 PRN PRN Reason: Constipation Fluticasone Propionate (Flonase) 2 spr TIM DAILY [facility] Last Admin: 07/01/18 08:26 Dose: 2 spr Guaifenesin/Dextromethorphan (Robitussin Dm) 10 ml PO Q6 PRN PRN Reason: Cough Meropenem 1 gm/ Sodium (Chloride) 100 mls @ 100 mls/hr IVPB Q8 [facility]; Protocol Last Admin: 07/01/18 08:29 Dose: 100 mls/hr Micafungin Sodium 100 mg/ (Sodium Chloride) 100 mls @ 100 mls/hr IVPB DAILY [facility]; Protocol Last Admin: 07/01/18 08:30 Dose: 100 mls/hr Vancomycin HCl 1 gm/ Sodium (Chloride) 250 mls @ 166.667 mls/hr IVPB Q12H [facility]; Protocol Last Admin: 07/01/18 02:48 Dose: 166.667 mls/hr Potassium Chloride (Potassium Cl 10meq/50ml Sterile Water) 50 mls @ 50 mls/hr I VPB Q1 [facility] Stop: 07/01/18 10:59 Insulin Detemir (Levemir) 12 units SC Q12@0600,1800 [facility] Last Admin: 07/01/18 06:33 Dose: 12 unit Insulin Human Lispro (Humalog) 0 units SC 0000,0600,1200,1800 [facility] Last Admin: 07/01/18 06:29 Dose: Not Given Lactulose (Enulose) 20 gm PO DAILY PRN PRN Reason: Constipation Lidocaine (Lidoderm) 1 ea TD DAILY PRN PRN Reason: Pain, moderate (4-7) Last Admin: 06/28/18 00:02 Dose: 1 ea Methadone HCl (Methadone) 25 mg PO Q12 [facility] Last Admin: 06/30/18 09:29 Dose: Not Given Montelukast Sodium (Singulair) 10 mg PO DAILY [facility] Last Admin: 07/01/18 08:33 Dose: 10 mg Nystatin (Nystatin Oral Susp) 5 ml PO QID [facility] Last Admin: 07/01/18 08:27 Dose: 5 ml Ondansetron HCl (Zofran Odt) 8 mg PO Q8 PRN PRN Reason: Nausea/Vomiting Last Admin: 06/28/18 23:52 Dose: 8 mg Oxybutynin Chloride (Ditropan Tab) 5 mg PO DAILY [facility] Last Admin: 07/01/18 08:28 Dose: 5 mg Pantoprazole Sodium (Protonix Ec Tab) 40 mg PO DAILY [facility] Last Admin: 07/01/18 08:27 Dose: 40 mg Paroxetine HCl (Paxil) 40 mg PO DAILY [facility] Last Admin: 07/01/18 08:25 Dose: 40 mg Polyethylene Glycol (Miralax) 17 gm PO BID PRN PRN Reason: Constipation Prednisone (Prednisone Tab) 20 mg PO DAILY [facility] Last Admin: 07/01/18 08:26 Dose: 20 mg Prochlorperazine (Compazine Tab) 10 mg PO Q6 PRN PRN Reason: Nausea/Vomiting Sennosides (Senokot Tab) 8.6 mg PO BID PRN PRN Reason: Constipation Tamsulosin HCl (Flomax) 0.4 mg PO DAILY [facility] Last Admin: 07/01/18 08:24 Dose: 0.4 mg Trazodone HCl (Desyrel) 50 mg PO HS [facility] Last Admin: 06/28/18 21:51 Dose: 50 mg Triamcinolone Acetonide (Kenalog 0.1% Cream) 1 appl TOP Q12 [facility] Last Admin: 07/01/18 08:23 Dose: 1 appl - Labs Labs: 07/01/18 04:30 07/01/18 04:30 - Constitutional Appears: Well, Non-toxic, No Acute Distress - Head Exam Head Exam: ATRAUMATIC, NORMOCEPHALIC - Extremities Exam Additional comments: B/L LE focused exam: VASC: DP and PT pulses palpable 1/4 due to edema; cap refill <3 seconds to all digits; Temp gradient Warm to warm; +2 pitting edema noted b/l. NEURO: Gross and protective sensation Diminished. DERM: Superficial stasis ulcerations noted on the right side the largest is on the frias of the tibia measuring 3.4 cm X 2.5 cm x 0.1 m, with fibrotic base, no active drainage , no depth appreciated, An ulcer noted on the left frias of tibia measuring 1.2 cm X 1.2 cm X 0.2 cm with fibrogranular base, no drainage, no tracking, undermining or probe to bone. Mild erythema extends from the ankle to the upper 1/3 of the leg b/l, significantly improved wounds, no weeping appreciated at this time. MSK: No pain on palpation of left lower extremity mid leg. - Neurological Exam Neurological Exam: Alert, Awake, Oriented x3 - Psychiatric Exam Psychiatric exam: Normal Affect, Normal Mood Assessment and Plan - Assessment and Plan (Free Text) Assessment: 62 year old male patient Seen and evaluated at the bedside for b/l LE erythema, edema and superficial ulceration. Plan: Patient seen and evaluated at the bedside Discussed in detail with Dr. Myrick Charts, labs and vitals reviewed; Afebrile, WBCs 0.9 B/L wound cultures: MRSA Continue IV Abx as per primary team. B/L Venous duplex B/L LE dressed with DSD and adaptic Podiatry Will continue to follow up the patient while patient in house
[2018-07-01] MEDS: Potassium CL 10 MEQ/50 ML 50 ML IVPB SCH ×2 (08:58→12:40)
--- NOTE | 2018-07-01 09:51 | CP.PCM.PN ---
Subjective - Date & Time of Evaluation Date of Evaluation: 07/01/18 Time of Evaluation: 09:52 - Subjective Subjective: General Surgery Note for Dr. Jefferson Patient seen and examined at bedside. No acute event overnight. Patient remains intubated and on mechanical ventilation. GCS11T. No complaints at this time. Objective - Vital Signs/Intake and Output Vital Signs (last 24 hours): Temp Pulse Resp BP Pulse Ox 99.5 F 85 15 121/65 99 07/01/18 08:00 07/01/18 08:00 07/01/18 08:00 07/01/18 08:00 07/01/18 08:00 Intake and Output: 07/01/18 07/01/18 06:59 18:59 Intake Total 1350 120 Output Total 1200 Balance 150 120 - Medications Medications: Current Medications Acetazolamide (Diamox 500 Mg Inj) 500 mg IV Q12H [facility] Stop: 07/01/18 14:01 Last Admin: 07/01/18 01:14 Dose: 500 mg Acyclovir (Zovirax) 800 mg PO TID [facility]; Protocol Last Admin: 07/01/18 08:23 Dose: 800 mg Albuterol Sulfate (Albuterol 0.083% Inhal Emilia (2.5 Mg/3 Ml) Ud) 2.5 mg INH RQ4 PRN PRN Reason: Shortness of Breath Last Admin: 06/28/18 23:41 Dose: 2.5 mg Albuterol/Ipratropium (Duoneb 3 Mg/0.5 Mg (3 Ml) Ud) 3 ml INH RQID [facility] Last Admin: 07/01/18 07:09 Dose: 3 ml Atorvastatin Calcium (Lipitor) 20 mg PO DAILY [facility] Last Admin: 07/01/18 08:24 Dose: 20 mg Bisacodyl (Dulcolax) 10 mg PO DAILY PRN PRN Reason: Constipation Last Admin: 06/28/18 08:09 Dose: 10 mg Budesonide (Pulmicort Respules) 0.5 mg IH Q12 [facility] Last Admin: 07/01/18 07:09 Dose: 0.5 mg Docusate Sodium (Colace) 100 mg PO Q8 PRN PRN Reason: Constipation Fluticasone Propionate (Flonase) 2 spr TIM DAILY [facility] Last Admin: 07/01/18 08:26 Dose: 2 spr Guaifenesin/Dextromethorphan (Robitussin Dm) 10 ml PO Q6 PRN PRN Reason: Cough Meropenem 1 gm/ Sodium (Chloride) 100 mls @ 100 mls/hr IVPB Q8 [facility]; Protocol Last Admin: 07/01/18 08:29 Dose: 100 mls/hr Micafungin Sodium 100 mg/ (Sodium Chloride) 100 mls @ 100 mls/hr IVPB DAILY [facility]; Protocol Last Admin: 07/01/18 08:30 Dose: 100 mls/hr Vancomycin HCl 1 gm/ Sodium (Chloride) 250 mls @ 166.667 mls/hr IVPB Q12H [facility]; Protocol Last Admin: 07/01/18 02:48 Dose: 166.667 mls/hr Potassium Chloride (Potassium Cl 10meq/50ml Sterile Water) 50 mls @ 50 mls/hr IVPB Q1 [facility] Stop: 07/01/18 10:59 Last Admin: 07/01/18 08:58 Dose: 50 mls/hr Insulin Detemir (Levemir) 12 units SC Q12@0600,1800 [facility] Last Admin: 07/01/18 06:33 Dose: 12 unit Insulin Human Lispro (Humalog) 0 units SC 0000,0600,1200,1800 [facility] Last Admin: 07/01/18 06:29 Dose: Not Given Lactulose (Enulose) 20 gm PO DAILY PRN PRN Reason: Constipation Lidocaine (Lidoderm) 1 ea TD DAILY PRN PRN Reason: Pain, moderate (4-7) Last Admin: 06/28/18 00:02 Dose: 1 ea Methadone HCl (Methadone) 25 mg PO Q12 [facility] Last Admin: 06/30/18 09:29 Dose: Not Given Montelukast Sodium (Singulair) 10 mg PO DAILY [facility] Last Admin: 07/01/18 08:33 Dose: 10 mg Nystatin (Nystatin Oral Susp) 5 ml PO QID [facility] Last Admin: 07/01/18 08:27 Dose: 5 ml Ondansetron HCl (Zofran Odt) 8 mg PO Q8 PRN PRN Reason: Nausea/Vomiting Last Admin: 06/28/18 23:52 Dose: 8 mg Oxybutynin Chloride (Ditropan Tab) 5 mg PO DAILY [facility] Last Admin: 07/01/18 08:28 Dose: 5 mg Pantoprazole Sodium (Protonix Ec Tab) 40 mg PO DAILY [facility] Last Admin: 07/01/18 08:27 Dose: 40 mg Paroxetine HCl (Paxil) 40 mg PO DAILY [facility] Last Admin: 07/01/18 08:25 Dose: 40 mg Polyethylene Glycol (Miralax) 17 gm PO BID PRN PRN Reason: Constipation Prednisone (Prednisone Tab) 20 mg PO DAILY [facility] Last Admin: 07/01/18 08:26 Dose: 20 mg Prochlorperazine (Compazine Tab) 10 mg PO Q6 PRN PRN Reason: Nausea/Vomiting Sennosides (Senokot Tab) 8.6 mg PO BID PRN PRN Reason: Constipation Tamsulosin HCl (Flomax) 0.4 mg PO DAILY [facility] Last Admin: 07/01/18 08:24 Dose: 0.4 mg Trazodone HCl (Desyrel) 50 mg PO HS [facility] Last Admin: 06/28/18 21:51 Dose: 50 mg Triamcinolone Acetonide (Kenalog 0.1% Cream) 1 appl TOP Q12 [facility] Last Admin: 07/01/18 08:23 Dose: 1 appl - Labs Labs: 07/01/18 04:30 07/01/18 04:30 - Additional Findings Additional findings: - Constitutional Appears: No Acute Distress Additional comments: intubated and sedated - Head Exam Head Exam: ATRAUMATIC, NORMOCEPHALIC - Eye Exam Eye Exam: EOMI, Normal appearance Pupil Exam: PERRL - ENT Exam ENT Exam: Mucous Membranes Moist - Respiratory Exam Additional comments: intubated and on PRVC 500/18/50%/8 - Cardiovascular Exam Cardiovascular Exam: REGULAR RHYTHM - GI/Abdominal Exam GI & Abdominal Exam: Soft. absent: Distended, Firm, Guarding, Hernia, Rebound, Rigid, Tenderness - Rectal Exam Rectal Exam: Deferred - Extremities Exam Extremities exam: Positive for: normal capillary refill, pedal pulses present Additional comments: LLE sarcoma - Back Exam Back exam: absent: CVA tenderness (L), CVA tenderness (R) - Neurological Exam Additional comments: GCS11T, intubated and sedated with minimal propofol - Psychiatric Exam Psychiatric exam: Flat Affect - Skin Skin Exam: Dry, Warm Assessment and Plan - Assessment and Plan (Free Text) Assessment: 62 M with PMH that includes history of prostate cancer (Sharon 8) s/p androgen deprivation therapy and radiation, 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 Li Sandoval PGY2
--- NOTE | 2018-07-01 10:06 | RAD ---
Date of service: 07/01/2018 HISTORY: intubated with OGT COMPARISON: Yesterday FINDINGS: LUNGS: There is stable appearance of the previously identified lines and tubes. In addition there is probable stable appearance of the lung luque in tracheal deviation towards the right with large left upper lobe mass density seen. PLEURA: No interval change CARDIOVASCULAR: Mild aortic atherosclerotic calcification is not excluded.. Stable. No interval change in pulmonary vascular.. OSSEOUS STRUCTURES: Unchanged. VISUALIZED UPPER ABDOMEN: Normal. OTHER FINDINGS: None. IMPRESSION: Stable appearance of the lung luque.
[2018-07-01] MEDS ORDERED: Enoxaparin 30 mg Syringe SC SCH (10:15)
--- NOTE | 2018-07-01 12:11 | CP.PCM.PN ---
Subjective - Date & Time of Evaluation Date of Evaluation: 07/01/18 Time of Evaluation: 11:30 - Subjective Subjective: NO CHEST PAIN BY NODDING Objective - Vital Signs/Intake and Output Vital Signs (last 24 hours): Temp Pulse Resp BP Pulse Ox 99.5 F 84 15 144/74 99 07/01/18 12:00 07/01/18 12:00 07/01/18 12:00 07/01/18 12:00 07/01/18 12:00 Intake and Output: 07/01/18 07/01/18 06:59 18:59 Intake Total 1350 640 Output Total 1200 300 Balance 150 340 - Medications Medications: Current Medications Acetazolamide (Diamox 500 Mg Inj) 500 mg IV Q12H [facility] Stop: 07/01/18 14:01 Last Admin: 07/01/18 01:14 Dose: 500 mg Acyclovir (Zovirax) 800 mg PO TID [facility]; Protocol Last Admin: 07/01/18 08:23 Dose: 800 mg Albuterol Sulfate (Albuterol 0.083% Inhal Emilia (2.5 Mg/3 Ml) Ud) 2.5 mg INH RQ4 PRN PRN Reason: Shortness of Breath Last Admin: 06/28/18 23:41 Dose: 2.5 mg Albuterol/Ipratropium (Duoneb 3 Mg/0.5 Mg (3 Ml) Ud) 3 ml INH RQID [facility] Last Admin: 07/01/18 11:16 Dose: 3 ml Atorvastatin Calcium (Lipitor) 20 mg PO DAILY [facility] Last Admin: 07/01/18 08:24 Dose: 20 mg Bisacodyl (Dulcolax) 10 mg PO DAILY PRN PRN Reason: Constipation Last Admin: 06/28/18 08:09 Dose: 10 mg Budesonide (Pulmicort Respules) 0.5 mg IH RBID [facility] Docusate Sodium (Colace) 100 mg PO Q8 PRN PRN Reason: Constipation Enoxaparin Sodium (Lovenox) 70 mg SC DAILY [facility]; Protocol Fluticasone Propionate (Flonase) 2 spr TIM DAILY [facility] Last Admin: 07/01/18 08:26 Dose: 2 spr Guaifenesin/Dextromethorphan (Robitussin Dm) 10 ml PO Q6 PRN PRN Reason: Cough Meropenem 1 gm/ Sodium (Chloride) 100 mls @ 100 mls/hr IVPB Q8 [facility]; Protocol Last Admin: 07/01/18 08:29 Dose: 100 mls/hr Micafungin Sodium 100 mg/ (Sodium Chloride) 100 mls @ 100 mls/hr IVPB DAILY [facility]; Protocol Last Admin: 07/01/18 08:30 Dose: 100 mls/hr Vancomycin HCl 1 gm/ Sodium (Chloride) 250 mls @ 166.667 mls/hr IVPB Q12H [facility]; Protocol Last Admin: 07/01/18 02:48 Dose: 166.667 mls/hr Insulin Detemir (Levemir) 12 units SC Q12@0600,1800 [facility] Last Admin: 07/01/18 06:33 Dose: 12 unit Insulin Human Lispro (Humalog) 0 units SC 0000,0600,1200,1800 [facility] Last Admin: 07/01/18 06:29 Dose: Not Given Lactulose (Enulose) 20 gm PO DAILY PRN PRN Reason: Constipation Lidocaine (Lidoderm) 1 ea TD DAILY PRN PRN Reason: Pain, moderate (4-7) Last Admin: 06/28/18 00:02 Dose: 1 ea Methadone HCl (Methadone) 25 mg PO Q12 [facility] Last Admin: 06/30/18 09:29 Dose: Not Given Montelukast Sodium (Singulair) 10 mg PO DAILY [facility] Last Admin: 07/01/18 08:33 Dose: 10 mg Nystatin (Nystatin Oral Susp) 5 ml PO QID [facility] Last Admin: 07/01/18 08:27 Dose: 5 ml Ondansetron HCl (Zofran Odt) 8 mg PO Q8 PRN PRN Reason: Nausea/Vomiting Last Admin: 06/28/18 23:52 Dose: 8 mg Oxybutynin Chloride (Ditropan Tab) 5 mg PO DAILY [facility] Last Admin: 07/01/18 08:28 Dose: 5 mg Pantoprazole Sodium (Protonix Ec Tab) 40 mg PO DAILY [facility] Last Admin: 07/01/18 08:27 Dose: 40 mg Paroxetine HCl (Paxil) 40 mg PO DAILY [facility] Last Admin: 07/01/18 08:25 Dose: 40 mg Polyethylene Glycol (Miralax) 17 gm PO BID PRN PRN Reason: Constipation Prednisone (Prednisone Tab) 20 mg PO DAILY [facility] Last Admin: 07/01/18 08:26 Dose: 20 mg Prochlorperazine (Compazine Tab) 10 mg PO Q6 PRN PRN Reason: Nausea/Vomiting Sennosides (Senokot Tab) 8.6 mg PO BID PRN PRN Reason: Constipation Tamsulosin HCl (Flomax) 0.4 mg PO DAILY [facility] Last Admin: 07/01/18 08:24 Dose: 0.4 mg Trazodone HCl (Desyrel) 50 mg PO HS [facility] Last Admin: 06/28/18 21:51 Dose: 50 mg Triamcinolone Acetonide (Kenalog 0.1% Cream) 1 appl TOP Q12 [facility] Last Admin: 07/01/18 08:23 Dose: 1 appl - Labs Labs: 07/01/18 04:30 07/01/18 04:30 - Respiratory Exam Respiratory Exam: Decreased Breath Sounds, Rales - Cardiovascular Exam Cardiovascular Exam: REGULAR RHYTHM, +S1, +S2 - Extremities Exam Extremities Exam: Pedal Edema - Additional Findings Additional findings: INTERIM EVENTS NOTED WITH TRANSFER TO ICU, INTUBATION AND MV-PULMONARY NOTED AND INTENSIVISTS NOTES REVIEWED Assessment and Plan - Assessment and Plan (Free Text) Assessment: ANGIOSARCOMA WITH LUNG METASTASIS, PNEUMONIA AND RESPIRATORY FAILURE HYPERLIPIDEMIA DM STABLE CARDIAC STATUS Plan: CONTINUE MV, ANTIBIOTICS, ATORVASTATIN, DM TREATMENT AND LOVENOX
--- NOTE | 2018-07-01 13:13 | CP.PCM.CON ---
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 on systemic treatment [place] [facility], DVT complicated by intra abdominal hemorrhage while on anticoagulation, Left thigh sarcoma and DM Admitted with collapsed left lung , sepsis, pneumonia , resp failure and bilateral leg ulcers with cellulitis now in ICU with sepsis s/p chemo at [facility] [place] , neutropenia, post obstructive pneumonia, mucositis , oral thrush , cellulitis of legs and resp failure Intubated c/o left sided chest discomfort Review of Systems - Review of Systems Systems not reviewed;Unavailable: Intubated All systems: reviewed and no additional remarkable complaints except - Constitutional Constitutional: As Per HPI - EENT Eyes: absent: As Per HPI, Blind Spots, Blurred Vision, Change in Vision, Decreased Night Vision, Diplopia, Discharge, Dry Eye, Exophthalmos, Floaters, Irritation, Itchy Eyes, Loss of Peripheral Vision, Pain, Photophobia, Requires Corrective Lenses, Sees Flashes, Spots in Vision, Tunnel Vision, Other Visual Disturbances, Loss of Vision, Other Ears: absent: As Per HPI, Decreased Hearing, Ear Discharge, Ear Pain, Tinnitus, Abnormal Hearing, Disequilibrium, Dizziness, Other Nose/Mouth/Throat: absent: As Per HPI, Epistaxis, Nasal Congestion, Nasal Discharge, Nasal Obstruction, Nasal Trauma, Nose Pain, Post Nasal Drip, Sinus Pain, Sinus Pressure, Bleeding Gums, Change in Voice, Dental Pain, Dry Mouth, Dysphagia, Halitosis, Hoarsness, Lip Swelling, Mouth Lesions, Mouth Pain, Odyno phagia, Sore Throat, Throat Swelling, Tongue Swelling, Facial Pain, Neck Pain, Neck Mass, Other - Cardiovascular Cardiovascular: As Per HPI - Respiratory Respiratory: As Per HPI, Cough - Gastrointestinal Gastrointestinal: absent: As Per HPI, Abdominal Pain, Belching, Bloating, Change in Bowel Habits, Change in Stool Character, Coffee Ground Emesis, Constipation, Cramping, Diarrhea, Dyspepsia, Dysphagia, Early Satiety, Excessive Flatus, Fecal Incontinence, Heartburn, Hematemesis, Hematochezia, Loose Stools, Melena, Nausea, Odynophagia, Temesmus, Vomiting, Other - Genitourinary Genitourinary: absent: As Per HPI, Change in Urinary Stream, Difficulty Urinating, Dysuria, Flank Pain, Hematuria, Pyuria, Nocturia, Urinary Incontinence, Urinary Frequency, Urinary Hesitance, Urinary Urgency, Voiding Freq/Small Amts, Freq UTI, Hx Renal/Bladder Calculi, Hx /Renal Surgery, Bladder Distension, Other - Musculoskeletal Musculoskeletal: As Per HPI - Integumentary Integumentary: As Per HPI, Skin Pain, Wounds - Neurological Neurological: absent: As Per HPI, Abnormal Gait, Abnormal Hearing, Abnormal Movements, Abnormal Speech, Behavioral Changes, Burning Sensations, Confusion, Convulsions, Disequilibrium, Dizziness, Numbness, Focal Weakness, Frequent Falls, Headaches, Lack of Coordination, Loss of Vision, Memory Loss, Pares thesias, Radicular Pain, Restless Legs, Sensory Deficit, Syncope, Tingling, Tremor, Vertigo, Weakness, Other Visual Disturbances, Other - Psychiatric Psychiatric: absent: As Per HPI, Abnormal Sleep Pattern, Anhedonia, Anxiety, Auditory Hallucinations, Behavioral Changes, Change in Appetite, Change in Libido, Confusion, Depression, Difficulty Concentrating, Hallucinations, Homicidal Ideation, Hopelessness, Irritability, Memory Loss, Mood Swings, Panic Attacks, Paranoia, Suicidal Ideation, Visual Hallucinations, Tactile Hallucinations, Other - Endocrine Endocrine: absent: As Per HPI, Change in Body Appearance, Change in Libido, Cold Intolorance, Deepening of Voice, Excessive Sweating, Fatigue, Flushing, Heat Intolorance, Increase in Ring/Shoe/Hat Size, Palpitations, Polydipsia, Polyphagia, Polyuria, Other - Hematologic/Lymphatic Hematologic: absent: As Per HPI, Easy Bleeding, Easy Bruising, Lymphadenopathy, Other Past Patient History - Past Medical History & Family History Past Medical History?: Yes - Past Social History Smoking Status: Former Smoker Chewing Tobacco Use: No Cigar Use: No Alcohol: None Drugs: Denies - CARDIAC Hx Hypercholesterolemia: Yes Hx Hypertension: Yes - PULMONARY Hx Asthma: Yes Hx Pulmonary Embolism: Yes Other/Comment: metastatic lung disease - HEENT Other/Comment: throat pain and hoarsness of voice - RENAL Hx Chronic Kidney Disease: No - ENDOCRINE/METABOLIC Hx Diabetes Mellitus Type 2: Yes - HEMATOLOGICAL/ONCOLOGICAL Hx Anemia: Yes Hx Cancer: Yes - INTEGUMENTARY Hx Dermatological Problems: Yes Other/Comment: Left thigh sarcoma - MUSCULOSKELETAL/RHEUMATOLOGICAL Hx Musculoskeletal Disorders: Yes Hx Falls: No Other/Comment: 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 2 lung Laparoscopy due to sarcoma - ANESTHESIA Hx Anesthesia: Yes Hx Anesthesia Reactions: No Meds Allergies/Adverse Reactions: Allergies Allergy/AdvReac Type Severity Reaction Status Date / Time DOXYTACIL Allergy ANAPHYLAXIS Uncoded 08/30/17 22:18 - Medications Medications: Current Medications Acetazolamide (Diamox 500 Mg Inj) 500 mg IV Q12H [facility] Stop: 07/01/18 14:01 Last Admin: 07/01/18 01:14 Dose: 500 mg Acyclovir (Zovirax) 800 mg PO TID [facility]; Protocol Last Admin: 07/01/18 08:23 Dose: 800 mg Albuterol Sulfate (Albuterol 0.083% Inhal Emilia (2.5 Mg/3 Ml) Ud) 2.5 mg INH RQ4 PRN PRN Reason: Shortness of Breath Last Admin: 06/28/18 23:41 Dose: 2.5 mg Albuterol/Ipratropium (Duoneb 3 Mg/0.5 Mg (3 Ml) Ud) 3 ml INH RQID [facility] Last Admin: 07/01/18 11:16 Dose: 3 ml Atorvastatin Calcium (Lipitor) 20 mg PO DAILY [facility] Last Admin: 07/01/18 08:24 Dose: 20 mg Bisacodyl (Dulcolax) 10 mg PO DAILY PRN PRN Reason: Constipation Last Admin: 06/28/18 08:09 Dose: 10 mg Budesonide (Pulmicort Respules) 0.5 mg IH RBID [facility] Docusate Sodium (Colace) 100 mg PO Q8 PRN PRN Reason: Constipation Enoxaparin Sodium (Lovenox) 70 mg SC DAILY [facility]; Protocol Fluticasone Propionate (Flonase) 2 spr TIM DAILY [facility] Last Admin: 07/01/18 08:26 Dose: 2 spr Guaifenesin/Dextromethorphan (Robitussin Dm) 10 ml PO Q6 PRN PRN Reason: Cough Meropenem 1 gm/ Sodium (Chloride) 100 mls @ 100 mls/hr IVPB Q8 [facility]; Protocol Last Admin: 07/01/18 08:29 Dose: 100 mls/hr Micafungin Sodium 100 mg/ (Sodium Chloride) 100 mls @ 100 mls/hr IVPB DAILY [facility]; Protocol Last Admin: 07/01/18 08:30 Dose: 100 mls/hr Vancomycin HCl 1 gm/ Sodium (Chloride) 250 mls @ 166.667 mls/hr IVPB Q12H [facility]; Protocol Last Admin: 07/01/18 02:48 Dose: 166.667 mls/hr Insulin Detemir (Levemir) 12 units SC Q12@0600,1800 [facility] Last Admin: 07/01/18 06:33 Dose: 12 unit Insulin Human Lispro (Humalog) 0 units SC 0000,0600,1200,1800 [facility] Last Admin: 07/01/18 12:39 Dose: Not Given Lactulose (Enulose) 20 gm PO DAILY PRN PRN Reason: Constipation Lidocaine (Lidoderm) 1 ea TD DAILY PRN PRN Reason: Pain, moderate (4-7) Last Admin: 06/28/18 00:02 Dose: 1 ea Methadone HCl (Methadone) 25 mg PO Q12 [facility] Last Admin: 06/30/18 09:29 Dose: Not Given Montelukast Sodium (Singulair) 10 mg PO DAILY [facility] Last Admin: 07/01/18 08:33 Dose: 10 mg Nystatin (Nystatin Oral Susp) 5 ml PO QID [facility] Last Admin: 07/01/18 12:40 Dose: 5 ml Ondansetron HCl (Zofran Odt) 8 mg PO Q8 PRN PRN Reason: Nausea/Vomiting Last Admin: 06/28/18 23:52 Dose: 8 mg Oxybutynin Chloride (Ditropan Tab) 5 mg PO DAILY [facility] Last Admin: 07/01/18 08:28 Dose: 5 mg Pantoprazole Sodium (Protonix Ec Tab) 40 mg PO DAILY [facility] Last Admin: 07/01/18 08:27 Dose: 40 mg Paroxetine HCl (Paxil) 40 mg PO DAILY [facility] Last Admin: 07/01/18 08:25 Dose: 40 mg Polyethylene Glycol (Miralax) 17 gm PO BID PRN PRN Reason: Constipation Prednisone (Prednisone Tab) 20 mg PO DAILY [facility] Last Admin: 07/01/18 08:26 Dose: 20 mg Prochlorperazine (Compazine Tab) 10 mg PO Q6 PRN PRN Reason: Nausea/Vomiting Sennosides (Senokot Tab) 8.6 mg PO BID PRN PRN Reason: Constipation Tamsulosin HCl (Flomax) 0.4 mg PO DAILY [facility] Last Admin: 07/01/18 08:24 Dose: 0.4 mg Trazodone HCl (Desyrel) 50 mg PO HS [facility] Last Admin: 06/28/18 21:51 Dose: 50 mg Triamcinolone Acetonide (Kenalog 0.1% Cream) 1 appl TOP Q12 [facility] Last Admin: 07/01/18 08:23 Dose: 1 appl Physical Exam - Constitutional Appears: No Acute Distress, Chronically Ill - Head Exam Head Exam: ATRAUMATIC, NORMAL INSPECTION, NORMOCEPHALIC - Eye Exam Eye Exam: EOMI, PERRL. absent: Scleral icterus - ENT Exam ENT Exam: Mucous Membranes Dry, Normal External Ear Exam - Neck Exam Neck exam: Negative for: Lymphadenopathy - Respiratory Exam Respiratory Exam: Decreased Breath Sounds, Prolonged Expiratory Phase, Rhonchi - Cardiovascular Exam Cardiovascular Exam: REGULAR RHYTHM, +S1, +S2 - GI/Abdominal Exam GI & Abdominal Exam: Diminished Bowel Sounds, Soft. absent: Tenderness - Rectal Exam Rectal Exam: Deferred - Extremities Exam Extremities exam: Positive for: normal capillary refill, pedal edema, pedal pulses present. Negative for: normal inspection Additional comments: bilat leg ulcers - Back Exam Back exam: absent: CVA tenderness (L), CVA tenderness (R) - Neurological Exam Neurological exam: Alert, CN II-XII Intact, Oriented x3, Reflexes Normal - Psychiatric Exam Psychiatric exam: Normal Mood - Skin Skin Exam: Dry Results - Vital Signs Recent Vital Signs: Last Vital Signs Temp 99.5 F 07/01/18 12:00 Pulse 84 07/01/18 12:00 Resp 15 07/01/18 12:00 BP 144/74 07/01/18 12:00 Pulse Ox 99 07/01/18 12:00 - Labs Result Diagrams: 07/01/18 04:30 07/01/18 04:30 Labs: Laboratory Results - last 24 hr 06/29/18 06/29/18 06/29/18 16:29 18:53 21:27 WBC RBC Hgb Hct MCV MCH MCHC RDW Plt Count pCO2 pO2 HCO3 ABG pH ABG Total CO2 ABG O2 Saturation ABG Base Excess Gilbert Test ABG Potassium A-a O2 Difference Glucose Lactate Vent Mode Mechanical Rate FiO2 Tidal Volume PEEP Sodium Potassium Chloride Carbon Dioxide Anion Gap BUN Creatinine Est GFR ( Amer) Est GFR (Non-Af Amer) POC Glucose (mg/dL) 177 H 196 H 144 H Random Glucose Calcium Arterial Blood Potassium 06/30/18 06/30/18 06/30/18 04:29 11:55 18:07 WBC RBC Hgb Hct MCV MCH MCHC RDW Plt Count pCO2 pO2 HCO3 ABG pH ABG Total CO2 ABG O2 Saturation ABG Base Excess Gilbert Test ABG Potassium A-a O2 Difference Glucose Lactate Vent Mode Mechanical Rate FiO2 Tidal Volume PEEP Sodium Potassium Chloride Carbon Dioxide Anion Gap BUN Creatinine Est GFR ( Amer) Est GFR (Non-Af Amer) POC Glucose (mg/dL) 80 129 H 217 H Random Glucose Calcium Arterial Blood Potassium 07/01/18 07/01/18 07/01/18 00:23 04:30 04:30 WBC 0.9 L* RBC 3.32 L Hgb 8.7 L Hct 27.0 L MCV 81.3 MCH 26.2 L MCHC 32.2 L RDW 19.0 H Plt Count 175 pCO2 pO2 HCO3 ABG pH ABG Total CO2 ABG O2 Saturation ABG Base Excess Gilbert Test ABG Potassium A-a O2 Difference Glucose Lactate Vent Mode Mechanical Rate FiO2 Tidal Volume PEEP Sodium 138 Potassium 3.4 L Chloride 93 L Carbon Dioxide 35 H Anion Gap 13 BUN 10 Creatinine 0.7 L Est GFR ( Amer) > 60 Est GFR (Non-Af Amer) > 60 POC Glucose (mg/dL) 177 H Random Glucose 162 H Calcium 8.7 Arterial Blood Potassium 07/01/18 07/01/18 04:51 06:14 WBC RBC Hgb Hct MCV MCH MCHC RDW Plt Count pCO2 54 H pO2 155 H HCO3 31.8 H ABG pH 7.42 ABG Total CO2 36.7 H ABG O2 Saturation 100.4 H ABG Base Excess 8.7 H Gilbert Test Yes ABG Potassium 3.5 L A-a O2 Difference 63.0 Glucose 166 H Lactate 1.5 Vent Mode A/c Mechanical Rate 14 FiO2 40.0 Tidal Volume 500 PEEP 8 Sodium 136.0 Potassium Chloride 100.0 Carbon Dioxide Anion Gap BUN Creatinine Est GFR ( Amer) Est GFR (Non-Af Amer) POC Glucose (mg/dL) 174 H Random Glucose Calcium Arterial Blood Potassium 3.5 L Assessment & Plan (1) Bilateral leg ulcer Status: Acute (2) Bilateral leg ulcer Status: Acute (3) History of DVT (deep vein thrombosis) Status: Acute (4) Leukopenia Status: Acute (5) Mucositis Status: Acute Priority: High (6) Oral thrush Status: Acute Priority: High (7) Sore throat Status: Acute (8) Cancer associated pain Status: Chronic Priority: High (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 Priority: High (10) Anemia Status: Acute (11) Sarcoma Status: Acute - Assessment and Plan (Free Text) Assessment: 62 year old male with 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
[2018-07-01] MEDS: Enoxaparin 40 mg Syringe SC SCH (16:28)
--- NOTE | 2018-07-01 16:29 | PN ---
DATE: 07/01/2018 LOCATION: ICU room 423. SUBJECTIVE: This is 62-year-old male with recent uncontrolled type 2 insulin-requiring diabetes, developing acute respiratory failure and remains endotracheally intubated and sedated at this time. He is being followed closely now for metabolic management. His glucose values are fluctuating but improved as noted overnight and the glucose values have ranged from 174 to 177 mg/dL. It was 217 at bedtime last night. His chemistry showed a BUN of 10, sodium 138, potassium 3.4, chloride 93, CO2 of 35, glucose 162 and creatinine 0.7. 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 He also has had recent hyperglycemic accelerations that have improved accordingly as noted. PLAN OF MANAGEMENT: We will continue the same basal insulin regimen as given with Levemir given as 12 units every 12 hours at 06:00 a.m. and 06:00 p.m. daily as ordered. We will obtain serial chemistries and supplement accordingly as needed. We will also continue the low-dose correction scale using regular insulin as ordered and then every 6 hours also as indicated. We will obtain serial chemistries and supplement accordingly as needed. We will continue the tube feedings also as ordered to optimize his caloric and protein requirements thereof. We will follow. Sheryl Adams MD
--- NOTE | 2018-07-01 16:53 | PN ---
DATE: 07/01/2018 CRITICAL CARE PROGRESS NOTE LOCATION: The patient is in ICU, bed 423. TIME SPENT: 45 minutes. SUBJECTIVE: The patient is seen, evaluated at the bedside. Past medical, surgical, family, and social history reviewed. A 62-year-old morbidly obese male with history significant for CA of the prostate, sarcoma of lower extremity with metastasis to the lungs, diabetes mellitus type 2, hyperlipidemia, currently undergoing chemo at [facility], admitted with sore throat and mucositis, noted to be with a high CO2, hypercapnic respiratory failure, requiring intubation and placed on mechanical ventilation. Overnight on AC/PRVC rate of 14, tidal volume 500, FiO2 of 40%, PEEP of 8, saturation of 100%, peak airway pressure 25, end-tidal CO2 of 43. No sedation. Saturating 100%, remains afebrile. PHYSICAL EXAMINATION: GENERAL: This morning alert and awake, able to communicate by writing on the paper. No obvious discharge noted. VITAL SIGNS: T-max 99.5, heart rate 84 and regular, blood pressure 110/58, mean arterial pressure 75, intake 3210, output 1200, and positive balance 2010. HEAD, EYES, EARS, NOSE, AND THROAT: Pupils are reactive. Conjunctivae are pink. Sclerae are white. NECK: Short, reduced oropharyngeal airspace, endotracheal tube in place. No secretion noted. HEART: Rhythm regular, S1 and S2 normal. CHEST: Bilateral breath sounds, diminished in intensity, more so on the left than right. EXTREMITIES: Upper extremity, dependent edema. Lower extremity, both legs swollen with erythema, warm to touch, DP palpable. No palpable cord. NEUROLOGIC: Alert and awake, follows commands, appropriate. CURRENT MEDICATIONS: Diamox 500 mg IV every 12 hours, Zovirax 800 mg p.o. 3 times daily, albuterol sedation 2.5 mg every 4 hours p.r.n.; four times a day scheduled, Lipitor 20 mg daily, Dulcolax 10 mg p.o. daily, Pulmicort 0.5 mg every 12 hours, Colace 100 mg p.o. every 8 hours p.r.n., Lovenox 70 mg subcutaneously daily, Flonase two sprays to both nostrils daily, Levemir 12 units subcutaneously at 6:00 a.m. and 1800 hours, Accu-Chek with regular insulin coverage, Lidoderm patch, meropenem 1 g IV every 8 hours, methadone 25 mg p.o. every 8 hours, micafungin 100 mg IV daily, Singulair 10 mg daily, nystatin 5 mL p.o. four times a day, Zofran 8 mg p.o. every 8 hours p.r.n., oxybutynin 5 mg p.o. daily, Protonix 40 p.o. daily, Paxil 40 mg p.o. daily, MiraLax powder 17 g p.o. b.i.d. p.r.n., prochlorperazine 10 mg p.o. every 6 hours p.r.n., Senokot 8.6 mg p.o. twice daily, Flomax 0.4 mg p.o. daily, trazodone 50 mg p.o. at bedtime, and vancomycin 1 g IV every 12 hours. LABORATORY DATA: WBC 0.9, hemoglobin 8.7, hematocrit 27, and platelet count 175. Blood gas; pH 7.42, pCO2 of 54, pO2 of 155, saturation 100.4, on , PEEP of 8. SMA-7: Sodium 138, potassium 3.4, chloride 93, CO2 of 35, blood urea nitrogen 10, creatinine 0.7, and random glucose 174. Urinalysis: Urine wbc's 8. Influenza A and B negative. Group A beta Strep antigen negative. Microbiology: Wound culture from the right leg possibly for methicillin-resistant Staphylococcus aureus. Chest x-ray done this morning; stable appearance of the previously identified lines, probable stable appearance of the lung luque with the tracheal deviation towards the right with a large left upper lobe mass. ASSESSMENT AND PLAN: A 62-year-old male with history of prostate cancer, sarcoma with metastasis to the lung, admitted for mucositis, status post chemotherapy for the above tumor. 1. Neurological: Alert and awake, more wakeful than before, related hypercarbia, improving after mechanical ventilation, also on the methadone with p.r.n. oxycodone, which could also contribute to his altered mental status, now on hold. 2. Pulmonary: Most likely has obstructive sleep apnea and obesity, hypoventilation with concomitant and obstructive mass in his left lung. The tumor is encircling the trachea and may need either a tracheal stent and/or tracheostomy. The patient is awaiting for tracheostomy. Appreciate Pulmonary followup. Surgery consult requested. 3. Cardiovascular: Hemodynamically stable. 4. Hematology: The patient has stage IV sarcoma, metastatic to his lung, refractory to ongoing chemotherapy. Prognosis remains guarded, worsening neutropenia, on filgrastim. His ongoing issue of metastatic sarcoma may not improve since his chemotherapy regime was recently changed and he did not tolerate it, presenting with neutropenia, mucositis, and decompensation. Prognosis remains guarded. Appreciate Oncology followup. 5. Renal: Metabolic alkalosis, on Diamox, to increase respiratory drug. 6. Endocrine: Type 2 diabetes, on lispro every 6 hours, Levemir 12 units every 12 hours. Appreciate Endocrine consult. 7. Gastrointestinal: N.p.o., Glucerna with free water flushes 200 mL every 6 hours. 8. Infectious Disease: Empirically on acyclovir, meropenem, micafungin, nystatin oral suspension, and vancomycin. The wound culture shows gram-positive bacteremia as well. Keep head of bed 30 degrees up, deep vein thrombosis prophylaxis with Lovenox. We will follow with Pulmonary and Hematology regarding the optimum dose. Gastrointestinal prophylaxis, on Protonix. CODE STATUS IS FULL. Palliative Care consult to be done. Once the patient is alert, this need to be addressed. Esteban Wheeler MD
--- NOTE | 2018-07-01 19:37 | CP.PCM.PN ---
Subjective - Date & Time of Evaluation Date of Evaluation: 07/01/18 Time of Evaluation: 22:22 - Subjective Subjective: Above noted Multiple calls and long d/w staff Objective - Vital Signs/Intake and Output Vital Signs (last 24 hours): Temp Pulse Resp BP Pulse Ox 99.0 F 83 16 127/60 100 07/01/18 16:00 07/01/18 18:00 07/01/18 18:00 07/01/18 18:00 07/01/18 18:00 Intake and Output: 07/01/18 07/02/18 18:59 06:59 Intake Total 1630 Output Total 1999 Balance -370 - Medications Medications: Current Medications Acyclovir (Zovirax) 800 mg PO TID BENI; Protocol Last Admin: 07/01/18 16:33 Dose: 800 mg Albuterol Sulfate (Albuterol 0.083% Inhal Emilia (2.5 Mg/3 Ml) Ud) 2.5 mg INH RQ4 PRN PRN Reason: Shortness of Breath Last Admin: 06/28/18 23:41 Dose: 2.5 mg Albuterol/Ipratropium (Duoneb 3 Mg/0.5 Mg (3 Ml) Ud) 3 ml INH RQID BENI Last Admin: 07/01/18 15:38 Dose: 3 ml Atorvastatin Calcium (Lipitor) 20 mg PO DAILY BENI Last Admin: 07/01/18 08:24 Dose: 20 mg Bisacodyl (Dulcolax) 10 mg PO DAILY PRN PRN Reason: Constipation Last Admin: 06/28/18 08:09 Dose: 10 mg Budesonide (Pulmicort Respules) 0.5 mg IH RBID BENI Docusate Sodium (Colace) 100 mg PO Q8 PRN PRN Reason: Constipation Enoxaparin Sodium (Lovenox) 40 mg SC DAILY BENI; Protocol Last Admin: 07/01/18 16:28 Dose: 40 mg Fluticasone Propionate (Flonase) 2 spr TIM DAILY BENI Last Admin: 07/01/18 08:26 Dose: 2 spr Guaifenesin/Dextromethorphan (Robitussin Dm) 10 ml PO Q6 PRN PRN Reason: Cough Meropenem 1 gm/ Sodium (Chloride) 100 mls @ 100 mls/hr IVPB Q8 BENI; Protocol Last Admin: 07/01/18 16:31 Dose: 100 mls/hr Micafungin Sodium 100 mg/ (Sodium Chloride) 100 mls @ 100 mls/hr IVPB DAILY [facility]; Protocol Last Admin: 07/01/18 08:30 Dose: 100 mls/hr Vancomycin HCl 1 gm/ Sodium (Chloride) 250 mls @ 166.667 mls/hr IVPB Q12H [facility]; Protocol Last Admin: 07/01/18 15:01 Dose: 166.667 mls/hr Insulin Detemir (Levemir) 12 units SC Q12@0600,1800 [facility] Last Admin: 07/01/18 17:48 Dose: 12 unit Insulin Human Lispro (Humalog) 0 units SC 0000,0600,1200,1800 [facility] Last Admin: 07/01/18 17:49 Dose: 4 u Lactulose (Enulose) 20 gm PO DAILY PRN PRN Reason: Constipation Lidocaine (Lidoderm) 1 ea TD DAILY PRN PRN Reason: Pain, moderate (4-7) Last Admin: 06/28/18 00:02 Dose: 1 ea Methadone HCl (Methadone) 25 mg PO Q12 [facility] Last Admin: 06/30/18 09:29 Dose: Not Given Montelukast Sodium (Singulair) 10 mg PO DAILY [facility] Last Admin: 07/01/18 08:33 Dose: 10 mg Nystatin (Nystatin Oral Susp) 5 ml PO QID [facility] Last Admin: 07/01/18 16:32 Dose: 5 ml Ondansetron HCl (Zofran Odt) 8 mg PO Q8 PRN PRN Reason: Nausea/Vomiting Last Admin: 06/28/18 23:52 Dose: 8 mg Oxybutynin Chloride (Ditropan Tab) 5 mg PO DAILY [facility] Last Admin: 07/01/18 08:28 Dose: 5 mg Pantoprazole Sodium (Protonix Ec Tab) 40 mg PO DAILY [facility] Last Admin: 07/01/18 08:27 Dose: 40 mg Paroxetine HCl (Paxil) 40 mg PO DAILY [facility] Last Admin: 07/01/18 08:25 Dose: 40 mg Polyethylene Glycol (Miralax) 17 gm PO BID PRN PRN Reason: Constipation Last Admin: 07/01/18 16:29 Dose: 17 gm Prednisone (Prednisone Tab) 20 mg PO DAILY [facility] Last Admin: 07/01/18 08:26 Dose: 20 mg Prochlorperazine (Compazine Tab) 10 mg PO Q6 PRN PRN Reason: Nausea/Vomiting Sennosides (Senokot Tab) 8.6 mg PO BID PRN PRN Reason: Constipation Tamsulosin HCl (Flomax) 0.4 mg PO DAILY [facility] Last Admin: 07/01/18 08:24 Dose: 0.4 mg Trazodone HCl (Desyrel) 50 mg PO HS [facility] Last Admin: 06/28/18 21:51 Dose: 50 mg Triamcinolone Acetonide (Kenalog 0.1% Cream) 1 appl TOP Q12 [facility] Last Admin: 07/01/18 08:23 Dose: 1 appl - Labs Labs: 07/01/18 04:30 07/01/18 04:30 - Respiratory Exam Respiratory Exam: NORMAL BREATHING PATTERN - Cardiovascular Exam Cardiovascular Exam: REGULAR RHYTHM - GI/Abdominal Exam GI & Abdominal Exam: Normal Bowel Sounds Assessment and Plan - Assessment and Plan (Free Text) Assessment: Acute Hypercapnic Ventilatory Failure Pneumonia 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
[2018-07-02] MEDS: Meropenem 1 GM in Sodium Chloride 0.9% 100 ML IVPB SCH ×3 (00:07→16:35)
[2018-07-02] MEDS: Insulin Lispro (humaLOG) 100 Units/ml Inj SC SCH ×4 (00:10→18:10)
[2018-07-02 03:28] LABS: ABG ALLEN TEST YES; ARTERIAL BLOOD GAS HCO3 29.5 mmol/L (21-28); ARTERIAL BLOOD GAS HEMOGLOBIN 9.3 g/dL (11.7-17.4); ARTERIAL BLOOD GAS O2 SAT 99.9 % (95-98); ARTERIAL BLOOD GAS PCO2 54 mm/Hg (35-45); ARTERIAL BLOOD GAS PH 7.38 (7.35-7.45); ARTERIAL BLOOD GAS PO2 126 mm/Hg (80-100); ARTERIAL BLOOD GAS TCO2 33.6 mmol/L (22-28)
[2018-07-02] MEDS: Insulin Detemir 100 Units/ml Inj SC SCH ×2 (06:09→18:12)
[2018-07-02 06:23] LABS: HEMOGLOBIN 9.2 g/dL (12.0-18.0); MEAN CELL VOLUME 80.6 fl (80.0-94.0); MEAN CORPUSCULAR HEMOGLOBIN 26.1 pg (27.0-31.0); MEAN CORPUSCULAR HGB CONC 32.3 g/dL (33.0-37.0); RBC 3.53 Mil/uL (4.40-5.90)
[2018-07-02 06:28] LABS: ALB/GLOB RATIO 1.1 (1.0-2.1); ALBUMIN 2.9 g/dL (3.5-5.0); ALT/SGPT 27 U/L (21-72); AST/SGOT 20 U/L (17-59); BLOOD UREA NITROGEN 10 mg/dl (9-20); CALCIUM 8.6 mg/dL (8.4-10.2); GFR NON-AFRICAN AMERICAN > 60
[2018-07-02] MEDS: Budesonide 0.5 mg/2 ml Inhal Susp UD IH SCH ×2 (07:18→19:02)
[2018-07-02] MEDS: Albuterol-Ipratrop 3 mg / 0.5 (3 ml) UD INH SCH ×4 (07:18→19:03)
--- NOTE | 2018-07-02 07:46 | CP.CCUPN ---
CCU Subjective - Physician Review Subjective (Free Text): 07/02/18 17:27 The patient was Seen/interviewed and examined by me at the bedside during ICU round, Medical records reviewed and Management issues were discussed and formulated with the house staff. 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 with Dr. Yan Acuña) Who presented to the Emergency department on 06/26 with Complaint of throat pain since yesterday, states he was informed oral thrush is a side effect of his medications He was admitted with Symptoms likely due to fluid overload He was admitted for . 06/29, [employer] was called for SOB, started patient on BIPAP and transferred to ICU, He failed BIPAP and was intubated Patient currently in the ICU treated for acute hypoxemic respiratory failure from lung mass/pneumonia/pleural effusion/collapsed lung, severe sepsis, neutropenia, oral thrush, bilateral legs cellulitis This morning he is awake comfortable, orally intubated, off sedation Afebrile Patient initially placed on SIMV in the morning and he was tolerating, at 1:30 in the afternoon he was switched to pressure support ventilation and been tolerating so far CCU Objective - Vital Signs / Intake & Output Vital Signs (Last 4 hours): Vital Signs Temp Pulse Resp BP Pulse Ox 07/02/18 06:00 86 18 123/68 99 07/02/18 04:00 100 F H 89 16 90/41 L 99 Intake and Output (Last 8hrs): Intake & Output 07/01/18 07/02/18 07/02/18 22:59 06:59 14:59 Intake Total 598 1248 Output Total 710 1250 Balance -112 -2 Weight 210 lb 4.8 oz Intake: IV 8 18 Intake, Piggyback 110 350 Tube Feeding 480 480 Free Water Flush 400 Output: Gastric Amount 10 Stomach 10 Urine 700 1250 Urethral (Newberry) 700 1250 - Physical Exam Head: Positive for: Atraumatic, Normocephalic Pupils: Positive for: PERRL Extroacular Muscles: Positive for: EOMI Conjunctiva: Positive for: Normal Ears: Positive for: Normal Mouth: Positive for: Moist Mucous Membranes Pharnyx: Positive for: Normal Nose (External): Positive for: Atraumatic Respiratory/Chest: Positive for: Decreased Breath Sounds (in left lung luque) Abdomen: Positive for: Normal Bowel Sounds. Negative for: Tenderness, Distention Upper Extremity: Positive for: Normal Inspection Lower Extremity: Negative for: Normal Inspection (RLE wound with dressing ) Neurological: Negative for: GCS=15 - Medications Active Medications: Active Medications Generic Name Dose Route Start Last Admin Trade Name Freq PRN Reason Stop Dose Admin Acyclovir 800 mg 06/29/18 17:00 07/01/18 16:33 Zovirax PO 800 mg TID BENI Administration Protocol Albuterol Sulfate 2.5 mg 06/27/18 10:32 06/28/18 23:41 Albuterol 0.083% Inhal Emilia (2.5 Mg/3 Ml) Ud INH 2.5 mg RQ4 PRN Administration Shortness of Breath Albuterol/Ipratropium 3 ml 06/27/18 12:00 07/02/18 07:18 Duoneb 3 Mg/0.5 Mg (3 Ml) Ud INH 3 ml RQID BENI Administration Atorvastatin Calcium 20 mg 06/27/18 09:00 07/01/18 08:24 Lipitor PO 20 mg DAILY BENI Administration Bisacodyl 10 mg 06/26/18 22:59 06/28/18 08:09 Dulcolax PO 10 mg DAILY PRN Administration Constipation Budesonide 0.5 mg 07/01/18 11:30 07/02/18 07:18 Pulmicort Respules IH 0.5 mg RBID BENI Administration Docusate Sodium 100 mg 06/26/18 22:59 Colace PO Q8 PRN Constipation Enoxaparin Sodium 40 mg 07/01/18 15:45 07/01/18 16:28 Lovenox SC 40 mg DAILY BENI Administration Protocol Fluticasone Propionate 2 spr 06/27/18 09:00 07/01/18 08:26 Flonase TIM 2 spr DAILY BENI Administration Guaifenesin/Dextromethorphan 10 ml 06/28/18 22:04 07/01/18 21:04 Robitussin Dm PO 10 ml Q6 PRN Administration Cough Meropenem 1 gm/ Sodium 100 mls @ 100 mls/hr 06/29/18 17:00 07/02/18 00:07 Chloride IVPB 100 mls/hr Q8 BENI Administration Protocol Micafungin Sodium 100 mg/ 100 mls @ 100 mls/hr 06/29/18 14:00 07/01/18 08:30 Sodium Chloride IVPB 100 mls/hr DAILY BENI Administration Protocol Vancomycin HCl 1 gm/ Sodium 250 mls @ 166.667 mls/hr 06/29/18 14:45 07/02/18 02:03 Chloride IVPB 166.667 mls/hr Q12H BENI Administration Protocol Insulin Detemir 12 units 06/30/18 18:00 07/02/18 06:09 Levemir SC 12 unit Q12@0600,1800 BENI Administration Insulin Human Lispro 0 units 06/30/18 12:00 07/02/18 06:08 Humalog SC Not Given 0000,0600,1200,1800 BENI Lactulose 20 gm 06/28/18 11:00 Enulose PO DAILY PRN Constipation Lidocaine 1 ea 06/26/18 23:02 06/28/18 00:02 Lidoderm TD 1 ea DAILY PRN Administration Pain, moderate (4-7) Methadone HCl 25 mg 06/28/18 22:45 06/30/18 09:29 Methadone PO Not Given Q12 BENI Montelukast Sodium 10 mg 06/27/18 09:00 07/01/18 08:33 Singulair PO 10 mg DAILY BENI Administration Nystatin 5 ml 06/27/18 13:00 07/01/18 21:04 Nystatin Oral Susp PO 5 ml QID BENI Administration Ondansetron HCl 8 mg 06/26/18 23:02 06/28/18 23:52 Zofran Odt PO 8 mg Q8 PRN Administration Nausea/Vomiting Oxybutynin Chloride 5 mg 06/27/18 09:00 07/01/18 08:28 Ditropan Tab PO 5 mg DAILY BENI Administration Pantoprazole Sodium 40 mg 06/27/18 09:00 07/01/18 08:27 Protonix Ec Tab PO 40 mg DAILY BENI Administration Paroxetine HCl 40 mg 06/27/18 09:00 07/01/18 08:25 Paxil PO 40 mg DAILY BENI Administration Polyethylene Glycol 17 gm 06/26/18 23:02 07/01/18 16:29 Miralax PO 17 gm BID PRN Administration Constipation Prednisone 20 mg 06/29/18 09:00 07/01/18 08:26 Prednisone Tab PO 20 mg DAILY BENI Administration Prochlorperazine 10 mg 06/27/18 01:15 Compazine Tab PO Q6 PRN Nausea/Vomiting Sennosides 8.6 mg 06/26/18 23:02 Senokot Tab PO BID PRN Constipation Tamsulosin HCl 0.4 mg 06/27/18 09:00 07/01/18 08:24 Flomax PO 0.4 mg DAILY BENI Administration Trazodone HCl 50 mg 06/26/18 23:15 06/28/18 21:51 Desyrel PO 50 mg HS BENI Administration Triamcinolone Acetonide 1 appl 06/27/18 09:00 07/01/18 20:09 Kenalog 0.1% Cream TOP 1 appl Q12 BENI Administration - Patient Studies Lab Studies: Microbiology Studies 06/30/18 09:10 Urine Culture - Preliminary Urine,Catheterized No growth. Lab Studies 07/02/18 07/02/18 07/02/18 Range/Units 05:15 05:15 04:55 WBC 3.0 L D (4.8-10.8) K/uL RBC 3.53 L (4.40-5.90) Mil/uL Hgb 9.2 L (12.0-18.0) g/dL Hct 28.5 L (35.0-51.0) % MCV 80.6 (80.0-94.0) fl MCH 26.1 L (27.0-31.0) pg MCHC 32.3 L (33.0-37.0) g/dL RDW 19.0 H (11.5-14.5) % Plt Count 197 (130-400) K/uL pCO2 (35-45) mm/Hg pO2 (80-100) mm/Hg HCO3 (21-28) mmol/L ABG pH (7.35-7.45) ABG Total CO2 (22-28) mmol/L ABG O2 Saturation (95-98) % ABG O2 Content (15-23) ML/dL ABG Base Excess (-2.0-3.0) mmol/L ABG Hemoglobin (11.7-17.4) g/dL ABG Carboxyhemoglobin (0.5-1.5) % POC ABG HHb (Measured) (0.0-5.0) % ABG Methemoglobin (0.0-3.0) % ABG O2 Capacity (16-24) mL/dL Gilbert Test A-a O2 Difference mm/Hg Hgb O2 Saturation (95.0-98.0) % Vent Mode Mechanical Rate FiO2 % Tidal Volume PEEP Sodium 137 (132-148) mmol/l Potassium 3.4 L (3.6-5.0) MMOL/L Chloride 97 L (98-107) mmol/L Carbon Dioxide 30 (22-30) mmol/L Anion Gap 13 (10-20) BUN 10 (9-20) mg/dl Creatinine 0.6 L (0.8-1.5) mg/dl Est GFR ( Amer) > 60 Est GFR (Non-Af Amer) > 60 POC Glucose (mg/dL) 200 H (65-110) mg/dL Random Glucose 163 H (75-110) mg/dL Calcium 8.6 (8.4-10.2) mg/dL Total Bilirubin 0.4 (0.2-1.3) mg/dl AST 20 (17-59) U/L ALT 27 (21-72) U/L Alkaline Phosphatase 51 (38-126) U/L Total Protein 5.4 L (6.3-8.2) G/DL Albumin 2.9 L (3.5-5.0) g/dL Globulin 2.6 (2.2-3.9) gm/dL Albumin/Globulin Ratio 1.1 (1.0-2.1) Vancomycin Trough (5.0-10.0) ug/mL 07/02/18 07/01/18 07/01/18 Range/Units 03:09 21:16 17:44 WBC (4.8-10.8) K/uL RBC (4.40-5.90) Mil/uL Hgb (12.0-18.0) g/dL Hct (35.0-51.0) % MCV (80.0-94.0) fl MCH (27.0-31.0) pg MCHC (33.0-37.0) g/dL RDW (11.5-14.5) % Plt Count (130-400) K/uL pCO2 54 H (35-45) mm/Hg pO2 126 H (80-100) mm/Hg HCO3 29.5 H (21-28) mmol/L ABG pH 7.38 (7.35-7.45) ABG Total CO2 33.6 H (22-28) mmol/L ABG O2 Saturation 99.9 H (95-98) % ABG O2 Content 13.0 L (15-23) ML/dL ABG Base Excess 5.8 H (-2.0-3.0) mmol/L ABG Hemoglobin 9.3 L (11.7-17.4) g/dL ABG Carboxyhemoglobin 1.4 (0.5-1.5) % POC ABG HHb (Measured) 0.1 (0.0-5.0) % ABG Methemoglobin 0.7 (0.0-3.0) % ABG O2 Capacity 13.0 L (16-24) mL/dL Gilbert Test Yes A-a O2 Difference 92.0 mm/Hg Hgb O2 Saturation 97.8 (95.0-98.0) % Vent Mode A/c Mechanical Rate 14 FiO2 40.0 % Tidal Volume 500 PEEP 8 Sodium (132-148) mmol/l Potassium (3.6-5.0) MMOL/L Chloride (98-107) mmol/L Carbon Dioxide (22-30) mmol/L Anion Gap (10-20) BUN (9-20) mg/dl Creatinine (0.8-1.5) mg/dl Est GFR ( Amer) Est GFR (Non-Af Amer) POC Glucose (mg/dL) 254 H 326 H (65-110) mg/dL Random Glucose (75-110) mg/dL Calcium (8.4-10.2) mg/dL Total Bilirubin (0.2-1.3) mg/dl AST (17-59) U/L ALT (21-72) U/L Alkaline Phosphatase (38-126) U/L Total Protein (6.3-8.2) G/DL Albumin (3.5-5.0) g/dL Globulin (2.2-3.9) gm/dL Albumin/Globulin Ratio (1.0-2.1) Vancomycin Trough (5.0-10.0) ug/mL 07/01/18 07/01/18 Range/Units 11:57 01:30 WBC (4.8-10.8) K/uL RBC (4.40-5.90) Mil/uL Hgb (12.0-18.0) g/dL Hct (35.0-51.0) % MCV (80.0-94.0) fl MCH (27.0-31.0) pg MCHC (33.0-37.0) g/dL RDW (11.5-14.5) % Plt Count (130-400) K/uL pCO2 (35-45) mm/Hg pO2 (80-100) mm/Hg HCO3 (21-28) mmol/L ABG pH (7.35-7.45) ABG Total CO2 (22-28) mmol/L ABG O2 Saturation (95-98) % ABG O2 Content (15-23) ML/dL ABG Base Excess (-2.0-3.0) mmol/L ABG Hemoglobin (11.7-17.4) g/dL ABG Carboxyhemoglobin (0.5-1.5) % POC ABG HHb (Measured) (0.0-5.0) % ABG Methemoglobin (0.0-3.0) % ABG O2 Capacity (16-24) mL/dL Gilbert Test A-a O2 Difference mm/Hg Hgb O2 Saturation (95.0-98.0) % Vent Mode Mechanical Rate FiO2 % Tidal Volume PEEP Sodium (132-148) mmol/l Potassium (3.6-5.0) MMOL/L Chloride (98-107) mmol/L Carbon Dioxide (22-30) mmol/L Anion Gap (10-20) BUN (9-20) mg/dl Creatinine (0.8-1.5) mg/dl Est GFR ( Amer) Est GFR (Non-Af Amer) POC Glucose (mg/dL) 264 H (65-110) mg/dL Random Glucose (75-110) mg/dL Calcium (8.4-10.2) mg/dL Total Bilirubin (0.2-1.3) mg/dl AST (17-59) U/L ALT (21-72) U/L Alkaline Phosphatase (38-126) U/L Total Protein (6.3-8.2) G/DL Albumin (3.5-5.0) g/dL Globulin (2.2-3.9) gm/dL Albumin/Globulin Ratio (1.0-2.1) Vancomycin Trough 9.5 (5.0-10.0) ug/mL Laboratory Results - last 24 hr 07/01/18 07/01/18 07/01/18 01:30 11:57 17:44 WBC RBC Hgb Hct MCV MCH MCHC RDW Plt Count pCO2 pO2 HCO3 ABG pH ABG Total CO2 ABG O2 Saturation ABG O2 Content ABG Base Excess ABG Hemoglobin ABG Carboxyhemoglobin POC ABG HHb (Measured) ABG Methemoglobin ABG O2 Capacity Gilbert Test A-a O2 Difference Hgb O2 Saturation Vent Mode Mechanical Rate FiO2 Tidal Volume PEEP Sodium Potassium Chloride Carbon Dioxide Anion Gap BUN Creatinine Est GFR ( Amer) Est GFR (Non-Af Amer) POC Glucose (mg/dL) 264 H 326 H Random Glucose Calcium Total Bilirubin AST ALT Alkaline Phosphatase Total Protein Albumin Globulin Albumin/Globulin Ratio Vancomycin Trough 9.5 07/01/18 07/02/18 07/02/18 21:16 03:09 04:55 WBC RBC Hgb Hct MCV MCH MCHC RDW Plt Count pCO2 54 H pO2 126 H HCO3 29.5 H ABG pH 7.38 ABG Total CO2 33.6 H ABG O2 Saturation 99.9 H ABG O2 Content 13.0 L ABG Base Excess 5.8 H ABG Hemoglobin 9.3 L ABG Carboxyhemoglobin 1.4 POC ABG HHb (Measured) 0.1 ABG Methemoglobin 0.7 ABG O2 Capacity 13.0 L Gilbert Test Yes A-a O2 Difference 92.0 Hgb O2 Saturation 97.8 Vent Mode A/c Mechanical Rate 14 FiO2 40.0 Tidal Volume 500 PEEP 8 Sodium Potassium Chloride Carbon Dioxide Anion Gap BUN Creatinine Est GFR ( Amer) Est GFR (Non-Af Amer) POC Glucose (mg/dL) 254 H 200 H Random Glucose Calcium Total Bilirubin AST ALT Alkaline Phosphatase Total Protein Albumin Globulin Albumin/Globulin Ratio Vancomycin Trough 07/02/18 07/02/18 05:15 05:15 WBC 3.0 L D RBC 3.53 L Hgb 9.2 L Hct 28.5 L MCV 80.6 MCH 26.1 L MCHC 32.3 L RDW 19.0 H Plt Count 197 pCO2 pO2 HCO3 ABG pH ABG Total CO2 ABG O2 Saturation ABG O2 Content ABG Base Excess ABG Hemoglobin ABG Carboxyhemoglobin POC ABG HHb (Measured) ABG Methemoglobin ABG O2 Capacity Gilbert Test A-a O2 Difference Hgb O2 Saturation Vent Mode Mechanical Rate FiO2 Tidal Volume PEEP Sodium 137 Potassium 3.4 L Chloride 97 L Carbon Dioxide 30 Anion Gap 13 BUN 10 Creatinine 0.6 L Est GFR ( Amer) > 60 Est GFR (Non-Af Amer) > 60 POC Glucose (mg/dL) Random Glucose 163 H Calcium 8.6 Total Bilirubin 0.4 AST 20 ALT 27 Alkaline Phosphatase 51 Total Protein 5.4 L Albumin 2.9 L Globulin 2.6 Albumin/Globulin Ratio 1.1 Vancomycin Trough Radiology Impressions: Radiology Impressions Chest X-Ray 07/01/18 05:00 IMPRESSION: Stable appearance of the lung luque. Fingerstick Blood Sugar Results: 200 Critical Care Progress Note - Ventilator Checklist Head of Bed 30 Degrees: Yes Daily Sedation Vacation: Yes Daily Assessment of Readiness to Wean: Yes Daily Spontaneous Breathing Trial: Yes PUD Prophalyxis: Yes DVT Prophylaxis: Yes Oral Care with Chlorhexidine Gluconate {CHG}: Yes Assessment/Plan (1) Acute respiratory failure with hypercapnia Current Visit: Yes Status: Acute Priority: High Comment: Patient was intubated for altered mental status secondary to hypercarbia, He was on methadone with prn oxycodone Patient is also obese with obesity hypoventilation syndrome, and possible obstructive sleep apnea Chest x-ray consistent with pneumonia lung mass and lung collapse Holding methadone and oxycodone. 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 Current Visit: Yes Status: Chronic Priority: High Comment: Patient currently on chemotherapy for a stage IV sarcoma with metastatic lesion to the lung, while vent weaning in progress and we are hoping the patient can be extubated and continue the current management at [facility] we also communicating with the oncologist there for possible transfer (3) Severe sepsis Current Visit: Yes Status: Acute Comment: Continue with empiric broad-spectrum antibiotic coverage, Continue IV acyclovir, meropenem, micafungin, and nystatin for oral thrush (4) DVT (deep venous thrombosis) Current Visit: No Status: Acute (5) Bilateral leg ulcer Current Visit: Yes Status: Acute Priority: High (6) History of DVT (deep vein thrombosis) Current Visit: Yes Status: Acute Priority: High (7) Neutropenia Current Visit: Yes Status: Acute Priority: High
--- NOTE | 2018-07-02 08:14 | CP.PCM.PN ---
Subjective - Date & Time of Evaluation Date of Evaluation: 07/02/18 Time of Evaluation: 08:00 - Subjective Subjective: Events noted. Patient is intubated, but awake/alert, able to communicate through writing. All pain meds are being held but patient denies severe pain, only some back pain due to prolonged bedrest. Would like to sit in a chair. Patient admitted to being switched from Fentanyl patch to Methadone in the last three months and once again confirmed the home dosages. Objective - Vital Signs/Intake and Output Vital Signs (last 24 hours): Temp Pulse Resp BP Pulse Ox 99.7 F H 86 16 113/66 100 07/02/18 07:58 07/02/18 07:58 07/02/18 07:58 07/02/18 07:58 07/02/18 07:58 Intake and Output: 07/02/18 07/02/18 06:59 18:59 Intake Total 1496 120 Output Total 1260 Balance 236 120 - Medications Medications: Current Medications Acyclovir (Zovirax) 800 mg PO TID [facility]; Protocol Last Admin: 07/01/18 16:33 Dose: 800 mg Albuterol Sulfate (Albuterol 0.083% Inhal Emilia (2.5 Mg/3 Ml) Ud) 2.5 mg INH RQ4 PRN PRN Reason: Shortness of Breath Last Admin: 06/28/18 23:41 Dose: 2.5 mg Albuterol/Ipratropium (Duoneb 3 Mg/0.5 Mg (3 Ml) Ud) 3 ml INH RQID BENI Last Admin: 07/02/18 07:18 Dose: 3 ml Atorvastatin Calcium (Lipitor) 20 mg PO DAILY [facility] Last Admin: 07/01/18 08:24 Dose: 20 mg Bisacodyl (Dulcolax) 10 mg PO DAILY PRN PRN Reason: Constipation Last Admin: 06/28/18 08:09 Dose: 10 mg Budesonide (Pulmicort Respules) 0.5 mg IH RBID [facility] Last Admin: 07/02/18 07:18 Dose: 0.5 mg Docusate Sodium (Colace) 100 mg PO Q8 PRN PRN Reason: Constipation Enoxaparin Sodium (Lovenox) 40 mg SC DAILY [facility]; Protocol Last Admin: 07/01/18 16:28 Dose: 40 mg Fluticasone Propionate (Flonase) 2 spr TIM DAILY [facility] Last Admin: 07/01/18 08:26 Dose: 2 spr Guaifenesin/Dextromethorphan (Robitussin Dm) 10 ml PO Q6 PRN PRN Reason: Cough Last Admin: 07/01/18 21:04 Dose: 10 ml Meropenem 1 gm/ Sodium (Chloride) 100 mls @ 100 mls/hr IVPB Q8 [facility]; Protocol Last Admin: 07/02/18 00:07 Dose: 100 mls/hr Micafungin Sodium 100 mg/ (Sodium Chloride) 100 mls @ 100 mls/hr IVPB DAILY [facility]; Protocol Last Admin: 07/01/18 08:30 Dose: 100 mls/hr Vancomycin HCl 1 gm/ Sodium (Chloride) 250 mls @ 166.667 mls/hr IVPB Q12H [facility]; Protocol Last Admin: 07/02/18 02:03 Dose: 166.667 mls/hr Insulin Detemir (Levemir) 12 units SC Q12@0600,1800 [facility] Last Admin: 07/02/18 06:09 Dose: 12 unit Insulin Human Lispro (Humalog) 0 units SC 0000,0600,1200,1800 [facility] Last Admin: 07/02/18 06:08 Dose: Not Given Lactulose (Enulose) 20 gm PO DAILY PRN PRN Reason: Constipation Lidocaine (Lidoderm) 1 ea TD DAILY PRN PRN Reason: Pain, moderate (4-7) Last Admin: 06/28/18 00:02 Dose: 1 ea Methadone HCl (Methadone) 25 mg PO Q12 [facility] Last Admin: 06/30/18 09:29 Dose: Not Given Montelukast Sodium (Singulair) 10 mg PO DAILY [facility] Last Admin: 07/01/18 08:33 Dose: 10 mg Nystatin (Nystatin Oral Susp) 5 ml PO QID [facility] Last Admin: 07/01/18 21:04 Dose: 5 ml Ondansetron HCl (Zofran Odt) 8 mg PO Q8 PRN PRN Reason: Nausea/Vomiting Last Admin: 06/28/18 23:52 Dose: 8 mg Oxybutynin Chloride (Ditropan Tab) 5 mg PO DAILY [facility] Last Admin: 07/01/18 08:28 Dose: 5 mg Pantoprazole Sodium (Protonix Ec Tab) 40 mg PO DAILY [facility] Last Admin: 07/01/18 08:27 Dose: 40 mg Paroxetine HCl (Paxil) 40 mg PO DAILY [facility] Last Admin: 07/01/18 08:25 Dose: 40 mg Polyethylene Glycol (Miralax) 17 gm PO BID PRN PRN Reason: Constipation Last Admin: 07/01/18 16:29 Dose: 17 gm Prednisone (Prednisone Tab) 20 mg PO DAILY [facility] Last Admin: 07/01/18 08:26 Dose: 20 mg Prochlorperazine (Compazine Tab) 10 mg PO Q6 PRN PRN Reason: Nausea/Vomiting Sennosides (Senokot Tab) 8.6 mg PO BID PRN PRN Reason: Constipation Tamsulosin HCl (Flomax) 0.4 mg PO DAILY [facility] Last Admin: 07/01/18 08:24 Dose: 0.4 mg Trazodone HCl (Desyrel) 50 mg PO HS [facility] Last Admin: 06/28/18 21:51 Dose: 50 mg Triamcinolone Acetonide (Kenalog 0.1% Cream) 1 appl TOP Q12 [facility] Last Admin: 07/01/18 20:09 Dose: 1 appl - Labs Labs: 07/02/18 05:15 07/02/18 05:15 - Constitutional Appears: No Acute Distress - Respiratory Exam Additional comments: Intubated. Assessment and Plan (1) Cancer associated pain Assessment & Plan: 62 yo man w/ metastatic cancer, sepsis/neutropenia/PNA, chronic pain but off all opioids after intubation. Respiratory failure is likely multi-factorial. - patient seems stable, with only mild pain, no signs of withdrawal; given the current clinical picture, probably should hold opioids until patient is extubated - if necessary, can start low dose morphine IV push PRN, and then low dose Fentanyl drip if stable - care per ICU Status: Chronic
[2018-07-02] MEDS: Nystatin 100,000 Units/ml Oral Susp 5 ml UD PO SCH (09:02)
[2018-07-02] MEDS: Enoxaparin 40 mg Syringe SC SCH (09:02)
[2018-07-02] MEDS: Pantoprazole 40 mg EC Tab PO SCH (09:14)
--- NOTE | 2018-07-02 09:25 | CP.PCM.PN ---
Subjective - Date & Time of Evaluation Date of Evaluation: 07/02/18 Time of Evaluation: 09:23 - Subjective Subjective: Seen on rounds in ICU. Interim events and EMR entries reviewed. 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 AM chest x-ray reviewed. Patient communicating in writing. Tracheal aspirate; gram stain-rare polys, no organisms, culture pending. WBC has increased with Granix to 3.0, Hgb 9.2, plts 197. ABG: pH 7.38, PaCO2 54, PaO2 126. K-3.4, BUN/creat 10/0.6. PAP 20cm, RR 18, EtCO2 44cm. Awake, appears calm but indicates being anxious. Neck is supple, ETT in situ orally, scant secretions (chin). Trachea is displaced towards right. Dullness anteriorly over left hemithorax, resonant on right. No subcutaneous emphysema palpated. Breath sounds are absent over left chest with exception of the left base. Breath sounds in the left base are diminished w/o bronchial breathing. Breath sounds on the right are well heard, few dependant rhonchi, no rales or wheezes. Heart sounds are distant, regular rhythm. Abdomen is obes and appears non-tender, + bowel sounds. + dependant edema both LEs, no cyanosis, clean dressings bilaterally on calfs. Pneumonia/respiratory failure-improving. Metastatic lung disease with large MAYURI mass. Morbid obesity with questionable GALEN/OHS. Have begun weaning bthis morning with PRVC/SIMV. Reduce FiO2 so he maintains SpO2 92-95%. Continue present antibiotic regimen, pending culture report. Pain management, careful anxiolytics. Hopefully he can continue weaning to extubation. Continue aerosol therapies and prednisone via OGT. Objective - Vital Signs/Intake and Output Vital Signs (last 24 hours): Temp Pulse Resp BP Pulse Ox 99.7 F H 86 16 113/66 100 07/02/18 07:58 07/02/18 07:58 07/02/18 07:58 07/02/18 07:58 07/02/18 07:58 Intake and Output: 07/01/18 07/02/18 23:59 11:59 Intake Total 1238 1368 Output Total 1710 1250 Balance -472 118 - Medications Medications: Current Medications Acyclovir (Zovirax) 800 mg PO TID [facility]; Protocol Last Admin: 07/02/18 09:14 Dose: 800 mg Albuterol Sulfate (Albuterol 0.083% Inhal Emilia (2.5 Mg/3 Ml) Ud) 2.5 mg INH RQ4 PRN PRN Reason: Shortness of Breath Last Admin: 06/28/18 23:41 Dose: 2.5 mg Albuterol/Ipratropium (Duoneb 3 Mg/0.5 Mg (3 Ml) Ud) 3 ml INH RQID [facility] Last Admin: 07/02/18 07:18 Dose: 3 ml Atorvastatin Calcium (Lipitor) 20 mg PO DAILY [facility] Last Admin: 07/02/18 09:15 Dose: 20 mg Bisacodyl (Dulcolax) 10 mg PO DAILY PRN PRN Reason: Constipation Last Admin: 06/28/18 08:09 Dose: 10 mg Budesonide (Pulmicort Respules) 0.5 mg IH RBID [facility] Last Admin: 07/02/18 07:18 Dose: 0.5 mg Docusate Sodium (Colace) 100 mg PO Q8 PRN PRN Reason: Constipation Enoxaparin Sodium (Lovenox) 40 mg SC DAILY [facility]; Protocol Last Admin: 07/02/18 09:02 Dose: 40 mg Fluticasone Propionate (Flonase) 2 spr TIM DAILY [facility] Last Admin: 07/02/18 09:17 Dose: 2 spr Meropenem 1 gm/ Sodium (Chloride) 100 mls @ 100 mls/hr IVPB Q8 [facility]; Protocol Last Admin: 07/02/18 09:01 Dose: 100 mls/hr Micafungin Sodium 100 mg/ (Sodium Chloride) 100 mls @ 100 mls/hr IVPB DAILY [facility]; Protocol Last Admin: 07/01/18 08:30 Dose: 100 mls/hr Vancomycin HCl 1 gm/ Sodium (Chloride) 250 mls @ 166.667 mls/hr IVPB Q12H [facility]; Protocol Last Admin: 07/02/18 02:03 Dose: 166.667 mls/hr Insulin Detemir (Levemir) 12 units SC Q12@0600,1800 [facility] Last Admin: 07/02/18 06:09 Dose: 12 unit Insulin Human Lispro (Humalog) 0 units SC 0000,0600,1200,1800 [facility] Last Admin: 07/02/18 06:08 Dose: Not Given Lactulose (Enulose) 20 gm PO DAILY PRN PRN Reason: Constipation Lidocaine (Lidoderm) 1 ea TD DAILY PRN PRN Reason: Pain, moderate (4-7) Last Admin: 06/28/18 00:02 Dose: 1 ea Methadone HCl (Methadone) 25 mg PO Q12 [facility] Last Admin: 06/30/18 09:29 Dose: Not Given Montelukast Sodium (Singulair) 10 mg PO DAILY [facility] Last Admin: 07/02/18 09:15 Dose: 10 mg Nystatin (Nystatin Oral Susp) 5 ml PO QID [facility] Last Admin: 07/02/18 09:02 Dose: 5 ml Ondansetron HCl (Zofran Odt) 8 mg PO Q8 PRN PRN Reason: Nausea/Vomiting Last Admin: 06/28/18 23:52 Dose: 8 mg Oxybutynin Chloride (Ditropan Tab) 5 mg PO DAILY [facility] Last Admin: 07/02/18 09:03 Dose: 5 mg Pantoprazole Sodium (Protonix Ec Tab) 40 mg PO DAILY [facility] Last Admin: 07/02/18 09:14 Dose: 40 mg Paroxetine HCl (Paxil) 40 mg PO DAILY [facility] Last Admin: 07/02/18 09:04 Dose: 40 mg Polyethylene Glycol (Miralax) 17 gm PO BID PRN PRN Reason: Constipation Last Admin: 07/01/18 16:29 Dose: 17 gm Prednisone (Prednisone Tab) 20 mg PO DAILY [facility] Last Admin: 07/02/18 09:05 Dose: 20 mg Prochlorperazine (Compazine Tab) 10 mg PO Q6 PRN PRN Reason: Nausea/Vomiting Sennosides (Senokot Tab) 8.6 mg PO BID PRN PRN Reason: Constipation Tamsulosin HCl (Flomax) 0.4 mg PO DAILY [facility] Last Admin: 07/02/18 09:03 Dose: 0.4 mg Triamcinolone Acetonide (Kenalog 0.1% Cream) 1 appl TOP Q12 [facility] Last Admin: 07/02/18 09:16 Dose: 1 appl - Labs Labs: 07/02/18 05:15 07/02/18 05:15 Assessment and Plan (1) Oral thrush Status: Acute 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
[2018-07-02] MEDS: Micafungin 100 MG in Sodium Chloride 0.9% 100 ML IVPB SCH (09:47)
--- NOTE | 2018-07-02 09:52 | CP.PCM.PN ---
Subjective - Date & Time of Evaluation Date of Evaluation: 07/02/18 Time of Evaluation: 08:10 - Subjective Subjective: NO CHEST PAIN Objective - Vital Signs/Intake and Output Vital Signs (last 24 hours): Temp Pulse Resp BP Pulse Ox 99.7 F H 86 16 113/66 100 07/02/18 07:58 07/02/18 07:58 07/02/18 07:58 07/02/18 07:58 07/02/18 07:58 Intake and Output: 07/02/18 07/02/18 06:59 18:59 Intake Total 1496 120 Output Total 1260 Balance 236 120 - Medications Medications: Current Medications Acyclovir (Zovirax) 800 mg PO TID [facility]; Protocol Last Admin: 07/02/18 09:14 Dose: 800 mg Albuterol Sulfate (Albuterol 0.083% Inhal Emilia (2.5 Mg/3 Ml) Ud) 2.5 mg INH RQ4 PRN PRN Reason: Shortness of Breath Last Admin: 06/28/18 23:41 Dose: 2.5 mg Albuterol/Ipratropium (Duoneb 3 Mg/0.5 Mg (3 Ml) Ud) 3 ml INH RQID [facility] Last Admin: 07/02/18 07:18 Dose: 3 ml Atorvastatin Calcium (Lipitor) 20 mg PO DAILY [facility] Last Admin: 07/02/18 09:15 Dose: 20 mg Bisacodyl (Dulcolax) 10 mg PO DAILY PRN PRN Reason: Constipation Last Admin: 06/28/18 08:09 Dose: 10 mg Budesonide (Pulmicort Respules) 0.5 mg IH RBID [facility] Last Admin: 07/02/18 07:18 Dose: 0.5 mg Docusate Sodium (Colace) 100 mg PO Q8 PRN PRN Reason: Constipation Enoxaparin Sodium (Lovenox) 40 mg SC DAILY [facility]; Protocol Last Admin: 07/02/18 09:02 Dose: 40 mg Fluticasone Propionate (Flonase) 2 spr TIM DAILY [facility] Last Admin: 07/02/18 09:17 Dose: 2 spr Meropenem 1 gm/ Sodium (Chloride) 100 mls @ 100 mls/hr IVPB Q8 [facility]; Protocol Last Admin: 07/02/18 09:01 Dose: 100 mls/hr Micafungin Sodium 100 mg/ (Sodium Chloride) 100 mls @ 100 mls/hr IVPB DAILY [facility]; Protocol Last Admin: 07/02/18 09:47 Dose: 100 mls/hr Vancomycin HCl 1 gm/ Sodium (Chloride) 250 mls @ 166.667 mls/hr IVPB Q12H [facility]; Protocol Last Admin: 07/02/18 02:03 Dose: 166.667 mls/hr Insulin Detemir (Levemir) 12 units SC Q12@0600,1800 [facility] Last Admin: 07/02/18 06:09 Dose: 12 unit Insulin Human Lispro (Humalog) 0 units SC 0000,0600,1200,1800 [facility] Last Admin: 07/02/18 06:08 Dose: Not Given Lactulose (Enulose) 20 gm PO DAILY PRN PRN Reason: Constipation Lidocaine (Lidoderm) 1 ea TD DAILY PRN PRN Reason: Pain, moderate (4-7) Last Admin: 06/28/18 00:02 Dose: 1 ea Methadone HCl (Methadone) 25 mg PO Q12 [facility] Last Admin: 06/30/18 09:29 Dose: Not Given Montelukast Sodium (Singulair) 10 mg PO DAILY [facility] Last Admin: 07/02/18 09:15 Dose: 10 mg Nystatin (Nystatin Oral Susp) 5 ml PO QID [facility] Last Admin: 07/02/18 09:02 Dose: 5 ml Ondansetron HCl (Zofran Odt) 8 mg PO Q8 PRN PRN Reason: Nausea/Vomiting Last Admin: 06/28/18 23:52 Dose: 8 mg Oxybutynin Chloride (Ditropan Tab) 5 mg PO DAILY [facility] Last Admin: 07/02/18 09:03 Dose: 5 mg Pantoprazole Sodium (Protonix Ec Tab) 40 mg PO DAILY [facility] Last Admin: 07/02/18 09:14 Dose: 40 mg Paroxetine HCl (Paxil) 40 mg PO DAILY [facility] Last Admin: 07/02/18 09:04 Dose: 40 mg Polyethylene Glycol (Miralax) 17 gm PO BID PRN PRN Reason: Constipation Last Admin: 07/01/18 16:29 Dose: 17 gm Prednisone (Prednisone Tab) 20 mg PO DAILY [facility] Last Admin: 07/02/18 09:05 Dose: 20 mg Prochlorperazine (Compazine Tab) 10 mg PO Q6 PRN PRN Reason: Nausea/Vomiting Sennosides (Senokot Tab) 8.6 mg PO BID PRN PRN Reason: Constipation Tamsulosin HCl (Flomax) 0.4 mg PO DAILY [facility] Last Admin: 07/02/18 09:03 Dose: 0.4 mg Triamcinolone Acetonide (Kenalog 0.1% Cream) 1 appl TOP Q12 [facility] Last Admin: 07/02/18 09:16 Dose: 1 appl - Labs Labs: 07/02/18 05:15 07/02/18 05:15 - Respiratory Exam Respiratory Exam: Decreased Breath Sounds, Rhonchi - Cardiovascular Exam Cardiovascular Exam: REGULAR RHYTHM, +S1, +S2 - Extremities Exam Extremities Exam: Pedal Edema - Additional Findings 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
--- NOTE | 2018-07-02 10:53 | CP.PCM.PN ---
Subjective - Date & Time of Evaluation Date of Evaluation: 07/02/18 Time of Evaluation: 07:00 - Subjective Subjective: afeb on vent in NAD FiO2 30% weaning in progress WBC up to 3 K Objective - Vital Signs/Intake and Output Vital Signs (last 24 hours): Temp Pulse Resp BP Pulse Ox 99.7 F H 87 18 110/56 L 96 07/02/18 07:58 07/02/18 10:00 07/02/18 10:00 07/02/18 10:00 07/02/18 10:00 Intake and Output: 07/02/18 07/02/18 06:59 18:59 Intake Total 1496 440 Output Total 1260 Balance 236 440 - Medications Medications: Current Medications Acyclovir (Zovirax) 800 mg PO TID [facility]; Protocol Last Admin: 07/02/18 09:14 Dose: 800 mg Albuterol Sulfate (Albuterol 0.083% Inhal Emilia (2.5 Mg/3 Ml) Ud) 2.5 mg INH RQ4 PRN PRN Reason: Shortness of Breath Last Admin: 06/28/18 23:41 Dose: 2.5 mg Albuterol/Ipratropium (Duoneb 3 Mg/0.5 Mg (3 Ml) Ud) 3 ml INH RQID [facility] Last Admin: 07/02/18 07:18 Dose: 3 ml Atorvastatin Calcium (Lipitor) 20 mg PO DAILY [facility] Last Admin: 07/02/18 09:15 Dose: 20 mg Bisacodyl (Dulcolax) 10 mg PO DAILY PRN PRN Reason: Constipation Last Admin: 06/28/18 08:09 Dose: 10 mg Budesonide (Pulmicort Respules) 0.5 mg IH RBID [facility] Last Admin: 07/02/18 07:18 Dose: 0.5 mg Docusate Sodium (Colace) 100 mg PO Q8 PRN PRN Reason: Constipation Enoxaparin Sodium (Lovenox) 40 mg SC DAILY [facility]; Protocol Last Admin: 07/02/18 09:02 Dose: 40 mg Fluticasone Propionate (Flonase) 2 spr TIM DAILY [facility] Last Admin: 07/02/18 09:17 Dose: 2 spr Meropenem 1 gm/ Sodium (Chloride) 100 mls @ 100 mls/hr IVPB Q8 [facility]; Protocol Last Admin: 07/02/18 09:01 Dose: 100 mls/hr Micafungin Sodium 100 mg/ (Sodium Chloride) 100 mls @ 100 mls/hr IVPB DAILY [facility]; Protocol Last Admin: 07/02/18 09:47 Dose: 100 mls/hr Vancomycin HCl 1 gm/ Sodium (Chloride) 250 mls @ 166.667 mls/hr IVPB Q12H [facility]; Protocol Last Admin: 07/02/18 02:03 Dose: 166.667 mls/hr Potassium Chloride (Potassium Cl 10meq/50ml Sterile Water) 50 mls @ 50 mls/hr IVPB Q1 [facility] Stop: 07/02/18 14:59 Insulin Detemir (Levemir) 12 units SC Q12@0600,1800 [facility] Last Admin: 07/02/18 06:09 Dose: 12 unit Insulin Human Lispro (Humalog) 0 units SC 0000,0600,1200,1800 [facility] Last Admin: 07/02/18 06:08 Dose: Not Given Lactulose (Enulose) 20 gm PO DAILY PRN PRN Reason: Constipation Lidocaine (Lidoderm) 1 ea TD DAILY PRN PRN Reason: Pain, moderate (4-7) Last Admin: 06/28/18 00:02 Dose: 1 ea Methadone HCl (Methadone) 25 mg PO Q12 [facility] Last Admin: 06/30/18 09:29 Dose: Not Given Montelukast Sodium (Singulair) 10 mg PO DAILY [facility] Last Admin: 07/02/18 09:15 Dose: 10 mg Nystatin (Nystatin Oral Susp) 5 ml PO QID [facility] Last Admin: 07/02/18 09:02 Dose: 5 ml Ondansetron HCl (Zofran Odt) 8 mg PO Q8 PRN PRN Reason: Nausea/Vomiting Last Admin: 06/28/18 23:52 Dose: 8 mg Oxybutynin Chloride (Ditropan Tab) 5 mg PO DAILY [facility] Last Admin: 07/02/18 09:03 Dose: 5 mg Pantoprazole Sodium (Protonix Ec Tab) 40 mg PO DAILY [facility] Last Admin: 07/02/18 09:14 Dose: 40 mg Paroxetine HCl (Paxil) 40 mg PO DAILY [facility] Last Admin: 07/02/18 09:04 Dose: 40 mg Polyethylene Glycol (Miralax) 17 gm PO BID PRN PRN Reason: Constipation Last Admin: 07/01/18 16:29 Dose: 17 gm Prednisone (Prednisone Tab) 20 mg PO DAILY [facility] Last Admin: 07/02/18 09:05 Dose: 20 mg Prochlorperazine (Compazine Tab) 10 mg PO Q6 PRN PRN Reason: Nausea/Vomiting Sennosides (Senokot Tab) 8.6 mg PO BID PRN PRN Reason: Constipation Tamsulosin HCl (Flomax) 0.4 mg PO DAILY [facility] Last Admin: 07/02/18 09:03 Dose: 0.4 mg Triamcinolone Acetonide (Kenalog 0.1% Cream) 1 appl TOP Q12 [facility] Last Admin: 07/02/18 09:16 Dose: 1 appl - Labs Labs: 07/02/18 05:15 07/02/18 05:15 - Constitutional Appears: Non-toxic, Chronically Ill - Head Exam Head Exam: NORMOCEPHALIC - Eye Exam Eye Exam: absent: Scleral icterus - ENT Exam ENT Exam: Mucous Membranes Dry - Neck Exam Neck Exam: absent: Lymphadenopathy, Thyromegaly - Respiratory Exam Respiratory Exam: Decreased Breath Sounds, Prolonged Expiratory Phase, Rhonchi Additional comments: dullness left eva - Cardiovascular Exam Cardiovascular Exam: REGULAR RHYTHM - GI/Abdominal Exam GI & Abdominal Exam: Distended, Soft. absent: Tenderness - Rectal Exam Rectal Exam: Deferred - Extremities Exam Extremities Exam: Pedal Edema. absent: Calf Tenderness, Normal Inspection, Ten derness Additional comments: bilat leg swelling /ulcers - Back Exam Back Exam: absent: CVA tenderness (L), CVA tenderness (R) - Neurological Exam Neurological Exam: Alert, Awake, CN II-XII Intact, Oriented x3 Neuro motor strength exam: Left Upper Extremity: 4, Right Upper Extremity: 4, Left Lower Extremity: 4, Right Lower Extremity: 4 - Psychiatric Exam Psychiatric exam: Depressed - Skin Skin Exam: Dry Assessment and Plan (1) Bilateral leg ulcer Status: Acute (2) Bilateral leg ulcer Status: Acute (3) History of DVT (deep vein thrombosis) Status: Acute (4) Leukopenia Status: Acute (5) Mucositis Status: Acute (6) Oral thrush Status: Acute (7) Sore throat Status: Acute (8) Cancer associated pain Status: Chronic (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 (10) Anemia Status: Acute (11) Sarcoma Status: Acute - Assessment and Plan (Free Text) Assessment: 62 year old male with 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 on systemic treatment at [facility] [place], DVT complicated by intra abdominal hemorrhage while on anticoagulation, Left thigh sarcoma and DM Admitted with collapsed left lung , sepsis, pneumonia , resp failure and bilateral leg ulcers with cellulitis now in ICU with sepsis s/p chemo at [facility] [place] , neutropenia, post obstructive pneumonia, mucositis , oral thrush , cellulitis of legs and resp failure cont IV rx as ordered for MRSA wounds/ post obstructive pneumonia candidiasis and neutropenic sepsis s/p chemo
[2018-07-02] MEDS: Potassium CL 10 MEQ/50 ML 50 ML IVPB SCH ×4 (11:38→15:08)
--- NOTE | 2018-07-02 11:52 | RAD ---
Date of service: 07/02/2018 HISTORY: vented COMPARISON: 07/01/2018 FINDINGS: Endotracheal tube terminates 2.5 cm proximal to the ester. The right IJV line terminates at the cavoatrial junction. The nasogastric tube terminates in the stomach. LUNGS: The right lung is well inflated. There are chronic changes in the right lung. No focal consolidation. There is redemonstration of near complete opacification of the left hemithorax with mild aeration in the left lower lobe. There is shift of mediastinum to the left. PLEURA: No pleural effusions or pneumothorax. CARDIOVASCULAR: Shift of mediastinum to the left. OSSEOUS STRUCTURES: Within normal limits for the patient's age. VISUALIZED UPPER ABDOMEN: Normal. OTHER FINDINGS: None. IMPRESSION: Little interval change in near complete opacification of the left hemithorax with shift of mediastinum to the left. Stable position of support line and tubes.
--- NOTE | 2018-07-02 14:54 | CP.PCM.PN ---
Subjective - Date & Time of Evaluation Date of Evaluation: 07/02/18 Time of Evaluation: 14:51 - Subjective Subjective: Podiatry Progress Note: Dr. Myrick Patient seen and evaluated this AM for b/l LE erythema, edema, and superficial ulceration. Patient resting comfortably and in NAD. Patient intubated at this time, however alert and able to answer questions by writing on paper. Objective - Vital Signs/Intake and Output Vital Signs (last 24 hours): Temp Pulse Resp BP Pulse Ox 99.7 F H 89 23 113/63 97 07/02/18 12:00 07/02/18 12:00 07/02/18 12:00 07/02/18 12:00 07/02/18 12:00 Intake and Output: 07/02/18 07/02/18 06:59 18:59 Intake Total 1496 710 Output Total 1260 Balance 236 710 - Medications Medications: Current Medications Acyclovir (Zovirax) 800 mg PO TID [facility]; Protocol Last Admin: 07/02/18 12:45 Dose: 800 mg Albuterol Sulfate (Albuterol 0.083% Inhal Emilia (2.5 Mg/3 Ml) Ud) 2.5 mg INH RQ4 PRN PRN Reason: Shortness of Breath Last Admin: 06/28/18 23:41 Dose: 2.5 mg Albuterol/Ipratropium (Duoneb 3 Mg/0.5 Mg (3 Ml) Ud) 3 ml INH RQID [facility] Last Admin: 07/02/18 11:01 Dose: 3 ml Atorvastatin Calcium (Lipitor) 20 mg PO DAILY [facility] Last Admin: 07/02/18 09:15 Dose: 20 mg Bisacodyl (Dulcolax) 10 mg PO DAILY PRN PRN Reason: Constipation Last Admin: 06/28/18 08:09 Dose: 10 mg Budesonide (Pulmicort Respules) 0.5 mg IH RBID [facility] Last Admin: 07/02/18 07:18 Dose: 0.5 mg Docusate Sodium (Colace) 100 mg PO Q8 PRN PRN Reason: Constipation Enoxaparin Sodium (Lovenox) 40 mg SC DAILY [facility]; Protocol Last Admin: 07/02/18 09:02 Dose: 40 mg Fluticasone Propionate (Flonase) 2 spr TIM DAILY [facility] Last Admin: 07/02/18 09:17 Dose: 2 spr Meropenem 1 gm/ Sodium (Chloride) 100 mls @ 100 mls/hr IVPB Q8 [facility]; Protocol Last Admin: 07/02/18 09:01 Dose: 100 mls/hr Micafungin Sodium 100 mg/ (Sodium Chloride) 100 mls @ 100 mls/hr IVPB DAILY [facility]; Protocol Last Admin: 07/02/18 09:47 Dose: 100 mls/hr Vancomycin HCl 1 gm/ Sodium (Chloride) 250 mls @ 166.667 mls/hr IVPB Q12H [facility]; Protocol Last Admin: 07/02/18 02:03 Dose: 166.667 mls/hr Potassium Chloride (Potassium Cl 10meq/50ml Sterile Water) 50 mls @ 50 mls/hr IVPB Q1 [facility] Stop: 07/02/18 14:59 Last Admin: 07/02/18 14:01 Dose: 50 mls/hr Insulin Detemir (Levemir) 14 units SC Q12@0600,1800 [facility] Insulin Human Lispro (Humalog) 0 units SC 0000,0600,1200,1800 [facility] Last Admin: 07/02/18 11:45 Dose: Not Given Lactulose (Enulose) 20 gm PO DAILY PRN PRN Reason: Constipation Lidocaine (Lidoderm) 1 ea TD DAILY PRN PRN Reason: Pain, moderate (4-7) Last Admin: 06/28/18 00:02 Dose: 1 ea Methadone HCl (Methadone) 25 mg PO Q12 [facility] Last Admin: 06/30/18 09:29 Dose: Not Given Montelukast Sodium (Singulair) 10 mg PO DAILY [facility] Last Admin: 07/02/18 09:15 Dose: 10 mg Nystatin (Nystatin Oral Susp) 5 ml PO QID [facility] Last Admin: 07/02/18 09:02 Dose: 5 ml Ondansetron HCl (Zofran Odt) 8 mg PO Q8 PRN PRN Reason: Nausea/Vomiting Last Admin: 06/28/18 23:52 Dose: 8 mg Oxybutynin Chloride (Ditropan Tab) 5 mg PO DAILY [facility] Last Admin: 07/02/18 09:03 Dose: 5 mg Pantoprazole Sodium (Protonix Ec Tab) 40 mg PO DAILY [facility] Last Admin: 07/02/18 09:14 Dose: 40 mg Paroxetine HCl (Paxil) 40 mg PO DAILY [facility] Last Admin: 07/02/18 09:04 Dose: 40 mg Polyethylene Glycol (Miralax) 17 gm PO BID PRN PRN Reason: Constipation Last Admin: 07/01/18 16:29 Dose: 17 gm Prednisone (Prednisone Tab) 20 mg PO DAILY [facility] Last Admin: 07/02/18 09:05 Dose: 20 mg Prochlorperazine (Compazine Tab) 10 mg PO Q6 PRN PRN Reason: Nausea/Vomiting Sennosides (Senokot Tab) 8.6 mg PO BID PRN PRN Reason: Constipation Tamsulosin HCl (Flomax) 0.4 mg PO DAILY [facility] Last Admin: 07/02/18 09:03 Dose: 0.4 mg Triamcinolone Acetonide (Kenalog 0.1% Cream) 1 appl TOP Q12 [facility] Last Admin: 07/02/18 09:16 Dose: 1 appl - Labs Labs: 07/02/18 05:15 07/02/18 05:15 - Constitutional Appears: Non-toxic, No Acute Distress - Head Exam Head Exam: ATRAUMATIC, NORMOCEPHALIC - Extremities Exam Additional comments: B/L LE focused exam: VASC: DP and PT pulses palpable 1/4 due to edema; cap refill <3 seconds to all digits; Temp gradient Warm to warm; +2 pitting edema noted b/l. NEURO: Gross and protective sensation Diminished. DERM: Superficial stasis ulcerations noted on the right side the largest is on t he frias of the tibia measuring 3.4 cm X 2.5 cm x 0.1 m, with fibrotic base, no active drainage , no depth appreciated, An ulcer noted on the left frias of tibia measuring 1.2 cm X 1.2 cm X 0.2 cm with fibrogranular base, no drainage, no tracking, undermining or probe to bone. Mild erythema extends from the ankle to the upper 1/3 of the leg b/l, significantly improved wounds, no weeping appreciated at this time. MSK: No pain on palpation of left lower extremity mid leg. - Neurological Exam Neurological Exam: Alert, Awake - Psychiatric Exam Psychiatric exam: Normal Affect, Normal Mood Assessment and Plan - Assessment and Plan (Free Text) Assessment: 62 year old male patient Seen and evaluated at the bedside for b/l LE erythema, edema and superficial ulceration. Plan: Patient seen and evaluated at the bedside Discussed in detail with Dr. Myrick Tmax 99, WBC 3.0 B/L wound cultures: MRSA Continue IV Abx as per primary team. B/L Venous duplex B/L LE dressed with DSD and adaptic Will continue to follow up the patient while patient in house
--- NOTE | 2018-07-02 15:01 | CP.PCM.PN ---
Subjective - Date & Time of Evaluation Date of Evaluation: 07/02/18 Time of Evaluation: 14:30 - Subjective Subjective: patient in ICU. still on vent but communicating via writing. Patient AAOx3. no acute distress Objective - Vital Signs/Intake and Output Vital Signs (last 24 hours): Temp Pulse Resp BP Pulse Ox 99.7 F H 89 23 113/63 97 07/02/18 12:00 07/02/18 12:00 07/02/18 12:00 07/02/18 12:00 07/02/18 12:00 Intake and Output: 07/02/18 07/02/18 06:59 18:59 Intake Total 1496 710 Output Total 1260 Balance 236 710 - Medications Medications: Current Medications Acyclovir (Zovirax) 800 mg PO TID [facility]; Protocol Last Admin: 07/02/18 12:45 Dose: 800 mg Albuterol Sulfate (Albuterol 0.083% Inhal Emilia (2.5 Mg/3 Ml) Ud) 2.5 mg INH RQ4 PRN PRN Reason: Shortness of Breath Last Admin: 06/28/18 23:41 Dose: 2.5 mg Albuterol/Ipratropium (Duoneb 3 Mg/0.5 Mg (3 Ml) Ud) 3 ml INH RQID [facility] Last Admin: 07/02/18 11:01 Dose: 3 ml Atorvastatin Calcium (Lipitor) 20 mg PO DAILY [facility] Last Admin: 07/02/18 09:15 Dose: 20 mg Bisacodyl (Dulcolax) 10 mg PO DAILY PRN PRN Reason: Constipation Last Admin: 06/28/18 08:09 Dose: 10 mg Budesonide (Pulmicort Respules) 0.5 mg IH RBID [facility] Last Admin: 07/02/18 07:18 Dose: 0.5 mg Docusate Sodium (Colace) 100 mg PO Q8 PRN PRN Reason: Constipation Enoxaparin Sodium (Lovenox) 40 mg SC DAILY [facility]; Protocol Last Admin: 07/02/18 09:02 Dose: 40 mg Fluticasone Propionate (Flonase) 2 spr TIM DAILY [facility] Last Admin: 07/02/18 09:17 Dose: 2 spr Meropenem 1 gm/ Sodium (Chloride) 100 mls @ 100 mls/hr IVPB Q8 [facility]; Protocol Last Admin: 07/02/18 09:01 Dose: 100 mls/hr Micafungin Sodium 100 mg/ (Sodium Chloride) 100 mls @ 100 mls/hr IVPB DAILY [facility]; Protocol Last Admin: 07/02/18 09:47 Dose: 100 mls/hr Vancomycin HCl 1 gm/ Sodium (Chloride) 250 mls @ 166.667 mls/hr IVPB Q12H [facility]; Protocol Last Admin: 07/02/18 02:03 Dose: 166.667 mls/hr Potassium Chloride (Potassium Cl 10meq/50ml Sterile Water) 50 mls @ 50 mls/hr IVPB Q1 [facility] Stop: 07/02/18 14:59 Last Admin: 07/02/18 14:01 Dose: 50 mls/hr Insulin Detemir (Levemir) 14 units SC Q12@0600,1800 [facility] Insulin Human Lispro (Humalog) 0 units SC 0000,0600,1200,1800 [facility] Last Admin: 07/02/18 11:45 Dose: Not Given Lactulose (Enulose) 20 gm PO DAILY PRN PRN Reason: Constipation Lidocaine (Lidoderm) 1 ea TD DAILY PRN PRN Reason: Pain, moderate (4-7) Last Admin: 06/28/18 00:02 Dose: 1 ea Methadone HCl (Methadone) 25 mg PO Q12 [facility] Last Admin: 06/30/18 09:29 Dose: Not Given Montelukast Sodium (Singulair) 10 mg PO DAILY [facility] Last Admin: 07/02/18 09:15 Dose: 10 mg Nystatin (Nystatin Oral Susp) 5 ml PO QID [facility] Last Admin: 07/02/18 09:02 Dose: 5 ml Ondansetron HCl (Zofran Odt) 8 mg PO Q8 PRN PRN Reason: Nausea/Vomiting Last Admin: 06/28/18 23:52 Dose: 8 mg Oxybutynin Chloride (Ditropan Tab) 5 mg PO DAILY [facility] Last Admin: 07/02/18 09:03 Dose: 5 mg Pantoprazole Sodium (Protonix Ec Tab) 40 mg PO DAILY [facility] Last Admin: 07/02/18 09:14 Dose: 40 mg Paroxetine HCl (Paxil) 40 mg PO DAILY [facility] Last Admin: 07/02/18 09:04 Dose: 40 mg Polyethylene Glycol (Miralax) 17 gm PO BID PRN PRN Reason: Constipation Last Admin: 07/01/18 16:29 Dose: 17 gm Prednisone (Prednisone Tab) 20 mg PO DAILY [facility] Last Admin: 07/02/18 09:05 Dose: 20 mg Prochlorperazine (Compazine Tab) 10 mg PO Q6 PRN PRN Reason: Nausea/Vomiting Sennosides (Senokot Tab) 8.6 mg PO BID PRN PRN Reason: Constipation Tamsulosin HCl (Flomax) 0.4 mg PO DAILY [facility] Last Admin: 07/02/18 09:03 Dose: 0.4 mg Triamcinolone Acetonide (Kenalog 0.1% Cream) 1 appl TOP Q12 [facility] Last Admin: 07/02/18 09:16 Dose: 1 appl - Labs Labs: 07/02/18 05:15 07/02/18 05:15 - Constitutional Appears: No Acute Distress, Chronically Ill - Head Exam Head Exam: ATRAUMATIC, NORMAL INSPECTION, NORMOCEPHALIC - Eye Exam Eye Exam: Normal appearance, PERRL - ENT Exam ENT Exam: Mucous Membranes Moist - Respiratory Exam Respiratory Exam: Decreased Breath Sounds - Cardiovascular Exam Cardiovascular Exam: REGULAR RHYTHM - GI/Abdominal Exam GI & Abdominal Exam: Soft, Normal Bowel Sounds - Rectal Exam Rectal Exam: Deferred - Extremities Exam Extremities Exam: Pedal Edema Additional comments: multiple lower extremity wounds - Neurological Exam Neurological Exam: Alert, Awake, Oriented x3 - Psychiatric Exam Psychiatric exam: Depressed, Flat Affect - Skin Skin Exam: Dry, Warm Additional comments: skin not intact Assessment and Plan - Assessment and Plan (Free Text) Assessment: Palliative Care Goals of Care:discussed with patient. He is requesting full treatment and interventions when needed. Patient is still awaiting transfer to [facility] to continue treatment. He states that his brother in law Con Holbrook (contact information of facesheet) and nephew conner are his designated decision makers if there ever is a time where he can no longer make his own healthcare decisions. He states that he has a healthcare proxy on file at [facility] and declines to complete any documentation here. Patient is very anxious and would like process of getting transferred to happen very soon. He is not complaining of any pain at this time. Code status: Full Code: Patient verbalized understanding of meaning of code status and confirmed that he would like to be a full code Impression: * Metastatic Angiosarcoma * Respiratory failure (improving, currently being weaned off vent) * Decreased Mobility * Oral thrush * Suggestion * continue Nystatin oral * assist with ADLs and help with repositioning * needs assistance planning transfer to [facility] (will speak to ) Palliative Care will remain on board as needed and can be contacted at ext [phone] Time spent with patient 30 min
--- NOTE | 2018-07-02 15:43 | PN ---
DATE: 07/02/2018 ENDOCRINOLOGY FOLLOWUP NOTE LOCATION: ICU, Room 423. SUBJECTIVE: This is a 62-year-old male with recent acute respiratory failure, currently intubated and sedated, with underlying metastatic lung carcinoma and is now being followed closely for metabolic management. His glycemic levels are fluctuating but improved and the glucose values overnight have ranged from 200-254 mg/dL. LABORATORY DATA: His chemistry showed a BUN of 10, sodium 137, potassium 3.4, chloride 97, CO2 of 30, glucose 163 and creatinine 0.6. ASSESSMENT: This is a 62-year-old male with uncontrolled type 2 insulin-requiring diabetes with marked hyperglycemic accelerations, currently on the basal insulin regimen as given. He also has metastatic lung carcinoma with underlying pleomorphic sarcoma stage IV and also metastatic prostate carcinoma. PLAN: Plan of management, we will modify once again his basal insulin to optimize metabolic control as ordered. We will increase the Levemir to 14 units subcutaneous every 12 hours at 6:00 a.m. and 6:00 p.m. to start today as ordered. We will continue the low-dose correction scale using Humalog insulin as given to obviate hypoglycemia and detailed orders have been given. We will obtain serial chemistries and supplement accordingly as needed. We will concur with the present multi specialty close management and also the hemodynamic monitoring being done in the ICU as noted. We will follow. Sheryl Adams MD
--- NOTE | 2018-07-02 15:47 | CP.PCM.PN ---
Subjective - Date & Time of Evaluation Date of Evaluation: 07/02/18 Time of Evaluation: 08:30 - Subjective Subjective: General Surgery Note for Dr. Jefferson Patient seen and examined at bedside. No acute event overnight. Patient remains intubated and on mechanical ventilation with GCS11T. Objective - Vital Signs/Intake and Output Vital Signs (last 24 hours): Temp Pulse Resp BP Pulse Ox 99.7 F H 90 19 107/65 98 07/02/18 12:00 07/02/18 14:00 07/02/18 14:00 07/02/18 14:00 07/02/18 14:00 Intake and Output: 07/02/18 07/02/18 06:59 18:59 Intake Total 1496 930 Output Total 1260 Balance 236 930 - Medications Medications: Current Medications Acyclovir (Zovirax) 800 mg PO TID [facility]; Protocol Last Admin: 07/02/18 12:45 Dose: 800 mg Albuterol Sulfate (Albuterol 0.083% Inhal Emilia (2.5 Mg/3 Ml) Ud) 2.5 mg INH RQ4 PRN PRN Reason: Shortness of Breath Last Admin: 06/28/18 23:41 Dose: 2.5 mg Albuterol/Ipratropium (Duoneb 3 Mg/0.5 Mg (3 Ml) Ud) 3 ml INH RQID [facility] Last Admin: 07/02/18 14:59 Dose: 3 ml Atorvastatin Calcium (Lipitor) 20 mg PO DAILY [facility] Last Admin: 07/02/18 09:15 Dose: 20 mg Bisacodyl (Dulcolax) 10 mg PO DAILY PRN PRN Reason: Constipation Last Admin: 06/28/18 08:09 Dose: 10 mg Budesonide (Pulmicort Respules) 0.5 mg IH RBID [facility] Last Admin: 07/02/18 07:18 Dose: 0.5 mg Docusate Sodium (Colace) 100 mg PO Q8 PRN PRN Reason: Constipation Enoxaparin Sodium (Lovenox) 40 mg SC DAILY [facility]; Protocol Last Admin: 07/02/18 09:02 Dose: 40 mg Fluticasone Propionate (Flonase) 2 spr TIM DAILY [facility] Last Admin: 07/02/18 09:17 Dose: 2 spr Meropenem 1 gm/ Sodium (Chloride) 100 mls @ 100 mls/hr IVPB Q8 [facility]; Protocol Last Admin: 07/02/18 09:01 Dose: 100 mls/hr Micafungin Sodium 100 mg/ (Sodium Chloride) 100 mls @ 100 mls/hr IVPB DAILY [facility]; Protocol Last Admin: 07/02/18 09:47 Dose: 100 mls/hr Vancomycin HCl 1 gm/ Sodium (Chloride) 250 mls @ 166.667 mls/hr IVPB Q12H [facility]; Protocol Last Admin: 07/02/18 15:09 Dose: 166.667 mls/hr Insulin Detemir (Levemir) 14 units SC Q12@0600,1800 [facility] Insulin Human Lispro (Humalog) 0 units SC 0000,0600,1200,1800 [facility] Last Admin: 07/02/18 11:45 Dose: Not Given Lactulose (Enulose) 20 gm PO DAILY PRN PRN Reason: Constipation Lidocaine (Lidoderm) 1 ea TD DAILY PRN PRN Reason: Pain, moderate (4-7) Last Admin: 06/28/18 00:02 Dose: 1 ea Methadone HCl (Methadone) 25 mg PO Q12 [facility] Last Admin: 06/30/18 09:29 Dose: Not Given Montelukast Sodium (Singulair) 10 mg PO DAILY [facility] Last Admin: 07/02/18 09:15 Dose: 10 mg Nystatin (Nystatin Oral Susp) 5 ml PO QID [facility] Last Admin: 07/02/18 09:02 Dose: 5 ml Ondansetron HCl (Zofran Odt) 8 mg PO Q8 PRN PRN Reason: Nausea/Vomiting Last Admin: 06/28/18 23:52 Dose: 8 mg Oxybutynin Chloride (Ditropan Tab) 5 mg PO DAILY [facility] Last Admin: 07/02/18 09:03 Dose: 5 mg Pantoprazole Sodium (Protonix Ec Tab) 40 mg PO DAILY [facility] Last Admin: 07/02/18 09:14 Dose: 40 mg Paroxetine HCl (Paxil) 40 mg PO DAILY [facility] Last Admin: 07/02/18 09:04 Dose: 40 mg Polyethylene Glycol (Miralax) 17 gm PO BID PRN PRN Reason: Constipation Last Admin: 07/01/18 16:29 Dose: 17 gm Prednisone (Prednisone Tab) 20 mg PO DAILY [facility] Last Admin: 07/02/18 09:05 Dose: 20 mg Prochlorperazine (Compazine Tab) 10 mg PO Q6 PRN PRN Reason: Nausea/Vomiting Sennosides (Senokot Tab) 8.6 mg PO BID PRN PRN Reason: Constipation Tamsulosin HCl (Flomax) 0.4 mg PO DAILY [facility] Last Admin: 07/02/18 09:03 Dose: 0.4 mg Triamcinolone Acetonide (Kenalog 0.1% Cream) 1 appl TOP Q12 [facility] Last Admin: 07/02/18 09:16 Dose: 1 appl - Labs Labs: 07/02/18 05:15 07/02/18 05:15 - Additional Findings Additional findings: - Constitutional Appears: No Acute Distress Additional comments: intubated - Head Exam Head Exam: ATRAUMATIC, NORMOCEPHALIC - Eye Exam Eye Exam: EOMI, Normal appearance Pupil Exam: PERRL - ENT Exam ENT Exam: Mucous Membranes Moist - Respiratory Exam Additional comments: intubated and on PRVC 500/18/50%/8 - Cardiovascular Exam Cardiovascular Exam: REGULAR RHYTHM - GI/Abdominal Exam GI & Abdominal Exam: Soft. absent: Distended, Firm, Guarding, Hernia, Rebound, Rigid, Tenderness - Rectal Exam Rectal Exam: Deferred - Extremities Exam Extremities exam: Positive for: normal capillary refill, pedal pulses present Additional comments: LLE sarcoma - Back Exam Back exam: absent: CVA tenderness (L), CVA tenderness (R) - Neurological Exam Additional comments: GCS11T, intubated - Psychiatric Exam Psychiatric exam: Flat Affect - Skin Skin Exam: Dry, Warm Assessment and Plan - Assessment and Plan (Free Text) Assessment: 62 M with PMH that includes history of prostate cancer (Sharon 8) s/p androgen deprivation therapy and radiation, 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 Li Sandoval PGY2
--- NOTE | 2018-07-02 17:09 | PQF ---
PROVIDER RESPONSE TEXT: Right venous stasis ulceration without varicose veins. REVIEWER QUERY TEXT: Skin Ulcer Type and Severity Right Venous Stasis Skin Ulceration limited to skin breakdown is documented in the Medical Record. Pl ease further specify: Such as: Type: -- Venous stasis ulcer WITH varicose veins -- Venous stasis ulcer WITHOUT varicose veins -- Other, please specify The patient's Clinical Indicators include: 62 yo with hx prostate ca / sarcoma with mets to the lung admitted for sore throat Dx: Mucositis Rx: Wound CS, DSD, silvadene cream, IVAB Query created by: Usha Mack on 07/02/2018 7:32 AM Electronically signed by: Israel Reyna 07/02/2018 5:06 PM
--- NOTE | 2018-07-02 20:21 | CP.PCM.PN ---
Subjective - Date & Time of Evaluation Date of Evaluation: 07/02/18 Time of Evaluation: 22:22 - Subjective Subjective: Improved WBC and ABG Improved clinically Objective - Vital Signs/Intake and Output Vital Signs (last 24 hours): Temp Pulse Resp BP Pulse Ox 99.5 F 87 21 100/71 98 07/02/18 16:00 07/02/18 18:00 07/02/18 18:00 07/02/18 18:00 07/02/18 18:00 Intake and Output: 07/02/18 07/03/18 18:59 06:59 Intake Total 1670 Output Total 1300 Balance 370 - Medications Medications: Current Medications Acyclovir (Zovirax) 800 mg PO TID [facility]; Protocol Last Admin: 07/02/18 16:34 Dose: 800 mg Albuterol Sulfate (Albuterol 0.083% Inhal Emilia (2.5 Mg/3 Ml) Ud) 2.5 mg INH RQ4 PRN PRN Reason: Shortness of Breath Last Admin: 06/28/18 23:41 Dose: 2.5 mg Albuterol/Ipratropium (Duoneb 3 Mg/0.5 Mg (3 Ml) Ud) 3 ml INH RQID [facility] Last Admin: 07/02/18 19:03 Dose: 3 ml Atorvastatin Calcium (Lipitor) 20 mg PO DAILY [facility] Last Admin: 07/02/18 09:15 Dose: 20 mg Bisacodyl (Dulcolax) 10 mg PO DAILY PRN PRN Reason: Constipation Last Admin: 06/28/18 08:09 Dose: 10 mg Budesonide (Pulmicort Respules) 0.5 mg IH RBID [facility] Last Admin: 07/02/18 19:02 Dose: 0.5 mg Docusate Sodium (Colace) 100 mg PO Q8 PRN PRN Reason: Constipation Enoxaparin Sodium (Lovenox) 40 mg SC DAILY [facility]; Protocol Last Admin: 07/02/18 09:02 Dose: 40 mg Fluticasone Propionate (Flonase) 2 spr TIM DAILY [facility] Last Admin: 07/02/18 09:17 Dose: 2 spr Meropenem 1 gm/ Sodium (Chloride) 100 mls @ 100 mls/hr IVPB Q8 [facility]; Protocol Last Admin: 07/02/18 16:35 Dose: 100 mls/hr Micafungin Sodium 100 mg/ (Sodium Chloride) 100 mls @ 100 mls/hr IVPB DAILY [facility]; Protocol Last Admin: 07/02/18 09:47 Dose: 100 mls/hr Vancomycin HCl 1 gm/ Sodium (Chloride) 250 mls @ 166.667 mls/hr IVPB Q12H [facility]; Protocol Last Admin: 07/02/18 15:09 Dose: 166.667 mls/hr Insulin Detemir (Levemir) 14 units SC Q12@0600,1800 [facility] Last Admin: 07/02/18 18:12 Dose: 14 units Insulin Human Lispro (Humalog) 0 units SC 0000,0600,1200,1800 [facility] Last Admin: 07/02/18 18:10 Dose: 3 u Lactulose (Enulose) 20 gm PO DAILY PRN PRN Reason: Constipation Lidocaine (Lidoderm) 1 ea TD DAILY PRN PRN Reason: Pain, moderate (4-7) Last Admin: 06/28/18 00:02 Dose: 1 ea Methadone HCl (Methadone) 25 mg PO Q12 [facility] Last Admin: 06/30/18 09:29 Dose: Not Given Montelukast Sodium (Singulair) 10 mg PO DAILY [facility] Last Admin: 07/02/18 09:15 Dose: 10 mg Nystatin (Nystatin Oral Susp) 5 ml PO QID [facility] Last Admin: 07/02/18 09:02 Dose: 5 ml Ondansetron HCl (Zofran Odt) 8 mg PO Q8 PRN PRN Reason: Nausea/Vomiting Last Admin: 06/28/18 23:52 Dose: 8 mg Oxybutynin Chloride (Ditropan Tab) 5 mg PO DAILY [facility] Last Admin: 07/02/18 09:03 Dose: 5 mg Pantoprazole Sodium (Protonix Ec Tab) 40 mg PO DAILY [facility] Last Admin: 07/02/18 09:14 Dose: 40 mg Paroxetine HCl (Paxil) 40 mg PO DAILY [facility] Last Admin: 07/02/18 09:04 Dose: 40 mg Polyethylene Glycol (Miralax) 17 gm PO BID PRN PRN Reason: Constipation Last Admin: 07/01/18 16:29 Dose: 17 gm Prednisone (Prednisone Tab) 20 mg PO DAILY [facility] Last Admin: 07/02/18 09:05 Dose: 20 mg Prochlorperazine (Compazine Tab) 10 mg PO Q6 PRN PRN Reason: Nausea/Vomiting Sennosides (Senokot Tab) 8.6 mg PO BID PRN PRN Reason: Constipation Tamsulosin HCl (Flomax) 0.4 mg PO DAILY [facility] Last Admin: 07/02/18 09:03 Dose: 0.4 mg Triamcinolone Acetonide (Kenalog 0.1% Cream) 1 appl TOP Q12 [facility] Last Admin: 07/02/18 09:16 Dose: 1 appl - Labs Labs: 07/02/18 05:15 07/02/18 05:15 - Respiratory Exam Respiratory Exam: NORMAL BREATHING PATTERN - Cardiovascular Exam Cardiovascular Exam: REGULAR RHYTHM - GI/Abdominal Exam GI & Abdominal Exam: Normal Bowel Sounds Assessment and Plan - Assessment and Plan (Free Text) Assessment: Acute Hypercapnic Ventilatory Failure Pneumonia Hx Prostate cancer / sarcoma with metastatic dx to the lung Hx COPD Asthma COSA Intubated on ventillator Pulmonary ID [id number] Neutropenia Sepsis? WBC improved Mucositis/ Thrush 2 to chemotherapy Oncology Topical Chronic pain Pain management consult
[2018-07-03] MEDS: Meropenem 1 GM in Sodium Chloride 0.9% 100 ML IVPB SCH ×3 (00:15→16:02)
[2018-07-03] MEDS: Insulin Lispro (humaLOG) 100 Units/ml Inj SC SCH ×3 (00:38→12:00)
[2018-07-03] MEDS: Lidocaine 5% Patch TD PRN ×2 (00:39→09:13)
[2018-07-03 05:31] LABS: HEMOGLOBIN 9.8 g/dL (12.0-18.0); MEAN CELL VOLUME 80.6 fl (80.0-94.0); MEAN CORPUSCULAR HEMOGLOBIN 25.6 pg (27.0-31.0); MEAN CORPUSCULAR HGB CONC 31.8 g/dL (33.0-37.0); RBC 3.82 Mil/uL (4.40-5.90); RED CELL DISTRIBUTION WIDTH 18.9 % (11.5-14.5)
[2018-07-03 05:42] LABS: WHITE BLOOD COUNT 12.8 K/uL (4.8-10.8)
[2018-07-03 05:45] LABS: BLOOD UREA NITROGEN 11 mg/dl (9-20); CALCIUM 8.9 mg/dL (8.4-10.2); GFR NON-AFRICAN AMERICAN > 60
[2018-07-03 06:30] LABS: ABG ALLEN TEST YES; ARTERIAL BLOOD GAS HCO3 29.8 mmol/L (21-28); ARTERIAL BLOOD GAS O2 SAT 98.8 % (95-98); ARTERIAL BLOOD GAS PCO2 51 mm/Hg (35-45); ARTERIAL BLOOD GAS PH 7.41 (7.35-7.45); ARTERIAL BLOOD GAS PO2 89 mm/Hg (80-100); ARTERIAL BLOOD GAS TCO2 33.9 mmol/L (22-28)
[2018-07-03] MEDS: Insulin Detemir 100 Units/ml Inj SC SCH (06:36)
[2018-07-03] MEDS: Albuterol-Ipratrop 3 mg / 0.5 (3 ml) UD INH SCH ×4 (07:43→19:00)
[2018-07-03] MEDS: Budesonide 0.5 mg/2 ml Inhal Susp UD IH SCH ×2 (07:46→19:03)
--- NOTE | 2018-07-03 08:05 | RAD ---
Date of service: 07/03/2018 HISTORY: intubated COMPARISON: Portable chest 07/02/2018 4:37 a.m.. FINDINGS: LUNGS: Endotracheal tube is unchanged in position as well as right MediPort. There is further loss of aerated lung at the mid to inferior left lung zone due to increased/pleural effusion at the left hemithorax with with stable right lung reflecting no infiltrate or pleural effusion grossly. No pneumothorax bilaterally. PLEURA: As above. CARDIOVASCULAR: No thoracic aortic calcified atherosclerosis. Cardiac size obscured as well as left hilar vascular markings. Normal right hilar vascular markings. OSSEOUS STRUCTURES: Gross thoracic scoliotic deformity reiterated. VISUALIZED UPPER ABDOMEN: Normal. OTHER FINDINGS: None. IMPRESSION: Worsening of left-sided pulmonary opacity with minimal residual aerated left lung. No right pleural effusion or pneumothorax.
--- NOTE | 2018-07-03 08:43 | CP.PCM.PN ---
<JayyJudy bajwa - Last Filed: 07/03/18 08:33> Subjective - Date & Time of Evaluation Date of Evaluation: 07/03/18 Time of Evaluation: 08:33 - Subjective Subjective: General Surgery Note for Dr. Jefferson Patient seen and evaluated at bedside. Patient remains intubated and is currently on mechanical ventilation. Patient denies any acute overnight events. Patient denies any complaints of fever, nausea, vomiting, shortness of breath or chest pain Objective - Vital Signs/Intake and Output Vital Signs (last 24 hours): Temp Pulse Resp BP Pulse Ox 98.1 F 93 H 22 98/47 L 96 07/03/18 08:00 07/03/18 08:00 07/03/18 08:00 07/03/18 08:00 07/03/18 08:00 Intake and Output: 07/03/18 07/03/18 06:59 18:59 Intake Total 550 4 Output Total 600 Balance -50 4 - Medications Medications: Current Medications Acyclovir (Zovirax) 800 mg PO TID [facility]; Protocol Last Admin: 07/02/18 16:34 Dose: 800 mg Albuterol Sulfate (Albuterol 0.083% Inhal Emilia (2.5 Mg/3 Ml) Ud) 2.5 mg INH RQ4 PRN PRN Reason: Shortness of Breath Last Admin: 06/28/18 23:41 Dose: 2.5 mg Albuterol/Ipratropium (Duoneb 3 Mg/0.5 Mg (3 Ml) Ud) 3 ml INH RQID [facility] Last Admin: 07/03/18 07:43 Dose: 3 ml Atorvastatin Calcium (Lipitor) 20 mg PO DAILY [facility] Last Admin: 07/02/18 09:15 Dose: 20 mg Bisacodyl (Dulcolax) 10 mg PO DAILY PRN PRN Reason: Constipation Last Admin: 06/28/18 08:09 Dose: 10 mg Budesonide (Pulmicort Respules) 0.5 mg IH RBID [facility] Last Admin: 07/03/18 07:46 Dose: 0.5 mg Docusate Sodium (Colace) 100 mg PO Q8 PRN PRN Reason: Constipation Enoxaparin Sodium (Lovenox) 40 mg SC DAILY [facility]; Protocol Last Admin: 07/02/18 09:02 Dose: 40 mg Fluticasone Propionate (Flonase) 2 spr TIM DAILY [facility] Last Admin: 07/02/18 09:17 Dose: 2 spr Meropenem 1 gm/ Sodium (Chloride) 100 mls @ 100 mls/hr IVPB Q8 [facility]; Protocol Last Admin: 07/03/18 00:15 Dose: 100 mls/hr Micafungin Sodium 100 mg/ (Sodium Chloride) 100 mls @ 100 mls/hr IVPB DAILY [facility]; Protocol Last Admin: 07/02/18 09:47 Dose: 100 mls/hr Vancomycin HCl 1 gm/ Sodium (Chloride) 250 mls @ 166.667 mls/hr IVPB Q12H [facility]; Protocol Last Admin: 07/03/18 03:34 Dose: 166.667 mls/hr Insulin Detemir (Levemir) 14 units SC Q12@0600,1800 [facility] Last Admin: 07/03/18 06:36 Dose: Not Given Insulin Human Lispro (Humalog) 0 units SC 0000,0600,1200,1800 [facility] Last Admin: 07/03/18 06:36 Dose: Not Given Lactulose (Enulose) 20 gm PO DAILY PRN PRN Reason: Constipation Last Admin: 07/02/18 20:44 Dose: 20 gm Lidocaine (Lidoderm) 1 ea TD DAILY PRN PRN Reason: Pain, moderate (4-7) Last Admin: 07/03/18 00:39 Dose: 1 ea Methadone HCl (Methadone) 25 mg PO Q12 [facility] Last Admin: 07/02/18 20:45 Dose: 25 mg Montelukast Sodium (Singulair) 10 mg PO DAILY [facility] Last Admin: 07/02/18 09:15 Dose: 10 mg Nystatin (Nystatin Oral Susp) 5 ml PO QID [facility] Last Admin: 07/02/18 09:02 Dose: 5 ml Ondansetron HCl (Zofran Odt) 8 mg PO Q8 PRN PRN Reason: Nausea/Vomiting Last Admin: 06/28/18 23:52 Dose: 8 mg Oxybutynin Chloride (Ditropan Tab) 5 mg PO DAILY [facility] Last Admin: 07/02/18 09:03 Dose: 5 mg Pantoprazole Sodium (Protonix Ec Tab) 40 mg PO DAILY [facility] Last Admin: 07/02/18 09:14 Dose: 40 mg Paroxetine HCl (Paxil) 40 mg PO DAILY [facility] Last Admin: 07/02/18 09:04 Dose: 40 mg Polyethylene Glycol (Miralax) 17 gm PO BID PRN PRN Reason: Constipation Last Admin: 07/01/18 16:29 Dose: 17 gm Prednisone (Prednisone Tab) 20 mg PO DAILY [facility] Last Admin: 07/02/18 09:05 Dose: 20 mg Prochlorperazine (Compazine Tab) 10 mg PO Q6 PRN PRN Reason: Nausea/Vomiting Sennosides (Senokot Tab) 8.6 mg PO BID PRN PRN Reason: Constipation Tamsulosin HCl (Flomax) 0.4 mg PO DAILY [facility] Last Admin: 07/02/18 09:03 Dose: 0.4 mg Triamcinolone Acetonide (Kenalog 0.1% Cream) 1 appl TOP Q12 [facility] Last Admin: 07/02/18 20:47 Dose: 1 appl - Labs Labs: 07/03/18 04:27 07/03/18 04:27 - Constitutional Appears: No Acute Distress (intubated) - Head Exam Head Exam: ATRAUMATIC, NORMOCEPHALIC - Eye Exam Eye Exam: EOMI, Normal appearance, PERRL - ENT Exam ENT Exam: Mucous Membranes Moist - Respiratory Exam Additional comments: intubated on ventilator - GI/Abdominal Exam GI & Abdominal Exam: Soft. 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 Li Hope PGY1 <Kumar Wood - Last Filed: 07/04/18 08:05> Subjective - Subjective Subjective: Mr. Fuentes was sucessfully extubated to BIPAP, no surgical management indicated at this time. Objective - Vital Signs/Intake and Output Vital Signs (last 24 hours): Temp Pulse Resp BP Pulse Ox 98.0 F 94 H 16 129/62 97 07/04/18 04:00 07/04/18 06:00 07/04/18 06:00 07/04/18 06:00 07/04/18 06:00 Intake and Output: 07/04/18 07/04/18 06:59 18:59 Intake Total 368 Output Total 250 Balance 118 - Medications Medications: Current Medications Acetylcysteine (Acetylcysteine 20%) 2 ml INH RTID PRN PRN Reason: congestion Last Admin: 07/04/18 06:29 Dose: 2 ml Acyclovir (Zovirax) 800 mg PO TID [facility]; Protocol Last Admin: 07/03/18 16:03 Dose: Not Given Albuterol Sulfate (Albuterol 0.083% Inhal Emilia (2.5 Mg/3 Ml) Ud) 2.5 mg INH RQ4 PRN PRN Reason: Shortness of Breath Last Admin: 07/04/18 06:29 Dose: 2.5 mg Albuterol/Ipratropium (Duoneb 3 Mg/0.5 Mg (3 Ml) Ud) 3 ml INH RQID [facility] Last Admin: 07/04/18 07:42 Dose: 3 ml Atorvastatin Calcium (Lipitor) 20 mg PO DAILY [facility] Last Admin: 07/03/18 09:18 Dose: Not Given Bisacodyl (Dulcolax) 10 mg PO DAILY PRN PRN Reason: Constipation Last Admin: 06/28/18 08:09 Dose: 10 mg Budesonide (Pulmicort Respules) 0.5 mg IH RBID [facility] Last Admin: 07/04/18 07:42 Dose: 0.5 mg Docusate Sodium (Colace) 100 mg PO Q8 PRN PRN Reason: Constipation Enoxaparin Sodium (Lovenox) 40 mg SC DAILY [facility]; Protocol Last Admin: 07/03/18 09:18 Dose: 40 mg Fluticasone Propionate (Flonase) 2 spr TIM DAILY [facility] Last Admin: 07/03/18 09:15 Dose: Not Given Meropenem 1 gm/ Sodium (Chloride) 100 mls @ 100 mls/hr IVPB Q8 [facility]; Protocol Last Admin: 07/04/18 01:07 Dose: 100 mls/hr Micafungin Sodium 100 mg/ (Sodium Chloride) 100 mls @ 100 mls/hr IVPB DAILY [facility] ; Protocol Last Admin: 07/03/18 09:46 Dose: 100 mls/hr Vancomycin HCl 1 gm/ Sodium (Chloride) 250 mls @ 166.667 mls/hr IVPB Q12H [facility]; Protocol Last Admin: 07/04/18 02:10 Dose: 166.667 mls/hr Insulin Detemir (Levemir) 14 units SC Q12@0600,1800 [facility] Last Admin: 07/04/18 06:19 Dose: Not Given Insulin Human Lispro (Humalog) 0 units SC 0000,0600,1200,1800 [facility] Last Admin: 07/04/18 06:11 Dose: Not Given Lactulose (Enulose) 20 gm PO DAILY PRN PRN Reason: Constipation Last Admin: 07/02/18 20:44 Dose: 20 gm Lidocaine (Lidoderm) 1 ea TD DAILY PRN PRN Reason: Pain, moderate (4-7) Last Admin: 07/03/18 09:13 Dose: 1 ea Methadone HCl (Methadone) 25 mg PO Q12 [facility] Last Admin: 07/03/18 21:07 Dose: Not Given Montelukast Sodium (Singulair) 10 mg PO DAILY [facility] Last Admin: 07/03/18 09:38 Dose: Not Given Nystatin (Nystatin Oral Susp) 5 ml PO QID [facility] Last Admin: 07/02/18 09:02 Dose: 5 ml Ondansetron HCl (Zofran Odt) 8 mg PO Q8 PRN PRN Reason: Nausea/Vomiting Last Admin: 06/28/18 23:52 Dose: 8 mg Oxybutynin Chloride (Ditropan Tab) 5 mg PO DAILY [facility] Last Admin: 07/03/18 09:33 Dose: Not Given Pantoprazole Sodium (Protonix Ec Tab) 40 mg PO DAILY [facility] Last Admin: 07/03/18 09:38 Dose: Not Given Paroxetine HCl (Paxil) 40 mg PO DAILY [facility] Last Admin: 07/03/18 09:37 Dose: Not Given Polyethylene Glycol (Miralax) 17 gm PO BID PRN PRN Reason: Constipation Last Admin: 07/01/18 16:29 Dose: 17 gm Prednisone (Prednisone Tab) 20 mg PO DAILY [facility] Last Admin: 07/03/18 09:37 Dose: Not Given Prochlorperazine (Compazine Tab) 10 mg PO Q6 PRN PRN Reason: Nausea/Vomiting Sennosides (Senokot Tab) 8.6 mg PO BID PRN PRN Reason: Constipation Tamsulosin HCl (Flomax) 0.4 mg PO DAILY [facility] Last Admin: 07/03/18 09:17 Dose: Not Given Triamcinolone Acetonide (Kenalog 0.1% Cream) 1 appl TOP Q12 [facility] Last Admin: 07/03/18 21:12 Dose: 1 appl - Labs Labs: 07/04/18 04:00 07/04/18 05:05
--- NOTE | 2018-07-03 09:12 | CP.PCM.PN ---
Subjective - Date & Time of Evaluation Date of Evaluation: 07/03/18 Time of Evaluation: 09:09 - Subjective Subjective: Interim events reviewed. EMR entries, lab results and AM chest x-ray reviewed. Had begun weaning yesterday without incident. Placed back on SIMV overnight. Tmax yesterday morning 100 degrees. Normotensive. WBC up to 12 this morning. Hgb and platelets stable. ABG done this morning on SIMV was okay. PAP 20cm, RR 18, scant white secretions suctioned from ETT. Culture of tracheal aspirate reported 'normal killian'. Awake, interactive, writing comments, denies pain. No cyanosis, extremities warm and pink, clean dressings both calfs. OGT out overnight, conjunctivae pink and anicteric. Neck is supple and trachea deviated -> right. No dullness over right thorax, + dullness over left. Breath sounds well heard in right lung w/o wheezes or bronchial BS. Few dry rales. Left lung BS absent except at the base. No wheezes or bronchial BS. Heart sounds distant, rhythm regular. Abdomen is obese and non-tender with + BS. Will resume weaning this morning. Initial setting CPAP/PS 5/15/30%. If breathing remains comfortable in one hour reduce above to 08/24/30. Arterial blood gas to be done on 08/24/29. If stable consider T-bar and extubation. Above scenario discussed with solutions architect. Objective - Vital Signs/Intake and Output Vital Signs (last 24 hours): Temp Pulse Resp BP Pulse Ox 98.1 F 93 H 22 98/47 L 96 07/03/18 08:00 07/03/18 08:00 07/03/18 08:00 07/03/18 08:00 07/03/18 08:00 Intake and Output: 07/02/18 07/03/18 23:59 11:59 Intake Total 1430 354 Output Total 1300 600 Balance 130 -246 - Medications Medications: Current Medications Acyclovir (Zovirax) 800 mg PO TID [facility]; Protocol Last Admin: 07/02/18 16:34 Dose: 800 mg Albuterol Sulfate (Albuterol 0.083% Inhal Emilia (2.5 Mg/3 Ml) Ud) 2.5 mg INH RQ4 PRN PRN Reason: Shortness of Breath Last Admin: 06/28/18 23:41 Dose: 2.5 mg Albuterol/Ipratropium (Duoneb 3 Mg/0.5 Mg (3 Ml) Ud) 3 ml INH RQID [facility] Last Admin: 07/03/18 07:43 Dose: 3 ml Atorvastatin Calcium (Lipitor) 20 mg PO DAILY [facility] Last Admin: 07/02/18 09:15 Dose: 20 mg Bisacodyl (Dulcolax) 10 mg PO DAILY PRN PRN Reason: Constipation Last Admin: 06/28/18 08:09 Dose: 10 mg Budesonide (Pulmicort Respules) 0.5 mg IH RBID [facility] Last Admin: 07/03/18 07:46 Dose: 0.5 mg Docusate Sodium (Colace) 100 mg PO Q8 PRN PRN Reason: Constipation Enoxaparin Sodium (Lovenox) 40 mg SC DAILY [facility]; Protocol Last Admin: 07/02/18 09:02 Dose: 40 mg Fluticasone Propionate (Flonase) 2 spr TIM DAILY [facility] Last Admin: 07/02/18 09:17 Dose: 2 spr Meropenem 1 gm/ Sodium (Chloride) 100 mls @ 100 mls/hr IVPB Q8 [facility]; Protocol Last Admin: 07/03/18 00:15 Dose: 100 mls/hr Micafungin Sodium 100 mg/ (Sodium Chloride) 100 mls @ 100 mls/hr IVPB DAILY [facility]; Protocol Last Admin: 07/02/18 09:47 Dose: 100 mls/hr Vancomycin HCl 1 gm/ Sodium (Chloride) 250 mls @ 166.667 mls/hr IVPB Q12H [facility]; Protocol Last Admin: 07/03/18 03:34 Dose: 166.667 mls/hr Insulin Detemir (Levemir) 14 units SC Q12@0600,1800 [facility] Last Admin: 07/03/18 06:36 Dose: Not Given Insulin Human Lispro (Humalog) 0 units SC 0000,0600,1200,1800 [facility] Last Admin: 07/03/18 06:36 Dose: Not Given Lactulose (Enulose) 20 gm PO DAILY PRN PRN Reason: Constipation Last Admin: 07/02/18 20:44 Dose: 20 gm Lidocaine (Lidoderm) 1 ea TD DAILY PRN PRN Reason: Pain, moderate (4-7) Last Admin: 07/03/18 00:39 Dose: 1 ea Methadone HCl (Methadone) 25 mg PO Q12 [facility] Last Admin: 07/02/18 20:45 Dose: 25 mg Montelukast Sodium (Singulair) 10 mg PO DAILY [facility] Last Admin: 07/02/18 09:15 Dose: 10 mg Nystatin (Nystatin Oral Susp) 5 ml PO QID [facility] Last Admin: 07/02/18 09:02 Dose: 5 ml Ondansetron HCl (Zofran Odt) 8 mg PO Q8 PRN PRN Reason: Nausea/Vomiting Last Admin: 06/28/18 23:52 Dose: 8 mg Oxybutynin Chloride (Ditropan Tab) 5 mg PO DAILY [facility] Last Admin: 07/02/18 09:03 Dose: 5 mg Pantoprazole Sodium (Protonix Ec Tab) 40 mg PO DAILY [facility] Last Admin: 07/02/18 09:14 Dose: 40 mg Paroxetine HCl (Paxil) 40 mg PO DAILY [facility] Last Admin: 07/02/18 09:04 Dose: 40 mg Polyethylene Glycol (Miralax) 17 gm PO BID PRN PRN Reason: Constipation Last Admin: 07/01/18 16:29 Dose: 17 gm Prednisone (Prednisone Tab) 20 mg PO DAILY [facility] Last Admin: 07/02/18 09:05 Dose: 20 mg Prochlorperazine (Compazine Tab) 10 mg PO Q6 PRN PRN Reason: Nausea/Vomiting Sennosides (Senokot Tab) 8.6 mg PO BID PRN PRN Reason: Constipation Tamsulosin HCl (Flomax) 0.4 mg PO DAILY [facility] Last Admin: 07/02/18 09:03 Dose: 0.4 mg Triamcinolone Acetonide (Kenalog 0.1% Cream) 1 appl TOP Q12 [facility] Last Admin: 07/02/18 20:47 Dose: 1 appl - Labs Labs: 07/03/18 04:27 07/03/18 04:27 Assessment and Plan (1) Acute respiratory failure with hypercapnia Status: Acute (2) Oral thrush Status: Resolved (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
[2018-07-03] MEDS: Enoxaparin 40 mg Syringe SC SCH (09:18)
[2018-07-03] MEDS: Pantoprazole 40 mg EC Tab PO SCH (09:38)
[2018-07-03] MEDS: Micafungin 100 MG in Sodium Chloride 0.9% 100 ML IVPB SCH (09:46)
--- NOTE | 2018-07-03 10:20 | CP.PCM.PN ---
Subjective - Date & Time of Evaluation Date of Evaluation: 07/03/18 Time of Evaluation: 10:16 - Subjective Subjective: Podiatry Progress Note: Dr. Myrick Patient seen and evaluated this AM in ICU for b/l LE erythema, edema, and superficial ulceration. Patient resting comfortably and in NAD at this time. He denies pain to b/l lower extremities at this time. Denies nausea/vomiting/fever/shortness of breath/chest pain. Objective - Vital Signs/Intake and Output Vital Signs (last 24 hours): Temp Pulse Resp BP Pulse Ox 98.1 F 93 H 22 98/47 L 96 07/03/18 08:00 07/03/18 08:00 07/03/18 08:00 07/03/18 08:00 07/03/18 08:00 Intake and Output: 07/03/18 07/03/18 06:59 18:59 Intake Total 550 4 Output Total 600 Balance -50 4 - Medications Medications: Current Medications Acyclovir (Zovirax) 800 mg PO TID [facility]; Protocol Last Admin: 07/03/18 09:39 Dose: Not Given Albuterol Sulfate (Albuterol 0.083% Inhal Emilia (2.5 Mg/3 Ml) Ud) 2.5 mg INH RQ4 PRN PRN Reason: Shortness of Breath Last Admin: 06/28/18 23:41 Dose: 2.5 mg Albuterol/Ipratropium (Duoneb 3 Mg/0.5 Mg (3 Ml) Ud) 3 ml INH RQID [facility] Last Admin: 07/03/18 07:43 Dose: 3 ml Atorvastatin Calcium (Lipitor) 20 mg PO DAILY [facility] Last Admin: 07/03/18 09:18 Dose: Not Given Bisacodyl (Dulcolax) 10 mg PO DAILY PRN PRN Reason: Constipation Last Admin: 06/28/18 08:09 Dose: 10 mg Budesonide (Pulmicort Respules) 0.5 mg IH RBID [facility] Last Admin: 07/03/18 07:46 Dose: 0.5 mg Docusate Sodium (Colace) 100 mg PO Q8 PRN PRN Reason: Constipation Enoxaparin Sodium (Lovenox) 40 mg SC DAILY [facility]; Protocol Last Admin: 07/03/18 09:18 Dose: 40 mg Fluticasone Propionate (Flonase) 2 spr TIM DAILY [facility] Last Admin: 07/03/18 09:15 Dose: Not Given Meropenem 1 gm/ Sodium (Chloride) 100 mls @ 100 mls/hr IVPB Q8 [facility]; Protocol Last Admin: 07/03/18 09:19 Dose: 100 mls/hr Micafungin Sodium 100 mg/ (Sodium Chloride) 100 mls @ 100 mls/hr IVPB DAILY [facility]; Protocol Last Admin: 07/03/18 09:46 Dose: 100 mls/hr Vancomycin HCl 1 gm/ Sodium (Chloride) 250 mls @ 166.667 mls/hr IVPB Q12H [facility]; Protocol Last Admin: 07/03/18 03:34 Dose: 166.667 mls/hr Insulin Detemir (Levemir) 14 units SC Q12@0600,1800 [facility] Last Admin: 07/03/18 06:36 Dose: Not Given Insulin Human Lispro (Humalog) 0 units SC 0000,0600,1200,1800 [facility] Last Admin: 07/03/18 06:36 Dose: Not Given Lactulose (Enulose) 20 gm PO DAILY PRN PRN Reason: Constipation Last Admin: 07/02/18 20:44 Dose: 20 gm Lidocaine (Lidoderm) 1 ea TD DAILY PRN PRN Reason: Pain, moderate (4-7) Last Admin: 07/03/18 09:13 Dose: 1 ea Methadone HCl (Methadone) 25 mg PO Q12 [facility] Last Admin: 07/03/18 09:35 Dose: Not Given Montelukast Sodium (Singulair) 10 mg PO DAILY [facility] Last Admin: 07/03/18 09:38 Dose: Not Given Nystatin (Nystatin Oral Susp) 5 ml PO QID [facility] Last Admin: 07/02/18 09:02 Dose: 5 ml Ondansetron HCl (Zofran Odt) 8 mg PO Q8 PRN PRN Reason: Nausea/Vomiting Last Admin: 06/28/18 23:52 Dose: 8 mg Oxybutynin Chloride (Ditropan Tab) 5 mg PO DAILY [facility] Last Admin: 07/03/18 09:33 Dose: Not Given Pantoprazole Sodium (Protonix Ec Tab) 40 mg PO DAILY [facility] Last Admin: 07/03/18 09:38 Dose: Not Given Paroxetine HCl (Paxil) 40 mg PO DAILY [facility] Last Admin: 07/03/18 09:37 Dose: Not Given Polyethylene Glycol (Miralax) 17 gm PO BID PRN PRN Reason: Constipation Last Admin: 07/01/18 16:29 Dose: 17 gm Prednisone (Prednisone Tab) 20 mg PO DAILY [facility] Last Admin: 07/03/18 09:37 Dose: Not Given Prochlorperazine (Compazine Tab) 10 mg PO Q6 PRN PRN Reason: Nausea/Vomiting Sennosides (Senokot Tab) 8.6 mg PO BID PRN PRN Reason: Constipation Tamsulosin HCl (Flomax) 0.4 mg PO DAILY [facility] Last Admin: 07/03/18 09:17 Dose: Not Given Triamcinolone Acetonide (Kenalog 0.1% Cream) 1 appl TOP Q12 [facility] Last Admin: 07/03/18 09:15 Dose: 1 appl - Labs Labs: 07/03/18 04:27 07/03/18 04:27 - Constitutional Appears: Non-toxic, No Acute Distress - Head Exam Head Exam: ATRAUMATIC, NORMOCEPHALIC - Extremities Exam Additional comments: B/L LE focused exam: Vasc: DP and PT pulses palpable 1/4 due to edema; cap refill <3 seconds to all d igits; Temp gradient Warm to warm; +2 pitting edema noted b/l. Ortho: No pain on palpation of left lower extremity mid leg. Neuro: Gross and protective sensation diminished. Derm: Superficial stasis ulcerations noted on the R anterior aspect of the leg measuring 3.4 cm X 2.5 cm x 0.1, with fibrotic base, no active drainage , no depth appreciated. An ulcer noted on the anterior aspect of L leg measuring 1.2 cm X 1.2 cm X 0.2 cm with fibrogranular base, no drainage, no tracking, undermining or probe to bone. Mild erythema extends from the ankle to the upper 1/3 of the leg b/l, significantly improved wounds, no weeping appreciated at this time. - Neurological Exam Neurological Exam: Alert, Awake, Oriented x3 - Psychiatric Exam Psychiatric exam: Normal Affect, Normal Mood Assessment and Plan - Assessment and Plan (Free Text) Assessment: 62M with b/l LE erythema, edema and superficial ulceration. Plan: Patient seen and evaluated at the bedside with [place] Afebrile, WBC 12.8 B/L wound cultures: MRSA Continue IV Abx as per primary team. B/L Venous duplex B/L LE dressed with DSD and adaptic Will continue to follow up the patient while patient in house
--- NOTE | 2018-07-03 10:56 | CP.PCM.PN ---
Subjective - Date & Time of Evaluation Date of Evaluation: 07/03/18 Time of Evaluation: 08:00 - Subjective Subjective: LESS FEVER WEANING IN PROGRESS INTUBATED NAD Objective - Vital Signs/Intake and Output Vital Signs (last 24 hours): Temp Pulse Resp BP Pulse Ox 98.1 F 93 H 22 98/47 L 96 07/03/18 08:00 07/03/18 08:00 07/03/18 08:00 07/03/18 08:00 07/03/18 08:00 Intake and Output: 07/03/18 07/03/18 06:59 18:59 Intake Total 550 4 Output Total 600 Balance -50 4 - Medications Medications: Current Medications Acyclovir (Zovirax) 800 mg PO TID BENI; Protocol Last Admin: 07/03/18 09:39 Dose: Not Given Albuterol Sulfate (Albuterol 0.083% Inhal Emilia (2.5 Mg/3 Ml) Ud) 2.5 mg INH RQ4 PRN PRN Reason: Shortness of Breath Last Admin: 06/28/18 23:41 Dose: 2.5 mg Albuterol/Ipratropium (Duoneb 3 Mg/0.5 Mg (3 Ml) Ud) 3 ml INH RQID BENI Last Admin: 07/03/18 07:43 Dose: 3 ml Atorvastatin Calcium (Lipitor) 20 mg PO DAILY BENI Last Admin: 07/03/18 09:18 Dose: Not Given Bisacodyl (Dulcolax) 10 mg PO DAILY PRN PRN Reason: Constipation Last Admin: 06/28/18 08:09 Dose: 10 mg Budesonide (Pulmicort Respules) 0.5 mg IH RBID BENI Last Admin: 07/03/18 07:46 Dose: 0.5 mg Docusate Sodium (Colace) 100 mg PO Q8 PRN PRN Reason: Constipation Enoxaparin Sodium (Lovenox) 40 mg SC DAILY [facility]ENI; Protocol Last Admin: 07/03/18 09:18 Dose: 40 mg Fluticasone Propionate (Flonase) 2 spr TIM DAILY [facility] Last Admin: 07/03/18 09:15 Dose: Not Given Meropenem 1 gm/ Sodium (Chloride) 100 mls @ 100 mls/hr IVPB Q8 BENI; Protocol Last Admin: 07/03/18 09:19 Dose: 100 mls/hr Micafungin Sodium 100 mg/ (Sodium Chloride) 100 mls @ 100 mls/hr IVPB DAILY [facility]; Protocol Last Admin: 07/03/18 09:46 Dose: 100 mls/hr Vancomycin HCl 1 gm/ Sodium (Chloride) 250 mls @ 166.667 mls/hr IVPB Q12H [facility]; Protocol Last Admin: 07/03/18 03:34 Dose: 166.667 mls/hr Insulin Detemir (Levemir) 14 units SC Q12@0600,1800 [facility] Last Admin: 07/03/18 06:36 Dose: Not Given Insulin Human Lispro (Humalog) 0 units SC 0000,0600,1200,1800 [facility] Last Admin: 07/03/18 06:36 Dose: Not Given Lactulose (Enulose) 20 gm PO DAILY PRN PRN Reason: Constipation Last Admin: 07/02/18 20:44 Dose: 20 gm Lidocaine (Lidoderm) 1 ea TD DAILY PRN PRN Reason: Pain, moderate (4-7) Last Admin: 07/03/18 09:13 Dose: 1 ea Methadone HCl (Methadone) 25 mg PO Q12 [facility] Last Admin: 07/03/18 09:35 Dose: Not Given Montelukast Sodium (Singulair) 10 mg PO DAILY [facility] Last Admin: 07/03/18 09:38 Dose: Not Given Nystatin (Nystatin Oral Susp) 5 ml PO QID [facility] Last Admin: 07/02/18 09:02 Dose: 5 ml Ondansetron HCl (Zofran Odt) 8 mg PO Q8 PRN PRN Reason: Nausea/Vomiting Last Admin: 06/28/18 23:52 Dose: 8 mg Oxybutynin Chloride (Ditropan Tab) 5 mg PO DAILY [facility] Last Admin: 07/03/18 09:33 Dose: Not Given Pantoprazole Sodium (Protonix Ec Tab) 40 mg PO DAILY [facility] Last Admin: 07/03/18 09:38 Dose: Not Given Paroxetine HCl (Paxil) 40 mg PO DAILY [facility] Last Admin: 07/03/18 09:37 Dose: Not Given Polyethylene Glycol (Miralax) 17 gm PO BID PRN PRN Reason: Constipation Last Admin: 07/01/18 16:29 Dose: 17 gm Prednisone (Prednisone Tab) 20 mg PO DAILY [facility] Last Admin: 07/03/18 09:37 Dose: Not Given Prochlorperazine (Compazine Tab) 10 mg PO Q6 PRN PRN Reason: Nausea/Vomiting Sennosides (Senokot Tab) 8.6 mg PO BID PRN PRN Reason: Constipation Tamsulosin HCl (Flomax) 0.4 mg PO DAILY [facility] Last Admin: 07/03/18 09:17 Dose: Not Given Triamcinolone Acetonide (Kenalog 0.1% Cream) 1 appl TOP Q12 [facility] Last Admin: 07/03/18 09:15 Dose: 1 appl - Labs Labs: 07/03/18 04:27 07/03/18 04:27 - Constitutional Appears: Non-toxic, Chronically Ill - Head Exam Head Exam: ATRAUMATIC, NORMAL INSPECTION, NORMOCEPHALIC Additional comments: ETT in place - Eye Exam Eye Exam: EOMI, Normal appearance, PERRL Pupil Exam: NORMAL ACCOMODATION, PERRL - ENT Exam ENT Exam: Mucous Membranes Moist, Normal Exam - Neck Exam Neck Exam: Full ROM, Normal Inspection. absent: Lymphadenopathy - Respiratory Exam Respiratory Exam: Clear to Ausculation Bilateral, NORMAL BREATHING PATTERN - Cardiovascular Exam Cardiovascular Exam: REGULAR RHYTHM, +S1, +S2. absent: Murmur - GI/Abdominal Exam GI & Abdominal Exam: Soft, Normal Bowel Sounds. absent: Tenderness - Rectal Exam Rectal Exam: Deferred - Exam Exam: NORMAL INSPECTION - Extremities Exam Extremities Exam: Full ROM, Normal Capillary Refill, Normal Inspection. absent: Joint Swelling, Pedal Edema - Back Exam Back Exam: NORMAL INSPECTION - Neurological Exam Neurological Exam: Alert, Awake, CN II-XII Intact, Normal Gait, Oriented x3 - Psychiatric Exam Psychiatric exam: Normal Affect, Normal Mood - Skin Skin Exam: Dry, Erythema, Warm. 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
--- NOTE | 2018-07-03 11:15 | CP.PCM.PN ---
Subjective - Date & Time of Evaluation Date of Evaluation: 07/03/18 Time of Evaluation: 09:30 - Subjective Subjective: NO CHEST PAIN Objective - Vital Signs/Intake and Output Vital Signs (last 24 hours): Temp Pulse Resp BP Pulse Ox 98.1 F 93 H 22 98/47 L 96 07/03/18 08:00 07/03/18 08:00 07/03/18 08:00 07/03/18 08:00 07/03/18 08:00 Intake and Output: 07/03/18 07/03/18 06:59 18:59 Intake Total 550 4 Output Total 600 Balance -50 4 - Medications Medications: Current Medications Acyclovir (Zovirax) 800 mg PO TID [facility]; Protocol Last Admin: 07/03/18 09:39 Dose: Not Given Albuterol Sulfate (Albuterol 0.083% Inhal Emilia (2.5 Mg/3 Ml) Ud) 2.5 mg INH RQ4 PRN PRN Reason: Shortness of Breath Last Admin: 06/28/18 23:41 Dose: 2.5 mg Albuterol/Ipratropium (Duoneb 3 Mg/0.5 Mg (3 Ml) Ud) 3 ml INH RQID BENI Last Admin: 07/03/18 11:02 Dose: 3 ml Atorvastatin Calcium (Lipitor) 20 mg PO DAILY [facility] Last Admin: 07/03/18 09:18 Dose: Not Given Bisacodyl (Dulcolax) 10 mg PO DAILY PRN PRN Reason: Constipation Last Admin: 06/28/18 08:09 Dose: 10 mg Budesonide (Pulmicort Respules) 0.5 mg IH RBID [facility] Last Admin: 07/03/18 07:46 Dose: 0.5 mg Docusate Sodium (Colace) 100 mg PO Q8 PRN PRN Reason: Constipation Enoxaparin Sodium (Lovenox) 40 mg SC DAILY [facility]; Protocol Last Admin: 07/03/18 09:18 Dose: 40 mg Fluticasone Propionate (Flonase) 2 spr TIM DAILY [facility] Last Admin: 07/03/18 09:15 Dose: Not Given Meropenem 1 gm/ Sodium (Chloride) 100 mls @ 100 mls/hr IVPB Q8 [facility]; Protocol Last Admin: 07/03/18 09:19 Dose: 100 mls/hr Micafungin Sodium 100 mg/ (Sodium Chloride) 100 mls @ 100 mls/hr IVPB DAILY [facility]; Protocol Last Admin: 07/03/18 09:46 Dose: 100 mls/hr Vancomycin HCl 1 gm/ Sodium (Chloride) 250 mls @ 166.667 mls/hr IVPB Q12H [facility]; Protocol Last Admin: 07/03/18 03:34 Dose: 166.667 mls/hr Insulin Detemir (Levemir) 14 units SC Q12@0600,1800 [facility] Last Admin: 07/03/18 06:36 Dose: Not Given Insulin Human Lispro (Humalog) 0 units SC 0000,0600,1200,1800 [facility] Last Admin: 07/03/18 06:36 Dose: Not Given Lactulose (Enulose) 20 gm PO DAILY PRN PRN Reason: Constipation Last Admin: 07/02/18 20:44 Dose: 20 gm Lidocaine (Lidoderm) 1 ea TD DAILY PRN PRN Reason: Pain, moderate (4-7) Last Admin: 07/03/18 09:13 Dose: 1 ea Methadone HCl (Methadone) 25 mg PO Q12 [facility] Last Admin: 07/03/18 09:35 Dose: Not Given Montelukast Sodium (Singulair) 10 mg PO DAILY [facility] Last Admin: 07/03/18 09:38 Dose: Not Given Nystatin (Nystatin Oral Susp) 5 ml PO QID [facility] Last Admin: 07/02/18 09:02 Dose: 5 ml Ondansetron HCl (Zofran Odt) 8 mg PO Q8 PRN PRN Reason: Nausea/Vomiting Last Admin: 06/28/18 23:52 Dose: 8 mg Oxybutynin Chloride (Ditropan Tab) 5 mg PO DAILY [facility] Last Admin: 07/03/18 09:33 Dose: Not Given Pantoprazole Sodium (Protonix Ec Tab) 40 mg PO DAILY [facility] Last Admin: 07/03/18 09:38 Dose: Not Given Paroxetine HCl (Paxil) 40 mg PO DAILY [facility] Last Admin: 07/03/18 09:37 Dose: Not Given Polyethylene Glycol (Miralax) 17 gm PO BID PRN PRN Reason: Constipation Last Admin: 07/01/18 16:29 Dose: 17 gm Prednisone (Prednisone Tab) 20 mg PO DAILY [facility] Last Admin: 07/03/18 09:37 Dose: Not Given Prochlorperazine (Compazine Tab) 10 mg PO Q6 PRN PRN Reason: Nausea/Vomiting Sennosides (Senokot Tab) 8.6 mg PO BID PRN PRN Reason: Constipation Tamsulosin HCl (Flomax) 0.4 mg PO DAILY [facility] Last Admin: 07/03/18 09:17 Dose: Not Given Triamcinolone Acetonide (Kenalog 0.1% Cream) 1 appl TOP Q12 [facility] Last Admin: 07/03/18 09:15 Dose: 1 appl - Labs Labs: 07/03/18 04:27 07/03/18 04:27 - Respiratory Exam Respiratory Exam: Decreased Breath Sounds - Cardiovascular Exam Cardiovascular Exam: REGULAR RHYTHM, +S1, +S2 - Extremities Exam Extremities Exam: Pedal Edema - Additional Findings Additional findings: [employer] NOTES REVIEWED Assessment and Plan - Assessment and Plan (Free Text) Assessment: ANGIOSARCOMA WITH LUNG METASTASIS PNEUMONIA HYPERLIPIDEMIA DM Plan: FOR POSSIBLE EXTUBATION TODAY
[2018-07-03 12:15] LABS: ABG ALLEN TEST YES; ARTERIAL BLOOD GAS HCO3 31.4 mmol/L (21-28); ARTERIAL BLOOD GAS HEMOGLOBIN 10.2 g/dL (11.7-17.4); ARTERIAL BLOOD GAS O2 CONTENT 13.5 ML/dL (15-23); ARTERIAL BLOOD GAS O2 SAT 96.7 % (95-98); ARTERIAL BLOOD GAS PCO2 48 mm/Hg (35-45); ARTERIAL BLOOD GAS PH 7.45 (7.35-7.45); ARTERIAL BLOOD GAS PO2 69 mm/Hg (80-100); ARTERIAL BLOOD GAS TCO2 34.9 mmol/L (22-28)
--- NOTE | 2018-07-03 14:03 | CP.CCUPN ---
CCU Subjective - Physician Review Subjective (Free Text): 07/03/18 13:00 The patient was Seen/interviewed and examined by me at the bedside during ICU round, Medical records reviewed and Management issues were discussed and formulated with the house staff. 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 Yan Acuña) Who presented to the Emergency department on 06/26 with Complaint of throat pain since yesterday, states he was informed oral thrush is a side effect of his medications He was admitted with Symptoms likely due to fluid overload He was admitted for . 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 Patient was placed on SIMV yesterday morning and he was tolerating, and at 1:30 in the afternoon he was switched to pressure support ventilation he tolerated until overnight placed back on SIMV, this morning vent weaning started with pressure support 15 gradually down to 12 and been tolerating ABG was done at 12:15 shows pH of 7.45/48/69/30 4/96.7% Patient remains hemodynamically stable, not requiring any vasopressors, good mental status Extubation parameters was met Patient was successfully extubated to 40% Ventimask CCU Objective - Vital Signs / Intake & Output Vital Signs (Last 4 hours): Vital Signs Temp Pulse Resp BP Pulse Ox 07/03/18 12:00 98 F 93 H 16 115/64 95 07/03/18 10:00 89 21 114/58 L 96 Intake and Output (Last 8hrs): Intake & Output 07/02/18 07/03/18 07/03/18 22:59 06:59 14:59 Intake Total 940 350 204 Output Total 1300 600 Balance -360 -250 204 Weight 210 lb Intake: IV 0 4 Intake, Piggyback 400 350 200 Tube Feeding 240 Free Water Flush 300 Output: Urine 1300 600 Urethral (Newberry) 1300 600 Other: # Bowel Movements 0 - Physical Exam Head: Positive for: Atraumatic, Normocephalic Pupils: Positive for: PERRL. Negative for: Sluggish, Non-Reactive Extroacular Muscles: Positive for: EOMI. Negative for: Gaze Palsy, Entrapment Conjunctiva: Positive for: Normal. Negative for: Injected, Icteric Ears: Positive for: Normal Mouth: Positive for: Moist Mucous Membranes Pharnyx: Positive for: Normal Nose (External): Positive for: Atraumatic Neck: Positive for: Normal Range of Motion, Trachea Midline Respiratory/Chest: Positive for: Decreased Breath Sounds (in left lung luque), Rhonchi. Negative for: Respiratory Distress, Rales, Retracting Abdomen: Positive for: Normal Bowel Sounds. Negative for: Tenderness, Distention, Guarding Upper Extremity: Positive for: Normal Inspection, Edema Lower Extremity: Negative for: Normal Inspection (RLE wound with dressing ) Neurological: Positive for: GCS=15, CN II-XII Intact, Speech Normal, Motor Func Grossly Intact, Normal Sensory Function - Medications Active Medications: Active Medications Generic Name Dose Route Start Last Admin Trade Name Freq PRN Reason Stop Dose Admin Acyclovir 800 mg 06/29/18 17:00 07/03/18 09:39 Zovirax PO Not Given TID [facility] Protocol Albuterol Sulfate 2.5 mg 06/27/18 10:32 06/28/18 23:41 Albuterol 0.083% Inhal Emilia (2.5 Mg/3 Ml) Ud INH 2.5 mg RQ4 PRN Administration Shortness of Breath Albuterol/Ipratropium 3 ml 06/27/18 12:00 07/03/18 11:02 Duoneb 3 Mg/0.5 Mg (3 Ml) Ud INH 3 ml RQID [facility] Administration Atorvastatin Calcium 20 mg 06/27/18 09:00 07/03/18 09:18 Lipitor PO Not Given DAILY [facility] Bisacodyl 10 mg 06/26/18 22:59 06/28/18 08:09 Dulcolax PO 10 mg DAILY PRN Administration Constipation Budesonide 0.5 mg 07/01/18 11:30 07/03/18 07:46 Pulmicort Respules IH 0.5 mg RBID [facility] Administration Docusate Sodium 100 mg 06/26/18 22:59 Colace PO Q8 PRN Constipation Enoxaparin Sodium 40 mg 07/01/18 15:45 07/03/18 09:18 Lovenox SC 40 mg DAILY [facility] Administration Protocol Fluticasone Propionate 2 spr 06/27/18 09:00 07/03/18 09:15 Flonase TIM Not Given DAILY [facility] Meropenem 1 gm/ Sodium 100 mls @ 100 mls/hr 06/29/18 17:00 07/03/18 09:19 Chloride IVPB 100 mls/hr Q8 [facility] Administration Protocol Micafungin Sodium 100 mg/ 100 mls @ 100 mls/hr 06/29/18 14:00 07/03/18 09:46 Sodium Chloride IVPB 100 mls/hr DAILY [facility] Administration Protocol Vancomycin HCl 1 gm/ Sodium 250 mls @ 166.667 mls/hr 06/29/18 14:45 07/03/18 03:34 Chloride IVPB 166.667 mls/hr Q12H [facility] Administration Protocol Insulin Detemir 14 units 07/02/18 18:00 07/03/18 06:36 Levemir SC Not Given Q12@0600,1800 [facility] Insulin Human Lispro 0 units 06/30/18 12:00 07/03/18 06:36 Humalog SC Not Given 0000,0600,1200,1800 [facility] Lactulose 20 gm 06/28/18 11:00 07/02/18 20:44 Enulose PO 20 gm DAILY PRN Administration Constipation Lidocaine 1 ea 06/26/18 23:02 07/03/18 09:13 Lidoderm TD 1 ea DAILY PRN Administration Pain, moderate (4-7) Methadone HCl 25 mg 07/02/18 21:00 07/03/18 09:35 Methadone PO Not Given Q12 [facility] Montelukast Sodium 10 mg 06/27/18 09:00 07/03/18 09:38 Singulair PO Not Given DAILY [facility] Nystatin 5 ml 06/27/18 13:00 07/02/18 09:02 Nystatin Oral Susp PO 5 ml QID [facility] Administration Ondansetron HCl 8 mg 06/26/18 23:02 06/28/18 23:52 Zofran Odt PO 8 mg Q8 PRN Administration Nausea/Vomiting Oxybutynin Chloride 5 mg 06/27/18 09:00 07/03/18 09:33 Ditropan Tab PO Not Given DAILY [facility] Pantoprazole Sodium 40 mg 06/27/18 09:00 07/03/18 09:38 Protonix Ec Tab PO Not Given DAILY [facility] Paroxetine HCl 40 mg 06/27/18 09:00 07/03/18 09:37 Paxil PO Not Given DAILY [facility] Polyethylene Glycol 17 gm 06/26/18 23:02 07/01/18 16:29 Miralax PO 17 gm BID PRN Administration Constipation Prednisone 20 mg 06/29/18 09:00 07/03/18 09:37 Prednisone Tab PO Not Given DAILY [facility] Prochlorperazine 10 mg 06/27/18 01:15 Compazine Tab PO Q6 PRN Nausea/Vomiting Sennosides 8.6 mg 06/26/18 23:02 Senokot Tab PO BID PRN Constipation Tamsulosin HCl 0.4 mg 06/27/18 09:00 07/03/18 09:17 Flomax PO Not Given DAILY [facility] Triamcinolone Acetonide 1 appl 06/27/18 09:00 07/03/18 09:15 Kenalog 0.1% Cream TOP 1 appl Q12 [facility] Administration - Patient Studies Lab Studies: Microbiology Studies 06/30/18 17:26 Gram Stain - Final Trachasp Sputum Culture - Final NORMAL ORAL ROYER 06/30/18 09:10 Urine Culture - Final Urine,Catheterized No Growth (<1,000 CFU/ML) Lab Studies 07/03/18 07/03/18 07/03/18 Range/Units 11:55 06:22 04:27 WBC (4.8-10.8) K/uL RBC (4.40-5.90) Mil/uL Hgb (12.0-18.0) g/dL Hct (35.0-51.0) % MCV (80.0-94.0) fl MCH (27.0-31.0) pg MCHC (33.0-37.0) g/dL RDW (11.5-14.5) % Plt Count (130-400) K/uL pCO2 48 H 51 H (35-45) mm/Hg pO2 69 L 89 (80-100) mm/Hg HCO3 31.4 H 29.8 H (21-28) mmol/L ABG pH 7.45 7.41 (7.35-7.45) ABG Total CO2 34.9 H 33.9 H (22-28) mmol/L ABG O2 Saturation 96.7 98.8 H (95-98) % ABG O2 Content 13.5 L (15-23) ML/dL ABG Base Excess 8.3 H 6.3 H (-2.0-3.0) mmol/L ABG Hemoglobin 10.2 L (11.7-17.4) g/dL ABG Carboxyhemoglobin 1.8 H (0.5-1.5) % POC ABG HHb (Measured) 3.2 (0.0-5.0) % ABG Methemoglobin 1.0 (0.0-3.0) % ABG O2 Capacity 14.0 L (16-24) mL/dL Gilbert Test Yes Yes ABG Potassium 3.4 L (3.6-5.2) mmol/L A-a O2 Difference 85.0 61.0 mm/Hg Hgb O2 Saturation 94.0 L (95.0-98.0) % Glucose 124 H (75-110) mg/dL Lactate 1.5 (0.7-2.1) mmol/L Vent Mode Prvc/simv Mechanical Rate 10 FiO2 30.0 30.0 % Tidal Volume 450 PEEP 5 Pressure Support 10 Sodium 133.0 137 (132-148) mmol/l Potassium 3.7 (3.6-5.0) MMOL/L Chloride 103.0 95 L (98-107) mmol/L Carbon Dioxide 31 H (22-30) mmol/L Anion Gap 15 (10-20) BUN 11 (9-20) mg/dl Creatinine 0.5 L (0.8-1.5) mg/dl Est GFR ( Amer) > 60 Est GFR (Non-Af Amer) > 60 Random Glucose 118 H (75-110) mg/dL Calcium 8.9 (8.4-10.2) mg/dL Arterial Blood Potassium 3.4 L (3.6-5.2) mmol/L 07/03/18 Range/Units 04:27 WBC 12.8 H D (4.8-10.8) K/uL RBC 3.82 L (4.40-5.90) Mil/uL Hgb 9.8 L (12.0-18.0) g/dL Hct 30.8 L (35.0-51.0) % MCV 80.6 (80.0-94.0) fl MCH 25.6 L (27.0-31.0) pg MCHC 31.8 L (33.0-37.0) g/dL RDW 18.9 H (11.5-14.5) % Plt Count 241 (130-400) K/uL pCO2 (35-45) mm/Hg pO2 (80-100) mm/Hg HCO3 (21-28) mmol/L ABG pH (7.35-7.45) ABG Total CO2 (22-28) mmol/L ABG O2 Saturation (95-98) % ABG O2 Content (15-23) ML/dL ABG Base Excess (-2.0-3.0) mmol/L ABG Hemoglobin (11.7-17.4) g/dL ABG Carboxyhemoglobin (0.5-1.5) % POC ABG HHb (Measured) (0.0-5.0) % ABG Methemoglobin (0.0-3.0) % ABG O2 Capacity (16-24) mL/dL Gilbert Test ABG Potassium (3.6-5.2) mmol/L A-a O2 Difference mm/Hg Hgb O2 Saturation (95.0-98.0) % Glucose (75-110) mg/dL Lactate (0.7-2.1) mmol/L Vent Mode Mechanical Rate FiO2 % Tidal Volume PEEP Pressure Support Sodium (132-148) mmol/l Potassium (3.6-5.0) MMOL/L Chloride (98-107) mmol/L Carbon Dioxide (22-30) mmol/L Anion Gap (10-20) BUN (9-20) mg/dl Creatinine (0.8-1.5) mg/dl Est GFR ( Amer) Est GFR (Non-Af Amer) Random Glucose (75-110) mg/dL Calcium (8.4-10.2) mg/dL Arterial Blood Potassium (3.6-5.2) mmol/L Laboratory Results - last 24 hr 07/03/18 07/03/18 07/03/18 04:27 04:27 06:22 WBC 12.8 H D RBC 3.82 L Hgb 9.8 L Hct 30.8 L MCV 80.6 MCH 25.6 L MCHC 31.8 L RDW 18.9 H Plt Count 241 pCO2 51 H pO2 89 HCO3 29.8 H ABG pH 7.41 ABG Total CO2 33.9 H ABG O2 Saturation 98.8 H ABG O2 Content ABG Base Excess 6.3 H ABG Hemoglobin ABG Carboxyhemoglobin POC ABG HHb (Measured) ABG Methemoglobin ABG O2 Capacity Gilbert Test Yes ABG Potassium 3.4 L A-a O2 Difference 61.0 Hgb O2 Saturation Glucose 124 H Lactate 1.5 Vent Mode Prvc/simv Mechanical Rate 10 FiO2 30.0 Tidal Volume 450 PEEP 5 Pressure Support 10 Sodium 137 133.0 Potassium 3.7 Chloride 95 L 103.0 Carbon Dioxide 31 H Anion Gap 15 BUN 11 Creatinine 0.5 L Est GFR ( Amer) > 60 Est GFR (Non-Af Amer) > 60 Random Glucose 118 H Calcium 8.9 Arterial Blood Potassium 3.4 L 07/03/18 11:55 WBC RBC Hgb Hct MCV MCH MCHC RDW Plt Count pCO2 48 H pO2 69 L HCO3 31.4 H ABG pH 7.45 ABG Total CO2 34.9 H ABG O2 Saturation 96.7 ABG O2 Content 13.5 L ABG Base Excess 8.3 H ABG Hemoglobin 10.2 L ABG Carboxyhemoglobin 1.8 H POC ABG HHb (Measured) 3.2 ABG Methemoglobin 1.0 ABG O2 Capacity 14.0 L Gilbert Test Yes ABG Potassium A-a O2 Difference 85.0 Hgb O2 Saturation 94.0 L Glucose Lactate Vent Mode Mechanical Rate FiO2 30.0 Tidal Volume PEEP Pressure Support Sodium Potassium Chloride Carbon Dioxide Anion Gap BUN Creatinine Est GFR ( Amer) Est GFR (Non-Af Amer) Random Glucose Calcium Arterial Blood Potassium Radiology Impressions: Radiology Impressions Chest X-Ray 07/03/18 05:00 IMPRESSION: Worsening of left-sided pulmonary opacity with minimal residual aerated left lung. No right pleural effusion or pneumothorax. Fingerstick Blood Sugar Results: 166 Review of Systems - Review of Systems Systems not reviewed;Unavailable: Intubated Critical Care Progress Note - Ventilator Checklist Head of Bed 30 Degrees: Yes Daily Sedation Vacation: Yes Daily Assessment of Readiness to Wean: Yes Daily Spontaneous Breathing Trial: Yes PUD Prophalyxis: Yes DVT Prophylaxis: Yes Oral Care with Chlorhexidine Gluconate {CHG}: Yes - Extremities/Vascular Does the Patient have a Central Venous Catheter?: Yes Does the Patient need a Central Venous Catheter?: Yes Does the Patient have a Newberry Catheter?: Yes Does the Patient need a Newberry Catheter?: Yes Assessment/Plan (1) Acute respiratory failure with hypercapnia Current Visit: Yes Status: Acute Priority: High Comment: Vent weaning in progress, Patient was successfully extubated today to 40% Ventimask Patient was intubated for altered mental status secondary to hypercarbia, He was on methadone with prn oxycodone Patient is also obese with obesity hypoventilation syndrome, and possible obstructive sleep apnea Chest x-ray consistent with pneumonia lung mass and lung collapse Holding methadone and oxycodone. 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 Current Visit: Yes Status: Chronic Priority: High Comment: Patient currently on chemotherapy for a stage IV sarcoma with metastatic lesion to the lung, while vent weaning in progress and we are hoping the patient can be extubated and continue the current management at [facility] we also communicating with the oncologist there for possible transfer (3) Severe sepsis Current Visit: Yes Status: Acute Comment: Continue with empiric broad-spectrum antibiotic coverage, Continue IV acyclovir, meropenem, micafungin, and nystatin for oral thrush (4) DVT (deep venous thrombosis) Current Visit: No Status: Acute (5) Bilateral leg ulcer Current Visit: Yes Status: Acute Priority: High (6) History of DVT (deep vein thrombosis) Current Visit: Yes Status: Acute Priority: High (7) Neutropenia Current Visit: Yes Status: Acute Priority: High - Assessment and Plan (Free Text) Assessment: HOB maintained at 30 degrees. GI/DVT PPX Stress Ulcer prophylaxis with Protonix 40 mg IVP QD DVT prophylaxis with SCD, Lovenox Code Status: Full code Total critical care time 42 minutes
--- NOTE | 2018-07-03 20:46 | CP.PCM.PN ---
Subjective - Date & Time of Evaluation Date of Evaluation: 07/03/18 Time of Evaluation: 22:22 - Subjective Subjective: Pt extubated Multiple calls and extensive discussions with [facility] regarding possible transfer to in [place] Objective - Vital Signs/Intake and Output Vital Signs (last 24 hours): Temp Pulse Resp BP Pulse Ox 98.8 F 97 H 20 105/73 94 L 07/03/18 16:00 07/03/18 18:00 07/03/18 18:00 07/03/18 18:00 07/03/18 18:00 Intake and Output: 07/03/18 07/04/18 18:59 06:59 Intake Total 208 Output Total 500 Balance -292 - Medications Medications: Current Medications Acyclovir (Zovirax) 800 mg PO TID [facility]; Protocol Last Admin: 07/03/18 16:03 Dose: Not Given Albuterol Sulfate (Albuterol 0.083% Inhal Emilia (2.5 Mg/3 Ml) Ud) 2.5 mg INH RQ4 PRN PRN Reason: Shortness of Breath Last Admin: 06/28/18 23:41 Dose: 2.5 mg Albuterol/Ipratropium (Duoneb 3 Mg/0.5 Mg (3 Ml) Ud) 3 ml INH RQID [facility]ENI Last Admin: 07/03/18 19:00 Dose: 3 ml Atorvastatin Calcium (Lipitor) 20 mg PO DAILY [facility] Last Admin: 07/03/18 09:18 Dose: Not Given Bisacodyl (Dulcolax) 10 mg PO DAILY PRN PRN Reason: Constipation Last Admin: 06/28/18 08:09 Dose: 10 mg Budesonide (Pulmicort Respules) 0.5 mg IH RBID [facility]ENI Last Admin: 07/03/18 19:03 Dose: 0.5 mg Docusate Sodium (Colace) 100 mg PO Q8 PRN PRN Reason: Constipation Enoxaparin Sodium (Lovenox) 40 mg SC DAILY [facility]; Protocol Last Admin: 07/03/18 09:18 Dose: 40 mg Fluticasone Propionate (Flonase) 2 spr TIM DAILY [facility] Last Admin: 07/03/18 09:15 Dose: Not Given Meropenem 1 gm/ Sodium (Chloride) 100 mls @ 100 mls/hr IVPB Q8 [facility]; Protocol Last Admin: 07/03/18 16:02 Dose: 100 mls/hr Micafungin Sodium 100 mg/ (Sodium Chloride) 100 mls @ 100 mls/hr IVPB DAILY [facility]; Protocol Last Admin: 07/03/18 09:46 Dose: 100 mls/hr Vancomycin HCl 1 gm/ Sodium (Chloride) 250 mls @ 166.667 mls/hr IVPB Q12H [facility]; Protocol Last Admin: 07/03/18 15:45 Dose: 166.667 mls/hr Insulin Detemir (Levemir) 14 units SC Q12@0600,1800 [facility] Last Admin: 07/03/18 06:36 Dose: Not Given Insulin Human Lispro (Humalog) 0 units SC 0000,0600,1200,1800 [facility] Last Admin: 07/03/18 12:00 Dose: Not Given Lactulose (Enulose) 20 gm PO DAILY PRN PRN Reason: Constipation Last Admin: 07/02/18 20:44 Dose: 20 gm Lidocaine (Lidoderm) 1 ea TD DAILY PRN PRN Reason: Pain, moderate (4-7) Last Admin: 07/03/18 09:13 Dose: 1 ea Methadone HCl (Methadone) 25 mg PO Q12 [facility] Last Admin: 07/03/18 09:35 Dose: Not Given Montelukast Sodium (Singulair) 10 mg PO DAILY [facility] Last Admin: 07/03/18 09:38 Dose: Not Given Nystatin (Nystatin Oral Susp) 5 ml PO QID [facility] Last Admin: 07/02/18 09:02 Dose: 5 ml Ondansetron HCl (Zofran Odt) 8 mg PO Q8 PRN PRN Reason: Nausea/Vomiting Last Admin: 06/28/18 23:52 Dose: 8 mg Oxybutynin Chloride (Ditropan Tab) 5 mg PO DAILY [facility] Last Admin: 07/03/18 09:33 Dose: Not Given Pantoprazole Sodium (Protonix Ec Tab) 40 mg PO DAILY [facility] Last Admin: 07/03/18 09:38 Dose: Not Given Paroxetine HCl (Paxil) 40 mg PO DAILY [facility] Last Admin: 07/03/18 09:37 Dose: Not Given Polyethylene Glycol (Miralax) 17 gm PO BID PRN PRN Reason: Constipation Last Admin: 07/01/18 16:29 Dose: 17 gm Prednisone (Prednisone Tab) 20 mg PO DAILY [facility] Last Admin: 07/03/18 09:37 Dose: Not Given Prochlorperazine (Compazine Tab) 10 mg PO Q6 PRN PRN Reason: Nausea/Vomiting Sennosides (Senokot Tab) 8.6 mg PO BID PRN PRN Reason: Constipation Tamsulosin HCl (Flomax) 0.4 mg PO DAILY [facility] Last Admin: 07/03/18 09:17 Dose: Not Given Triamcinolone Acetonide (Kenalog 0.1% Cream) 1 appl TOP Q12 [facility] Last Admin: 07/03/18 09:15 Dose: 1 appl - Labs Labs: 07/03/18 04:27 07/03/18 04:27 Assessment and Plan - Assessment and Plan (Free Text) Assessment: Acute Hypercapnic Ventilatory Failure Pneumonia 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 WBC improved Mucositis/ Thrush 2 to chemotherapy Oncology Topical Chronic pain Pain management consult
[2018-07-04] MEDS: Insulin Lispro (humaLOG) 100 Units/ml Inj SC SCH ×4 (00:36→19:05)
--- NOTE | 2018-07-04 00:58 | CP.PCM.PN ---
Subjective - Date & Time of Evaluation Date of Evaluation: 07/02/18 Time of Evaluation: 11:00 - Subjective Subjective: Vented, awake. Objective - Vital Signs/Intake and Output Vital Signs (last 24 hours): Temp Pulse Resp BP Pulse Ox 98.4 F 98 H 20 99/71 L 97 07/04/18 00:00 07/04/18 00:00 07/04/18 00:00 07/04/18 00:00 07/04/18 00:00 Intake and Output: 07/03/18 07/04/18 18:59 06:59 Intake Total 208 Output Total 500 Balance -292 - Medications Medications: Current Medications Acyclovir (Zovirax) 800 mg PO TID [facility]; Protocol Last Admin: 07/03/18 16:03 Dose: Not Given Albuterol Sulfate (Albuterol 0.083% Inhal Emilia (2.5 Mg/3 Ml) Ud) 2.5 mg INH RQ4 PRN PRN Reason: Shortness of Breath Last Admin: 06/28/18 23:41 Dose: 2.5 mg Albuterol/Ipratropium (Duoneb 3 Mg/0.5 Mg (3 Ml) Ud) 3 ml INH RQID [facility] Last Admin: 07/03/18 19:00 Dose: 3 ml Atorvastatin Calcium (Lipitor) 20 mg PO DAILY [facility] Last Admin: 07/03/18 09:18 Dose: Not Given Bisacodyl (Dulcolax) 10 mg PO DAILY PRN PRN Reason: Constipation Last Admin: 06/28/18 08:09 Dose: 10 mg Budesonide (Pulmicort Respules) 0.5 mg IH RBID [facility] Last Admin: 07/03/18 19:03 Dose: 0.5 mg Docusate Sodium (Colace) 100 mg PO Q8 PRN PRN Reason: Constipation Enoxaparin Sodium (Lovenox) 40 mg SC DAILY [facility]; Protocol Last Admin: 07/03/18 09:18 Dose: 40 mg Fluticasone Propionate (Flonase) 2 spr TIM DAILY [facility] Last Admin: 07/03/18 09:15 Dose: Not Given Meropenem 1 gm/ Sodium (Chloride) 100 mls @ 100 mls/hr IVPB Q8 [facility]; Protocol Last Admin: 07/03/18 16:02 Dose: 100 mls/hr Micafungin Sodium 100 mg/ (Sodium Chloride) 100 mls @ 100 mls/hr IVPB DAILY [facility]; Protocol Last Admin: 07/03/18 09:46 Dose: 100 mls/hr Vancomycin HCl 1 gm/ Sodium (Chloride) 250 mls @ 166.667 mls/hr IVPB Q12H [facility]; Protocol Last Admin: 07/03/18 15:45 Dose: 166.667 mls/hr Insulin Detemir (Levemir) 14 units SC Q12@0600,1800 [facility] Last Admin: 07/03/18 06:36 Dose: Not Given Insulin Human Lispro (Humalog) 0 units SC 0000,0600,1200,1800 [facility] Last Admin: 07/04/18 00:36 Dose: Not Given Lactulose (Enulose) 20 gm PO DAILY PRN PRN Reason: Constipation Last Admin: 07/02/18 20:44 Dose: 20 gm Lidocaine (Lidoderm) 1 ea TD DAILY PRN PRN Reason: Pain, moderate (4-7) Last Admin: 07/03/18 09:13 Dose: 1 ea Methadone HCl (Methadone) 25 mg PO Q12 [facility] Last Admin: 07/03/18 21:07 Dose: Not Given Montelukast Sodium (Singulair) 10 mg PO DAILY [facility] Last Admin: 07/03/18 09:38 Dose: Not Given Nystatin (Nystatin Oral Susp) 5 ml PO QID [facility] Last Admin: 07/02/18 09:02 Dose: 5 ml Ondansetron HCl (Zofran Odt) 8 mg PO Q8 PRN PRN Reason: Nausea/Vomiting Last Admin: 06/28/18 23:52 Dose: 8 mg Oxybutynin Chloride (Ditropan Tab) 5 mg PO DAILY [facility] Last Admin: 07/03/18 09:33 Dose: Not Given Pantoprazole Sodium (Protonix Ec Tab) 40 mg PO DAILY [facility] Last Admin: 07/03/18 09:38 Dose: Not Given Paroxetine HCl (Paxil) 40 mg PO DAILY [facility] Last Admin: 07/03/18 09:37 Dose: Not Given Polyethylene Glycol (Miralax) 17 gm PO BID PRN PRN Reason: Constipation Last Admin: 07/01/18 16:29 Dose: 17 gm Prednisone (Prednisone Tab) 20 mg PO DAILY [facility] Last Admin: 07/03/18 09:37 Dose: Not Given Prochlorperazine (Compazine Tab) 10 mg PO Q6 PRN PRN Reason: Nausea/Vomiting Sennosides (Senokot Tab) 8.6 mg PO BID PRN PRN Reason: Constipation Tamsulosin HCl (Flomax) 0.4 mg PO DAILY [facility] Last Admin: 07/03/18 09:17 Dose: Not Given Triamcinolone Acetonide (Kenalog 0.1% Cream) 1 appl TOP Q12 [facility] Last Admin: 07/03/18 21:12 Dose: 1 appl - Labs Labs: 07/03/18 04:27 07/03/18 04:27 - Head Exam Head Exam: ATRAUMATIC - Eye Exam Eye Exam: Normal appearance - ENT Exam ENT Exam: Mucous Membranes Dry - Respiratory Exam Respiratory Exam: Decreased Breath Sounds - Cardiovascular Exam Cardiovascular Exam: +S1, +S2 - GI/Abdominal Exam GI & Abdominal Exam: Normal Bowel Sounds Assessment and Plan (1) Neutropenia Assessment & Plan: secondary to chemotherapy resolving with growth factor support Status: Acute (2) Anemia Assessment & Plan: recent chemotherapy chronic disease from malignancy Status: Acute (3) Sarcoma Assessment & Plan: stage IV on salvage chemotherapy at [facility] [place] Status: Acute (4) History of DVT (deep vein thrombosis) Assessment & Plan: on DVT prophylaxis prior hx of retroperitoneal bleeding from therapeutic anticoagulation Status: Acute
--- NOTE | 2018-07-04 01:01 | CP.PCM.PN ---
Subjective - Date & Time of Evaluation Date of Evaluation: 07/03/18 Time of Evaluation: 15:00 - Subjective Subjective: Extubated, comfortable. Objective - Vital Signs/Intake and Output Vital Signs (last 24 hours): Temp Pulse Resp BP Pulse Ox 98.4 F 98 H 20 99/71 L 97 07/04/18 00:00 07/04/18 00:00 07/04/18 00:00 07/04/18 00:00 07/04/18 00:00 Intake and Output: 07/03/18 07/04/18 18:59 06:59 Intake Total 208 Output Total 500 Balance -292 - Medications Medications: Current Medications Acyclovir (Zovirax) 800 mg PO TID [facility]; Protocol Last Admin: 07/03/18 16:03 Dose: Not Given Albuterol Sulfate (Albuterol 0.083% Inhal Emilia (2.5 Mg/3 Ml) Ud) 2.5 mg INH RQ4 PRN PRN Reason: Shortness of Breath Last Admin: 06/28/18 23:41 Dose: 2.5 mg Albuterol/Ipratropium (Duoneb 3 Mg/0.5 Mg (3 Ml) Ud) 3 ml INH RQID [facility] Last Admin: 07/03/18 19:00 Dose: 3 ml Atorvastatin Calcium (Lipitor) 20 mg PO DAILY [facility] Last Admin: 07/03/18 09:18 Dose: Not Given Bisacodyl (Dulcolax) 10 mg PO DAILY PRN PRN Reason: Constipation Last Admin: 06/28/18 08:09 Dose: 10 mg Budesonide (Pulmicort Respules) 0.5 mg IH RBID [facility] Last Admin: 07/03/18 19:03 Dose: 0.5 mg Docusate Sodium (Colace) 100 mg PO Q8 PRN PRN Reason: Constipation Enoxaparin Sodium (Lovenox) 40 mg SC DAILY [facility]; Protocol Last Admin: 07/03/18 09:18 Dose: 40 mg Fluticasone Propionate (Flonase) 2 spr TIM DAILY [facility] Last Admin: 07/03/18 09:15 Dose: Not Given Meropenem 1 gm/ Sodium (Chloride) 100 mls @ 100 mls/hr IVPB Q8 [facility]; Protocol Last Admin: 07/03/18 16:02 Dose: 100 mls/hr Micafungin Sodium 100 mg/ (Sodium Chloride) 100 mls @ 100 mls/hr IVPB DAILY [facility]; Protocol Last Admin: 07/03/18 09:46 Dose: 100 mls/hr Vancomycin HCl 1 gm/ Sodium (Chloride) 250 mls @ 166.667 mls/hr IVPB Q12H [facility]; Protocol Last Admin: 07/03/18 15:45 Dose: 166.667 mls/hr Insulin Detemir (Levemir) 14 units SC Q12@0600,1800 [facility] Last Admin: 07/03/18 06:36 Dose: Not Given Insulin Human Lispro (Humalog) 0 units SC 0000,0600,1200,1800 [facility] Last Admin: 07/04/18 00:36 Dose: Not Given Lactulose (Enulose) 20 gm PO DAILY PRN PRN Reason: Constipation Last Admin: 07/02/18 20:44 Dose: 20 gm Lidocaine (Lidoderm) 1 ea TD DAILY PRN PRN Reason: Pain, moderate (4-7) Last Admin: 07/03/18 09:13 Dose: 1 ea Methadone HCl (Methadone) 25 mg PO Q12 [facility] Last Admin: 07/03/18 21:07 Dose: Not Given Montelukast Sodium (Singulair) 10 mg PO DAILY [facility] Last Admin: 07/03/18 09:38 Dose: Not Given Nystatin (Nystatin Oral Susp) 5 ml PO QID [facility] Last Admin: 07/02/18 09:02 Dose: 5 ml Ondansetron HCl (Zofran Odt) 8 mg PO Q8 PRN PRN Reason: Nausea/Vomiting Last Admin: 06/28/18 23:52 Dose: 8 mg Oxybutynin Chloride (Ditropan Tab) 5 mg PO DAILY [facility] Last Admin: 07/03/18 09:33 Dose: Not Given Pantoprazole Sodium (Protonix Ec Tab) 40 mg PO DAILY [facility] Last Admin: 07/03/18 09:38 Dose: Not Given Paroxetine HCl (Paxil) 40 mg PO DAILY [facility] Last Admin: 07/03/18 09:37 Dose: Not Given Polyethylene Glycol (Miralax) 17 gm PO BID PRN PRN Reason: Constipation Last Admin: 07/01/18 16:29 Dose: 17 gm Prednisone (Prednisone Tab) 20 mg PO DAILY [facility] Last Admin: 07/03/18 09:37 Dose: Not Given Prochlorperazine (Compazine Tab) 10 mg PO Q6 PRN PRN Reason: Nausea/Vomiting Sennosides (Senokot Tab) 8.6 mg PO BID PRN PRN Reason: Constipation Tamsulosin HCl (Flomax) 0.4 mg PO DAILY [facility] Last Admin: 07/03/18 09:17 Dose: Not Given Triamcinolone Acetonide (Kenalog 0.1% Cream) 1 appl TOP Q12 [facility] Last Admin: 07/03/18 21:12 Dose: 1 appl - Labs Labs: 07/03/18 04:27 07/03/18 04:27 - Head Exam Head Exam: ATRAUMATIC - Eye Exam Eye Exam: Normal appearance - ENT Exam ENT Exam: Mucous Membranes Dry - Respiratory Exam Respiratory Exam: Decreased Breath Sounds - Cardiovascular Exam Cardiovascular Exam: +S1, +S2 - GI/Abdominal Exam GI & Abdominal Exam: Normal Bowel Sounds Assessment and Plan (1) Anemia Assessment & Plan: chronic disease from malignancy anemia of chemotherapy Status: Acute (2) Sarcoma Assessment & Plan: 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
[2018-07-04] MEDS: Meropenem 1 GM in Sodium Chloride 0.9% 100 ML IVPB SCH ×3 (01:07→16:55)
--- NOTE | 2018-07-04 02:27 | PN ---
DATE: 07/03/2018 ENDOCRINOLOGY FOLLOWUP NOTE LOCATION: Room 423, ICU. SUBJECTIVE: This is a 62-year-old male with recent uncontrolled type 2 insulin-requiring diabetes and recent acute respiratory failure with supervening endotracheal intubation and sedation as noted thereof. His glycemic levels are fluctuating, but much improved as noted overnight and glucose levels have ranged from 118-165 and 200 mg/dL. 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 PLAN OF MANAGEMENT: We will modify his current insulin regimen as indicated and at this time we will follow very closely his glycemic fluctuations as noted thereof and undertake insulin dose adjustments accordingly. So at this time, we will continue the low-dose Humalog insulin as ordered. We will continue the basal insulin given as Levemir at 14 units every 12 hours at 6 a.m. and 6 p.m. daily as ordered. We will obtain serial chemistry and supplement accordingly as needed. Sheryl Adams MD
[2018-07-04 04:31] LABS: ABG ALLEN TEST YES; ARTERIAL BLOOD GAS HCO3 31.7 mmol/L (21-28); ARTERIAL BLOOD GAS O2 SAT 99.7 % (95-98); ARTERIAL BLOOD GAS PCO2 50 mm/Hg (35-45); ARTERIAL BLOOD GAS PH 7.44 (7.35-7.45); ARTERIAL BLOOD GAS PO2 142 mm/Hg (80-100); ARTERIAL BLOOD GAS TCO2 35.5 mmol/L (22-28)
[2018-07-04] MEDS ORDERED: Acetylcysteine 20% Inhal Soln (4ml) INH PRN (05:00)
[2018-07-04 05:48] LABS: HEMOGLOBIN 9.4 g/dL (12.0-18.0); MEAN CELL VOLUME 80.8 fl (80.0-94.0); MEAN CORPUSCULAR HEMOGLOBIN 25.5 pg (27.0-31.0); MEAN CORPUSCULAR HGB CONC 31.6 g/dL (33.0-37.0); RBC 3.7 Mil/uL (4.40-5.90); RED CELL DISTRIBUTION WIDTH 19.2 % (11.5-14.5); WHITE BLOOD COUNT 14.8 K/uL (4.8-10.8)
[2018-07-04] MEDS: Insulin Detemir 100 Units/ml Inj SC SCH ×2 (06:19→19:19)
[2018-07-04] MEDS: Albuterol 0.083% Inhal Sol (2.5 mg/3 mL) UD INH PRN ×2 (06:29→19:35)
[2018-07-04 07:28] LABS: ALBUMIN 2.9 g/dL (3.5-5.0); ALT/SGPT 30 U/L (21-72); AST/SGOT 25 U/L (17-59); BLOOD UREA NITROGEN 12 mg/dl (9-20); CALCIUM 8.5 mg/dL (8.4-10.2); GFR NON-AFRICAN AMERICAN > 60
[2018-07-04] MEDS: Budesonide 0.5 mg/2 ml Inhal Susp UD IH SCH ×2 (07:42→19:35)
[2018-07-04] MEDS: Albuterol-Ipratrop 3 mg / 0.5 (3 ml) UD INH SCH ×4 (07:42→19:40)
[2018-07-04] MEDS: Enoxaparin 40 mg Syringe SC SCH (08:32)
[2018-07-04] MEDS: Micafungin 100 MG in Sodium Chloride 0.9% 100 ML IVPB SCH (08:32)
--- NOTE | 2018-07-04 08:53 | CP.PCM.PN ---
Subjective - Date & Time of Evaluation Date of Evaluation: 07/04/18 Time of Evaluation: 08:40 - Subjective Subjective: Seen in the ICU this morning. Successfully extubated yesterday. Presently on nasal canula at 5 LPM with SpO2 96%. Had a good night, no respiratory distress. Vital signs do remain stable. No CXR done this morning. Has congested cough, but non-productive. Speech is fluent, mildly hoarse. Pharynx injected posteriorly, no visible thrush. Memory is intact, cooperative with exam. Neck is supple and trachea midline. Chest exam is about the same with absent BS on the left except for the base. Few rhonchi are heard in the left base posteriorly, no wheezes. The right lung is essentially clear on auscultation. Heart sounds are distant with regular rhythm. Abdomen is obese, non-tender, hypo bowel sounds. + dependant edema both feet, no cyanosis, clean dressings on both legs. O2 will remain nasal canula, reduced to 4 LPM with SpO2 staying at 95%. Awaiting swallow eval: if unable to take PO, will switch to solucortef 100MG daily. Mobilize patient as tolerated. Continue aerosol therapies, Mucomyst changed to BID. Patient is safe for transport to [facility] if this is planned. Objective - Vital Signs/Intake and Output Vital Signs (last 24 hours): Temp Pulse Resp BP Pulse Ox 97.3 F L 96 H 20 129/62 98 07/04/18 08:00 07/04/18 08:00 07/04/18 08:00 07/04/18 06:00 07/04/18 08:00 Intake and Output: 07/03/18 07/04/18 23:59 11:59 Intake Total 104 368 Output Total 500 250 Balance -396 118 - Medications Medications: Current Medications Acetylcysteine (Acetylcysteine 20%) 2 ml INH RBID [facility] Acyclovir (Zovirax) 800 mg PO TID [facility]; Protocol Last Admin: 07/03/18 16:03 Dose: Not Given Albuterol Sulfate (Albuterol 0.083% Inhal Emilia (2.5 Mg/3 Ml) Ud) 2.5 mg INH RQ4 PRN PRN Reason: Shortness of Breath Last Admin: 07/04/18 06:29 Dose: 2.5 mg Albuterol/Ipratropium (Duoneb 3 Mg/0.5 Mg (3 Ml) Ud) 3 ml INH RQID [facility] Last Admin: 07/04/18 07:42 Dose: 3 ml Atorvastatin Calcium (Lipitor) 20 mg PO DAILY [facility] Last Admin: 07/03/18 09:18 Dose: Not Given Bisacodyl (Dulcolax) 10 mg PO DAILY PRN PRN Reason: Constipation Last Admin: 06/28/18 08:09 Dose: 10 mg Budesonide (Pulmicort Respules) 0.5 mg IH RBID [facility] Last Admin: 07/04/18 07:42 Dose: 0.5 mg Docusate Sodium (Colace) 100 mg PO Q8 PRN PRN Reason: Constipation Enoxaparin Sodium (Lovenox) 40 mg SC DAILY [facility]; Protocol Last Admin: 07/04/18 08:32 Dose: 40 mg Fluticasone Propionate (Flonase) 2 spr TIM DAILY [facility] Last Admin: 07/04/18 08:32 Dose: 2 spr Meropenem 1 gm/ Sodium (Chloride) 100 mls @ 100 mls/hr IVPB Q8 [facility]; Protocol Last Admin: 07/04/18 08:31 Dose: 100 mls/hr Micafungin Sodium 100 mg/ (Sodium Chloride) 100 mls @ 100 mls/hr IVPB DAILY [facility]; Protocol Last Admin: 07/04/18 08:32 Dose: 100 mls/hr Vancomycin HCl 1 gm/ Sodium (Chloride) 250 mls @ 166.667 mls/hr IVPB Q12H [facility]; Protocol Last Admin: 07/04/18 02:10 Dose: 166.667 mls/hr Insulin Detemir (Levemir) 14 units SC Q12@0600,1800 [facility] Last Admin: 07/04/18 06:19 Dose: Not Given Insulin Human Lispro (Humalog) 0 units SC 0000,0600,1200,1800 [facility] Last Admin: 07/04/18 06:11 Dose: Not Given Lactulose (Enulose) 20 gm PO DAILY PRN PRN Reason: Constipation Last Admin: 07/02/18 20:44 Dose: 20 gm Lidocaine (Lidoderm) 1 ea TD DAILY PRN PRN Reason: Pain, moderate (4-7) Last Admin: 07/03/18 09:13 Dose: 1 ea Methadone HCl (Methadone) 25 mg PO Q12 [facility] Last Admin: 07/03/18 21:07 Dose: Not Given Montelukast Sodium (Singulair) 10 mg PO DAILY [facility] Last Admin: 07/03/18 09:38 Dose: Not Given Nystatin (Nystatin Oral Susp) 5 ml PO QID [facility] Last Admin: 07/02/18 09:02 Dose: 5 ml Ondansetron HCl (Zofran Odt) 8 mg PO Q8 PRN PRN Reason: Nausea/Vomiting Last Admin: 06/28/18 23:52 Dose: 8 mg Oxybutynin Chloride (Ditropan Tab) 5 mg PO DAILY [facility] Last Admin: 07/03/18 09:33 Dose: Not Given Pantoprazole Sodium (Protonix Ec Tab) 40 mg PO DAILY [facility] Last Admin: 07/03/18 09:38 Dose: Not Given Paroxetine HCl (Paxil) 40 mg PO DAILY [facility] Last Admin: 07/03/18 09:37 Dose: Not Given Polyethylene Glycol (Miralax) 17 gm PO BID PRN PRN Reason: Constipation Last Admin: 07/01/18 16:29 Dose: 17 gm Prednisone (Prednisone Tab) 20 mg PO DAILY [facility] Last Admin: 07/03/18 09:37 Dose: Not Given Prochlorperazine (Compazine Tab) 10 mg PO Q6 PRN PRN Reason: Nausea/Vomiting Sennosides (Senokot Tab) 8.6 mg PO BID PRN PRN Reason: Constipation Tamsulosin HCl (Flomax) 0.4 mg PO DAILY [facility] Last Admin: 07/03/18 09:17 Dose: Not Given Triamcinolone Acetonide (Kenalog 0.1% Cream) 1 appl TOP Q12 [facility] Last Admin: 07/03/18 21:12 Dose: 1 appl - Labs Labs: 07/04/18 04:00 07/04/18 05:05 Assessment and Plan (1) Acute respiratory failure with hypercapnia Status: Acute (2) Oral thrush Status: Resolved (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
[2018-07-04] MEDS ORDERED: Hydrocortisone- 100 MG in Sodium Chloride 0.9% 100 ML IV SCH (09:00)
--- NOTE | 2018-07-04 11:27 | CP.PCM.PN ---
Subjective - Date & Time of Evaluation Date of Evaluation: 07/04/18 Time of Evaluation: 11:25 - Subjective Subjective: Podiatry Progress Note: Dr. Myrick Patient seen and evaluated this AM in ICU for b/l LE erythema, edema, and superficial ulceration. Patient resting comfortably and in NAD at this time. Patient was extubated and able to communicate. He denies any pain to b/l lower extremities. States that he is hoping to be transferred to [place] soon. Denies nausea/vomiting/fever/shortness of breath/chest pain. Objective - Vital Signs/Intake and Output Vital Signs (last 24 hours): Temp Pulse Resp BP Pulse Ox 97.3 F L 90 22 130/73 97 07/04/18 08:00 07/04/18 10:00 07/04/18 10:00 07/04/18 10:00 07/04/18 10:00 Intake and Output: 07/04/18 07/04/18 06:59 18:59 Intake Total 368 Output Total 250 Balance 118 - Medications Medications: Current Medications Acetylcysteine (Acetylcysteine 20%) 2 ml INH RBID [facility] Acyclovir (Zovirax) 800 mg PO TID [facility]; Protocol Last Admin: 07/03/18 16:03 Dose: Not Given Albuterol Sulfate (Albuterol 0.083% Inhal Emilia (2.5 Mg/3 Ml) Ud) 2.5 mg INH RQ4 PRN PRN Reason: Shortness of Breath Last Admin: 07/04/18 06:29 Dose: 2.5 mg Albuterol/Ipratropium (Duoneb 3 Mg/0.5 Mg (3 Ml) Ud) 3 ml INH RQID [facility] Last Admin: 07/04/18 07:42 Dose: 3 ml Atorvastatin Calcium (Lipitor) 20 mg PO DAILY [facility] Last Admin: 07/03/18 09:18 Dose: Not Given Bisacodyl (Dulcolax) 10 mg PO DAILY PRN PRN Reason: Constipation Last Admin: 06/28/18 08:09 Dose: 10 mg Budesonide (Pulmicort Respules) 0.5 mg IH RBID [facility] Last Admin: 07/04/18 07:42 Dose: 0.5 mg Docusate Sodium (Colace) 100 mg PO Q8 PRN PRN Reason: Constipation Enoxaparin Sodium (Lovenox) 40 mg SC DAILY [facility]; Protocol Last Admin: 07/04/18 08:32 Dose: 40 mg Fluticasone Propionate (Flonase) 2 spr TIM DAILY [facility] Last Admin: 07/04/18 08:32 Dose: 2 spr Hydrocortisone Sodium Succinate (Solu-Cortef) 100 mg IV DAILY [facility] Last Admin: 07/04/18 09:55 Dose: 100 mg Meropenem 1 gm/ Sodium (Chloride) 100 mls @ 100 mls/hr IVPB Q8 [facility]; Protocol Last Admin: 07/04/18 08:31 Dose: 100 mls/hr Micafungin Sodium 100 mg/ (Sodium Chloride) 100 mls @ 100 mls/hr IVPB DAILY [facility]; Protocol Last Admin: 07/04/18 08:32 Dose: 100 mls/hr Vancomycin HCl 1 gm/ Sodium (Chloride) 250 mls @ 166.667 mls/hr IVPB Q12H [facility]; Protocol Last Admin: 07/04/18 02:10 Dose: 166.667 mls/hr Insulin Detemir (Levemir) 14 units SC Q12@0600,1800 [facility] Last Admin: 07/04/18 06:19 Dose: Not Given Insulin Human Lispro (Humalog) 0 units SC 0000,0600,1200,1800 [facility] Last Admin: 07/04/18 06:11 Dose: Not Given Lactulose (Enulose) 20 gm PO DAILY PRN PRN Reason: Constipation Last Admin: 07/02/18 20:44 Dose: 20 gm Lidocaine (Lidoderm) 1 ea TD DAILY PRN PRN Reason: Pain, moderate (4-7) Last Admin: 07/03/18 09:13 Dose: 1 ea Methadone HCl (Methadone) 25 mg PO Q12 [facility] Last Admin: 07/03/18 21:07 Dose: Not Given Montelukast Sodium (Singulair) 10 mg PO DAILY [facility] Last Admin: 07/03/18 09:38 Dose: Not Given Nystatin (Nystatin Oral Susp) 5 ml PO QID [facility] Last Admin: 07/02/18 09:02 Dose: 5 ml Ondansetron HCl (Zofran Odt) 8 mg PO Q8 PRN PRN Reason: Nausea/Vomiting Last Admin: 06/28/18 23:52 Dose: 8 mg Oxybutynin Chloride (Ditropan Tab) 5 mg PO DAILY [facility] Last Admin: 07/03/18 09:33 Dose: Not Given Pantoprazole Sodium (Protonix Ec Tab) 40 mg PO DAILY [facility] Last Admin: 07/03/18 09:38 Dose: Not Given Paroxetine HCl (Paxil) 40 mg PO DAILY [facility] Last Admin: 07/03/18 09:37 Dose: Not Given Polyethylene Glycol (Miralax) 17 gm PO BID PRN PRN Reason: Constipation Last Admin: 07/01/18 16:29 Dose: 17 gm Prednisone (Prednisone Tab) 20 mg PO DAILY [facility] Last Admin: 07/03/18 09:37 Dose: Not Given Prochlorperazine (Compazine Tab) 10 mg PO Q6 PRN PRN Reason: Nausea/Vomiting Sennosides (Senokot Tab) 8.6 mg PO BID PRN PRN Reason: Constipation Tamsulosin HCl (Flomax) 0.4 mg PO DAILY [facility] Last Admin: 07/03/18 09:17 Dose: Not Given Triamcinolone Acetonide (Kenalog 0.1% Cream) 1 appl TOP Q12 [facility] Last Admin: 07/03/18 21:12 Dose: 1 appl - Labs Labs: 07/04/18 04:00 07/04/18 05:05 - Constitutional Appears: Non-toxic, No Acute Distress - Head Exam Head Exam: ATRAUMATIC, NORMOCEPHALIC - Extremities Exam Additional comments: B/L LE focused exam: Vasc: DP and PT pulses palpable 1/4 due to edema; cap refill <3 seconds to all digits; Temp gradient Warm to warm; +2 pitting edema noted b/l. Ortho: No pain on palpation of left lower extremity mid leg. Neuro: Gross and protective sensation diminished. Derm: Superficial stasis ulcerations noted on the R anterior aspect of the leg measuring 3.4 cm X 2.5 cm x 0.1, with fibrotic base, no active drainage , no depth appreciated. An ulcer noted on the anterior aspect of L leg measuring 1.2 cm X 1.2 cm X 0.2 cm, scab formation, no drainage, no purulence. Mild erythema extends from the ankle to the upper 1/3 of the leg b/l, significantly improved wounds, no weeping appreciated at this time. - Psychiatric Exam Psychiatric exam: Normal Affect, Normal Mood Assessment and Plan - Assessment and Plan (Free Text) Assessment: 62M with b/l LE erythema, edema and superficial ulceration; stable Plan: Patient seen and evaluated at the bedside with [place] Afebrile, WBC 12.8 B/L wound cultures: MRSA Continue IV Abx as per primary team. B/L Venous duplex B/L LE dressed with DSD and adaptic No podiatric surgical intervention Patient stable from podiatry standpoint Will continue to follow while in house
--- NOTE | 2018-07-04 12:29 | CP.PCM.PN ---
Subjective - Date & Time of Evaluation Date of Evaluation: 07/04/18 Time of Evaluation: 10:00 - Subjective Subjective: NO CHEST PAIN EXTUBATED AND IS BREATHING OK Objective - Vital Signs/Intake and Output Vital Signs (last 24 hours): Temp Pulse Resp BP Pulse Ox 97.5 F L 94 H 19 166/69 H 97 07/04/18 12:00 07/04/18 12:00 07/04/18 12:00 07/04/18 12:00 07/04/18 12:00 Intake and Output: 07/04/18 07/04/18 06:59 18:59 Intake Total 368 Output Total 250 Balance 118 - Medications Medications: Current Medications Acetylcysteine (Acetylcysteine 20%) 2 ml INH RBID [facility] Acyclovir (Zovirax) 800 mg PO TID [facility]; Protocol Last Admin: 07/03/18 16:03 Dose: Not Given Albuterol Sulfate (Albuterol 0.083% Inhal Emilia (2.5 Mg/3 Ml) Ud) 2.5 mg INH RQ4 PRN PRN Reason: Shortness of Breath Last Admin: 07/04/18 06:29 Dose: 2.5 mg Albuterol/Ipratropium (Duoneb 3 Mg/0.5 Mg (3 Ml) Ud) 3 ml INH RQID [facility] Last Admin: 07/04/18 11:25 Dose: Not Given Atorvastatin Calcium (Lipitor) 20 mg PO DAILY [facility] Last Admin: 07/03/18 09:18 Dose: Not Given Bisacodyl (Dulcolax) 10 mg PO DAILY PRN PRN Reason: Constipation Last Admin: 06/28/18 08:09 Dose: 10 mg Budesonide (Pulmicort Respules) 0.5 mg IH RBID [facility] Last Admin: 07/04/18 07:42 Dose: 0.5 mg Docusate Sodium (Colace) 100 mg PO Q8 PRN PRN Reason: Constipation Enoxaparin Sodium (Lovenox) 40 mg SC DAILY [facility]; Protocol Last Admin: 07/04/18 08:32 Dose: 40 mg Fluticasone Propionate (Flonase) 2 spr TIM DAILY [facility] Last Admin: 07/04/18 08:32 Dose: 2 spr Hydrocortisone Sodium Succinate (Solu-Cortef) 100 mg IV DAILY [facility] Last Admin: 03/20/19 09:55 Dose: 100 mg Meropenem 1 gm/ Sodium (Chloride) 100 mls @ 100 mls/hr IVPB Q8 [facility]; Protocol Last Admin: 07/04/18 08:31 Dose: 100 mls/hr Micafungin Sodium 100 mg/ (Sodium Chloride) 100 mls @ 100 mls/hr IVPB DAILY [facility]; Protocol Last Admin: 07/04/18 08:32 Dose: 100 mls/hr Vancomycin HCl 1 gm/ Sodium (Chloride) 250 mls @ 166.667 mls/hr IVPB Q12H [facility]; Protocol Last Admin: 07/04/18 02:10 Dose: 166.667 mls/hr Insulin Detemir (Levemir) 14 units SC Q12@0600,1800 [facility] Last Admin: 07/04/18 06:19 Dose: Not Given Insulin Human Lispro (Humalog) 0 units SC 0000,0600,1200,1800 [facility] Last Admin: 07/04/18 12:10 Dose: Not Given Lactulose (Enulose) 20 gm PO DAILY PRN PRN Reason: Constipation Last Admin: 07/02/18 20:44 Dose: 20 gm Lidocaine (Lidoderm) 1 ea TD DAILY PRN PRN Reason: Pain, moderate (4-7) Last Admin: 07/03/18 09:13 Dose: 1 ea Methadone HCl (Methadone) 25 mg PO Q12 [facility] Last Admin: 07/03/18 21:07 Dose: Not Given Montelukast Sodium (Singulair) 10 mg PO DAILY [facility] Last Admin: 07/03/18 09:38 Dose: Not Given Nystatin (Nystatin Oral Susp) 5 ml PO QID [facility] Last Admin: 07/02/18 09:02 Dose: 5 ml Ondansetron HCl (Zofran Odt) 8 mg PO Q8 PRN PRN Reason: Nausea/Vomiting Last Admin: 06/28/18 23:52 Dose: 8 mg Oxybutynin Chloride (Ditropan Tab) 5 mg PO DAILY [facility] Last Admin: 07/03/18 09:33 Dose: Not Given Pantoprazole Sodium (Protonix Ec Tab) 40 mg PO DAILY [facility] Last Admin: 07/03/18 09:38 Dose: Not Given Paroxetine HCl (Paxil) 40 mg PO DAILY [facility] Last Admin: 07/03/18 09:37 Dose: Not Given Polyethylene Glycol (Miralax) 17 gm PO BID PRN PRN Reason: Constipation Last Admin: 07/01/18 16:29 Dose: 17 gm Prednisone (Prednisone Tab) 20 mg PO DAILY [facility] Last Admin: 07/03/18 09:37 Dose: Not Given Prochlorperazine (Compazine Tab) 10 mg PO Q6 PRN PRN Reason: Nausea/Vomiting Sennosides (Senokot Tab) 8.6 mg PO BID PRN PRN Reason: Constipation Tamsulosin HCl (Flomax) 0.4 mg PO DAILY [facility] Last Admin: 07/03/18 09:17 Dose: Not Given Triamcinolone Acetonide (Kenalog 0.1% Cream) 1 appl TOP Q12 [facility] Last Admin: 07/03/18 21:12 Dose: 1 appl - Labs Labs: 07/04/18 04:00 07/04/18 05:05 - Respiratory Exam Respiratory Exam: Decreased Breath Sounds - Cardiovascular Exam Cardiovascular Exam: REGULAR RHYTHM, +S1, +S2 - Extremities Exam Extremities Exam: Pedal Edema - Additional Findings Additional findings: [employer] NST Assessment and Plan - Assessment and Plan (Free Text) Assessment: ANGIOSARCOMA WITH LUNG METASTASIS HYPERLIPIDEMIA Plan: CONTINUE PRESENT PRESENT
--- NOTE | 2018-07-04 13:50 | CP.PCM.PN ---
Subjective - Date & Time of Evaluation Date of Evaluation: 07/04/18 Time of Evaluation: 09:00 - Subjective Subjective: extubated afebrile breathing shallow very lethargic still Objective - Vital Signs/Intake and Output Vital Signs (last 24 hours): Temp Pulse Resp BP Pulse Ox 97.5 F L 94 H 19 166/69 H 97 07/04/18 12:00 07/04/18 12:00 07/04/18 12:00 07/04/18 12:00 07/04/18 12:00 Intake and Output: 07/04/18 07/04/18 06:59 18:59 Intake Total 368 Output Total 250 Balance 118 - Medications Medications: Current Medications Acetylcysteine (Acetylcysteine 20%) 2 ml INH RBID [facility] Acyclovir (Zovirax) 800 mg PO TID [facility]; Protocol Last Admin: 07/03/18 16:03 Dose: Not Given Albuterol Sulfate (Albuterol 0.083% Inhal Emilia (2.5 Mg/3 Ml) Ud) 2.5 mg INH RQ4 PRN PRN Reason: Shortness of Breath Last Admin: 07/04/18 06:29 Dose: 2.5 mg Albuterol/Ipratropium (Duoneb 3 Mg/0.5 Mg (3 Ml) Ud) 3 ml INH RQID [facility] Last Admin: 07/04/18 11:25 Dose: Not Given Atorvastatin Calcium (Lipitor) 20 mg PO DAILY [facility] Last Admin: 07/03/18 09:18 Dose: Not Given Bisacodyl (Dulcolax) 10 mg PO DAILY PRN PRN Reason: Constipation Last Admin: 06/28/18 08:09 Dose: 10 mg Budesonide (Pulmicort Respules) 0.5 mg IH RBID [facility] Last Admin: 07/04/18 07:42 Dose: 0.5 mg Docusate Sodium (Colace) 100 mg PO Q8 PRN PRN Reason: Constipation Enoxaparin Sodium (Lovenox) 40 mg SC DAILY [facility]; Protocol Last Admin: 07/04/18 08:32 Dose: 40 mg Fluticasone Propionate (Flonase) 2 spr TIM DAILY [facility] Last Admin: 07/04/18 08:32 Dose: 2 spr Hydrocortisone Sodium Succinate (Solu-Cortef) 100 mg IV DAILY [facility] Last Admin: 07/04/18 09:55 Dose: 100 mg Meropenem 1 gm/ Sodium (Chloride) 100 mls @ 100 mls/hr IVPB Q8 [facility]; Protocol Last Admin: 07/04/18 08:31 Dose: 100 mls/hr Micafungin Sodium 100 mg/ (Sodium Chloride) 100 mls @ 100 mls/hr IVPB DAILY [facility]; Protocol Last Admin: 07/04/18 08:32 Dose: 100 mls/hr Vancomycin HCl 1 gm/ Sodium (Chloride) 250 mls @ 166.667 mls/hr IVPB Q12H [facility]; Protocol Last Admin: 07/04/18 02:10 Dose: 166.667 mls/hr Insulin Detemir (Levemir) 14 units SC Q12@0600,1800 [facility] Last Admin: 07/04/18 06:19 Dose: Not Given Insulin Human Lispro (Humalog) 0 units SC 0000,0600,1200,1800 [facility] Last Admin: 07/04/18 12:10 Dose: Not Given Lactulose (Enulose) 20 gm PO DAILY PRN PRN Reason: Constipation Last Admin: 07/02/18 20:44 Dose: 20 gm Lidocaine (Lidoderm) 1 ea TD DAILY PRN PRN Reason: Pain, moderate (4-7) Last Admin: 07/03/18 09:13 Dose: 1 ea Methadone HCl (Methadone) 25 mg PO Q12 [facility] Last Admin: 07/03/18 21:07 Dose: Not Given Montelukast Sodium (Singulair) 10 mg PO DAILY [facility] Last Admin: 07/03/18 09:38 Dose: Not Given Nystatin (Nystatin Oral Susp) 5 ml PO QID [facility] Last Admin: 07/02/18 09:02 Dose: 5 ml Ondansetron HCl (Zofran Odt) 8 mg PO Q8 PRN PRN Reason: Nausea/Vomiting Last Admin: 06/28/18 23:52 Dose: 8 mg Oxybutynin Chloride (Ditropan Tab) 5 mg PO DAILY [facility] Last Admin: 07/03/18 09:33 Dose: Not Given Pantoprazole Sodium (Protonix Ec Tab) 40 mg PO DAILY [facility] Last Admin: 07/03/18 09:38 Dose: Not Given Paroxetine HCl (Paxil) 40 mg PO DAILY [facility] Last Admin: 07/03/18 09:37 Dose: Not Given Polyethylene Glycol (Miralax) 17 gm PO BID PRN PRN Reason: Constipation Last Admin: 07/01/18 16:29 Dose: 17 gm Prednisone (Prednisone Tab) 20 mg PO DAILY [facility] Last Admin: 07/03/18 09:37 Dose: Not Given Prochlorperazine (Compazine Tab) 10 mg PO Q6 PRN PRN Reason: Nausea/Vomiting Sennosides (Senokot Tab) 8.6 mg PO BID PRN PRN Reason: Constipation Tamsulosin HCl (Flomax) 0.4 mg PO DAILY [facility] Last Admin: 07/03/18 09:17 Dose: Not Given Triamcinolone Acetonide (Kenalog 0.1% Cream) 1 appl TOP Q12 [facility] Last Admin: 07/03/18 21:12 Dose: 1 appl - Labs Labs: 07/04/18 04:00 07/04/18 05:05 - Constitutional Appears: Non-toxic, No Acute Distress, Chronically Ill - Head Exam Head Exam: NORMOCEPHALIC - Eye Exam Eye Exam: absent: Scleral icterus - ENT Exam ENT Exam: Mucous Membranes Dry - Neck Exam Neck Exam: absent: Lymphadenopathy - Respiratory Exam Respiratory Exam: Decreased Breath Sounds, Prolonged Expiratory Phase, Rales, Rhonchi - Cardiovascular Exam Cardiovascular Exam: REGULAR RHYTHM, +S1, +S2 - GI/Abdominal Exam GI & Abdominal Exam: Distended, Soft. absent: Tenderness - Rectal Exam Rectal Exam: Deferred - Exam Exam: Scrotal Swelling - Extremities Exam Extremities Exam: Pedal Edema. absent: Calf Tenderness - Back Exam Back Exam: absent: CVA tenderness (L), CVA tenderness (R) - Neurological Exam Neurological Exam: Alert, Awake, CN II-XII Intact Neuro motor strength exam: Left Upper Extremity: 3, Right Upper Extremity: 3, Left Lower Extremity: 3, Right Lower Extremity: 3 - Psychiatric Exam Psychiatric exam: Depressed - Skin Skin Exam: Dry Assessment and Plan (1) Bilateral leg ulcer Status: Acute (2) Bilateral leg ulcer Status: Acute (3) History of DVT (deep vein thrombosis) Status: Acute (4) Leukopenia Status: Acute (5) Mucositis Status: Acute (6) Oral thrush Status: Resolved (7) Sore throat Status: Acute (8) Cancer associated pain Status: Chronic (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 (10) Anemia Status: Acute (11) Sarcoma Status: Acute - Assessment and Plan (Free Text) Assessment: 62 year old male with 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
[2018-07-04] MEDS: Pantoprazole 40 mg EC Tab PO SCH (14:35)
--- NOTE | 2018-07-04 19:09 | CP.PCM.PN ---
Subjective - Date & Time of Evaluation Date of Evaluation: 07/04/18 Time of Evaluation: 22:22 - Subjective Subjective: Above noted Transfer to [facility]?? Exensive discussions with staff Objective - Vital Signs/Intake and Output Vital Signs (last 24 hours): Temp Pulse Resp BP Pulse Ox 97.4 F L 93 H 15 116/64 97 07/04/18 16:00 07/04/18 18:00 07/04/18 18:00 07/04/18 18:00 07/04/18 18:00 - Medications Medications: Current Medications Acetylcysteine (Acetylcysteine 20%) 2 ml INH RBID [facility] Acyclovir (Zovirax) 800 mg PO TID [facility]; Protocol Last Admin: 07/04/18 17:04 Dose: Not Given Albuterol Sulfate (Albuterol 0.083% Inhal Emilia (2.5 Mg/3 Ml) Ud) 2.5 mg INH RQ4 PRN PRN Reason: Shortness of Breath Last Admin: 07/04/18 06:29 Dose: 2.5 mg Albuterol/Ipratropium (Duoneb 3 Mg/0.5 Mg (3 Ml) Ud) 3 ml INH RQID [facility] Last Admin: 07/04/18 16:10 Dose: 3 ml Atorvastatin Calcium (Lipitor) 20 mg PO DAILY [facility] Last Admin: 07/04/18 14:35 Dose: Not Given Bisacodyl (Dulcolax) 10 mg PO DAILY PRN PRN Reason: Constipation Last Admin: 06/28/18 08:09 Dose: 10 mg Budesonide (Pulmicort Respules) 0.5 mg IH RBID [facility] Last Admin: 07/04/18 07:42 Dose: 0.5 mg Docusate Sodium (Colace) 100 mg PO Q8 PRN PRN Reason: Constipation Fluticasone Propionate (Flonase) 2 spr TIM DAILY [facility] Last Admin: 07/04/18 08:32 Dose: 2 spr Hydrocortisone Sodium Succinate (Solu-Cortef) 100 mg IV DAILY [facility] Last Admin: 07/04/18 09:55 Dose: 100 mg Meropenem 1 gm/ Sodium (Chloride) 100 mls @ 100 mls/hr IVPB Q8 [facility]; Protocol Last Admin: 07/04/18 16:55 Dose: 100 mls/hr Micafungin Sodium 100 mg/ (Sodium Chloride) 100 mls @ 100 mls/hr IVPB DAILY [facility]; Protocol Last Admin: 07/04/18 08:32 Dose: 100 mls/hr Vancomycin HCl 1 gm/ Sodium (Chloride) 250 mls @ 166.667 mls/hr IVPB Q12H [facility]; Protocol Last Admin: 07/04/18 15:00 Dose: 166.667 mls/hr Insulin Detemir (Levemir) 14 units SC Q12@0600,1800 [facility] Last Admin: 07/04/18 06:19 Dose: Not Given Insulin Human Lispro (Humalog) 0 units SC 0000,0600,1200,1800 [facility] Last Admin: 07/04/18 19:05 Dose: Not Given Lactulose (Enulose) 20 gm PO DAILY PRN PRN Reason: Constipation Last Admin: 07/02/18 20:44 Dose: 20 gm Lidocaine (Lidoderm) 1 ea TD DAILY PRN PRN Reason: Pain, moderate (4-7) Last Admin: 07/03/18 09:13 Dose: 1 ea Methadone HCl (Methadone) 25 mg PO Q12 [facility] Last Admin: 07/04/18 14:35 Dose: Not Given Montelukast Sodium (Singulair) 10 mg PO DAILY [facility] Last Admin: 07/04/18 14:35 Dose: Not Given Nystatin (Nystatin Oral Susp) 5 ml PO QID [facility] Last Admin: 07/02/18 09:02 Dose: 5 ml Ondansetron HCl (Zofran Odt) 8 mg PO Q8 PRN PRN Reason: Nausea/Vomiting Last Admin: 06/28/18 23:52 Dose: 8 mg Oxybutynin Chloride (Ditropan Tab) 5 mg PO DAILY [facility] Last Admin: 07/04/18 14:35 Dose: Not Given Pantoprazole Sodium (Protonix Ec Tab) 40 mg PO DAILY [facility] Last Admin: 07/04/18 14:35 Dose: Not Given Paroxetine HCl (Paxil) 40 mg PO DAILY [facility] Last Admin: 07/04/18 14:35 Dose: Not Given Polyethylene Glycol (Miralax) 17 gm PO BID PRN PRN Reason: Constipation Last Admin: 07/01/18 16:29 Dose: 17 gm Prednisone (Prednisone Tab) 20 mg PO DAILY [facility] Last Admin: 07/03/18 09:37 Dose: Not Given Prochlorperazine (Compazine Tab) 10 mg PO Q6 PRN PRN Reason: Nausea/Vomiting Sennosides (Senokot Tab) 8.6 mg PO BID PRN PRN Reason: Constipation Tamsulosin HCl (Flomax) 0.4 mg PO DAILY [facility] Last Admin: 07/04/18 14:35 Dose: Not Given Triamcinolone Acetonide (Kenalog 0.1% Cream) 1 appl TOP Q12 [facility] Last Admin: 07/04/18 09:00 Dose: 1 appl - Labs Labs: 07/04/18 04:00 07/04/18 05:05 - Respiratory Exam Respiratory Exam: NORMAL BREATHING PATTERN - Cardiovascular Exam Cardiovascular Exam: REGULAR RHYTHM - GI/Abdominal Exam GI & Abdominal Exam: Normal Bowel Sounds Assessment and Plan - Assessment and Plan (Free Text) Assessment: S/P Acute Hypercapnic Ventilatory Failure Pneumonia 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 WBC improved Mucositis/ Thrush 2 to chemotherapy Oncology Topical Chronic pain Pain management consult
[2018-07-04] MEDS: Acetylcysteine 20% Inhal Soln (4ml) INH SCH (19:34)
--- NOTE | 2018-07-04 20:41 | CP.PCM.PN ---
Subjective - Date & Time of Evaluation Date of Evaluation: 07/04/18 Time of Evaluation: 19:00 - Subjective Subjective: Appears comfortable. Objective - Vital Signs/Intake and Output Vital Signs (last 24 hours): Temp Pulse Resp BP Pulse Ox 97.4 F L 93 H 15 116/64 97 07/04/18 16:00 07/04/18 18:00 07/04/18 18:00 07/04/18 18:00 07/04/18 18:00 - Medications Medications: Current Medications Acetylcysteine (Acetylcysteine 20%) 2 ml INH RBID [facility] Last Admin: 07/04/18 19:34 Dose: 2 ml Acyclovir (Zovirax) 800 mg PO TID [facility]; Protocol Last Admin: 07/04/18 17:04 Dose: Not Given Albuterol Sulfate (Albuterol 0.083% Inhal Emilia (2.5 Mg/3 Ml) Ud) 2.5 mg INH RQ4 PRN PRN Reason: Shortness of Breath Last Admin: 07/04/18 06:29 Dose: 2.5 mg Albuterol/Ipratropium (Duoneb 3 Mg/0.5 Mg (3 Ml) Ud) 3 ml INH RQID [facility] Last Admin: 07/04/18 19:40 Dose: 3 ml Atorvastatin Calcium (Lipitor) 20 mg PO DAILY [facility] Last Admin: 07/04/18 14:35 Dose: Not Given Bisacodyl (Dulcolax) 10 mg PO DAILY PRN PRN Reason: Constipation Last Admin: 06/28/18 08:09 Dose: 10 mg Budesonide (Pulmicort Respules) 0.5 mg IH RBID [facility] Last Admin: 07/04/18 19:35 Dose: 0.5 mg Docusate Sodium (Colace) 100 mg PO Q8 PRN PRN Reason: Constipation Fluticasone Propionate (Flonase) 2 spr TIM DAILY [facility] Last Admin: 07/04/18 08:32 Dose: 2 spr Hydrocortisone Sodium Succinate (Solu-Cortef) 100 mg IV DAILY [facility] Last Admin: 07/04/18 09:55 Dose: 100 mg Meropenem 1 gm/ Sodium (Chloride) 100 mls @ 100 mls/hr IVPB Q8 [facility]; Protocol Last Admin: 07/04/18 16:55 Dose: 100 mls/hr Micafungin Sodium 100 mg/ (Sodium Chloride) 100 mls @ 100 mls/hr IVPB DAILY [facility]; Protocol Last Admin: 07/04/18 08:32 Dose: 100 mls/hr Vancomycin HCl 1 gm/ Sodium (Chloride) 250 mls @ 166.667 mls/hr IVPB Q12H [facility]; Protocol Last Admin: 07/04/18 15:00 Dose: 166.667 mls/hr Insulin Detemir (Levemir) 14 units SC Q12@0600,1800 [facility] Last Admin: 07/04/18 19:19 Dose: Not Given Insulin Human Lispro (Humalog) 0 units SC 0000,0600,1200,1800 [facility] Last Admin: 07/04/18 19:05 Dose: Not Given Lactulose (Enulose) 20 gm PO DAILY PRN PRN Reason: Constipation Last Admin: 07/02/18 20:44 Dose: 20 gm Lidocaine (Lidoderm) 1 ea TD DAILY PRN PRN Reason: Pain, moderate (4-7) Last Admin: 07/03/18 09:13 Dose: 1 ea Methadone HCl (Methadone) [address] [facility] Last Admin: 07/04/18 14:35 Dose: Not Given Montelukast Sodium (Singulair) [address] [facility] Last Admin: 07/04/18 14:35 Dose: Not Given Nystatin (Nystatin Oral Susp) [address] [facility] Last Admin: 07/02/18 09:02 Dose: 5 ml Ondansetron HCl (Zofran Odt) 8 mg PO Q8 PRN PRN Reason: Nausea/Vomiting Last Admin: 06/28/18 23:52 Dose: 8 mg Oxybutynin Chloride (Ditropan Tab) [address] [facility] Last Admin: 07/04/18 14:35 Dose: Not Given Pantoprazole Sodium (Protonix Ec Tab) [address] [facility] Last Admin: 07/04/18 14:35 Dose: Not Given Paroxetine HCl (Paxil) [address] [facility] Last Admin: 07/04/18 14:35 Dose: Not Given Polyethylene Glycol (Miralax) 17 gm PO BID PRN PRN Reason: Constipation Last Admin: 07/01/18 16:29 Dose: 17 gm Prednisone (Prednisone Tab) [address] [facility] Last Admin: 07/03/18 09:37 Dose: Not Given Prochlorperazine (Compazine Tab) 10 mg PO Q6 PRN PRN Reason: Nausea/Vomiting Sennosides (Senokot Tab) 8.6 mg PO BID PRN PRN Reason: Constipation Tamsulosin HCl (Flomax) 0.[address] [facility] Last Admin: 07/04/18 14:35 Dose: Not Given Triamcinolone Acetonide (Kenalog 0.1% Cream) [address] [facility] Last Admin: 07/04/18 09:00 Dose: 1 appl - Labs Labs: 07/04/18 04:00 07/04/18 05:05 - Head Exam Head Exam: ATRAUMATIC - Eye Exam Eye Exam: Normal appearance - ENT Exam ENT Exam: Mucous Membranes Dry - Respiratory Exam Respiratory Exam: Decreased Breath Sounds - Cardiovascular Exam Cardiovascular Exam: +S1, +S2 - GI/Abdominal Exam GI & Abdominal Exam: Normal Bowel Sounds - Extremities Exam Extremities Exam: Pedal Edema Assessment and Plan (1) Anemia Assessment & Plan: chronic disease from malignancy anemia of chemotherapy Status: Acute (2) Sarcoma Assessment & Plan: stage IV - lung mets on salvage chemotherapy at [facility] Status: Acute (3) History of DVT (deep vein thrombosis) Assessment & Plan: prior retroperitoneal bleeding on therapeutic anticoagulation on DVT prophylaxis Status: Acute
--- NOTE | 2018-07-04 21:24 | PN ---
DATE: 07/04/2018 ENDOCRINOLOGY FOLLOWUP NOTE LOCATION: Room 423, ICU. SUBJECTIVE: This is a 62-year-old male with recent uncontrolled type 2 insulin-requiring diabetes now with near optimal metabolic profile of his glycemic levels as noted. He is currently on the basal insulin as ordered. He was extubated last night and is currently on oxygen delivery by nasal cannula which he is tolerating fairly well at this time. He is scheduled for possible transfer to the [facility] today as noted. His glycemic levels are fluctuating but improved and the glucose levels have ranged from 142 to 186 mg/dL. LABORATORY DATA: His chemistry showed a BUN of 12, sodium 137, potassium 3.4, chloride 95, CO2 of 32, glucose 141, and creatinine 0.5. ASSESSMENT: This is a 62-year-old male with recent acute respiratory failure and marked hypercapnia with underlying metastatic angiosarcoma to the lungs as noted. He also had recent uncontrolled type 2 insulin-requiring diabetes, now with improved metabolic profile on a basal insulin given twice daily as noted. He also has ongoing percutaneous endoscopic gastrostomy tube feedings for nutritional supplementation as given. PLAN OF MANAGEMENT: We will continue the same basal insulin given as Levemir at 14 units subcu every 12 hours at 6 a.m. and 6 p.m. daily as given to optimize metabolic control. We will continue the low-dose correction scale using Humalog insulin and detailed orders are in place for eventual transfer today as noted. We will obtain serial chemistries and supplement accordingly needed. We will follow. Sheryl Adams MD
[2018-07-05] MEDS: Meropenem 1 GM in Sodium Chloride 0.9% 100 ML IVPB SCH ×3 (01:30→17:31)
[2018-07-05 05:23] LABS: HEMOGLOBIN 9.7 g/dL (12.0-18.0); MEAN CELL VOLUME 81.1 fl (80.0-94.0); MEAN CORPUSCULAR HEMOGLOBIN 25.4 pg (27.0-31.0); MEAN CORPUSCULAR HGB CONC 31.3 g/dL (33.0-37.0); RBC 3.84 Mil/uL (4.40-5.90); RED CELL DISTRIBUTION WIDTH 19.5 % (11.5-14.5); WHITE BLOOD COUNT 12.8 K/uL (4.8-10.8)
[2018-07-05 05:31] LABS: CALCIUM 8.6 mg/dL (8.4-10.2); GFR NON-AFRICAN AMERICAN > 60
[2018-07-05 05:46] LABS: BLOOD UREA NITROGEN 14 mg/dl (9-20)
[2018-07-05] MEDS: Insulin Lispro (humaLOG) 100 Units/ml Inj SC SCH ×4 (06:30→17:24)
[2018-07-05] MEDS: Insulin Detemir 100 Units/ml Inj SC SCH ×3 (06:31→17:29)
[2018-07-05] MEDS ORDERED: Potassium Chloride 20 mEq ER Tab PO ONE (07:16)
--- NOTE | 2018-07-05 08:14 | CP.PCM.PN ---
Subjective - Date & Time of Evaluation Date of Evaluation: 07/05/18 Time of Evaluation: 08:11 - Subjective Subjective: Seen ion ICU, seated semi upright in bed. Copmplains of SOB and non-productive cough. Vital signs have remained stable, afebrile. No chest x-ray yet this morning. Today's labs reviewed. Appears mildly dyspneic at rest. Abdominal paradoxical pattern noted. Awake and alert, speech is hoarse but clear. Mentation appears appropriate. No dullness on percussion of the right hemithorax. Dullness is noted over the entire left hemithorax. Breath sounds are diminished, but otherwise unremarkable on the right. Breath sounds are essentially absent on the left with only distant BS heard in the left base. Heart sounds are distant, regular. Abdomen is obese, soft and non-tender. + dependant edema of LEs w/o cyanosis. NPPV using BiPAP as needed. HFNC during daytime at 30/30. On solucortef 100MG IVPB OD. Aerosol therapy with acetylcysteine and albuterol BID. Objective - Vital Signs/Intake and Output Vital Signs (last 24 hours): Temp Pulse Resp BP Pulse Ox 98.5 F 96 H 21 153/79 H 96 07/05/18 05:00 07/05/18 05:00 07/05/18 05:00 07/05/18 05:00 07/05/18 05:00 - Medications Medications: Current Medications Acetylcysteine (Acetylcysteine 20%) 2 ml INH RBID [facility] Last Admin: 07/04/18 19:34 Dose: 2 ml Acyclovir (Zovirax) 800 mg PO TID [facility]; Protocol Last Admin: 07/04/18 17:04 Dose: Not Given Albuterol Sulfate (Albuterol 0.083% Inhal Emilia (2.5 Mg/3 Ml) Ud) 2.5 mg INH RQ4 PRN PRN Reason: Shortness of Breath Last Admin: 07/04/18 06:29 Dose: 2.5 mg Albuterol/Ipratropium (Duoneb 3 Mg/0.5 Mg (3 Ml) Ud) 3 ml INH RQID [facility] Last Admin: 07/04/18 19:40 Dose: 3 ml Atorvastatin Calcium (Lipitor) 20 mg PO DAILY [facility] Last Admin: 07/04/18 14:35 Dose: Not Given Bisacodyl (Dulcolax) 10 mg PO DAILY PRN PRN Reason: Constipation Last Admin: 06/28/18 08:09 Dose: 10 mg Budesonide (Pulmicort Respules) 0.5 mg IH RBID [facility] Last Admin: 07/04/18 19:35 Dose: 0.5 mg Docusate Sodium (Colace) 100 mg PO Q8 PRN PRN Reason: Constipation Fluticasone Propionate (Flonase) 2 spr TIM DAILY [facility] Last Admin: 07/04/18 08:32 Dose: 2 spr Hydrocortisone Sodium Succinate (Solu-Cortef) 100 mg IV DAILY [facility] Last Admin: 07/04/18 09:55 Dose: 100 mg Meropenem 1 gm/ Sodium (Chloride) 100 mls @ 100 mls/hr IVPB Q8 [facility]; Protocol Last Admin: 07/05/18 01:30 Dose: 100 mls/hr Micafungin Sodium 100 mg/ (Sodium Chloride) 100 mls @ 100 mls/hr IVPB DAILY [facility]; Protocol Last Admin: 07/04/18 08:32 Dose: 100 mls/hr Vancomycin HCl 1 gm/ Sodium (Chloride) 250 mls @ 166.667 mls/hr IVPB Q12H [facility]; Protocol Last Admin: 07/05/18 03:00 Dose: 166.667 mls/hr Insulin Detemir (Levemir) 14 units SC Q12@0600,1800 [facility] Last Admin: 07/05/18 06:31 Dose: 14 units Insulin Human Lispro (Humalog) 0 units SC 0000,0600,1200,1800 [facility] Last Admin: 07/05/18 06:30 Dose: Not Given Lactulose (Enulose) 20 gm PO DAILY PRN PRN Reason: Constipation Last Admin: 07/04/18 22:55 Dose: 20 gm Lidocaine (Lidoderm) 1 ea TD DAILY PRN PRN Reason: Pain, moderate (4-7) Last Admin: 07/03/18 09:13 Dose: 1 ea Methadone HCl (Methadone) 25 mg PO Q12 [facility] Last Admin: 07/04/18 22:58 Dose: Not Given Montelukast Sodium (Singulair) 10 mg PO DAILY [facility] Last Admin: 07/04/18 14:35 Dose: Not Given Nystatin (Nystatin Oral Susp) 5 ml PO QID [facility] Last Admin: 03/18/19 09:02 Dose: 5 ml Ondansetron HCl (Zofran Odt) 8 mg PO Q8 PRN PRN Reason: Nausea/Vomiting Last Admin: 06/28/18 23:52 Dose: 8 mg Oxybutynin Chloride (Ditropan Tab) 5 mg PO DAILY [facility] Last Admin: 07/04/18 14:35 Dose: Not Given Pantoprazole Sodium (Protonix Ec Tab) 40 mg PO DAILY [facility] Last Admin: 07/04/18 14:35 Dose: Not Given Paroxetine HCl (Paxil) 40 mg PO DAILY [facility] Last Admin: 07/04/18 14:35 Dose: Not Given Polyethylene Glycol (Miralax) 17 gm PO BID PRN PRN Reason: Constipation Last Admin: 07/01/18 16:29 Dose: 17 gm Prednisone (Prednisone Tab) 20 mg PO DAILY [facility] Last Admin: 07/03/18 09:37 Dose: Not Given Prochlorperazine (Compazine Tab) 10 mg PO Q6 PRN PRN Reason: Nausea/Vomiting Sennosides (Senokot Tab) 8.6 mg PO BID PRN PRN Reason: Constipation Tamsulosin HCl (Flomax) 0.4 mg PO DAILY [facility] Last Admin: 07/04/18 14:35 Dose: Not Given Triamcinolone Acetonide (Kenalog 0.1% Cream) 1 appl TOP Q12 [facility] Last Admin: 07/04/18 22:58 Dose: 1 appl - Labs Labs: 07/05/18 05:15 07/05/18 05:15 Assessment and Plan (1) Acute respiratory failure with hypercapnia Status: Acute (2) Oral thrush Status: Resolved (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
[2018-07-05] MEDS: Albuterol-Ipratrop 3 mg / 0.5 (3 ml) UD INH SCH ×4 (08:37→19:08)
[2018-07-05] MEDS: Acetylcysteine 20% Inhal Soln (4ml) INH SCH ×2 (08:38→19:08)
--- NOTE | 2018-07-05 08:50 | CP.PCM.PN ---
Subjective - Date & Time of Evaluation Date of Evaluation: 07/05/18 Time of Evaluation: 08:48 - Subjective Subjective: Podiatry Progress Note: Dr. Myrick Patient seen and evaluated this morning in ICU for b/l LE erythema, edema, and superficial ulceration; improving. Patient resting comfortably and in NAD at this time. Denies any pain to b/l lower extremities. Denies nausea/vomiting/fever/chest pain admits to shortness of breath and cough. Objective - Vital Signs/Intake and Output Vital Signs (last 24 hours): Temp Pulse Resp BP Pulse Ox 97.3 F L 92 H 18 153/79 H 97 07/05/18 08:00 07/05/18 08:00 07/05/18 08:00 07/05/18 08:00 07/05/18 08:00 - Medications Medications: Current Medications Acetylcysteine (Acetylcysteine 20%) 2 ml INH RBID [facility] Last Admin: 07/05/18 08:38 Dose: 2 ml Acyclovir (Zovirax) 800 mg PO TID [facility]; Protocol Last Admin: 07/04/18 17:04 Dose: Not Given Albuterol Sulfate (Albuterol 0.083% Inhal Emilia (2.5 Mg/3 Ml) Ud) 2.5 mg INH RQ4 PRN PRN Reason: Shortness of Breath Last Admin: 07/04/18 06:29 Dose: 2.5 mg Albuterol/Ipratropium (Duoneb 3 Mg/0.5 Mg (3 Ml) Ud) 3 ml INH RQID [facility] Last Admin: 07/05/18 08:37 Dose: 3 ml Atorvastatin Calcium (Lipitor) 20 mg PO DAILY [facility] Last Admin: 07/04/18 14:35 Dose: Not Given Bisacodyl (Dulcolax) 10 mg PO DAILY PRN PRN Reason: Constipation Last Admin: 06/28/18 08:09 Dose: 10 mg Budesonide (Pulmicort Respules) 0.5 mg IH RBID [facility] Last Admin: 07/04/18 19:35 Dose: 0.5 mg Docusate Sodium (Colace) 100 mg PO Q8 PRN PRN Reason: Constipation Fluticasone Propionate (Flonase) 2 spr TIM DAILY [facility] Last Admin: 07/04/18 08:32 Dose: 2 spr Hydrocortisone Sodium Succinate (Solu-Cortef) 100 mg IV DAILY [facility] Last Admin: 07/04/18 09:55 Dose: 100 mg Meropenem 1 gm/ Sodium (Chloride) 100 mls @ 100 mls/hr IVPB Q8 [facility]; Protocol Last Admin: 07/05/18 01:30 Dose: 100 mls/hr Micafungin Sodium 100 mg/ (Sodium Chloride) 100 mls @ 100 mls/hr IVPB DAILY [facility]; Protocol Last Admin: 07/04/18 08:32 Dose: 100 mls/hr Vancomycin HCl 1 gm/ Sodium (Chloride) 250 mls @ 166.667 mls/hr IVPB Q12H [facility]; Protocol Last Admin: 07/05/18 03:00 Dose: 166.667 mls/hr Insulin Detemir (Levemir) 14 units SC Q12@0600,1800 [facility] Last Admin: 07/05/18 06:31 Dose: 14 units Insulin Human Lispro (Humalog) 0 units SC 0000,0600,1200,1800 [facility] Last Admin: 07/05/18 06:30 Dose: Not Given Lactulose (Enulose) 20 gm PO DAILY PRN PRN Reason: Constipation Last Admin: 07/04/18 22:55 Dose: 20 gm Lidocaine (Lidoderm) 1 ea TD DAILY PRN PRN Reason: Pain, moderate (4-7) Last Admin: 07/03/18 09:13 Dose: 1 ea Methadone HCl (Methadone) 25 mg PO Q12 [facility] Last Admin: 07/04/18 22:58 Dose: Not Given Montelukast Sodium (Singulair) 10 mg PO DAILY [facility] Last Admin: 07/04/18 14:35 Dose: Not Given Nystatin (Nystatin Oral Susp) 5 ml PO QID [facility] Last Admin: 07/02/18 09:02 Dose: 5 ml Ondansetron HCl (Zofran Odt) 8 mg PO Q8 PRN PRN Reason: Nausea/Vomiting Last Admin: 06/28/18 23:52 Dose: 8 mg Oxybutynin Chloride (Ditropan Tab) 5 mg PO DAILY [facility] Last Admin: 07/04/18 14:35 Dose: Not Given Pantoprazole Sodium (Protonix Ec Tab) 40 mg PO DAILY [facility] Last Admin: 07/04/18 14:35 Dose: Not Given Paroxetine HCl (Paxil) 40 mg PO DAILY [facility] Last Admin: 07/04/18 14:35 Dose: Not Given Polyethylene Glycol (Miralax) 17 gm PO BID PRN PRN Reason: Constipation Last Admin: 07/01/18 16:29 Dose: 17 gm Prednisone (Prednisone Tab) 20 mg PO DAILY [facility] Last Admin: 07/03/18 09:37 Dose: Not Given Prochlorperazine (Compazine Tab) 10 mg PO Q6 PRN PRN Reason: Nausea/Vomiting Sennosides (Senokot Tab) 8.6 mg PO BID PRN PRN Reason: Constipation Tamsulosin HCl (Flomax) 0.4 mg PO DAILY [facility] Last Admin: 07/04/18 14:35 Dose: Not Given Triamcinolone Acetonide (Kenalog 0.1% Cream) 1 appl TOP Q12 [facility] Last Admin: 07/04/18 22:58 Dose: 1 appl - Labs Labs: 07/05/18 05:15 07/05/18 05:15 - Constitutional Appears: Non-toxic, No Acute Distress - Head Exam Head Exam: ATRAUMATIC, NORMOCEPHALIC - Extremities Exam Additional comments: B/L LE focused exam: Vasc: DP and PT pulses palpable 1/4 due to edema; cap refill <3 seconds to all digits; Temp gradient Warm to warm; +2 pitting edema noted b/l. Ortho: No pain on palpation of left lower extremity mid leg. Neuro: Gross and protective sensation diminished. Derm: Superficial stasis ulcerations noted on the R anterior aspect of the leg measuring 3.4 cm X 2.5 cm x 0.1, with fibrotic base, no active drainage , no depth appreciated. An ulcer noted on the anterior aspect of L leg measuring 1.2 cm X 1.2 cm X 0.2 cm, scab formation, no drainage, no purulence. Mild erythema extends from the ankle to the upper 1/3 of the leg b/l, significantly improved wounds, no weeping appreciated at this time. - Neurological Exam Neurological Exam: Alert, Awake - Psychiatric Exam Psychiatric exam: Normal Affect, Normal Mood Assessment and Plan - Assessment and Plan (Free Text) Assessment: 62M with b/l LE erythema, edema and superficial ulceration; stable Plan: Patient seen and evaluated at the bedside Discussed with Dr. Myrick B/L wound cultures: MRSA Continue IV Abx as per primary team. B/L Venous duplex; no evidence of DVT B/L LE dressed with DSD and adaptic No podiatric surgical intervention Patient stable from podiatry standpoint Will continue to follow while in house
[2018-07-05 09:30] VITALS: BMI 42.2
--- NOTE | 2018-07-05 10:14 | CP.PCM.PN ---
Subjective - Date & Time of Evaluation Date of Evaluation: 07/05/18 Time of Evaluation: 09:15 - Subjective Subjective: NO CHEST PAIN IS SOB Objective - Vital Signs/Intake and Output Vital Signs (last 24 hours): Temp Pulse Resp BP Pulse Ox 97.3 F L 92 H 18 153/79 H 97 07/05/18 08:00 07/05/18 08:00 07/05/18 08:00 07/05/18 08:00 07/05/18 08:00 - Medications Medications: Current Medications Acetylcysteine (Acetylcysteine 20%) 2 ml INH RBID [facility] Last Admin: 07/05/18 08:38 Dose: 2 ml Acyclovir (Zovirax) 800 mg PO TID [facility]; Protocol Last Admin: 07/04/18 17:04 Dose: Not Given Albuterol Sulfate (Albuterol 0.083% Inhal Emilia (2.5 Mg/3 Ml) Ud) 2.5 mg INH RQ4 PRN PRN Reason: Shortness of Breath Last Admin: 07/04/18 06:29 Dose: 2.5 mg Albuterol/Ipratropium (Duoneb 3 Mg/0.5 Mg (3 Ml) Ud) 3 ml INH RQID [facility] Last Admin: 07/05/18 08:37 Dose: 3 ml Atorvastatin Calcium (Lipitor) 20 mg PO DAILY [facility] Last Admin: 07/04/18 14:35 Dose: Not Given Bisacodyl (Dulcolax) 10 mg PO DAILY PRN PRN Reason: Constipation Last Admin: 06/28/18 08:09 Dose: 10 mg Budesonide (Pulmicort Respules) 0.5 mg IH RBID [facility] Last Admin: 07/04/18 19:35 Dose: 0.5 mg Docusate Sodium (Colace) 100 mg PO Q8 PRN PRN Reason: Constipation Fluticasone Propionate (Flonase) 2 spr TIM DAILY [facility] Last Admin: 07/04/18 08:32 Dose: 2 spr Hydrocortisone Sodium Succinate (Solu-Cortef) 100 mg IV DAILY [facility] Last Admin: 07/04/18 09:55 Dose: 100 mg Meropenem 1 gm/ Sodium (Chloride) 100 mls @ 100 mls/hr IVPB Q8 [facility]; Protocol Last Admin: 07/05/18 01:30 Dose: 100 mls/hr Micafungin Sodium 100 mg/ (Sodium Chloride) 100 mls @ 100 mls/hr IVPB DAILY [facility]; Protocol Last Admin: 07/04/18 08:32 Dose: 100 mls/hr Vancomycin HCl 1 gm/ Sodium (Chloride) 250 mls @ 166.667 mls/hr IVPB Q12H [facility]; Protocol Last Admin: 07/05/18 03:00 Dose: 166.667 mls/hr Insulin Detemir (Levemir) 14 units SC Q12@0600,1800 [facility] Last Admin: 07/05/18 06:31 Dose: 14 units Insulin Human Lispro (Humalog) 0 units SC 0000,0600,1200,1800 [facility] Last Admin: 07/05/18 06:30 Dose: Not Given Lactulose (Enulose) 20 gm PO DAILY PRN PRN Reason: Constipation Last Admin: 07/04/18 22:55 Dose: 20 gm Lidocaine (Lidoderm) 1 ea TD DAILY PRN PRN Reason: Pain, moderate (4-7) Last Admin: 07/03/18 09:13 Dose: 1 ea Methadone HCl (Methadone) 25 mg PO Q12 [facility] Last Admin: 07/04/18 22:58 Dose: Not Given Montelukast Sodium (Singulair) 10 mg PO DAILY [facility] Last Admin: 07/04/18 14:35 Dose: Not Given Nystatin (Nystatin Oral Susp) 5 ml PO QID [facility] Last Admin: 07/02/18 09:02 Dose: 5 ml Ondansetron HCl (Zofran Odt) 8 mg PO Q8 PRN PRN Reason: Nausea/Vomiting Last Admin: 06/28/18 23:52 Dose: 8 mg Oxybutynin Chloride (Ditropan Tab) 5 mg PO DAILY [facility] Last Admin: 07/04/18 14:35 Dose: Not Given Pantoprazole Sodium (Protonix Ec Tab) 40 mg PO DAILY [facility] Last Admin: 07/04/18 14:35 Dose: Not Given Paroxetine HCl (Paxil) 40 mg PO DAILY [facility] Last Admin: 07/04/18 14:35 Dose: Not Given Polyethylene Glycol (Miralax) 17 gm PO BID PRN PRN Reason: Constipation Last Admin: 07/01/18 16:29 Dose: 17 gm Prochlorperazine (Compazine Tab) 10 mg PO Q6 PRN PRN Reason: Nausea/Vomiting Sennosides (Senokot Tab) 8.6 mg PO BID PRN PRN Reason: Constipation Tamsulosin HCl (Flomax) 0.4 mg PO DAILY [facility] Last Admin: 07/04/18 14:35 Dose: Not Given Triamcinolone Acetonide (Kenalog 0.1% Cream) 1 appl TOP Q12 [facility] Last Admin: 07/04/18 22:58 Dose: 1 appl - Labs Labs: 07/05/18 05:15 07/05/18 05:15 - Respiratory Exam Respiratory Exam: Decreased Breath Sounds - Cardiovascular Exam Cardiovascular Exam: +S2 - Extremities Exam Extremities Exam: Pedal Edema - Additional Findings Additional findings: CUTTER HEAD 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
[2018-07-05] MEDS: Micafungin 100 MG in Sodium Chloride 0.9% 100 ML IVPB SCH (10:20)
[2018-07-05] MEDS: Pantoprazole 40 mg EC Tab PO SCH (10:21)
[2018-07-05] MEDS: Budesonide 0.5 mg/2 ml Inhal Susp UD IH SCH ×2 (11:41→19:08)
--- NOTE | 2018-07-05 13:09 | RAD ---
Date of service: 07/05/2018 HISTORY: Shortness of breath COMPARISON: Multiple serial examinations preceding the most recent study: 07/03/2018 at 04:14. FINDINGS: LUNGS: Stable findings left hemithorax and mediastinum. PLEURA: No significant pleural effusion identified, no pneumothorax apparent. CARDIOVASCULAR: No atherosclerotic calcification present Venous access catheter in stable, satisfactory position. OSSEOUS STRUCTURES: No significant abnormalities. VISUALIZED UPPER ABDOMEN: Normal. OTHER FINDINGS: Removal of support apparatus since the prior study: Patient has been extubated. IMPRESSION: Stable findings left hemithorax and mediastinum. No significant interval change compared to the prior examination(s).
--- NOTE | 2018-07-05 17:22 | CP.PCM.PN ---
Subjective - Date & Time of Evaluation Date of Evaluation: 07/05/18 Time of Evaluation: 22:22 - Subjective Subjective: Continues to improve Objective - Vital Signs/Intake and Output Vital Signs (last 24 hours): Temp Pulse Resp BP Pulse Ox 99.0 F 101 H 20 144/81 97 07/05/18 16:00 07/05/18 16:00 07/05/18 16:00 07/05/18 16:00 07/05/18 16:00 - Medications Medications: Current Medications Acetylcysteine (Acetylcysteine 20%) 2 ml INH RBID [facility] Last Admin: 07/05/18 08:38 Dose: 2 ml Acyclovir (Zovirax) 800 mg PO TID [facility]; Protocol Last Admin: 07/05/18 12:54 Dose: 800 mg Albuterol Sulfate (Albuterol 0.083% Inhal Emilia (2.5 Mg/3 Ml) Ud) 2.5 mg INH RQ4 PRN PRN Reason: Shortness of Breath Last Admin: 07/04/18 06:29 Dose: 2.5 mg Albuterol/Ipratropium (Duoneb 3 Mg/0.5 Mg (3 Ml) Ud) 3 ml INH RQID [facility] Last Admin: 07/05/18 15:34 Dose: 3 ml Atorvastatin Calcium (Lipitor) 20 mg PO DAILY [facility] Last Admin: 07/05/18 10:19 Dose: 20 mg Bisacodyl (Dulcolax) 10 mg PO DAILY PRN PRN Reason: Constipation Last Admin: 06/28/18 08:09 Dose: 10 mg Budesonide (Pulmicort Respules) 0.5 mg IH RBID [facility] Last Admin: 07/05/18 11:41 Dose: 0.5 mg Docusate Sodium (Colace) 100 mg PO Q8 PRN PRN Reason: Constipation Fluticasone Propionate (Flonase) 2 spr TIM DAILY [facility] Last Admin: 07/05/18 10:17 Dose: 2 spr Hydrocortisone Sodium Succinate (Solu-Cortef) 100 mg IV DAILY [facility] Last Admin: 07/05/18 10:22 Dose: 100 mg Meropenem 1 gm/ Sodium (Chloride) 100 mls @ 100 mls/hr IVPB Q8 [facility]; Protocol Last Admin: 07/05/18 10:19 Dose: 100 mls/hr Micafungin Sodium 100 mg/ (Sodium Chloride) 100 mls @ 100 mls/hr IVPB DAILY [facility]; Protocol Last Admin: 07/05/18 10:20 Dose: 100 mls/hr Vancomycin HCl 1 gm/ Sodium (Chloride) 250 mls @ 166.667 mls/hr IVPB Q12H [facility]; Protocol Last Admin: 07/05/18 14:58 Dose: 166.667 mls/hr Insulin Detemir (Levemir) 14 units SC Q12@0600,1800 [facility] Last Admin: 07/05/18 06:31 Dose: 14 units Insulin Human Lispro (Humalog) 0 units SC 0000,0600,1200,1800 [facility] Last Admin: 07/05/18 11:27 Dose: Not Given Lactulose (Enulose) 20 gm PO DAILY PRN PRN Reason: Constipation Last Admin: 07/04/18 22:55 Dose: 20 gm Lidocaine (Lidoderm) 1 ea TD DAILY PRN PRN Reason: Pain, moderate (4-7) Last Admin: 07/03/18 09:13 Dose: 1 ea Methadone HCl (Methadone) 25 mg PO Q12 [facility] Last Admin: 07/05/18 11:24 Dose: 25 mg Montelukast Sodium (Singulair) 10 mg PO DAILY [facility] Last Admin: 07/05/18 10:22 Dose: 10 mg Nystatin (Nystatin Oral Susp) 5 ml PO QID [facility] Last Admin: 07/02/18 09:02 Dose: 5 ml Ondansetron HCl (Zofran Odt) 8 mg PO Q8 PRN PRN Reason: Nausea/Vomiting Last Admin: 07/05/18 11:44 Dose: 8 mg Oxybutynin Chloride (Ditropan Tab) 5 mg PO DAILY [facility] Last Admin: 07/05/18 10:16 Dose: 5 mg Pantoprazole Sodium (Protonix Ec Tab) 40 mg PO DAILY [facility] Last Admin: 07/05/18 10:21 Dose: 40 mg Paroxetine HCl (Paxil) 40 mg PO DAILY [facility] Last Admin: 07/05/18 10:21 Dose: 40 mg Polyethylene Glycol (Miralax) 17 gm PO BID PRN PRN Reason: Constipation Last Admin: 07/01/18 16:29 Dose: 17 gm Prochlorperazine (Compazine Tab) 10 mg PO Q6 PRN PRN Reason: Nausea/Vomiting Sennosides (Senokot Tab) 8.6 mg PO BID PRN PRN Reason: Constipation Tamsulosin HCl (Flomax) 0.4 mg PO DAILY [facility] Last Admin: 07/05/18 10:17 Dose: 0.4 mg Triamcinolone Acetonide (Kenalog 0.1% Cream) 1 appl TOP Q12 [facility] Last Admin: 07/05/18 10:18 Dose: 1 appl - Labs Labs: 07/05/18 05:15 07/05/18 05:15 - Respiratory Exam Respiratory Exam: NORMAL BREATHING PATTERN - Cardiovascular Exam Cardiovascular Exam: REGULAR RHYTHM - GI/Abdominal Exam GI & Abdominal Exam: Normal Bowel Sounds Assessment and Plan - Assessment and Plan (Free Text) Assessment: Acute Hypercapnic Ventilatory Failure Pneumonia 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 WBC improved Mucositis/ Thrush 2 to chemotherapy Oncology Topical Chronic pain Pain management consult
--- NOTE | 2018-07-05 20:52 | PN ---
DATE: 07/05/2018 ENDOCRINOLOGY FOLLOWUP NOTE LOCATION: Room 423 ICU. 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 His glucose levels today have ranged from 158-165 mg/dL and at bedtime glucose was 245. Moreover, he was given the BiPAP mask and is currently on nasal cannula oxygen delivery and which he is tolerating fairly well at this time. He is awaiting transfer to [facility] anytime the bed is available at this time. LABORATORY DATA: Chemistries showed a BUN of 14, sodium 141, potassium 3.4, chloride 102, CO2 of 35, glucose 157 and creatinine 0.5. ASSESSMENT AND PLAN: This is a 62-year-old male with uncontrolled decompensated type 2 insulin-requiring diabetes on basal insulin, tolerating the tube feedings for nutritional supplementation as given. 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 Plan of management, we will continue the same basal insulin given as Levemir at 14 units subcutaneous every 12 hours at 6:00 a.m. and 6:00 p.m. daily as given. We will also continue the low-dose correction scale using Humalog insulin as ordered. We will obtain serial chemistries and supplement accordingly as needed. We will follow. Sheryl Adams MD
--- NOTE | 2018-07-06 00:57 | CP.PCM.PN ---
Subjective - Date & Time of Evaluation Date of Evaluation: 07/05/18 Time of Evaluation: 12:00 - Subjective Subjective: Feeling better. Objective - Vital Signs/Intake and Output Vital Signs (last 24 hours): Temp Pulse Resp BP Pulse Ox 97.8 F 87 16 107/70 95 07/06/18 00:24 07/06/18 00:24 07/06/18 00:24 07/06/18 00:24 07/06/18 00:24 - Medications Medications: Current Medications Acetylcysteine (Acetylcysteine 20%) 2 ml INH RBID [facility] Last Admin: 07/05/18 19:08 Dose: 2 ml Acyclovir (Zovirax) 800 mg PO TID [facility]; Protocol Last Admin: 07/05/18 17:32 Dose: 800 mg Albuterol Sulfate (Albuterol 0.083% Inhal Emilia (2.5 Mg/3 Ml) Ud) 2.5 mg INH RQ4 PRN PRN Reason: Shortness of Breath Last Admin: 07/04/18 06:29 Dose: 2.5 mg Albuterol/Ipratropium (Duoneb 3 Mg/0.5 Mg (3 Ml) Ud) 3 ml INH RQID [facility] Last Admin: 07/05/18 19:08 Dose: 3 ml Atorvastatin Calcium (Lipitor) 20 mg PO DAILY [facility] Last Admin: 07/05/18 10:19 Dose: 20 mg Bisacodyl (Dulcolax) 10 mg PO DAILY PRN PRN Reason: Constipation Last Admin: 06/28/18 08:09 Dose: 10 mg Budesonide (Pulmicort Respules) 0.5 mg IH RBID [facility] Last Admin: 07/05/18 19:08 Dose: 0.5 mg Docusate Sodium (Colace) 100 mg PO Q8 PRN PRN Reason: Constipation Fluticasone Propionate (Flonase) 2 spr TIM DAILY [facility] Last Admin: 07/05/18 10:17 Dose: 2 spr Hydrocortisone Sodium Succinate (Solu-Cortef) 100 mg IV DAILY [facility] Last Admin: 07/05/18 10:22 Dose: 100 mg Meropenem 1 gm/ Sodium (Chloride) 100 mls @ 100 mls/hr IVPB Q8 [facility]; Protocol Last Admin: 07/05/18 17:31 Dose: 100 mls/hr Micafungin Sodium 100 mg/ (Sodium Chloride) 100 mls @ 100 mls/hr IVPB DAILY [facility]; Protocol Last Admin: 07/05/18 10:20 Dose: 100 mls/hr Vancomycin HCl 1 gm/ Sodium (Chloride) 250 mls @ 166.667 mls/hr IVPB Q12H [facility]; Protocol Last Admin: 07/05/18 14:58 Dose: 166.667 mls/hr Insulin Detemir (Levemir) 14 units SC Q12@0600,1800 [facility] Last Admin: 07/05/18 17:29 Dose: 14 units Insulin Human Lispro (Humalog) 0 units SC 0000,0600,1200,1800 [facility] Last Admin: 07/05/18 17:24 Dose: 3 u Lactulose (Enulose) 20 gm PO DAILY PRN PRN Reason: Constipation Last Admin: 07/04/18 22:55 Dose: 20 gm Lidocaine (Lidoderm) 1 ea TD DAILY PRN PRN Reason: Pain, moderate (4-7) Last Admin: 07/03/18 09:13 Dose: 1 ea Montelukast Sodium (Singulair) 10 mg PO DAILY [facility] Last Admin: 07/05/18 10:22 Dose: 10 mg Nystatin (Nystatin Oral Susp) 5 ml PO QID [facility] Last Admin: 07/02/18 09:02 Dose: 5 ml Ondansetron HCl (Zofran Odt) 8 mg PO Q8 PRN PRN Reason: Nausea/Vomiting Last Admin: 07/05/18 11:44 Dose: 8 mg Oxybutynin Chloride (Ditropan Tab) 5 mg PO DAILY [facility] Last Admin: 07/05/18 10:16 Dose: 5 mg Pantoprazole Sodium (Protonix Ec Tab) 40 mg PO DAILY [facility] Last Admin: 07/05/18 10:21 Dose: 40 mg Paroxetine HCl (Paxil) 40 mg PO DAILY [facility] Last Admin: 07/05/18 10:21 Dose: 40 mg Polyethylene Glycol (Miralax) 17 gm PO BID PRN PRN Reason: Constipation Last Admin: 07/01/18 16:29 Dose: 17 gm Prochlorperazine (Compazine Tab) 10 mg PO Q6 PRN PRN Reason: Nausea/Vomiting Sennosides (Senokot Tab) 8.6 mg PO BID PRN PRN Reason: Constipation Tamsulosin HCl (Flomax) 0.4 mg PO DAILY [facility] Last Admin: 07/05/18 10:17 Dose: 0.4 mg Triamcinolone Acetonide (Kenalog 0.1% Cream) 1 appl TOP Q12 [facility] Last Admin: 07/05/18 10:18 Dose: 1 appl - Labs Labs: 07/05/18 05:15 07/05/18 05:15 - Head Exam Head Exam: ATRAUMATIC - Eye Exam Eye Exam: Normal appearance - ENT Exam ENT Exam: Mucous Membranes Dry - Respiratory Exam Respiratory Exam: NORMAL BREATHING PATTERN - Cardiovascular Exam Cardiovascular Exam: +S1, +S2 - GI/Abdominal Exam GI & Abdominal Exam: Normal Bowel Sounds Assessment and Plan (1) Anemia Assessment & Plan: chronic disease from malignancy anemia of chemotherapy Status: Acute (2) Sarcoma Assessment & Plan: stage IV - lung mets on salvage chemotherapy at [facility] Status: Acute (3) History of DVT (deep vein thrombosis) Assessment & Plan: prior retroperitoneal bleeding on therapeutic anticoagulation on DVT prophylaxis Status: Acute
[2018-07-06] MEDS: Insulin Lispro (humaLOG) 100 Units/ml Inj SC SCH ×5 (01:29→23:16)
[2018-07-06] MEDS: Meropenem 1 GM in Sodium Chloride 0.9% 100 ML IVPB SCH ×3 (01:30→16:38)
--- NOTE | 2018-07-06 06:47 | CP.PCM.PN ---
Subjective - Date & Time of Evaluation Date of Evaluation: 07/06/18 Time of Evaluation: 06:47 - Subjective Subjective: Podiatry Progress Note: Dr. Myrick Patient seen and evaluated this AM for b/l edema and superficial ulceration; improving. Patient resting comfortable. Denies any acute events overnight. Denies nausea/vomiting/fever/shortness of breath. Objective - Vital Signs/Intake and Output Vital Signs (last 24 hours): Temp Pulse Resp BP Pulse Ox 98.0 F 82 16 112/73 98 07/06/18 05:29 07/06/18 05:29 07/06/18 05:29 07/06/18 05:29 07/06/18 05:29 - Medications Medications: Current Medications Acetylcysteine (Acetylcysteine 20%) 2 ml INH RBID [facility] Last Admin: 07/05/18 19:08 Dose: 2 ml Acyclovir (Zovirax) 800 mg PO TID [facility]; Protocol Last Admin: 07/05/18 17:32 Dose: 800 mg Albuterol Sulfate (Albuterol 0.083% Inhal Emilia (2.5 Mg/3 Ml) Ud) 2.5 mg INH RQ4 PRN PRN Reason: Shortness of Breath Last Admin: 07/04/18 06:29 Dose: 2.5 mg Albuterol/Ipratropium (Duoneb 3 Mg/0.5 Mg (3 Ml) Ud) 3 ml INH RQID [facility] Last Admin: 07/05/18 19:08 Dose: 3 ml Atorvastatin Calcium (Lipitor) 20 mg PO DAILY [facility] Last Admin: 07/05/18 10:19 Dose: 20 mg Bisacodyl (Dulcolax) 10 mg PO DAILY PRN PRN Reason: Constipation Last Admin: 06/28/18 08:09 Dose: 10 mg Budesonide (Pulmicort Respules) 0.5 mg IH RBID [facility] Last Admin: 07/05/18 19:08 Dose: 0.5 mg Docusate Sodium (Colace) 100 mg PO Q8 PRN PRN Reason: Constipation Fluticasone Propionate (Flonase) 2 spr TIM DAILY [facility] Last Admin: 07/05/18 10:17 Dose: 2 spr Hydrocortisone Sodium Succinate (Solu-Cortef) 100 mg IV DAILY [facility] Last Admin: 07/05/18 10:22 Dose: 100 mg Meropenem 1 gm/ Sodium (Chloride) 100 mls @ 100 mls/hr IVPB Q8 [facility]; Protocol Last Admin: 07/06/18 01:30 Dose: 100 mls/hr Micafungin Sodium 100 mg/ (Sodium Chloride) 100 mls @ 100 mls/hr IVPB DAILY [facility]; Protocol Last Admin: 07/05/18 10:20 Dose: 100 mls/hr Vancomycin HCl 1 gm/ Sodium (Chloride) 250 mls @ 166.667 mls/hr IVPB Q12H [facility]; Protocol Last Admin: 07/06/18 04:11 Dose: 166.667 mls/hr Insulin Detemir (Levemir) 14 units SC Q12@0600,1800 [facility] Last Admin: 07/05/18 17:29 Dose: 14 units Insulin Human Lispro (Humalog) 0 units SC 0000,0600,1200,1800 [facility] Last Admin: 07/06/18 01:29 Dose: Not Given Lactulose (Enulose) 20 gm PO DAILY PRN PRN Reason: Constipation Last Admin: 07/04/18 22:55 Dose: 20 gm Lidocaine (Lidoderm) 1 ea TD DAILY PRN PRN Reason: Pain, moderate (4-7) Last Admin: 07/03/18 09:13 Dose: 1 ea Montelukast Sodium (Singulair) 10 mg PO DAILY [facility] Last Admin: 07/05/18 10:22 Dose: 10 mg Nystatin (Nystatin Oral Susp) 5 ml PO QID [facility] Last Admin: 07/02/18 09:02 Dose: 5 ml Ondansetron HCl (Zofran Odt) 8 mg PO Q8 PRN PRN Reason: Nausea/Vomiting Last Admin: 07/05/18 11:44 Dose: 8 mg Oxybutynin Chloride (Ditropan Tab) 5 mg PO DAILY [facility] Last Admin: 07/05/18 10:16 Dose: 5 mg Pantoprazole Sodium (Protonix Ec Tab) 40 mg PO DAILY [facility] Last Admin: 07/05/18 10:21 Dose: 40 mg Paroxetine HCl (Paxil) 40 mg PO DAILY [facility] Last Admin: 07/05/18 10:21 Dose: 40 mg Polyethylene Glycol (Miralax) 17 gm PO BID PRN PRN Reason: Constipation Last Admin: 07/01/18 16:29 Dose: 17 gm Prochlorperazine (Compazine Tab) 10 mg PO Q6 PRN PRN Reason: Nausea/Vomiting Sennosides (Senokot Tab) 8.6 mg PO BID PRN PRN Reason: Constipation Tamsulosin HCl (Flomax) 0.4 mg PO DAILY [facility] Last Admin: 07/05/18 10:17 Dose: 0.4 mg Triamcinolone Acetonide (Kenalog 0.1% Cream) 1 appl TOP Q12 [facility] Last Admin: 07/05/18 10:18 Dose: 1 appl - Labs Labs: 07/05/18 05:15 07/05/18 05:15 - Constitutional Appears: Non-toxic, No Acute Distress - Head Exam Head Exam: ATRAUMATIC, NORMOCEPHALIC - Extremities Exam Additional comments: B/L LE focused exam: Vasc: DP and PT pulses palpable 1/4 due to edema; cap refill <3 seconds to all digits; Temp gradient Warm to warm; +2 pitting edema noted b/l. Ortho: No pain on palpation of left lower extremity mid leg. Neuro: Gross and protective sensation diminished. Derm: Superficial stasis ulcerations noted on the R anterior aspect of the leg measuring 3.4 cm X 2.5 cm x 0.1, with fibrotic base, no active drainage , no depth appreciated. An ulcer noted on the anterior aspect of L leg measuring 1.2 cm X 1.2 cm X 0.2 cm, scab formation, no drainage, no purulence. Mild erythema extends from the ankle to the upper 1/3 of the leg b/l, significantly improved wounds, no weeping appreciated at this time. - Neurological Exam Neurological Exam: Alert, Awake, Oriented x3 - Psychiatric Exam Psychiatric exam: Normal Affect, Normal Mood Assessment and Plan - Assessment and Plan (Free Text) Assessment: 62M with b/l LE edema and superficial ulceration; stable Plan: Patient seen and evaluated at the bedside Discussed with Dr. Myrick B/L wound cultures: MRSA Continue IV Abx as per primary team. B/L Venous duplex; no evidence of DVT B/L LE dressed with DSD and adaptic No podiatric surgical intervention Patient stable from podiatry standpoint Will continue to follow while in house
[2018-07-06] MEDS: Insulin Detemir 100 Units/ml Inj SC SCH ×2 (07:00→19:53)
[2018-07-06] MEDS: Acetylcysteine 20% Inhal Soln (4ml) INH SCH ×2 (07:51→19:34)
[2018-07-06] MEDS: Albuterol-Ipratrop 3 mg / 0.5 (3 ml) UD INH SCH ×4 (07:51→19:34)
[2018-07-06] MEDS: Budesonide 0.5 mg/2 ml Inhal Susp UD IH SCH ×2 (07:51→19:34)
[2018-07-06] MEDS: Albuterol 0.083% Inhal Sol (2.5 mg/3 mL) UD INH PRN ×2 (08:43→23:45)
[2018-07-06] MEDS: Lidocaine 5% Patch TD PRN (10:22)
[2018-07-06] MEDS: Pantoprazole 40 mg EC Tab PO SCH (10:32)
[2018-07-06] MEDS: Micafungin 100 MG in Sodium Chloride 0.9% 100 ML IVPB SCH (10:58)
--- NOTE | 2018-07-06 11:33 | CP.PCM.PN ---
Subjective - Date & Time of Evaluation Date of Evaluation: 07/06/18 Time of Evaluation: 11:00 - Subjective Subjective: NO MORGAN PAIN HAS SOME SOB AT REST BUT LESS THAN PRIOR TO INTUBATION Objective - Vital Signs/Intake and Output Vital Signs (last 24 hours): Temp Pulse Resp BP Pulse Ox 97.9 F 84 20 116/75 94 L 07/06/18 08:39 07/06/18 08:39 07/06/18 08:39 07/06/18 08:39 07/06/18 08:39 - Medications Medications: Current Medications Acetylcysteine (Acetylcysteine 20%) 2 ml INH RBID [facility] Last Admin: 07/06/18 07:51 Dose: 2 ml Acyclovir (Zovirax) 800 mg PO TID [facility]; Protocol Last Admin: 07/06/18 08:41 Dose: 800 mg Albuterol Sulfate (Albuterol 0.083% Inhal Emilia (2.5 Mg/3 Ml) Ud) 2.5 mg INH RQ4 PRN PRN Reason: Shortness of Breath Last Admin: 07/06/18 08:43 Dose: 2.5 mg Albuterol/Ipratropium (Duoneb 3 Mg/0.5 Mg (3 Ml) Ud) 3 ml INH RQID [facility] Last Admin: 07/06/18 07:51 Dose: 3 ml Atorvastatin Calcium (Lipitor) 20 mg PO DAILY [facility] Last Admin: 07/06/18 10:32 Dose: 20 mg Bisacodyl (Dulcolax) 10 mg PO DAILY PRN PRN Reason: Constipation Last Admin: 06/28/18 08:09 Dose: 10 mg Budesonide (Pulmicort Respules) 0.5 mg IH RBID [facility] Last Admin: 07/06/18 07:51 Dose: 0.5 mg Docusate Sodium (Colace) 100 mg PO Q8 PRN PRN Reason: Constipation Last Admin: 07/06/18 08:42 Dose: 100 mg Fluticasone Propionate (Flonase) 2 spr TIM DAILY [facility] Last Admin: 07/06/18 08:42 Dose: 2 spr Hydrocortisone Sodium Succinate (Solu-Cortef) 100 mg IV DAILY [facility] Last Admin: 07/06/18 10:33 Dose: 100 mg Meropenem 1 gm/ Sodium (Chloride) 100 mls @ 100 mls/hr IVPB Q8 [facility]; Protocol Last Admin: 07/06/18 09:59 Dose: 100 mls/hr Micafungin Sodium 100 mg/ (Sodium Chloride) 100 mls @ 100 mls/hr IVPB DAILY [facility]; Protocol Last Admin: 07/06/18 10:58 Dose: 100 mls/hr Vancomycin HCl 1 gm/ Sodium (Chloride) 250 mls @ 166.667 mls/hr IVPB Q12H [facility]; Protocol Last Admin: 07/06/18 04:11 Dose: 166.667 mls/hr Insulin Detemir (Levemir) 14 units SC Q12@0600,1800 [facility] Last Admin: 07/06/18 07:00 Dose: 14 units Insulin Human Lispro (Humalog) 0 units SC 0000,0600,1200,1800 [facility] Last Admin: 07/06/18 06:58 Dose: Not Given Lactulose (Enulose) 20 gm PO DAILY PRN PRN Reason: Constipation Last Admin: 07/04/18 22:55 Dose: 20 gm Lidocaine (Lidoderm) 1 ea TD DAILY PRN PRN Reason: Pain, moderate (4-7) Last Admin: 07/06/18 10:22 Dose: 1 ea Montelukast Sodium (Singulair) 10 mg PO DAILY [facility] Last Admin: 07/06/18 08:43 Dose: 10 mg Nystatin (Nystatin Oral Susp) 5 ml PO QID [facility] Last Admin: 07/02/18 09:02 Dose: 5 ml Ondansetron HCl (Zofran Odt) 8 mg PO Q8 PRN PRN Reason: Nausea/Vomiting Last Admin: 07/05/18 11:44 Dose: 8 mg Oxybutynin Chloride (Ditropan Tab) 5 mg PO DAILY [facility] Last Admin: 07/06/18 11:01 Dose: 5 mg Pantoprazole Sodium (Protonix Ec Tab) 40 mg PO DAILY [facility] Last Admin: 07/06/18 10:32 Dose: 40 mg Paroxetine HCl (Paxil) 40 mg PO DAILY [facility] Last Admin: 07/06/18 10:34 Dose: 40 mg Polyethylene Glycol (Miralax) 17 gm PO BID PRN PRN Reason: Constipation Last Admin: 07/01/18 16:29 Dose: 17 gm Prochlorperazine (Compazine Tab) 10 mg PO Q6 PRN PRN Reason: Nausea/Vomiting Sennosides (Senokot Tab) 8.6 mg PO BID PRN PRN Reason: Constipation Tamsulosin HCl (Flomax) 0.4 mg PO DAILY [facility] Last Admin: 07/06/18 10:35 Dose: 0.4 mg Triamcinolone Acetonide (Kenalog 0.1% Cream) 1 appl TOP Q12 [facility] Last Admin: 07/06/18 10:32 Dose: 1 appl - Labs Labs: 07/05/18 05:15 07/05/18 05:15 - Respiratory Exam Respiratory Exam: Decreased Breath Sounds, Rhonchi - Cardiovascular Exam Cardiovascular Exam: REGULAR RHYTHM, +S1, +S2 - Extremities Exam Extremities Exam: Pedal Edema Assessment and Plan - Assessment and Plan (Free Text) Assessment: ANGIOSARCOMA WITH LUNG METASTASIS PNEUMONIA HYPERLIPIDEMIA OVERWEIGHT DM Plan: CONTINUE ANTIBIOTICS, PULMONARY MEDICATIONS AND ATORVASTATIN FOR POSSIBLE TRANSFER TO [facility]
[2018-07-06 12:45] LABS: HEMOGLOBIN 9.7 g/dL (12.0-18.0); MEAN CORPUSCULAR HEMOGLOBIN 25.4 pg (27.0-31.0); RBC 3.81 Mil/uL (4.40-5.90); RED CELL DISTRIBUTION WIDTH 19.9 % (11.5-14.5); WHITE BLOOD COUNT 11.6 K/uL (4.8-10.8)
[2018-07-06 12:55] LABS: BLOOD UREA NITROGEN 17 mg/dl (9-20); CALCIUM 8.6 mg/dL (8.4-10.2); GFR NON-AFRICAN AMERICAN > 60
[2018-07-06] MEDS ORDERED: Sodium Chloride 3% for Inhalation 4 ML VIAL.NEB IH PRN (12:59)
--- NOTE | 2018-07-06 13:09 | CP.PCM.PN ---
Subjective - Date & Time of Evaluation Date of Evaluation: 07/06/18 Time of Evaluation: 13:00 - Subjective Subjective: Slept with BiPAP mask on overnight. Presently seated in bedside chair, appears comfortable. Requesting HFNC be discontinued because it makes him feel uncomfortable. Placed on regular nasal canula at 4 LPM flow with SpO2 steady at 94-96%. Will continue to use BiPAP overnight as previously. Voice is stronger, although still hoarse. Pharynx is pink w/o visible thrush. Neck is supple and trachea midline. No dullness on the right chest:dullness over entire left chest. Breath sounds are fairly well heard over the right chest with harsh BS centrally. No audible wheezes, no rales, few rhonchi, no bronchial breath sounds. The left chest is mostly silent with the exception of the base postero-laterally with distant BS. Heart sounds are distant, regular. + dependant edema of both LEs w/o cyanosis. Extremities are warm to touch/pink in color. Will maintain BiPAP use overnight and PRN daytime. Standard nasal canula at 4 LPM otherwise. Remains on solucortef 100MG daily, will reduce it to 50 MG tomorrow. Repeat sputum culture (small amount of phlegm in bedside cup is green color). Continue all the other medications as previously. Awaiting bed at [facility] for transfer. Objective - Vital Signs/Intake and Output Vital Signs (last 24 hours): Temp Pulse Resp BP Pulse Ox 98.1 F 84 20 96/55 L 97 07/06/18 12:47 07/06/18 12:47 07/06/18 12:47 07/06/18 12:47 07/06/18 12:47 - Medications Medications: Current Medications Acetylcysteine (Acetylcysteine 20%) 2 ml INH RBID [facility] Last Admin: 07/06/18 07:51 Dose: 2 ml Acyclovir (Zovirax) 800 mg PO TID [facility]; Protocol Last Admin: 07/06/18 08:41 Dose: 800 mg Albuterol Sulfate (Albuterol 0.083% Inhal Emilia (2.5 Mg/3 Ml) Ud) 2.5 mg INH RQ4 PRN PRN Reason: Shortness of Breath Last Admin: 07/06/18 08:43 Dose: 2.5 mg Albuterol/Ipratropium (Duoneb 3 Mg/0.5 Mg (3 Ml) Ud) 3 ml INH RQID [facility] Last Admin: 07/06/18 11:37 Dose: 3 ml Atorvastatin Calcium (Lipitor) 20 mg PO DAILY [facility] Last Admin: 07/06/18 10:32 Dose: 20 mg Bisacodyl (Dulcolax) 10 mg PO DAILY PRN PRN Reason: Constipation Last Admin: 06/28/18 08:09 Dose: 10 mg Budesonide (Pulmicort Respules) 0.5 mg IH RBID [facility] Last Admin: 07/06/18 07:51 Dose: 0.5 mg Docusate Sodium (Colace) 100 mg PO Q8 PRN PRN Reason: Constipation Last Admin: 07/06/18 08:42 Dose: 100 mg Fluticasone Propionate (Flonase) 2 spr TIM DAILY [facility] Last Admin: 07/06/18 08:42 Dose: 2 spr Hydrocortisone Sodium Succinate (Solu-Cortef) 100 mg IV DAILY [facility] Last Admin: 07/06/18 10:33 Dose: 100 mg Meropenem 1 gm/ Sodium (Chloride) 100 mls @ 100 mls/hr IVPB Q8 [facility]; Protocol Last Admin: 07/06/18 09:59 Dose: 100 mls/hr Micafungin Sodium 100 mg/ (Sodium Chloride) 100 mls @ 100 mls/hr IVPB DAILY [facility]; Protocol Last Admin: 07/06/18 10:58 Dose: 100 mls/hr Vancomycin HCl 1 gm/ Sodium (Chloride) 250 mls @ 166.667 mls/hr IVPB Q12H [facility]; Protocol Last Admin: 07/06/18 04:11 Dose: 166.667 mls/hr Insulin Detemir (Levemir) 14 units SC Q12@0600,1800 [facility] Last Admin: 07/06/18 07:00 Dose: 14 units Insulin Human Lispro (Humalog) 0 units SC 0000,0600,1200,1800 [facility] Last Admin: 07/06/18 06:58 Dose: Not Given Lactulose (Enulose) 20 gm PO DAILY PRN PRN Reason: Constipation Last Admin: 07/04/18 22:55 Dose: 20 gm Lidocaine (Lidoderm) 1 ea TD DAILY PRN PRN Reason: Pain, moderate (4-7) Last Admin: 07/06/18 10:22 Dose: 1 ea Montelukast Sodium (Singulair) 10 mg PO DAILY [facility] Last Admin: 07/06/18 08:43 Dose: 10 mg Nystatin (Nystatin Oral Susp) 5 ml PO QID [facility] Last Admin: 07/02/18 09:02 Dose: 5 ml Ondansetron HCl (Zofran Odt) 8 mg PO Q8 PRN PRN Reason: Nausea/Vomiting Last Admin: 07/05/18 11:44 Dose: 8 mg Oxybutynin Chloride (Ditropan Tab) 5 mg PO DAILY [facility] Last Admin: 07/06/18 11:01 Dose: 5 mg Pantoprazole Sodium (Protonix Ec Tab) 40 mg PO DAILY [facility] Last Admin: 07/06/18 10:32 Dose: 40 mg Paroxetine HCl (Paxil) 40 mg PO DAILY [facility] Last Admin: 07/06/18 10:34 Dose: 40 mg Polyethylene Glycol (Miralax) 17 gm PO BID PRN PRN Reason: Constipation Last Admin: 07/01/18 16:29 Dose: 17 gm Prochlorperazine (Compazine Tab) 10 mg PO Q6 PRN PRN Reason: Nausea/Vomiting Sennosides (Senokot Tab) 8.6 mg PO BID PRN PRN Reason: Constipation Tamsulosin HCl (Flomax) 0.4 mg PO DAILY [facility] Last Admin: 07/06/18 10:35 Dose: 0.4 mg Triamcinolone Acetonide (Kenalog 0.1% Cream) 1 appl TOP Q12 [facility] Last Admin: 07/06/18 10:32 Dose: 1 appl - Labs Labs: 07/06/18 12:17 07/06/18 12:17 Assessment and Plan (1) Acute respiratory failure with hypercapnia Status: Acute (2) Oral thrush Status: Resolved (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
--- NOTE | 2018-07-06 13:09 | CP.PCM.PN ---
Subjective - Date & Time of Evaluation Date of Evaluation: 07/06/18 Time of Evaluation: :22 - Subjective Subjective: Still with SOB but improved Objective - Vital Signs/Intake and Output Vital Signs (last 24 hours): Temp Pulse Resp BP Pulse Ox 98.1 F 84 20 96/55 L 97 07/06/18 12:47 07/06/18 12:47 07/06/18 12:47 07/06/18 12:47 07/06/18 12:47 - Medications Medications: Current Medications Acetylcysteine (Acetylcysteine 20%) 2 ml INH RBID [facility] Last Admin: 07/06/18 07:51 Dose: 2 ml Acyclovir (Zovirax) 800 mg PO TID [facility]; Protocol Last Admin: 07/06/18 08:41 Dose: 800 mg Albuterol Sulfate (Albuterol 0.083% Inhal Emilia (2.5 Mg/3 Ml) Ud) 2.5 mg INH RQ4 PRN PRN Reason: Shortness of Breath Last Admin: 07/06/18 08:43 Dose: 2.5 mg Albuterol/Ipratropium (Duoneb 3 Mg/0.5 Mg (3 Ml) Ud) 3 ml INH RQID [facility] Last Admin: 07/06/18 11:37 Dose: 3 ml Atorvastatin Calcium (Lipitor) 20 mg PO DAILY [facility] Last Admin: 07/06/18 10:32 Dose: 20 mg Bisacodyl (Dulcolax) 10 mg PO DAILY PRN PRN Reason: Constipation Last Admin: 06/28/18 08:09 Dose: 10 mg Budesonide (Pulmicort Respules) 0.5 mg IH RBID [facility] Last Admin: 07/06/18 07:51 Dose: 0.5 mg Docusate Sodium (Colace) 100 mg PO Q8 PRN PRN Reason: Constipation Last Admin: 07/06/18 08:42 Dose: 100 mg Fluticasone Propionate (Flonase) 2 spr TIM DAILY [facility] Last Admin: 07/06/18 08:42 Dose: 2 spr Hydrocortisone Sodium Succinate (Solu-Cortef) 100 mg IV DAILY [facility] Last Admin: 07/06/18 10:33 Dose: 100 mg Meropenem 1 gm/ Sodium (Chloride) 100 mls @ 100 mls/hr IVPB Q8 [facility]; Protocol Last Admin: 07/06/18 09:59 Dose: 100 mls/hr Micafungin Sodium 100 mg/ (Sodium Chloride) 100 mls @ 100 mls/hr IVPB DAILY [facility]; Protocol Last Admin: 07/06/18 10:58 Dose: 100 mls/hr Vancomycin HCl 1 gm/ Sodium (Chloride) 250 mls @ 166.667 mls/hr IVPB Q12H [facility]; Protocol Last Admin: 07/06/18 04:11 Dose: 166.667 mls/hr Insulin Detemir (Levemir) 14 units SC Q12@0600,1800 [facility] Last Admin: 07/06/18 07:00 Dose: 14 units Insulin Human Lispro (Humalog) 0 units SC 0000,0600,1200,1800 [facility] Last Admin: 07/06/18 06:58 Dose: Not Given Lactulose (Enulose) 20 gm PO DAILY PRN PRN Reason: Constipation Last Admin: 07/04/18 22:55 Dose: 20 gm Lidocaine (Lidoderm) 1 ea TD DAILY PRN PRN Reason: Pain, moderate (4-7) Last Admin: 07/06/18 10:22 Dose: 1 ea Montelukast Sodium (Singulair) 10 mg PO DAILY [facility] Last Admin: 07/06/18 08:43 Dose: 10 mg Nystatin (Nystatin Oral Susp) 5 ml PO QID [facility] Last Admin: 07/02/18 09:02 Dose: 5 ml Ondansetron HCl (Zofran Odt) 8 mg PO Q8 PRN PRN Reason: Nausea/Vomiting Last Admin: 07/05/18 11:44 Dose: 8 mg Oxybutynin Chloride (Ditropan Tab) 5 mg PO DAILY [facility] Last Admin: 07/06/18 11:01 Dose: 5 mg Pantoprazole Sodium (Protonix Ec Tab) 40 mg PO DAILY [facility] Last Admin: 07/06/18 10:32 Dose: 40 mg Paroxetine HCl (Paxil) 40 mg PO DAILY [facility] Last Admin: 07/06/18 10:34 Dose: 40 mg Polyethylene Glycol (Miralax) 17 gm PO BID PRN PRN Reason: Constipation Last Admin: 07/01/18 16:29 Dose: 17 gm Prochlorperazine (Compazine Tab) 10 mg PO Q6 PRN PRN Reason: Nausea/Vomiting Sennosides (Senokot Tab) 8.6 mg PO BID PRN PRN Reason: Constipation Tamsulosin HCl (Flomax) 0.4 mg PO DAILY [facility] Last Admin: 07/06/18 10:35 Dose: 0.4 mg Triamcinolone Acetonide (Kenalog 0.1% Cream) 1 appl TOP Q12 [facility] Last Admin: 07/06/18 10:32 Dose: 1 appl - Labs Labs: 07/06/18 12:17 07/06/18 12:17 - Respiratory Exam Respiratory Exam: NORMAL BREATHING PATTERN - Cardiovascular Exam Cardiovascular Exam: REGULAR RHYTHM - GI/Abdominal Exam GI & Abdominal Exam: Normal Bowel Sounds Assessment and Plan - Assessment and Plan (Free Text) Assessment: Acute Hypercapnic Ventilatory Failure Pneumonia 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 WBC improved Mucositis/ Thrush 2 to chemotherapy Oncology Topical Chronic pain Pain management consult
--- NOTE | 2018-07-06 13:51 | CP.PCM.PCO ---
Assessment and Plan - Assessment and Plan (Free Text) Assessment: pt. transferred from ICU; s/p extubation pt. awake, alert, reports feeling well; on HF O2 via NC pt. pending transfer to [facility]; Admissions contacted at [phone] and currently no bed availability at [facility] PT eval today Swallowing Eval today; advance diet to bite size nectar thick cont. current iv abx monitor labs cont. BIPAP overnight
--- NOTE | 2018-07-06 14:24 | CP.PCM.PN ---
Subjective - Date & Time of Evaluation Date of Evaluation: 07/06/18 Time of Evaluation: 08:00 - Subjective Subjective: awake alert OOB to chair in NAD denies fever cough or chest pain Objective - Vital Signs/Intake and Output Vital Signs (last 24 hours): Temp Pulse Resp BP Pulse Ox 98.1 F 84 20 96/55 L 97 07/06/18 12:47 07/06/18 12:47 07/06/18 12:47 07/06/18 12:47 07/06/18 12:47 - Medications Medications: Current Medications Acetylcysteine (Acetylcysteine 20%) 2 ml INH RBID [facility] Last Admin: 07/06/18 07:51 Dose: 2 ml Acyclovir (Zovirax) 800 mg PO TID [facility]; Protocol Last Admin: 07/06/18 08:41 Dose: 800 mg Albuterol Sulfate (Albuterol 0.083% Inhal Emilia (2.5 Mg/3 Ml) Ud) 2.5 mg INH RQ4 PRN PRN Reason: Shortness of Breath Last Admin: 07/06/18 08:43 Dose: 2.5 mg Albuterol/Ipratropium (Duoneb 3 Mg/0.5 Mg (3 Ml) Ud) 3 ml INH RQID [facility] Last Admin: 07/06/18 11:37 Dose: 3 ml Atorvastatin Calcium (Lipitor) 20 mg PO DAILY [facility] Last Admin: 07/06/18 10:32 Dose: 20 mg Bisacodyl (Dulcolax) 10 mg PO DAILY PRN PRN Reason: Constipation Last Admin: 06/28/18 08:09 Dose: 10 mg Budesonide (Pulmicort Respules) 0.5 mg IH RBID [facility] Last Admin: 07/06/18 07:51 Dose: 0.5 mg Docusate Sodium (Colace) 100 mg PO Q8 PRN PRN Reason: Constipation Last Admin: 07/06/18 08:42 Dose: 100 mg Fluticasone Propionate (Flonase) 2 spr TIM DAILY [facility] Last Admin: 07/06/18 08:42 Dose: 2 spr Hydrocortisone Sodium Succinate (Solu-Cortef) 100 mg IV DAILY [facility] Last Admin: 07/06/18 10:33 Dose: 100 mg Meropenem 1 gm/ Sodium (Chloride) 100 mls @ 100 mls/hr IVPB Q8 [facility]; Protocol Last Admin: 07/06/18 09:59 Dose: 100 mls/hr Micafungin Sodium 100 mg/ (Sodium Chloride) 100 mls @ 100 mls/hr IVPB DAILY [facility]; Protocol Last Admin: 07/06/18 10:58 Dose: 100 mls/hr Vancomycin HCl 1 gm/ Sodium (Chloride) 250 mls @ 166.667 mls/hr IVPB Q12H [facility]; Protocol Last Admin: 07/06/18 04:11 Dose: 166.667 mls/hr Insulin Detemir (Levemir) 14 units SC Q12@0600,1800 [facility] Last Admin: 07/06/18 07:00 Dose: 14 units Insulin Human Lispro (Humalog) 0 units SC 0000,0600,1200,1800 [facility] Last Admin: 07/06/18 06:58 Dose: Not Given Lactulose (Enulose) 20 gm PO DAILY PRN PRN Reason: Constipation Last Admin: 07/04/18 22:55 Dose: 20 gm Lidocaine (Lidoderm) 1 ea TD DAILY PRN PRN Reason: Pain, moderate (4-7) Last Admin: 07/06/18 10:22 Dose: 1 ea Montelukast Sodium (Singulair) 10 mg PO DAILY [facility] Last Admin: 07/06/18 08:43 Dose: 10 mg Nystatin (Nystatin Oral Susp) 5 ml PO QID [facility] Last Admin: 07/02/18 09:02 Dose: 5 ml Ondansetron HCl (Zofran Odt) 8 mg PO Q8 PRN PRN Reason: Nausea/Vomiting Last Admin: 07/05/18 11:44 Dose: 8 mg Oxybutynin Chloride (Ditropan Tab) 5 mg PO DAILY [facility] Last Admin: 07/06/18 11:01 Dose: 5 mg Pantoprazole Sodium (Protonix Ec Tab) 40 mg PO DAILY [facility] Last Admin: 07/06/18 10:32 Dose: 40 mg Paroxetine HCl (Paxil) 40 mg PO DAILY [facility] Last Admin: 07/06/18 10:34 Dose: 40 mg Polyethylene Glycol (Miralax) 17 gm PO BID PRN PRN Reason: Constipation Last Admin: 07/01/18 16:29 Dose: 17 gm Prochlorperazine (Compazine Tab) 10 mg PO Q6 PRN PRN Reason: Nausea/Vomiting Sennosides (Senokot Tab) 8.6 mg PO BID PRN PRN Reason: Constipation Tamsulosin HCl (Flomax) 0.4 mg PO DAILY [facility] Last Admin: 07/06/18 10:35 Dose: 0.4 mg Triamcinolone Acetonide (Kenalog 0.1% Cream) 1 appl TOP Q12 [facility] Last Admin: 07/06/18 10:32 Dose: 1 appl - Labs Labs: 07/06/18 12:17 07/06/18 12:17 - Constitutional Appears: Non-toxic, Chronically Ill - Head Exam Head Exam: NORMOCEPHALIC - Eye Exam Eye Exam: absent: Scleral icterus - ENT Exam ENT Exam: Mucous Membranes Dry - Neck Exam Neck Exam: absent: Lymphadenopathy - Respiratory Exam Respiratory Exam: Decreased Breath Sounds, Rhonchi - Cardiovascular Exam Cardiovascular Exam: REGULAR RHYTHM, +S1, +S2 - GI/Abdominal Exam GI & Abdominal Exam: Distended, Soft. absent: Tenderness - Rectal Exam Rectal Exam: Deferred - Exam Exam: NORMAL INSPECTION - Extremities Exam Extremities Exam: absent: Pedal Edema - Back Exam Back Exam: absent: CVA tenderness (L), CVA tenderness (R) - Neurological Exam Neurological Exam: Alert, Awake, CN II-XII Intact, Oriented x3 Neuro motor strength exam: Left Upper Extremity: 4, Right Upper Extremity: 4, Left Lower Extremity: 4, Right Lower Extremity: 4 - Psychiatric Exam Psychiatric exam: Depressed - Skin Skin Exam: Dry Assessment and Plan (1) Bilateral leg ulcer Status: Acute (2) Bilateral leg ulcer Status: Acute (3) History of DVT (deep vein thrombosis) Status: Acute (4) Leukopenia Status: Acute (5) Mucositis Status: Acute (6) Oral thrush Status: Resolved (7) Sore throat Status: Acute (8) Cancer associated pain Status: Chronic (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 (10) Anemia Status: Acute (11) Sarcoma Status: Acute - Assessment and Plan (Free Text) Assessment: 62 year old male with 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
--- NOTE | 2018-07-06 17:59 | PN ---
DATE: 07/06/2018 ENDO FOLLOWUP NOTE LOCATION: Room 423. SUBJECTIVE: This is a 62-year-old male with recent acute respiratory failure, currently extubated with high-flow nasal cannula during the day and BiPAP device overnight and is tolerating the aforementioned oxygen delivery system as noted fairly well. His glycemic levels are fluctuating, but improved and the glucose values have ranged from 121-196 and 212 mg/dL. His chemistry showed a BUN of 70, sodium 141, potassium 3.6, chloride 101, CO2 of 34, glucose 183 and creatinine 0.5. ASSESSMENT: This is a 62-year-old male with uncontrolled and decompensated type 2 insulin-requiring diabetes with recent hyperglycemic accelerations and now improving metabolically with the initiation of basal insulin as given. He also has metastatic angiosarcoma of the lungs and is pending transfer to [facility] any time the bed is available this week. PLAN OF MANAGEMENT: We will continue the same basal insulin as ordered to achieve full dose equilibration and we will continue the Levemir at 14 units subcu every 12 hours at 06:00 a.m. and 06:00 p.m. daily as given. We will continue the low-dose correction scale using Humalog insulin as ordered. We will obtain serial chemistries and supplement accordingly as needed. We will also adjust this basal insulin depending on the dose titration for the IV steroids as given. He is undergoing swallowing evaluation at this time and will be slowly advanced in terms of his diet tolerance with the thick nectar as given. We will follow. Sheryl Adams MD
[2018-07-07] MEDS: Insulin Lispro (humaLOG) 100 Units/ml Inj SC SCH ×3 (06:06→17:26)
[2018-07-07] MEDS: Insulin Detemir 100 Units/ml Inj SC SCH ×2 (06:07→17:27)
[2018-07-07] MEDS: Acetylcysteine 20% Inhal Soln (4ml) INH SCH (07:30)
[2018-07-07] MEDS: Albuterol-Ipratrop 3 mg / 0.5 (3 ml) UD INH SCH ×4 (07:31→19:32)
[2018-07-07] MEDS: Budesonide 0.5 mg/2 ml Inhal Susp UD IH SCH ×2 (07:31→19:32)
[2018-07-07] MEDS: Meropenem 1 GM in Sodium Chloride 0.9% 100 ML IVPB SCH ×2 (10:19→17:31)
[2018-07-07] MEDS: Micafungin 100 MG in Sodium Chloride 0.9% 100 ML IVPB SCH (10:19)
[2018-07-07] MEDS: Pantoprazole 40 mg EC Tab PO SCH (10:21)
--- NOTE | 2018-07-07 10:44 | CP.PCM.PN ---
Subjective - Date & Time of Evaluation Date of Evaluation: 07/07/18 Time of Evaluation: 10:44 - Subjective Subjective: Sitting up in bed. Appears significantly stronger thn a few days ago. Speech is fluent, able to complete whole sentences. Using BiPAP nocturnally, on standard nasal canula during the day. Able to ambulate to the bathroom with O2 on and assistance. Does develop dyspnea with physical exertion, but much less. Occasional cough with greenish tinged sputum, specimen at bedside for lab. Dependant edema +, dressings in place, no cyanosis, warm and pink. Neck is supple and trachea displaced to the right. Pharynx is pink and moist w/o visible exudate. Breath sounds are well heard on the right with few rhonchi, no wheezes, few dry rales. On the left there are minimal breath sounds in the base with transmitted character. Heart sounds are distant and regular. Vital signs have remained stable and he continues to be afebrile. Oxygenation is satisfactory. Maintain current antibiotic regimen for MRSA. Reduce corticosteroid dose. Discontinue acetylcysteine. Duoneb remains QID with PRN albuterol Q4H. Overnight BiPAP and daytime nasal canula. Objective - Vital Signs/Intake and Output Vital Signs (last 24 hours): Temp Pulse Resp BP Pulse Ox 97.5 F L 86 20 104/57 L 98 07/07/18 08:47 07/07/18 08:47 07/07/18 08:47 07/07/18 08:47 07/07/18 08:47 - Medications Medications: Current Medications Acetylcysteine (Acetylcysteine 20%) 2 ml INH RBID [facility] Last Admin: 07/07/18 07:30 Dose: 2 ml Acyclovir (Zovirax) 800 mg PO TID [facility]; Protocol Last Admin: 07/07/18 10:22 Dose: 800 mg Albuterol Sulfate (Albuterol 0.083% Inhal Emilia (2.5 Mg/3 Ml) Ud) 2.5 mg INH RQ4 PRN PRN Reason: Shortness of Breath Last Admin: 07/06/18 23:45 Dose: 2.5 mg Albuterol/Ipratropium (Duoneb 3 Mg/0.5 Mg (3 Ml) Ud) 3 ml INH RQID [facility] Last Admin: 07/07/18 07:31 Dose: 3 ml Atorvastatin Calcium (Lipitor) 20 mg PO DAILY [facility] Last Admin: 07/07/18 10:17 Dose: 20 mg Bisacodyl (Dulcolax) 10 mg PO DAILY PRN PRN Reason: Constipation Last Admin: 06/28/18 08:09 Dose: 10 mg Budesonide (Pulmicort Respules) 0.5 mg IH RBID [facility] Last Admin: 07/07/18 07:31 Dose: 0.5 mg Docusate Sodium (Colace) 100 mg PO Q8 PRN PRN Reason: Constipation Last Admin: 07/06/18 08:42 Dose: 100 mg Enoxaparin Sodium (Lovenox) 40 mg SC DAILY [facility]; Protocol Fluticasone Propionate (Flonase) 2 spr TIM DAILY [facility] Last Admin: 07/07/18 10:16 Dose: 2 spr Hydrocortisone Sodium Succinate (Solu-Cortef) 100 mg IV DAILY [facility] Last Admin: 07/07/18 10:21 Dose: 100 mg Meropenem 1 gm/ Sodium (Chloride) 100 mls @ 100 mls/hr IVPB Q8 [facility]; Protocol Last Admin: 07/07/18 10:19 Dose: 100 mls/hr Micafungin Sodium 100 mg/ (Sodium Chloride) 100 mls @ 100 mls/hr IVPB DAILY [facility]; Protocol Last Admin: 07/07/18 10:19 Dose: 100 mls/hr Vancomycin HCl 1 gm/ Sodium (Chloride) 250 mls @ 166.667 mls/hr IVPB Q12H [facility]; Protocol Last Admin: 07/07/18 02:02 Dose: 166.667 mls/hr Insulin Detemir (Levemir) 14 units SC Q12@0600,1800 [facility] Last Admin: 07/07/18 06:07 Dose: 14 units Insulin Human Lispro (Humalog) 0 units SC 0000,0600,1200,1800 [facility] Last Admin: 07/07/18 06:06 Dose: Not Given Lactulose (Enulose) 20 gm PO DAILY PRN PRN Reason: Constipation Last Admin: 07/04/18 22:55 Dose: 20 gm Lidocaine (Lidoderm) 1 ea TD DAILY PRN PRN Reason: Pain, moderate (4-7) Last Admin: 07/06/18 10:22 Dose: 1 ea Montelukast Sodium (Singulair) 10 mg PO DAILY [facility] Last Admin: 07/07/18 10:21 Dose: 10 mg Nystatin (Nystatin Oral Susp) 5 ml PO QID [facility] Last Admin: 07/02/18 09:02 Dose: 5 ml Ondansetron HCl (Zofran Odt) 8 mg PO Q8 PRN PRN Reason: Nausea/Vomiting Last Admin: 07/05/18 11:44 Dose: 8 mg Oxybutynin Chloride (Ditropan Tab) 5 mg PO DAILY [facility] Last Admin: 07/07/18 10:15 Dose: 5 mg Pantoprazole Sodium (Protonix Ec Tab) 40 mg PO DAILY [facility] Last Admin: 07/07/18 10:21 Dose: 40 mg Paroxetine HCl (Paxil) 40 mg PO DAILY [facility] Last Admin: 07/07/18 10:20 Dose: 40 mg Polyethylene Glycol (Miralax) 17 gm PO BID PRN PRN Reason: Constipation Last Admin: 07/01/18 16:29 Dose: 17 gm Prochlorperazine (Compazine Tab) 10 mg PO Q6 PRN PRN Reason: Nausea/Vomiting Sennosides (Senokot Tab) 8.6 mg PO BID PRN PRN Reason: Constipation Tamsulosin HCl (Flomax) 0.4 mg PO DAILY [facility] Last Admin: 07/07/18 10:16 Dose: 0.4 mg Triamcinolone Acetonide (Kenalog 0.1% Cream) 1 appl TOP Q12 [facility] Last Admin: 07/07/18 10:17 Dose: 1 appl - Labs Labs: 07/06/18 12:17 07/06/18 12:17 Assessment and Plan (1) Oral thrush Status: Resolved 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
[2018-07-07] MEDS: Enoxaparin 40 mg Syringe SC SCH (17:28)
[2018-07-07] MEDS: Lidocaine 5% Patch TD PRN (23:38)
[2018-07-08] MEDS: Insulin Lispro (humaLOG) 100 Units/ml Inj SC SCH ×5 (00:30→23:07)
[2018-07-08] MEDS: Meropenem 1 GM in Sodium Chloride 0.9% 100 ML IVPB SCH ×3 (00:32→17:26)
[2018-07-08] MEDS: Insulin Detemir 100 Units/ml Inj SC SCH ×2 (06:36→17:22)
[2018-07-08] MEDS: Albuterol-Ipratrop 3 mg / 0.5 (3 ml) UD INH SCH ×4 (07:42→19:57)
[2018-07-08] MEDS: Budesonide 0.5 mg/2 ml Inhal Susp UD IH SCH ×2 (07:42→19:57)
[2018-07-08] MEDS: Enoxaparin 40 mg Syringe SC SCH (08:27)
[2018-07-08] MEDS: Pantoprazole 40 mg EC Tab PO SCH (08:37)
[2018-07-08] MEDS: Micafungin 100 MG in Sodium Chloride 0.9% 100 ML IVPB SCH (08:41)
--- NOTE | 2018-07-08 13:16 | CP.PCM.PN ---
Subjective - Date & Time of Evaluation Date of Evaluation: 07/08/18 Time of Evaluation: 12:30 - Subjective Subjective: NO CHEST PAIN BREATHING BETTER Objective - Vital Signs/Intake and Output Vital Signs (last 24 hours): Temp Pulse Resp BP Pulse Ox 98.0 F 88 20 85/56 L 98 07/08/18 13:02 07/08/18 13:02 07/08/18 13:02 07/08/18 13:02 07/08/18 13:02 - Medications Medications: Current Medications Acyclovir (Zovirax) 800 mg PO TID [facility]; Protocol Last Admin: 07/08/18 08:38 Dose: 800 mg Albuterol Sulfate (Albuterol 0.083% Inhal Emilia (2.5 Mg/3 Ml) Ud) 2.5 mg INH RQ4 PRN PRN Reason: Shortness of Breath Last Admin: 07/06/18 23:45 Dose: 2.5 mg Albuterol/Ipratropium (Duoneb 3 Mg/0.5 Mg (3 Ml) Ud) 3 ml INH RQID [facility] Last Admin: 07/08/18 11:22 Dose: 3 ml Atorvastatin Calcium (Lipitor) 20 mg PO DAILY [facility] Last Admin: 07/08/18 08:26 Dose: 20 mg Bisacodyl (Dulcolax) 10 mg PO DAILY PRN PRN Reason: Constipation Last Admin: 06/28/18 08:09 Dose: 10 mg Budesonide (Pulmicort Respules) 0.5 mg IH RBID [facility] Last Admin: 07/08/18 07:42 Dose: 0.5 mg Docusate Sodium (Colace) 100 mg PO Q8 PRN PRN Reason: Constipation Last Admin: 07/06/18 08:42 Dose: 100 mg Enoxaparin Sodium (Lovenox) 40 mg SC DAILY [facility]; Protocol Last Admin: 07/08/18 08:27 Dose: 40 mg Fluticasone Propionate (Flonase) 2 spr TIM DAILY [facility] Last Admin: 07/08/18 08:26 Dose: 2 spr Hydrocortisone Sodium Succinate (Solu-Cortef) 50 mg IV DAILY [facility] Meropenem 1 gm/ Sodium (Chloride) 100 mls @ 100 mls/hr IVPB Q8 [facility]; Protocol Last Admin: 07/08/18 08:27 Dose: 100 mls/hr Micafungin Sodium 100 mg/ (Sodium Chloride) 100 mls @ 100 mls/hr IVPB DAILY [facility]; Protocol Last Admin: 07/08/18 08:41 Dose: 100 mls/hr Vancomycin HCl 1 gm/ Sodium (Chloride) 250 mls @ 166.667 mls/hr IVPB Q12H [facility]; Protocol Last Admin: 07/08/18 02:23 Dose: 166.667 mls/hr Insulin Detemir (Levemir) 14 units SC Q12@0600,1800 [facility] Last Admin: 07/08/18 06:36 Dose: 14 units Insulin Human Lispro (Humalog) 0 units SC 0000,0600,1200,1800 [facility] Last Admin: 07/08/18 06:26 Dose: Not Given Lactulose (Enulose) 20 gm PO DAILY PRN PRN Reason: Constipation Last Admin: 07/04/18 22:55 Dose: 20 gm Lidocaine (Lidoderm) 1 ea TD DAILY PRN PRN Reason: Pain, moderate (4-7) Last Admin: 07/07/18 23:38 Dose: 1 ea Montelukast Sodium (Singulair) 10 mg PO DAILY [facility] Last Admin: 07/08/18 08:37 Dose: 10 mg Mupirocin (Bactroban Ointment) 1 applic TOP BID [facility] Stop: 07/13/18 09:00 Last Admin: 07/08/18 08:21 Dose: 1 applic Nystatin (Nystatin Oral Susp) 5 ml PO QID [facility] Last Admin: 07/02/18 09:02 Dose: 5 ml Ondansetron HCl (Zofran Odt) 8 mg PO Q8 PRN PRN Reason: Nausea/Vomiting Last Admin: 07/08/18 11:28 Dose: 8 mg Oxybutynin Chloride (Ditropan Tab) 5 mg PO DAILY [facility] Last Admin: 07/08/18 08:25 Dose: 5 mg Pantoprazole Sodium (Protonix Ec Tab) 40 mg PO DAILY [facility] Last Admin: 07/08/18 08:37 Dose: 40 mg Paroxetine HCl (Paxil) 40 mg PO DAILY [facility] Last Admin: 07/08/18 08:28 Dose: 40 mg Polyethylene Glycol (Miralax) 17 gm PO BID PRN PRN Reason: Constipation Last Admin: 07/01/18 16:29 Dose: 17 gm Prochlorperazine (Compazine Tab) 10 mg PO Q6 PRN PRN Reason: Nausea/Vomiting Sennosides (Senokot Tab) 8.6 mg PO BID PRN PRN Reason: Constipation Tamsulosin HCl (Flomax) 0.4 mg PO DAILY [facility] Last Admin: 07/08/18 08:25 Dose: 0.4 mg Trazodone HCl (Desyrel) 50 mg PO HS [facility] Last Admin: 07/08/18 02:50 Dose: 50 mg Triamcinolone Acetonide (Kenalog 0.1% Cream) 1 appl TOP Q12 [facility] Last Admin: 07/08/18 08:26 Dose: 1 appl - Labs Labs: 07/06/18 12:17 07/06/18 12:17 - Respiratory Exam Respiratory Exam: Rhonchi - Cardiovascular Exam Cardiovascular Exam: REGULAR RHYTHM, +S1, +S2 - Extremities Exam Extremities Exam: Pedal Edema Assessment and Plan - Assessment and Plan (Free Text) Assessment: PNEUMONIA ANGIOSARCOMA WITH LUNG METASTASIS HYPERLIPIDEMIA Plan: CONTINUE ANTIBIOTICS, PULMONARY MEDICATIONS, ATORVASTATIN AND LOVENOX
--- NOTE | 2018-07-08 13:59 | CP.PCM.PN ---
Subjective - Date & Time of Evaluation Date of Evaluation: 07/08/18 Time of Evaluation: 13:59 - Subjective Subjective: Podiatry Progress Note: Dr. Myrick Patient seen and evaluated this AM for b/l edema and superficial ulceration; improving. Patient resting comfortably and in NAD. He denies any pain to b/l lower extremities at this time. Denies any acute events overnight. Denies nausea/vomiting/fever/shortness of breath. Objective - Vital Signs/Intake and Output Vital Signs (last 24 hours): Temp Pulse Resp BP Pulse Ox 98.0 F 88 20 85/56 L 98 07/08/18 13:02 07/08/18 13:02 07/08/18 13:02 07/08/18 13:02 07/08/18 13:02 - Medications Medications: Current Medications Acyclovir (Zovirax) 800 mg PO TID [facility]; Protocol Last Admin: 07/08/18 13:28 Dose: 800 mg Albuterol Sulfate (Albuterol 0.083% Inhal Emilia (2.5 Mg/3 Ml) Ud) 2.5 mg INH RQ4 PRN PRN Reason: Shortness of Breath Last Admin: 07/06/18 23:45 Dose: 2.5 mg Albuterol/Ipratropium (Duoneb 3 Mg/0.5 Mg (3 Ml) Ud) 3 ml INH RQID [facility] Last Admin: 07/08/18 11:22 Dose: 3 ml Atorvastatin Calcium (Lipitor) 20 mg PO DAILY [facility] Last Admin: 07/08/18 08:26 Dose: 20 mg Bisacodyl (Dulcolax) 10 mg PO DAILY PRN PRN Reason: Constipation Last Admin: 06/28/18 08:09 Dose: 10 mg Budesonide (Pulmicort Respules) 0.5 mg IH RBID [facility] Last Admin: 07/08/18 07:42 Dose: 0.5 mg Docusate Sodium (Colace) 100 mg PO Q8 PRN PRN Reason: Constipation Last Admin: 07/06/18 08:42 Dose: 100 mg Enoxaparin Sodium (Lovenox) 40 mg SC DAILY [facility]; Protocol Last Admin: 07/08/18 08:27 Dose: 40 mg Fluticasone Propionate (Flonase) 2 spr TIM DAILY [facility] Last Admin: 07/08/18 08:26 Dose: 2 spr Hydrocortisone Sodium Succinate (Solu-Cortef) 50 mg IV DAILY [facility] Meropenem 1 gm/ Sodium (Chloride) 100 mls @ 100 mls/hr IVPB Q8 [facility]; Protocol Last Admin: 07/08/18 08:27 Dose: 100 mls/hr Micafungin Sodium 100 mg/ (Sodium Chloride) 100 mls @ 100 mls/hr IVPB DAILY [facility]; Protocol Last Admin: 07/08/18 08:41 Dose: 100 mls/hr Vancomycin HCl 1 gm/ Sodium (Chloride) 250 mls @ 166.667 mls/hr IVPB Q12H [facility]; Protocol Last Admin: 07/08/18 02:23 Dose: 166.667 mls/hr Insulin Detemir (Levemir) 14 units SC Q12@0600,1800 [facility] Last Admin: 07/08/18 06:36 Dose: 14 units Insulin Human Lispro (Humalog) 0 units SC 0000,0600,1200,1800 [facility] Last Admin: 07/08/18 13:30 Dose: Not Given Lactulose (Enulose) 20 gm PO DAILY PRN PRN Reason: Constipation Last Admin: 07/04/18 22:55 Dose: 20 gm Lidocaine (Lidoderm) 1 ea TD DAILY PRN PRN Reason: Pain, moderate (4-7) Last Admin: 07/07/18 23:38 Dose: 1 ea Montelukast Sodium (Singulair) 10 mg PO DAILY [facility] Last Admin: 07/08/18 08:37 Dose: 10 mg Mupirocin (Bactroban Ointment) 1 applic TOP BID [facility] Stop: 07/13/18 09:00 Last Admin: 07/08/18 08:21 Dose: 1 applic Nystatin (Nystatin Oral Susp) 5 ml PO QID [facility] Last Admin: 07/02/18 09:02 Dose: 5 ml Ondansetron HCl (Zofran Odt) 8 mg PO Q8 PRN PRN Reason: Nausea/Vomiting Last Admin: 07/08/18 11:28 Dose: 8 mg Oxybutynin Chloride (Ditropan Tab) 5 mg PO DAILY [facility] Last Admin: 07/08/18 08:25 Dose: 5 mg Pantoprazole Sodium (Protonix Ec Tab) 40 mg PO DAILY [facility] Last Admin: 07/08/18 08:37 Dose: 40 mg Paroxetine HCl (Paxil) 40 mg PO DAILY [facility] Last Admin: 07/08/18 08:28 Dose: 40 mg Polyethylene Glycol (Miralax) 17 gm PO BID PRN PRN Reason: Constipation Last Admin: 07/01/18 16:29 Dose: 17 gm Prochlorperazine (Compazine Tab) 10 mg PO Q6 PRN PRN Reason: Nausea/Vomiting Last Admin: 07/08/18 13:32 Dose: 10 mg Sennosides (Senokot Tab) 8.6 mg PO BID PRN PRN Reason: Constipation Tamsulosin HCl (Flomax) 0.4 mg PO DAILY [facility] Last Admin: 07/08/18 08:25 Dose: 0.4 mg Trazodone HCl (Desyrel) 50 mg PO HS [facility] Last Admin: 07/08/18 02:50 Dose: 50 mg Triamcinolone Acetonide (Kenalog 0.1% Cream) 1 appl TOP Q12 [facility] Last Admin: 07/08/18 08:26 Dose: 1 appl - Labs Labs: 07/06/18 12:17 07/06/18 12:17 - Constitutional Appears: Non-toxic, No Acute Distress - Head Exam Head Exam: ATRAUMATIC, NORMOCEPHALIC - Extremities Exam Additional comments: B/L LE focused exam: Vasc: DP and PT pulses palpable 1/4 due to edema; cap refill <3 seconds to all digits; Temp gradient Warm to warm; +2 pitting edema noted b/l. Ortho: No pain on palpation of left lower extremity mid leg. Neuro: Gross and protective sensation diminished. Derm: Superficial stasis ulcerations noted on the R anterior aspect of the leg measuring 3.4 cm X 2.5 cm x 0.1, with fibrotic base, no active drainage , no depth appreciated. An ulcer noted on the anterior aspect of L leg measuring 1.2 cm X 1.2 cm X 0.2 cm, scab formation, no drainage, no purulence. Mild erythema extends from the ankle to the upper 1/3 of the leg b/l, significantly improved wounds, no weeping appreciated at this time. - Neurological Exam Neurological Exam: Alert, Awake, Oriented x3 - Psychiatric Exam Psychiatric exam: Normal Affect, Normal Mood Assessment and Plan - Assessment and Plan (Free Text) Assessment: 62M with b/l LE edema and superficial ulceration; stable, improving Plan: Patient seen and evaluated at the bedside Discussed with Dr. Myrick B/L wound cultures: MRSA Continue IV Abx as per primary team. B/L Venous duplex; no evidence of DVT B/L LE dressed with DSD and adaptic No podiatric surgical intervention Patient stable from podiatry standpoint Will continue to follow while in house
--- NOTE | 2018-07-08 14:09 | CP.PCM.PN ---
Subjective - Date & Time of Evaluation Date of Evaluation: 07/08/18 Time of Evaluation: 08:00 - Subjective Subjective: chart reviewed patient examined ROS taken IV antibiotic renewed Objective - Vital Signs/Intake and Output Vital Signs (last 24 hours): Temp Pulse Resp BP Pulse Ox 98.0 F 88 20 85/56 L 98 07/08/18 13:02 07/08/18 13:02 07/08/18 13:02 07/08/18 13:02 07/08/18 13:02 - Medications Medications: Current Medications Acyclovir (Zovirax) 800 mg PO TID [facility]; Protocol Last Admin: 07/08/18 13:28 Dose: 800 mg Albuterol Sulfate (Albuterol 0.083% Inhal Emilia (2.5 Mg/3 Ml) Ud) 2.5 mg INH RQ4 PRN PRN Reason: Shortness of Breath Last Admin: 07/06/18 23:45 Dose: 2.5 mg Albuterol/Ipratropium (Duoneb 3 Mg/0.5 Mg (3 Ml) Ud) 3 ml INH RQID [facility] Last Admin: 07/08/18 11:22 Dose: 3 ml Atorvastatin Calcium (Lipitor) 20 mg PO DAILY [facility] Last Admin: 07/08/18 08:26 Dose: 20 mg Bisacodyl (Dulcolax) 10 mg PO DAILY PRN PRN Reason: Constipation Last Admin: 06/28/18 08:09 Dose: 10 mg Budesonide (Pulmicort Respules) 0.5 mg IH RBID [facility] Last Admin: 07/08/18 07:42 Dose: 0.5 mg Docusate Sodium (Colace) 100 mg PO Q8 PRN PRN Reason: Constipation Last Admin: 07/06/18 08:42 Dose: 100 mg Enoxaparin Sodium (Lovenox) 40 mg SC DAILY [facility]; Protocol Last Admin: 07/08/18 08:27 Dose: 40 mg Fluticasone Propionate (Flonase) 2 spr TIM DAILY [facility] Last Admin: 07/08/18 08:26 Dose: 2 spr Hydrocortisone Sodium Succinate (Solu-Cortef) 50 mg IV DAILY [facility] Meropenem 1 gm/ Sodium (Chloride) 100 mls @ 100 mls/hr IVPB Q8 [facility]; Protocol Last Admin: 07/08/18 08:27 Dose: 100 mls/hr Micafungin Sodium 100 mg/ (Sodium Chloride) 100 mls @ 100 mls/hr IVPB DAILY [facility]; Protocol Last Admin: 07/08/18 08:41 Dose: 100 mls/hr Vancomycin HCl 1 gm/ Sodium (Chloride) 250 mls @ 166.667 mls/hr IVPB Q12H [facility]; Protocol Last Admin: 07/08/18 02:23 Dose: 166.667 mls/hr Insulin Detemir (Levemir) 14 units SC Q12@0600,1800 [facility] Last Admin: 07/08/18 06:36 Dose: 14 units Insulin Human Lispro (Humalog) 0 units SC 0000,0600,1200,1800 [facility] Last Admin: 07/08/18 13:30 Dose: Not Given Lactulose (Enulose) 20 gm PO DAILY PRN PRN Reason: Constipation Last Admin: 07/04/18 22:55 Dose: 20 gm Lidocaine (Lidoderm) 1 ea TD DAILY PRN PRN Reason: Pain, moderate (4-7) Last Admin: 07/07/18 23:38 Dose: 1 ea Montelukast Sodium (Singulair) 10 mg PO DAILY [facility] Last Admin: 07/08/18 08:37 Dose: 10 mg Mupirocin (Bactroban Ointment) 1 applic TOP BID [facility] Stop: 07/13/18 09:00 Last Admin: 07/08/18 08:21 Dose: 1 applic Nystatin (Nystatin Oral Susp) 5 ml PO QID [facility] Last Admin: 07/02/18 09:02 Dose: 5 ml Ondansetron HCl (Zofran Odt) 8 mg PO Q8 PRN PRN Reason: Nausea/Vomiting Last Admin: 07/08/18 11:28 Dose: 8 mg Oxybutynin Chloride (Ditropan Tab) 5 mg PO DAILY [facility] Last Admin: 07/08/18 08:25 Dose: 5 mg Pantoprazole Sodium (Protonix Ec Tab) 40 mg PO DAILY [facility] Last Admin: 07/08/18 08:37 Dose: 40 mg Paroxetine HCl (Paxil) 40 mg PO DAILY [facility] Last Admin: 07/08/18 08:28 Dose: 40 mg Polyethylene Glycol (Miralax) 17 gm PO BID PRN PRN Reason: Constipation Last Admin: 07/01/18 16:29 Dose: 17 gm Prochlorperazine (Compazine Tab) 10 mg PO Q6 PRN PRN Reason: Nausea/Vomiting Last Admin: 07/08/18 13:32 Dose: 10 mg Sennosides (Senokot Tab) 8.6 mg PO BID PRN PRN Reason: Constipation Tamsulosin HCl (Flomax) 0.4 mg PO DAILY [facility] Last Admin: 07/08/18 08:25 Dose: 0.4 mg Trazodone HCl (Desyrel) 50 mg PO HS [facility] Last Admin: 07/08/18 02:50 Dose: 50 mg Triamcinolone Acetonide (Kenalog 0.1% Cream) 1 appl TOP Q12 [facility] Last Admin: 07/08/18 08:26 Dose: 1 appl - Labs Labs: 07/06/18 12:17 07/06/18 12:17 - Constitutional Appears: Non-toxic, No Acute Distress, Chronically Ill - Head Exam Head Exam: ATRAUMATIC, NORMAL INSPECTION, NORMOCEPHALIC - Eye Exam Eye Exam: EOMI, Normal appearance, PERRL Pupil Exam: NORMAL ACCOMODATION, PERRL - ENT Exam ENT Exam: Mucous Membranes Moist, Normal Exam - Neck Exam Neck Exam: Full ROM, Normal Inspection. absent: Lymphadenopathy - Respiratory Exam Respiratory Exam: Decreased Breath Sounds, Prolonged Expiratory Phase, Rhonchi. absent: Respiratory Distress - Cardiovascular Exam Cardiovascular Exam: REGULAR RHYTHM, +S1, +S2. absent: Murmur - GI/Abdominal Exam GI & Abdominal Exam: Soft, Normal Bowel Sounds. absent: Tenderness - Rectal Exam Rectal Exam: Deferred - Exam Exam: NORMAL INSPECTION - Extremities Exam Extremities Exam: Full ROM, Normal Capillary Refill, Normal Inspection. absent: Joint Swelling, Pedal Edema - Back Exam Back Exam: NORMAL INSPECTION - Neurological Exam Neurological Exam: Alert, Awake, CN II-XII Intact, Normal Gait, Oriented x3 - Psychiatric Exam Psychiatric exam: Normal Affect, Normal Mood - Skin Skin Exam: Dry, Intact, Normal Color, Warm Assessment and Plan (1) Bilateral leg ulcer Status: Acute (2) Bilateral leg ulcer Status: Acute (3) History of DVT (deep vein thrombosis) Status: Acute (4) Leukopenia Status: Acute (5) Mucositis Status: Acute (6) Oral thrush Status: Resolved (7) Sore throat Status: Acute (8) Cancer associated pain Status: Chronic (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 (10) Anemia Status: Acute (11) Sarcoma Status: Acute - Assessment and Plan (Free Text) Assessment: no new positive cultures rx renewed
[2018-07-08] MEDS ORDERED: Alum-Mag Hydrox-Simethicone Susp (30 mL) PO ONE (14:22)
--- NOTE | 2018-07-08 14:41 | CP.PCM.PN ---
Subjective - Date & Time of Evaluation Date of Evaluation: 07/08/18 Time of Evaluation: 22:22 - Subjective Subjective: Doing well WBC wnl Pain in evening Long d/w pt regarding opiods Objective - Vital Signs/Intake and Output Vital Signs (last 24 hours): Temp Pulse Resp BP Pulse Ox 98.0 F 88 20 85/56 L 98 07/08/18 13:02 07/08/18 13:02 07/08/18 13:02 07/08/18 13:02 07/08/18 13:02 - Medications Medications: Current Medications Acetaminophen (Tylenol 325mg Tab) 650 mg PO Q6 PRN PRN Reason: Pain, moderate (4-7) Acyclovir (Zovirax) 800 mg PO TID [facility]; Protocol Last Admin: 07/08/18 13:28 Dose: 800 mg Albuterol Sulfate (Albuterol 0.083% Inhal Emilia (2.5 Mg/3 Ml) Ud) 2.5 mg INH RQ4 PRN PRN Reason: Shortness of Breath Last Admin: 07/06/18 23:45 Dose: 2.5 mg Albuterol/Ipratropium (Duoneb 3 Mg/0.5 Mg (3 Ml) Ud) 3 ml INH RQID [facility] Last Admin: 07/08/18 11:22 Dose: 3 ml Atorvastatin Calcium (Lipitor) 20 mg PO DAILY [facility] Last Admin: 07/08/18 08:26 Dose: 20 mg Bisacodyl (Dulcolax) 10 mg PO DAILY PRN PRN Reason: Constipation Last Admin: 06/28/18 08:09 Dose: 10 mg Budesonide (Pulmicort Respules) 0.5 mg IH RBID [facility] Last Admin: 07/08/18 07:42 Dose: 0.5 mg Docusate Sodium (Colace) 100 mg PO Q8 PRN PRN Reason: Constipation Last Admin: 07/06/18 08:42 Dose: 100 mg Enoxaparin Sodium (Lovenox) 40 mg SC DAILY [facility]; Protocol Last Admin: 07/08/18 08:27 Dose: 40 mg Fluticasone Propionate (Flonase) 2 spr TIM DAILY [facility] Last Admin: 07/08/18 08:26 Dose: 2 spr Hydrocortisone Sodium Succinate (Solu-Cortef) 50 mg IV DAILY [facility] Meropenem 1 gm/ Sodium (Chloride) 100 mls @ 100 mls/hr IVPB Q8 [facility]; Protocol Last Admin: 07/08/18 08:27 Dose: 100 mls/hr Micafungin Sodium 100 mg/ (Sodium Chloride) 100 mls @ 100 mls/hr IVPB DAILY [facility]; Protocol Last Admin: 07/08/18 08:41 Dose: 100 mls/hr Vancomycin HCl 1 gm/ Sodium (Chloride) 250 mls @ 166.667 mls/hr IVPB Q12H [facility]; Protocol Last Admin: 07/08/18 02:23 Dose: 166.667 mls/hr Insulin Detemir (Levemir) 14 units SC Q12@0600,1800 [facility] Last Admin: 07/08/18 06:36 Dose: 14 units Insulin Human Lispro (Humalog) 0 units SC 0000,0600,1200,1800 [facility] Last Admin: 07/08/18 13:30 Dose: Not Given Lactulose (Enulose) 20 gm PO DAILY PRN PRN Reason: Constipation Last Admin: 07/04/18 22:55 Dose: 20 gm Lidocaine (Lidoderm) 1 ea TD DAILY PRN PRN Reason: Pain, moderate (4-7) Last Admin: 07/07/18 23:38 Dose: 1 ea Montelukast Sodium (Singulair) 10 mg PO DAILY [facility] Last Admin: 07/08/18 08:37 Dose: 10 mg Mupirocin (Bactroban Ointment) 1 applic TOP BID [facility] Stop: 07/13/18 09:00 Last Admin: 07/08/18 08:21 Dose: 1 applic Nystatin (Nystatin Oral Susp) 5 ml PO QID [facility] Last Admin: 07/02/18 09:02 Dose: 5 ml Ondansetron HCl (Zofran Odt) 8 mg PO Q8 PRN PRN Reason: Nausea/Vomiting Last Admin: 07/08/18 11:28 Dose: 8 mg Oxybutynin Chloride (Ditropan Tab) 5 mg PO DAILY [facility] Last Admin: 07/08/18 08:25 Dose: 5 mg Pantoprazole Sodium (Protonix Ec Tab) 40 mg PO DAILY [facility] Last Admin: 07/08/18 08:37 Dose: 40 mg Paroxetine HCl (Paxil) 40 mg PO DAILY [facility] Last Admin: 07/08/18 08:28 Dose: 40 mg Polyethylene Glycol (Miralax) 17 gm PO BID PRN PRN Reason: Constipation Last Admin: 07/01/18 16:29 Dose: 17 gm Prochlorperazine (Compazine Tab) 10 mg PO Q6 PRN PRN Reason: Nausea/Vomiting Last Admin: 07/08/18 13:32 Dose: 10 mg Sennosides (Senokot Tab) 8.6 mg PO BID PRN PRN Reason: Constipation Tamsulosin HCl (Flomax) 0.4 mg PO DAILY [facility] Last Admin: 07/08/18 08:25 Dose: 0.4 mg Trazodone HCl (Desyrel) 50 mg PO HS [facility] Last Admin: 07/08/18 02:50 Dose: 50 mg Triamcinolone Acetonide (Kenalog 0.1% Cream) 1 appl TOP Q12 [facility] Last Admin: 07/08/18 08:26 Dose: 1 appl - Labs Labs: 07/06/18 12:17 07/06/18 12:17 - Respiratory Exam Respiratory Exam: NORMAL BREATHING PATTERN - Cardiovascular Exam Cardiovascular Exam: REGULAR RHYTHM - GI/Abdominal Exam GI & Abdominal Exam: Normal Bowel Sounds Assessment and Plan - Assessment and Plan (Free Text) Assessment: Transfer to [facility] ?? 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 WBC improved Mucositis/ Thrush 2 to chemotherapy Oncology Topical
--- NOTE | 2018-07-08 15:09 | PN ---
DATE: 07/08/2018 ENDOCRINOLOGY FOLLOWUP NOTE LOCATION: Room 415. SUBJECTIVE: This is a 62-year-old male with recent uncontrolled type 2 insulin-requiring diabetes on enteral tube feedings as given and is now being followed closely for metabolic management. His glycemic levels overnight have improved and have ranged from 102-186 mg/dL. LABORATORY DATA: His latest chemistry showed a BUN of 17, sodium 141, potassium 3.6, chloride 101, CO2 is 34, glucose 183 and creatinine 0.5. He previously developed sudden acute respiratory failure and has since then been extubated and is doing fairly well on nasal cannula oxygen delivery as given. ASSESSMENT: This is a 62-year-old male with uncontrolled and decompensated type 2 insulin-requiring diabetes with improved metabolic profile on basal insulin therapy as given. 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 He has received previous chemo and radiation therapy as noted. He is awaiting transfer to [facility] any time the bed is available at this time. PLAN: Plan of management, we will continue the present basal insulin as given with Levemir given as 14 units subcutaneous every 12 hours as ordered. We will also continue the low-dose correction scale using Humalog insulin as ordered. We will obtain serial chemistries and supplement accordingly as needed. We will follow. Sheryl Adams MD
[2018-07-08 15:46] LABS: BASO % 0.4 % (0.0-2.0); HEMOGLOBIN 9.4 g/dL (12.0-18.0); LYMPH # 0.3 K/uL (1.0-4.3); LYMPH % 4.1 % (20.0-40.0); MEAN CELL VOLUME 80.5 fl (80.0-94.0); MEAN CORPUSCULAR HEMOGLOBIN 26.1 pg (27.0-31.0); MEAN CORPUSCULAR HGB CONC 32.4 g/dL (33.0-37.0); MEAN PLATELET VOLUME 8.6 fl (7.2-11.7); MONO # 0.3 K/uL (0.0-0.8); MONO % 3.6 % (0.0-10.0); NEUT # 7.2 K/uL (1.8-7.0); NEUT % 91.9 % (50.0-75.0); NRBC % 0.1 % (0.0-0.0); PLATELET COUNT 171 K/uL (130-400); RBC 3.62 Mil/uL (4.40-5.90); RED CELL DISTRIBUTION WIDTH 19.6 % (11.5-14.5); WHITE BLOOD COUNT 7.9 K/uL (4.8-10.8)
[2018-07-08 16:30] LABS: ALB/GLOB RATIO 1.2 (1.0-2.1); ALBUMIN 2.9 g/dL (3.5-5.0); ALT/SGPT 21 U/L (21-72); AST/SGOT 21 U/L (17-59); BLOOD UREA NITROGEN 13 mg/dl (9-20); CALCIUM 8.7 mg/dL (8.4-10.2); GFR NON-AFRICAN AMERICAN > 60
[2018-07-08 16:45] LABS: BANDS 1 % (0-2); LYMPHOCYTE 4 % (20-50); MONOCYTE 4 % (0-10); NEUTROPHIL 91 % (42-75); TOTAL CELLS COUNTED 100
[2018-07-08 16:47] LABS: ANISOCYTOSIS SLIGHT; OVALOCYTES SLIGHT; PLATELET ESTIMATE NORMAL (NORMAL)
[2018-07-08] MEDS: Albuterol 0.083% Inhal Sol (2.5 mg/3 mL) UD INH PRN (21:48)
[2018-07-08] MEDS: Lidocaine 5% Patch TD PRN (22:00)
--- NOTE | 2018-07-08 22:56 | CP.PCM.PN ---
Subjective - Date & Time of Evaluation Date of Evaluation: 07/06/18 Time of Evaluation: 12:00 - Subjective Subjective: More comfortable Objective - Vital Signs/Intake and Output Vital Signs (last 24 hours): Temp Pulse Resp BP Pulse Ox 97.7 F 88 18 103/67 100 07/08/18 20:08 07/08/18 20:08 07/08/18 20:08 07/08/18 20:08 07/08/18 20:08 Intake and Output: 07/08/18 07/09/18 18:59 06:59 Intake Total 1120 Output Total 700 Balance 420 - Medications Medications: Current Medications Acetaminophen (Tylenol 325mg Tab) 650 mg PO Q6 PRN PRN Reason: Pain, moderate (4-7) Acyclovir (Zovirax) 800 mg PO TID [facility]; Protocol Last Admin: 07/08/18 17:24 Dose: 800 mg Albuterol Sulfate (Albuterol 0.083% Inhal Emilia (2.5 Mg/3 Ml) Ud) 2.5 mg INH RQ4 PRN PRN Reason: Shortness of Breath Last Admin: 07/08/18 21:48 Dose: 2.5 mg Albuterol/Ipratropium (Duoneb 3 Mg/0.5 Mg (3 Ml) Ud) 3 ml INH RQID [facility] Last Admin: 07/08/18 19:57 Dose: 3 ml Atorvastatin Calcium (Lipitor) 20 mg PO DAILY [facility] Last Admin: 07/08/18 08:26 Dose: 20 mg Bisacodyl (Dulcolax) 10 mg PO DAILY PRN PRN Reason: Constipation Last Admin: 06/28/18 08:09 Dose: 10 mg Budesonide (Pulmicort Respules) 0.5 mg IH RBID [facility] Last Admin: 07/08/18 19:57 Dose: 0.5 mg Docusate Sodium (Colace) 100 mg PO Q8 PRN PRN Reason: Constipation Last Admin: 07/06/18 08:42 Dose: 100 mg Enoxaparin Sodium (Lovenox) 40 mg SC DAILY [facility]; Protocol Last Admin: 07/08/18 08:27 Dose: 40 mg Fluticasone Propionate (Flonase) 2 spr TIM DAILY [facility] Last Admin: 07/08/18 08:26 Dose: 2 spr Hydrocortisone Sodium Succinate (Solu-Cortef) 50 mg IV DAILY [facility] Meropenem 1 gm/ Sodium (Chloride) 100 mls @ 100 mls/hr IVPB Q8 [facility]; Protocol Last Admin: 07/08/18 17:26 Dose: 100 mls/hr Micafungin Sodium 100 mg/ (Sodium Chloride) 100 mls @ 100 mls/hr IVPB DAILY [facility]; Protocol Last Admin: 07/08/18 08:41 Dose: 100 mls/hr Vancomycin HCl 1 gm/ Sodium (Chloride) 250 mls @ 166.667 mls/hr IVPB Q12H [facility]; Protocol Last Admin: 07/08/18 15:09 Dose: 166.667 mls/hr Insulin Detemir (Levemir) 14 units SC Q12@0600,1800 [facility] Last Admin: 07/08/18 17:22 Dose: 14 units Insulin Human Lispro (Humalog) 0 units SC 0000,0600,1200,1800 [facility] Last Admin: 07/08/18 17:22 Dose: Not Given Lactulose (Enulose) 20 gm PO DAILY PRN PRN Reason: Constipation Last Admin: 07/04/18 22:55 Dose: 20 gm Lidocaine (Lidoderm) 1 ea TD DAILY PRN PRN Reason: Pain, moderate (4-7) Last Admin: 07/08/18 22:00 Dose: 1 ea Montelukast Sodium (Singulair) 10 mg PO DAILY [facility] Last Admin: 07/08/18 08:37 Dose: 10 mg Mupirocin (Bactroban Ointment) 1 applic TOP BID [facility] Stop: 07/13/18 09:00 Last Admin: 07/08/18 17:21 Dose: 1 applic Nystatin (Nystatin Oral Susp) 5 ml PO QID [facility] Last Admin: 07/02/18 09:02 Dose: 5 ml Ondansetron HCl (Zofran Odt) 8 mg PO Q8 PRN PRN Reason: Nausea/Vomiting Last Admin: 07/08/18 11:28 Dose: 8 mg Oxybutynin Chloride (Ditropan Tab) 5 mg PO DAILY [facility] Last Admin: 07/08/18 08:25 Dose: 5 mg Pantoprazole Sodium (Protonix Ec Tab) 40 mg PO DAILY [facility] Last Admin: 07/08/18 08:37 Dose: 40 mg Paroxetine HCl (Paxil) 40 mg PO DAILY [facility] Last Admin: 07/08/18 08:28 Dose: 40 mg Polyethylene Glycol (Miralax) 17 gm PO BID PRN PRN Reason: Constipation Last Admin: 07/01/18 16:29 Dose: 17 gm Prochlorperazine (Compazine Tab) 10 mg PO Q6 PRN PRN Reason: Nausea/Vomiting Last Admin: 07/08/18 13:32 Dose: 10 mg Sennosides (Senokot Tab) 8.6 mg PO BID PRN PRN Reason: Constipation Tamsulosin HCl (Flomax) 0.4 mg PO DAILY [facility] Last Admin: 07/08/18 08:25 Dose: 0.4 mg Trazodone HCl (Desyrel) 50 mg PO HS [facility] Last Admin: 07/08/18 21:57 Dose: 50 mg Triamcinolone Acetonide (Kenalog 0.1% Cream) 1 appl TOP Q12 [facility] Last Admin: 07/08/18 21:59 Dose: 1 appl - Labs Labs: 07/08/18 15:27 07/08/18 15:27 - Head Exam Head Exam: ATRAUMATIC - Eye Exam Eye Exam: Normal appearance - ENT Exam ENT Exam: Mucous Membranes Dry - Respiratory Exam Respiratory Exam: NORMAL BREATHING PATTERN - Cardiovascular Exam Cardiovascular Exam: +S1, +S2 - GI/Abdominal Exam GI & Abdominal Exam: Normal Bowel Sounds Assessment and Plan (1) Anemia Assessment & Plan: chronic disease from malignancy anemia of chemotherapy Status: Acute (2) Sarcoma Assessment & Plan: stage IV - lung mets on salvage chemotherapy at [facility] Status: Acute (3) History of DVT (deep vein thrombosis) Assessment & Plan: prior retroperitoneal bleeding on therapeutic anticoagulation on DVT prophylaxis Status: Acute
--- NOTE | 2018-07-08 22:57 | CP.PCM.PN ---
Subjective - Date & Time of Evaluation Date of Evaluation: 07/07/18 Time of Evaluation: 16:00 - Subjective Subjective: Breathing better, more comfortable Objective - Vital Signs/Intake and Output Vital Signs (last 24 hours): Temp Pulse Resp BP Pulse Ox 97.7 F 88 18 103/67 100 07/08/18 20:08 07/08/18 20:08 07/08/18 20:08 07/08/18 20:08 07/08/18 20:08 Intake and Output: 07/08/18 07/09/18 18:59 06:59 Intake Total 1120 Output Total 700 Balance 420 - Medications Medications: Current Medications Acetaminophen (Tylenol 325mg Tab) 650 mg PO Q6 PRN PRN Reason: Pain, moderate (4-7) Acyclovir (Zovirax) 800 mg PO TID [facility]; Protocol Last Admin: 07/08/18 17:24 Dose: 800 mg Albuterol Sulfate (Albuterol 0.083% Inhal Emilia (2.5 Mg/3 Ml) Ud) 2.5 mg INH RQ4 PRN PRN Reason: Shortness of Breath Last Admin: 07/08/18 21:48 Dose: 2.5 mg Albuterol/Ipratropium (Duoneb 3 Mg/0.5 Mg (3 Ml) Ud) 3 ml INH RQID [facility] Last Admin: 07/08/18 19:57 Dose: 3 ml Atorvastatin Calcium (Lipitor) 20 mg PO DAILY [facility] Last Admin: 07/08/18 08:26 Dose: 20 mg Bisacodyl (Dulcolax) 10 mg PO DAILY PRN PRN Reason: Constipation Last Admin: 06/28/18 08:09 Dose: 10 mg Budesonide (Pulmicort Respules) 0.5 mg IH RBID [facility] Last Admin: 07/08/18 19:57 Dose: 0.5 mg Docusate Sodium (Colace) 100 mg PO Q8 PRN PRN Reason: Constipation Last Admin: 07/06/18 08:42 Dose: 100 mg Enoxaparin Sodium (Lovenox) 40 mg SC DAILY [facility]; Protocol Last Admin: 07/08/18 08:27 Dose: 40 mg Fluticasone Propionate (Flonase) 2 spr TIM DAILY [facility] Last Admin: 07/08/18 08:26 Dose: 2 spr Hydrocortisone Sodium Succinate (Solu-Cortef) 50 mg IV DAILY [facility] Meropenem 1 gm/ Sodium (Chloride) 100 mls @ 100 mls/hr IVPB Q8 [facility]; Protocol Last Admin: 07/08/18 17:26 Dose: 100 mls/hr Micafungin Sodium 100 mg/ (Sodium Chloride) 100 mls @ 100 mls/hr IVPB DAILY [facility]; Protocol Last Admin: 07/08/18 08:41 Dose: 100 mls/hr Vancomycin HCl 1 gm/ Sodium (Chloride) 250 mls @ 166.667 mls/hr IVPB Q12H [facility]; Protocol Last Admin: 07/08/18 15:09 Dose: 166.667 mls/hr Insulin Detemir (Levemir) 14 units SC Q12@0600,1800 [facility] Last Admin: 07/08/18 17:22 Dose: 14 units Insulin Human Lispro (Humalog) 0 units SC 0000,0600,1200,1800 [facility] Last Admin: 07/08/18 17:22 Dose: Not Given Lactulose (Enulose) 20 gm PO DAILY PRN PRN Reason: Constipation Last Admin: 07/04/18 22:55 Dose: 20 gm Lidocaine (Lidoderm) 1 ea TD DAILY PRN PRN Reason: Pain, moderate (4-7) Last Admin: 07/08/18 22:00 Dose: 1 ea Montelukast Sodium (Singulair) 10 mg PO DAILY [facility] Last Admin: 07/08/18 08:37 Dose: 10 mg Mupirocin (Bactroban Ointment) 1 applic TOP BID [facility] Stop: 07/13/18 09:00 Last Admin: 07/08/18 17:21 Dose: 1 applic Nystatin (Nystatin Oral Susp) 5 ml PO QID [facility] Last Admin: 07/02/18 09:02 Dose: 5 ml Ondansetron HCl (Zofran Odt) 8 mg PO Q8 PRN PRN Reason: Nausea/Vomiting Last Admin: 07/08/18 11:28 Dose: 8 mg Oxybutynin Chloride (Ditropan Tab) 5 mg PO DAILY [facility] Last Admin: 07/08/18 08:25 Dose: 5 mg Pantoprazole Sodium (Protonix Ec Tab) 40 mg PO DAILY [facility] Last Admin: 07/08/18 08:37 Dose: 40 mg Paroxetine HCl (Paxil) 40 mg PO DAILY [facility] Last Admin: 07/08/18 08:28 Dose: 40 mg Polyethylene Glycol (Miralax) 17 gm PO BID PRN PRN Reason: Constipation Last Admin: 07/01/18 16:29 Dose: 17 gm Prochlorperazine (Compazine Tab) 10 mg PO Q6 PRN PRN Reason: Nausea/Vomiting Last Admin: 07/08/18 13:32 Dose: 10 mg Sennosides (Senokot Tab) 8.6 mg PO BID PRN PRN Reason: Constipation Tamsulosin HCl (Flomax) 0.4 mg PO DAILY [facility] Last Admin: 07/08/18 08:25 Dose: 0.4 mg Trazodone HCl (Desyrel) 50 mg PO HS [facility] Last Admin: 07/08/18 21:57 Dose: 50 mg Triamcinolone Acetonide (Kenalog 0.1% Cream) 1 appl TOP Q12 [facility] Last Admin: 07/08/18 21:59 Dose: 1 appl - Labs Labs: 07/08/18 15:27 07/08/18 15:27 - Head Exam Head Exam: ATRAUMATIC - Eye Exam Eye Exam: Normal appearance - ENT Exam ENT Exam: Mucous Membranes Dry - Respiratory Exam Respiratory Exam: NORMAL BREATHING PATTERN - Cardiovascular Exam Cardiovascular Exam: +S1, +S2 - GI/Abdominal Exam GI & Abdominal Exam: Normal Bowel Sounds Assessment and Plan (1) Anemia Assessment & Plan: stable chronic disease from malignancy anemia of chemotherapy Status: Acute (2) Sarcoma Assessment & Plan: stage IV - lung mets on salvage chemotherapy at [facility] Status: Acute (3) History of DVT (deep vein thrombosis) Assessment & Plan: prior retroperitoneal bleeding on therapeutic anticoagulation on DVT prophylaxis Status: Acute
[2018-07-09] MEDS: Meropenem 1 GM in Sodium Chloride 0.9% 100 ML IVPB SCH ×3 (01:28→17:58)
[2018-07-09] MEDS: Insulin Lispro (humaLOG) 100 Units/ml Inj SC SCH ×3 (05:37→17:53)
[2018-07-09] MEDS: Insulin Detemir 100 Units/ml Inj SC SCH ×2 (05:42→17:54)
[2018-07-09] MEDS: Albuterol-Ipratrop 3 mg / 0.5 (3 ml) UD INH SCH ×4 (07:39→19:00)
[2018-07-09] MEDS: Budesonide 0.5 mg/2 ml Inhal Susp UD IH SCH ×2 (07:39→19:00)
--- NOTE | 2018-07-09 08:51 | PN ---
DATE: 07/07/2018 ENDOCRINOLOGY FOLLOWUP NOTE LOCATION: In room 415. SUBJECTIVE: This is a 62-year-old male with recent uncontrolled type 2 insulin-requiring diabetes with recent acute respiratory failure and has since then been extubated and has improved hemodynamically as noted thereof. He is currently on a high-flow nasal cannula as noted with overnight BiPAP device as given. His glycemic levels have ranged from 152-293 mg per dL. It was 303 at bedtime last night. His chemistry showed a BUN of 17, sodium 141, potassium 3.6, chloride 101, CO2 34, glucose 183, and creatinine 0.5. So at this time, we will continue the Levemir given as 14 units subcu every 12 hours at 6 a.m. and 6 p.m. daily. However, we may consider the titration to higher dosing as indicated to optimize metabolic control. He is scheduled for transfer to [facility] any time the bed is available for ongoing management of metastatic lung carcinoma. Sheryl Adams MD
[2018-07-09] MEDS: Pantoprazole 40 mg EC Tab PO SCH (09:47)
[2018-07-09] MEDS: Enoxaparin 40 mg Syringe SC SCH (09:51)
[2018-07-09] MEDS: Micafungin 100 MG in Sodium Chloride 0.9% 100 ML IVPB SCH (09:54)
--- NOTE | 2018-07-09 10:32 | CP.PCM.PN ---
Subjective - Date & Time of Evaluation Date of Evaluation: 07/09/18 Time of Evaluation: 10:29 - Subjective Subjective: Seated in a bedside chair, appears to be doing relatively well. His vital signs, oxygenation have been stable. He has been afebrile. His voice remains hoarse, but stronger. He does use the BiPAP mask at night, but not for the entire time. He is more comfortable with his nCPAP device at home. Podiatry is caring for the ulcerations on his legs and these seem to be improving. He does have intermittent congested cough which is now non-productive. His labs have remained stable. His last CXR was 4 days ago and has been stable. Pharynx is pink and moist w/o exudate. Neck is supple and trachea remains deviated towards the right. Dullness over the left hemithorax is unchanged. Breath sounds on the left are absent. No dullness on the right, and breath sounds are well heard with rhonchi. A few basal rales are present without any wheezes or bronchial breath sounds. Dependant edema of both legs as well as both hands/forearms persists. No peripheral cyanosis, all extremities are pink and warm. He has done exceptionally well considering his underlying disease. He is probably stable enough for discharge to [facility] if further antibiotic treatment is needed. He would return to his [facility] when home, and probably should have it brought in if he goes to [facility]. He should continue DuoNeb QID and Budesonide BID. He can be switched to PO prednisone at 15MG daily. Objective - Vital Signs/Intake and Output Vital Signs (last 24 hours): Temp Pulse Resp BP Pulse Ox 98.3 F 84 20 123/78 99 07/09/18 08:31 07/09/18 08:31 07/09/18 08:31 07/09/18 08:31 07/09/18 08:31 Intake and Output: 07/08/18 07/09/18 23:59 11:59 Intake Total 1120 Output Total 700 Balance 420 - Medications Medications: Current Medications Acetaminophen (Tylenol 325mg Tab) 650 mg PO Q6 PRN PRN Reason: Pain, moderate (4-7) Last Admin: 07/09/18 02:15 Dose: 650 mg Acyclovir (Zovirax) 800 mg PO TID [facility]; Protocol Last Admin: 07/09/18 09:50 Dose: 800 mg Albuterol Sulfate (Albuterol 0.083% Inhal Emilia (2.5 Mg/3 Ml) Ud) 2.5 mg INH RQ4 PRN PRN Reason: Shortness of Breath Last Admin: 07/08/18 21:48 Dose: 2.5 mg Albuterol/Ipratropium (Duoneb 3 Mg/0.5 Mg (3 Ml) Ud) 3 ml INH RQID [facility] Last Admin: 07/09/18 07:39 Dose: 3 ml Atorvastatin Calcium (Lipitor) 20 mg PO DAILY [facility] Last Admin: 07/09/18 09:53 Dose: 20 mg Bisacodyl (Dulcolax) 10 mg PO DAILY PRN PRN Reason: Constipation Last Admin: 06/28/18 08:09 Dose: 10 mg Budesonide (Pulmicort Respules) 0.5 mg IH RBID [facility] Last Admin: 07/09/18 07:39 Dose: 0.5 mg Docusate Sodium (Colace) 100 mg PO Q8 PRN PRN Reason: Constipation Last Admin: 07/09/18 09:55 Dose: 100 mg Enoxaparin Sodium (Lovenox) 40 mg SC DAILY [facility]; Protocol Last Admin: 07/09/18 09:51 Dose: 40 mg Fluticasone Propionate (Flonase) 2 spr TIM DAILY [facility] Last Admin: 07/09/18 09:52 Dose: 2 spr Hydrocortisone Sodium Succinate (Solu-Cortef) 50 mg IV DAILY [facility] Last Admin: 07/09/18 09:49 Dose: 50 mg Meropenem 1 gm/ Sodium (Chloride) 100 mls @ 100 mls/hr IVPB Q8 [facility]; Protocol Last Admin: 07/09/18 09:51 Dose: 100 mls/hr Micafungin Sodium 100 mg/ (Sodium Chloride) 100 mls @ 100 mls/hr IVPB DAILY [facility]; Protocol Last Admin: 07/09/18 09:54 Dose: 100 mls/hr Vancomycin HCl 1 gm/ Sodium (Chloride) 250 mls @ 166.667 mls/hr IVPB Q12H [facility]; Protocol Last Admin: 07/09/18 02:16 Dose: 166.667 mls/hr Insulin Detemir (Levemir) 14 units SC Q12@0600,1800 [facility] Last Admin: 07/09/18 05:42 Dose: 14 units Insulin Human Lispro (Humalog) 0 units SC 0000,0600,1200,1800 [facility] Last Admin: 07/09/18 05:37 Dose: Not Given Lactulose (Enulose) 20 gm PO DAILY PRN PRN Reason: Constipation Last Admin: 07/04/18 22:55 Dose: 20 gm Lidocaine (Lidoderm) 1 ea TD DAILY PRN PRN Reason: Pain, moderate (4-7) Last Admin: 07/08/18 22:00 Dose: 1 ea Montelukast Sodium (Singulair) 10 mg PO DAILY [facility] Last Admin: 07/09/18 09:48 Dose: 10 mg Mupirocin (Bactroban Ointment) 1 applic TOP BID [facility] Stop: 07/13/18 09:00 Last Admin: 07/09/18 09:46 Dose: 1 applic Nystatin (Nystatin Oral Susp) 5 ml PO QID [facility] Last Admin: 07/02/18 09:02 Dose: 5 ml Ondansetron HCl (Zofran Odt) 8 mg PO Q8 PRN PRN Reason: Nausea/Vomiting Last Admin: 07/08/18 11:28 Dose: 8 mg Oxybutynin Chloride (Ditropan Tab) 5 mg PO DAILY [facility] Last Admin: 07/09/18 09:53 Dose: 5 mg Pantoprazole Sodium (Protonix Ec Tab) 40 mg PO DAILY [facility] Last Admin: 07/09/18 09:47 Dose: 40 mg Paroxetine HCl (Paxil) 40 mg PO DAILY [facility] Last Admin: 07/09/18 09:48 Dose: 40 mg Polyethylene Glycol (Miralax) 17 gm PO BID PRN PRN Reason: Constipation Last Admin: 07/01/18 16:29 Dose: 17 gm Prochlorperazine (Compazine Tab) 10 mg PO Q6 PRN PRN Reason: Nausea/Vomiting Last Admin: 07/08/18 13:32 Dose: 10 mg Sennosides (Senokot Tab) 8.6 mg PO BID PRN PRN Reason: Constipation Tamsulosin HCl (Flomax) 0.4 mg PO DAILY [facility] Last Admin: 07/09/18 09:48 Dose: 0.4 mg Trazodone HCl (Desyrel) 50 mg PO [facility] Last Admin: 07/08/18 21:57 Dose: 50 mg Triamcinolone Acetonide (Kenalog 0.1% Cream) 1 appl TOP Q12 [facility] Last Admin: 07/09/18 09:46 Dose: 1 appl - Labs Labs: 07/08/18 15:27 07/08/18 15:27 Assessment and Plan (1) Oral thrush Status: Resolved 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
--- NOTE | 2018-07-09 10:44 | CP.PCM.PN ---
Subjective - Date & Time of Evaluation Date of Evaluation: 07/09/18 Time of Evaluation: 09:15 - Subjective Subjective: NO CHEST PAIN BREATHING BETTER Objective - Vital Signs/Intake and Output Vital Signs (last 24 hours): Temp Pulse Resp BP Pulse Ox 98.3 F 84 20 123/78 99 07/09/18 08:31 07/09/18 08:31 07/09/18 08:31 07/09/18 08:31 07/09/18 08:31 - Medications Medications: Current Medications Acetaminophen (Tylenol 325mg Tab) 650 mg PO Q6 PRN PRN Reason: Pain, moderate (4-7) Last Admin: 07/09/18 02:15 Dose: 650 mg Acyclovir (Zovirax) 800 mg PO TID [facility]; Protocol Last Admin: 07/09/18 09:50 Dose: 800 mg Albuterol Sulfate (Albuterol 0.083% Inhal Emilia (2.5 Mg/3 Ml) Ud) 2.5 mg INH RQ4 PRN PRN Reason: Shortness of Breath Last Admin: 07/08/18 21:48 Dose: 2.5 mg Albuterol/Ipratropium (Duoneb 3 Mg/0.5 Mg (3 Ml) Ud) 3 ml INH RQID [facility] Last Admin: 07/09/18 07:39 Dose: 3 ml Atorvastatin Calcium (Lipitor) 20 mg PO DAILY [facility] Last Admin: 07/09/18 09:53 Dose: 20 mg Bisacodyl (Dulcolax) 10 mg PO DAILY PRN PRN Reason: Constipation Last Admin: 06/28/18 08:09 Dose: 10 mg Budesonide (Pulmicort Respules) 0.5 mg IH RBID [facility] Last Admin: 07/09/18 07:39 Dose: 0.5 mg Docusate Sodium (Colace) 100 mg PO Q8 PRN PRN Reason: Constipation Last Admin: 07/09/18 09:55 Dose: 100 mg Enoxaparin Sodium (Lovenox) 40 mg SC DAILY [facility]; Protocol Last Admin: 07/09/18 09:51 Dose: 40 mg Fluticasone Propionate (Flonase) 2 spr TIM DAILY [facility] Last Admin: 07/09/18 09:52 Dose: 2 spr Hydrocortisone Sodium Succinate (Solu-Cortef) 50 mg IV DAILY [facility] Last Admin: 07/09/18 09:49 Dose: 50 mg Meropenem 1 gm/ Sodium (Chloride) 100 mls @ 100 mls/hr IVPB Q8 [facility]; Protocol Last Admin: 07/09/18 09:51 Dose: 100 mls/hr Micafungin Sodium 100 mg/ (Sodium Chloride) 100 mls @ 100 mls/hr IVPB DAILY [facility]; Protocol Last Admin: 07/09/18 09:54 Dose: 100 mls/hr Vancomycin HCl 1 gm/ Sodium (Chloride) 250 mls @ 166.667 mls/hr IVPB Q12H [facility]; Protocol Last Admin: 07/09/18 02:16 Dose: 166.667 mls/hr Insulin Detemir (Levemir) 14 units SC Q12@0600,1800 [facility] Last Admin: 07/09/18 05:42 Dose: 14 units Insulin Human Lispro (Humalog) 0 units SC 0000,0600,1200,1800 [facility] Last Admin: 07/09/18 05:37 Dose: Not Given Lactulose (Enulose) 20 gm PO DAILY PRN PRN Reason: Constipation Last Admin: 07/04/18 22:55 Dose: 20 gm Lidocaine (Lidoderm) 1 ea TD DAILY PRN PRN Reason: Pain, moderate (4-7) Last Admin: 07/08/18 22:00 Dose: 1 ea Montelukast Sodium (Singulair) 10 mg PO DAILY [facility] Last Admin: 07/09/18 09:48 Dose: 10 mg Mupirocin (Bactroban Ointment) 1 applic TOP BID [facility] Stop: 07/13/18 09:00 Last Admin: 07/09/18 09:46 Dose: 1 applic Nystatin (Nystatin Oral Susp) 5 ml PO QID [facility] Last Admin: 07/02/18 09:02 Dose: 5 ml Ondansetron HCl (Zofran Odt) 8 mg PO Q8 PRN PRN Reason: Nausea/Vomiting Last Admin: 07/08/18 11:28 Dose: 8 mg Oxybutynin Chloride (Ditropan Tab) 5 mg PO DAILY [facility] Last Admin: 07/09/18 09:53 Dose: 5 mg Pantoprazole Sodium (Protonix Ec Tab) 40 mg PO DAILY [facility] Last Admin: 07/09/18 09:47 Dose: 40 mg Paroxetine HCl (Paxil) 40 mg PO DAILY [facility] Last Admin: 07/09/18 09:48 Dose: 40 mg Polyethylene Glycol (Miralax) 17 gm PO BID PRN PRN Reason: Constipation Last Admin: 07/01/18 16:29 Dose: 17 gm Prochlorperazine (Compazine Tab) 10 mg PO Q6 PRN PRN Reason: Nausea/Vomiting Last Admin: 07/08/18 13:32 Dose: 10 mg Sennosides (Senokot Tab) 8.6 mg PO BID PRN PRN Reason: Constipation Tamsulosin HCl (Flomax) 0.4 mg PO DAILY [facility] Last Admin: 07/09/18 09:48 Dose: 0.4 mg Trazodone HCl (Desyrel) 50 mg PO HS [facility] Last Admin: 07/08/18 21:57 Dose: 50 mg Triamcinolone Acetonide (Kenalog 0.1% Cream) 1 appl TOP Q12 [facility] Last Admin: 07/09/18 09:46 Dose: 1 appl - Labs Labs: 07/08/18 15:27 07/08/18 15:27 - Respiratory Exam Respiratory Exam: Decreased Breath Sounds, Rhonchi - Cardiovascular Exam Cardiovascular Exam: REGULAR RHYTHM, +S1, +S2 - Extremities Exam Extremities Exam: Pedal Edema Assessment and Plan - Assessment and Plan (Free Text) Assessment: ANGIOSARCOMA WITH LUNG METASTASIS PNEUMONIA HYPERLIPIDEMIA DM OVERWEIGHT Plan: CONTINUE ANTIBIOTICS, PULMONARY MEDICATIONS, ATORVASTATIN AND LOVENOX
--- NOTE | 2018-07-09 11:06 | CP.PCM.PN ---
Subjective - Date & Time of Evaluation Date of Evaluation: 07/09/18 Time of Evaluation: 08:00 - Subjective Subjective: awake alert less sob 'still weak NAD Objective - Vital Signs/Intake and Output Vital Signs (last 24 hours): Temp Pulse Resp BP Pulse Ox 98.3 F 84 20 123/78 99 07/09/18 08:31 07/09/18 08:31 07/09/18 08:31 07/09/18 08:31 07/09/18 08:31 - Medications Medications: Current Medications Acetaminophen (Tylenol 325mg Tab) 650 mg PO Q6 PRN PRN Reason: Pain, moderate (4-7) Last Admin: 07/09/18 02:15 Dose: 650 mg Acyclovir (Zovirax) 800 mg PO TID [facility]; Protocol Last Admin: 07/09/18 09:50 Dose: 800 mg Albuterol Sulfate (Albuterol 0.083% Inhal Emilia (2.5 Mg/3 Ml) Ud) 2.5 mg INH RQ4 PRN PRN Reason: Shortness of Breath Last Admin: 07/08/18 21:48 Dose: 2.5 mg Albuterol/Ipratropium (Duoneb 3 Mg/0.5 Mg (3 Ml) Ud) 3 ml INH RQID [facility] Last Admin: 07/09/18 07:39 Dose: 3 ml Atorvastatin Calcium (Lipitor) 20 mg PO DAILY [facility] Last Admin: 07/09/18 09:53 Dose: 20 mg Bisacodyl (Dulcolax) 10 mg PO DAILY PRN PRN Reason: Constipation Last Admin: 06/28/18 08:09 Dose: 10 mg Budesonide (Pulmicort Respules) 0.5 mg IH RBID [facility] Last Admin: 07/09/18 07:39 Dose: 0.5 mg Docusate Sodium (Colace) 100 mg PO Q8 PRN PRN Reason: Constipation Last Admin: 07/09/18 09:55 Dose: 100 mg Enoxaparin Sodium (Lovenox) 40 mg SC DAILY [facility]; Protocol Last Admin: 07/09/18 09:51 Dose: 40 mg Fluticasone Propionate (Flonase) 2 spr TIM DAILY [facility] Last Admin: 07/09/18 09:52 Dose: 2 spr Meropenem 1 gm/ Sodium (Chloride) 100 mls @ 100 mls/hr IVPB Q8 [facility]; Protocol Last Admin: 07/09/18 09:51 Dose: 100 mls/hr Micafungin Sodium 100 mg/ (Sodium Chloride) 100 mls @ 100 mls/hr IVPB DAILY [facility]; Protocol Last Admin: 07/09/18 09:54 Dose: 100 mls/hr Vancomycin HCl 1 gm/ Sodium (Chloride) 250 mls @ 166.667 mls/hr IVPB Q12H [facility]; Protocol Last Admin: 07/09/18 02:16 Dose: 166.667 mls/hr Insulin Detemir (Levemir) 14 units SC Q12@0600,1800 [facility] Last Admin: 07/09/18 05:42 Dose: 14 units Insulin Human Lispro (Humalog) 0 units SC 0000,0600,1200,1800 [facility] Last Admin: 07/09/18 05:37 Dose: Not Given Lactulose (Enulose) 20 gm PO DAILY PRN PRN Reason: Constipation Last Admin: 07/04/18 22:55 Dose: 20 gm Lidocaine (Lidoderm) 1 ea TD DAILY PRN PRN Reason: Pain, moderate (4-7) Last Admin: 07/08/18 22:00 Dose: 1 ea Montelukast Sodium (Singulair) 10 mg PO DAILY [facility] Last Admin: 07/09/18 09:48 Dose: 10 mg Mupirocin (Bactroban Ointment) 1 applic TOP BID [facility] Stop: 07/13/18 09:00 Last Admin: 07/09/18 09:46 Dose: 1 applic Nystatin (Nystatin Oral Susp) 5 ml PO QID [facility] Last Admin: 07/02/18 09:02 Dose: 5 ml Ondansetron HCl (Zofran Odt) 8 mg PO Q8 PRN PRN Reason: Nausea/Vomiting Last Admin: 07/08/18 11:28 Dose: 8 mg Oxybutynin Chloride (Ditropan Tab) 5 mg PO DAILY [facility] Last Admin: 07/09/18 09:53 Dose: 5 mg Pantoprazole Sodium (Protonix Ec Tab) 40 mg PO DAILY [facility] Last Admin: 07/09/18 09:47 Dose: 40 mg Paroxetine HCl (Paxil) 40 mg PO DAILY [facility] Last Admin: 07/09/18 09:48 Dose: 40 mg Polyethylene Glycol (Miralax) 17 gm PO BID PRN PRN Reason: Constipation Last Admin: 07/01/18 16:29 Dose: 17 gm Prednisone (Prednisone Tab) 15 mg PO DAILY [facility] Prochlorperazine (Compazine Tab) 10 mg PO Q6 PRN PRN Reason: Nausea/Vomiting Last Admin: 07/08/18 13:32 Dose: 10 mg Sennosides (Senokot Tab) 8.6 mg PO BID PRN PRN Reason: Constipation Tamsulosin HCl (Flomax) 0.4 mg PO DAILY [facility] Last Admin: 07/09/18 09:48 Dose: 0.4 mg Trazodone HCl (Desyrel) 50 mg PO HS [facility] Last Admin: 07/08/18 21:57 Dose: 50 mg Triamcinolone Acetonide (Kenalog 0.1% Cream) 1 appl TOP Q12 [facility] Last Admin: 07/09/18 09:46 Dose: 1 appl - Labs Labs: 07/08/18 15:27 07/08/18 15:27 - Constitutional Appears: Non-toxic, Chronically Ill - Head Exam Head Exam: NORMOCEPHALIC (x) - Eye Exam Eye Exam: PERRL - ENT Exam ENT Exam: Mucous Membranes Dry - Neck Exam Neck Exam: absent: Lymphadenopathy - Respiratory Exam Respiratory Exam: Decreased Breath Sounds - Cardiovascular Exam Cardiovascular Exam: REGULAR RHYTHM - GI/Abdominal Exam GI & Abdominal Exam: Distended, Soft - Rectal Exam Rectal Exam: Deferred - Exam Exam: NORMAL INSPECTION - Extremities Exam Extremities Exam: Pedal Edema - Back Exam Back Exam: absent: CVA tenderness (L), CVA tenderness (R) - Neurological Exam Neurological Exam: Alert, Awake, CN II-XII Intact, Oriented x3 - Psychiatric Exam Psychiatric exam: Normal Mood - Skin Skin Exam: Erythema Assessment and Plan (1) Bilateral leg ulcer Status: Acute (2) Bilateral leg ulcer Status: Acute (3) History of DVT (deep vein thrombosis) Status: Acute (4) Leukopenia Status: Acute (5) Mucositis Status: Acute (6) Sore throat Status: Acute (7) 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
--- NOTE | 2018-07-09 14:14 | CP.PCM.PCO ---
Assessment/Plan - Assessment and Plan (Free Text) Assessment: patient accepted at [facility]; Bed 1706; Dr.William Acuña oncologist; for transfer today notified
--- NOTE | 2018-07-09 18:44 | CP.PCM.HP ---
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 admitted for sore throat Present on Admission - Present on Admission Any Indicators Present on Admission: No Past Patient History - Past Medical History & Family History Past Medical History?: Yes - Past Social History Smoking Status: Former Smoker Chewing Tobacco Use: No Cigar Use: No Alcohol: None Drugs: Denies - CARDIAC Hx Hypercholesterolemia: Yes Hx Hypertension: Yes - PULMONARY Hx Asthma: Yes Hx Pulmonary Embolism: Yes Other/Comment: metastatic lung disease - HEENT Other/Comment: throat pain and hoarsness of voice - RENAL Hx Chronic Kidney Disease: No - ENDOCRINE/METABOLIC Hx Diabetes Mellitus Type 2: Yes - HEMATOLOGICAL/ONCOLOGICAL Hx Anemia: Yes Hx Cancer: Yes - INTEGUMENTARY Hx Dermatological Problems: Yes Other/Comment: Left thigh sarcoma - MUSCULOSKELETAL/RHEUMATOLOGICAL Hx Musculoskeletal Disorders: Yes Hx Falls: No Other/Comment: 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 2 lung Laparoscopy due to sarcoma - ANESTHESIA Hx Anesthesia: Yes Hx Anesthesia Reactions: No Meds Allergies/Adverse Reactions: Allergies Allergy/AdvReac Type Severity Reaction Status Date / Time DOXYTACIL Allergy ANAPHYLAXIS Uncoded 08/30/17 22:18 Physical Exam - Respiratory Exam Respiratory Exam: NORMAL BREATHING PATTERN - Cardiovascular Exam Cardiovascular Exam: REGULAR RHYTHM - GI/Abdominal Exam GI & Abdominal Exam: Normal Bowel Sounds Results - Vital Signs Recent Vital Signs: Last Vital Signs Temp 97.6 F 07/09/18 16:34 Pulse 92 H 07/09/18 16:34 Resp 18 07/09/18 16:34 BP 97/65 L 07/09/18 16:34 Pulse Ox 99 07/09/18 16:34 - Labs Result Diagrams: 07/08/18 15:27 07/08/18 15:27 Labs: Laboratory Results - last 24 hr 07/08/18 07/09/18 07/09/18 21:34 05:26 11:12 POC Glucose (mg/dL) 226 H 110 213 H 07/09/18 16:47 POC Glucose (mg/dL) 281 H Assessment & Plan - Assessment and Plan (Free Text) Assessment: Mucositis/ Thrush Sore throat 2 to chemotherapy Oncology Topical Prostate cancer / 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
--- NOTE | 2018-07-09 18:49 | CP.PCM.DIS ---
Provider - Provider Date of Admission: 06/26/18 17:42 Attending physician: Andrew Nye MD Consults: 06/26/18 17:41 Hematology Oncology Consult Stat Comment: Consulting Provider: Earl Barnett Consulting Physician: Earl Barnett Reason for Consult: thrush s/p chemo Pulmonology Consult Stat Comment: Consulting Provider: Andrew Thayer Consulting Physician: Andrew Thayer Reason for Consult: SOB, lung metastasis, thrush 06/26/18 22:59 Endocrinology Consult Routine Comment: Consulting Provider: Sheryl Adams Consulting Physician: Sheryl Adams Reason for Consult: DM 06/26/18 23:42 Anesthesiology Consult Routine Comment: Pain Geospatial Analyst Provider: Juli Brewer Consulting Physician: Juli Brewer Reason for Consult: Pain Management 06/27/18 01:47 Case Management Referral Routine Comment: Physician Instructions: Reason For Exam: Reason for Referral: Discharge Planning 06/27/18 12:31 Cardiology Consult Routine Comment: Consulting Provider: Delonte Rich Consulting Physician: Delonte Rich Reason for Consult: mets prostate ca, L thigh sarcoma, sob 06/28/18 08:39 Psychiatry Consult Routine Comment: Consulting Provider: Emma Siu Consulting Physician: Emma Siu Reason for Consult: hx prostate ca w/ mets; depression, anxiety 06/28/18 11:09 Infectious Disease Consult Routine Comment: Consulting Provider: Delonte Purcell Consulting Physician: Delonte Purcell Reason for Consult: prostate ca/ w/ mets; L sarcoma w/ lung mets; pna 06/28/18 16:02 Podiatry Consult Routine Comment: Consulting Provider: Yan Myrick Consulting Physician: Yan Myrick Reason for Consult: leg ulcers 06/29/18 11:33 Palliative Care Consult Routine Comment: Consulting Provider: Bebe Gu Physician Instructions: Reason For Exam: stg iv sarcoma / lung mets 06/30/18 13:54 Surgery [General Surgery Consult] Routine Comment: trach placement Consulting Provider: Porfirio Jefferson Consulting Physician: Porfirio Jefferson Reason for Consult: trach placement Time Spent in preparation of Discharge (in minutes): 5 Diagnosis - Discharge Diagnosis (1) Acute respiratory failure with hypercapnia Status: Acute Priority: High (2) Bilateral leg ulcer Status: Acute Priority: High (3) Leukopenia Status: Acute (4) Mucositis Status: Acute Priority: High (5) Neutropenia Status: Acute Priority: High (6) Severe sepsis Status: Acute (7) Sore throat Status: Acute (8) Cancer associated pain Status: Chronic Priority: High (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 Priority: High (10) Oral thrush Status: Resolved Priority: High (11) Anemia Status: Acute (12) Dyspnea Status: Acute (13) Sarcoma Status: Acute Hospital Course - Lab Results Lab Results: Micro Results 07/08/18 15:27 Sputum Gram Stain - Final 07/08/18 15:27 Sputum Sputum Culture - Preliminary Yeast Species 07/05/18 21:55 Naris MRSA Culture (Admit) - Final MRSA DETECTED 06/30/18 17:26 Trachasp Gram Stain - Final 06/30/18 17:26 Trachasp Sputum Culture - Final NORMAL ORAL ROYER 06/30/18 09:10 Urine,Catheterized Urine Culture - Final No Growth (<1,000 CFU/ML) 06/29/18 15:30 Naris MRSA Culture (Admit) - Final MRSA DETECTED 06/28/18 18:00 Leg - Right Gram Stain - Final 06/28/18 18:00 Leg - Right Wound Culture - Final Methicillin Resistant S Aureus 06/26/18 19:50 Throat Group A Strep Throat Culture - Final NO BETA STREP GROUP A ISOLATED. Most Recent Lab Values WBC 7.9 K/uL (4.8-10.8) 07/08/18 15:27 RBC 3.62 Mil/uL (4.40-5.90) L 07/08/18 15:27 Hgb 9.4 g/dL (12.0-18.0) L 07/08/18 15:27 Hct 29.1 % (35.0-51.0) L 07/08/18 15:27 MCV 80.5 fl (80.0-94.0) 07/08/18 15:27 MCH 26.1 pg (27.0-31.0) L 07/08/18 15:27 MCHC 32.4 g/dL (33.0-37.0) L 07/08/18 15:27 RDW 19.6 % (11.5-14.5) H 07/08/18 15:27 Plt Count 171 K/uL (130-400) 07/08/18 15:27 MPV 8.6 fl (7.2-11.7) 07/08/18 15:27 Neut % (Auto) 91.9 % (50.0-75.0) H 07/08/18 15:27 Lymph % (Auto) 4.1 % (20.0-40.0) L 07/08/18 15:27 Stark % (Auto) 3.6 % (0.0-10.0) 07/08/18 15:27 Eos % (Auto) 0.0 % (0.0-4.0) 07/08/18 15:27 Baso % (Auto) 0.4 % (0.0-2.0) 07/08/18 15: Neut # (Auto) 7.2 K/uL (1.8-7.0) H 07/08/18 15:27 Lymph # (Auto) 0.3 K/uL (1.0-4.3) L 07/08/18 15:27 Stark # (Auto) 0.3 K/uL (0.0-0.8) 07/08/18 15:27 Eos # (Auto) 0.0 K/uL (0.0-0.7) 07/08/18 15:27 Baso # (Auto) 0.0 K/uL (0.0-0.2) 07/08/18 15:27 Neutrophils % (Manual) 91 % (42-75) H 07/08/18 15:27 Band Neutrophils % 1 % (0-2) 07/08/18 15:27 Lymphocytes % (Manual) 4 % (20-50) L 07/08/18 15:27 Monocytes % (Manual) 4 % (0-10) 07/08/18 15:27 Eosinophils % (Manual) 2 % (0-7) 06/26/18 16:58 Basophils % (Manual) 1 % (0-2) 06/26/18 16:58 Platelet Estimate Normal (NORMAL) 07/08/18 15:27 Hypochromasia (manual) Slight 06/26/18 16:58 Poikilocytosis (manual Slight 06/26/18 16:58 Anisocytosis (manual) Slight 07/08/18 15:27 Microcytosis (manual) Slight 06/26/18 16:58 Ovalocytes Slight 07/08/18 15:27 pCO2 50 mm/Hg (35-45) H 07/04/18 04:07 pO2 142 mm/Hg (80-100) H 07/04/18 04:07 HCO3 31.7 mmol/L (21-28) H 07/04/18 04:07 ABG pH 7.44 (7.35-7.45) 07/04/18 04:07 ABG Total CO2 35.5 mmol/L (22-28) H 07/04/18 04:07 ABG O2 Saturation 99.7 % (95-98) H 07/04/18 04:07 ABG O2 Content 14.0 ML/dL (15-23) L 07/04/18 04:07 ABG Base Excess 8.7 mmol/L (-2.0-3.0) H 07/04/18 04:07 ABG Hemoglobin 10.0 g/dL (11.7-17.4) L 07/04/18 04:07 ABG Carboxyhemoglobin 1.2 % (0.5-1.5) 07/04/18 04:07 POC ABG HHb (Measured) 0.3 % (0.0-5.0) 07/04/18 04:07 ABG Methemoglobin 0.8 % (0.0-3.0) 07/04/18 04:07 ABG O2 Capacity 14.0 mL/dL (16-24) L 07/04/18 04:07 Gilbert Test Yes 07/04/18 04:07 ABG Potassium 3.4 mmol/L (3.6-5.2) L 07/03/18 06:22 VBG pH 7.41 (7.32-7.43) 06/26/18 16:45 VBG pCO2 59 mmHg (40-60) 06/26/18 16:45 VBG HCO3 32.6 mmol/L 06/26/18 16:45 VBG Total CO2 39.2 mmol/L (22-28) H 06/26/18 16:45 VBG O2 Sat (Calc) 87.3 % (40-65) H 06/26/18 16:45 VBG Base Excess 10.4 mmol/L (0.0-2.0) H 06/26/18 16:45 VBG Potassium 3.1 mmol/L (3.6-5.2) L 06/26/18 16:45 A-a O2 Difference 81.0 mm/Hg 07/04/18 04:07 Hgb O2 Saturation 97.7 % (95.0-98.0) 07/04/18 04:07 Sodium 133.0 mmol/L (132-148) 07/03/18 06:22 Chloride 103.0 mmol/L (98-107) 07/03/18 06:22 Glucose 124 mg/dL (75-110) H 07/03/18 06:22 Lactate 1.5 mmol/L (0.7-2.1) 07/03/18 06:22 Liter Flow 4 06/29/18 10:42 Vent Mode Bipap 07/04/18 04:07 Mechanical Rate 12 07/04/18 04:07 FiO2 40.0 % 07/04/18 04:07 Tidal Volume 450 07/03/18 06:22 PEEP 5 07/03/18 06:22 Pressure Support 10 07/03/18 06:22 Inspiratory BiPAP 12 07/04/18 04:07 Expiratory BiPAP 7 07/04/18 04:07 Crit Value Called To sana Fay do 06/29/18 17:30 Crit Value Called By Austin quinones 06/29/18 17:30 Crit Value Read Back Y 06/29/18 17:30 Blood Gas Notified Time 1745 06/29/18 17:30 Sodium 133 mmol/l (132-148) 07/08/18 15:27 Potassium 4.4 MMOL/L (3.6-5.0) 07/08/18 15:27 Chloride 93 mmol/L (98-107) L 07/08/18 15:27 Carbon Dioxide 36 mmol/L (22-30) H 07/08/18 15:27 Anion Gap 8 (10-20) L 07/08/18 15:27 BUN 13 mg/dl (9-20) 07/08/18 15:27 Creatinine 0.4 mg/dl (0.8-1.5) L 07/08/18 15:27 Est GFR ( Amer) > 60 07/08/18 15:27 Est GFR (Non-Af Amer) > 60 07/08/18 15:27 POC Glucose (mg/dL) 281 mg/dL (65-110) H 07/09/18 16:47 Random Glucose 242 mg/dL (75-110) H 07/08/18 15:27 Hemoglobin A1c 6.9 % (4.2-6.5) H 06/27/18 04:50 Calcium 8.7 mg/dL (8.4-10.2) 07/08/18 15:27 Phosphorus 1.5 mg/dl (2.5-4.5) L 06/30/18 04:30 Magnesium 1.8 MG/DL (1.6-2.3) 06/30/18 04:30 Total Bilirubin 0.3 mg/dl (0.2-1.3) 07/08/18 15:27 AST 21 U/L (17-59) 07/08/18 15:27 ALT 21 U/L (21-72) D 07/08/18 15:27 Alkaline Phosphatase 51 U/L (38-126) 07/08/18 15:27 Troponin I < 0.0120 ng/mL (0.00-0.120) 06/26/18 16:58 NT-Pro-B Natriuret Pep 684 pg/ml (0-900) 06/26/18 16:58 Total Protein 5.3 G/DL (6.3-8.2) L 07/08/18 15:27 Albumin 2.9 g/dL (3.5-5.0) L 07/08/18 15:27 Globulin 2.5 gm/dL (2.2-3.9) 07/08/18 15:27 Albumin/Globulin Ratio 1.2 (1.0-2.1) 07/08/18 15:27 Triglycerides 131 mg/DL (0-149) D 06/29/18 04:30 Cholesterol 145 mg/dL (0-199) 06/29/18 04:30 LDL Cholesterol Direct 75 mg/dL (0-129) 06/29/18 04:30 HDL Cholesterol 41 MG/DL (30-70) 06/29/18 04:30 Procalcitonin 0.19 NG/ML (0.19-0.49) 06/29/18 14:15 TSH 3rd Generation 7.30 mIU/ML (0.46-4.68) H 06/27/18 04:50 Arterial Blood Potassium 3.4 mmol/L (3.6-5.2) L 07/03/18 06:22 Venous Blood Potassium 3.1 mmol/L (3.6-5.2) L 06/26/18 16:45 Urine Color Maryjo (YELLOW) 06/30/18 02:27 Urine Clarity Cloudy (Clear) 06/30/18 02:27 Urine pH 5.0 (5.0-8.0) 06/30/18 02:27 Ur Specific [place] 1.017 (1.003-1.030) 06/30/18 02:27 Urine Protein 100 mg/dL (NEGATIVE) 06/30/18 02:27 Urine Glucose (UA) 50 mg/dL (NEGATIVE) 06/30/18 02:27 Urine Ketones Trace mg/dL (NEGATIVE) 06/30/18 02:27 Urine Blood Negative (NEGATIVE) 06/30/18 02:27 Urine Nitrate Negative (NEGATIVE) 06/30/18 02:27 Urine Bilirubin Negative (NEGATIVE) 06/30/18 02:27 Urine Urobilinogen 0.2-1.0 mg/dL (0.2-1.0) 06/30/18 02:27 Ur Leukocyte Esterase Neg [place]/uL (Negative) 06/30/18 02:27 Urine RBC (Auto) 1 /hpf (0-3) 06/30/18 02:27 Urine Microscopic WBC 8 /hpf (0-5) H 06/30/18 02:27 Ur Squamous Epith Cells 1 /hpf (0-5) 06/30/18 02:27 Hyaline Casts >20 /hpf (0-2) H 06/30/18 02:27 Vancomycin Trough 15.4 ug/mL (5.0-10.0) H 07/06/18 12:17 Influenza Typ A,B (EIA) Negative for flu a/b (NEGATIVE) 06/26/18 19:50 Grp A Beta Strep Ag Negative (NEGATIVE) 06/26/18 19:50 Discharge Exam - Head Exam Head Exam: ATRAUMATIC Discharge Plan - Follow Up Plan Condition: GUARDED Disposition: HOME/ ROUTINE
[2018-07-09 20:15] VITALS: BP 120/71; PULSE 102; RESP 20; TEMP 99.3; O2SAT 98
--- NOTE | 2018-07-09 20:32 | CP.PCM.PN ---
Subjective - Date & Time of Evaluation Date of Evaluation: 07/09/18 Time of Evaluation: 22:22 Objective - Vital Signs/Intake and Output Vital Signs (last 24 hours): Temp Pulse Resp BP Pulse Ox 99.3 F 102 H 20 120/71 98 07/09/18 20:15 07/09/18 20:15 07/09/18 20:15 07/09/18 20:15 07/09/18 20:15 - Medications Medications: Current Medications Acetaminophen (Tylenol 325mg Tab) 650 mg PO Q6 PRN PRN Reason: Pain, moderate (4-7) Last Admin: 07/09/18 02:15 Dose: 650 mg Acyclovir (Zovirax) 800 mg PO TID BENI; Protocol Last Admin: 07/09/18 17:56 Dose: 800 mg Albuterol Sulfate (Albuterol 0.083% Inhal Emilia (2.5 Mg/3 Ml) Ud) 2.5 mg INH RQ4 PRN PRN Reason: Shortness of Breath Last Admin: 07/08/18 21:48 Dose: 2.5 mg Albuterol/Ipratropium (Duoneb 3 Mg/0.5 Mg (3 Ml) Ud) 3 ml INH RQID BENI Last Admin: 07/09/18 19:00 Dose: 3 ml Atorvastatin Calcium (Lipitor) 20 mg PO DAILY [facility] Last Admin: 07/09/18 09:53 Dose: 20 mg Bisacodyl (Dulcolax) 10 mg PO DAILY PRN PRN Reason: Constipation Last Admin: 06/28/18 08:09 Dose: 10 mg Budesonide (Pulmicort Respules) 0.5 mg IH RBID BENI Last Admin: 07/09/18 19:00 Dose: 0.5 mg Docusate Sodium (Colace) 100 mg PO Q8 PRN PRN Reason: Constipation Last Admin: 07/09/18 09:55 Dose: 100 mg Enoxaparin Sodium (Lovenox) 40 mg SC DAILY [facility]; Protocol Last Admin: 07/09/18 09:51 Dose: 40 mg Fluticasone Propionate (Flonase) 2 spr TIM DAILY [facility] Last Admin: 07/09/18 09:52 Dose: 2 spr Meropenem 1 gm/ Sodium (Chloride) 100 mls @ 100 mls/hr IVPB Q8 BENI; Protocol Last Admin: 07/09/18 17:58 Dose: 100 mls/hr Micafungin Sodium 100 mg/ (Sodium Chloride) 100 mls @ 100 mls/hr IVPB DAILY [facility]; Protocol Last Admin: 07/09/18 09:54 Dose: 100 mls/hr Vancomycin HCl 1 gm/ Sodium (Chloride) 250 mls @ 166.667 mls/hr IVPB Q12H [facility]; Protocol Last Admin: 07/09/18 14:38 Dose: 166.667 mls/hr Insulin Detemir (Levemir) 14 units SC Q12@0600,1800 [facility] Last Admin: 07/09/18 17:54 Dose: 14 units Insulin Human Lispro (Humalog) 0 units SC 0000,0600,1200,1800 [facility] Last Admin: 07/09/18 17:53 Dose: 3 u Lactulose (Enulose) 20 gm PO DAILY PRN PRN Reason: Constipation Last Admin: 07/04/18 22:55 Dose: 20 gm Lidocaine (Lidoderm) 1 ea TD DAILY PRN PRN Reason: Pain, moderate (4-7) Last Admin: 07/08/18 22:00 Dose: 1 ea Montelukast Sodium (Singulair) 10 mg PO DAILY [facility] Last Admin: 07/09/18 09:48 Dose: 10 mg Mupirocin (Bactroban Ointment) 1 applic TOP BID [facility] Stop: 07/13/18 09:00 Last Admin: 07/09/18 17:53 Dose: 1 applic Nystatin (Nystatin Oral Susp) 5 ml PO QID [facility] Last Admin: 07/02/18 09:02 Dose: 5 ml Ondansetron HCl (Zofran Odt) 8 mg PO Q8 PRN PRN Reason: Nausea/Vomiting Last Admin: 07/08/18 11:28 Dose: 8 mg Oxybutynin Chloride (Ditropan Tab) 5 mg PO DAILY [facility] Last Admin: 07/09/18 09:53 Dose: 5 mg Pantoprazole Sodium (Protonix Ec Tab) 40 mg PO DAILY [facility] Last Admin: 07/09/18 09:47 Dose: 40 mg Paroxetine HCl (Paxil) 40 mg PO DAILY [facility] Last Admin: 07/09/18 09:48 Dose: 40 mg Polyethylene Glycol (Miralax) 17 gm PO BID PRN PRN Reason: Constipation Last Admin: 07/01/18 16:29 Dose: 17 gm Prednisone (Prednisone Tab) 15 mg PO DAILY [facility] Prochlorperazine (Compazine Tab) 10 mg PO Q6 PRN PRN Reason: Nausea/Vomiting Last Admin: 07/08/18 13:32 Dose: 10 mg Sennosides (Senokot Tab) 8.6 mg PO BID PRN PRN Reason: Constipation Tamsulosin HCl (Flomax) 0.4 mg PO DAILY [facility] Last Admin: 07/09/18 09:48 Dose: 0.4 mg Trazodone HCl (Desyrel) 50 mg PO HS [facility] Last Admin: 07/08/18 21:57 Dose: 50 mg Triamcinolone Acetonide (Kenalog 0.1% Cream) 1 appl TOP Q12 [facility] Last Admin: 07/09/18 09:46 Dose: 1 appl - Labs Labs: 07/08/18 15:27 07/08/18 15:27 Assessment and Plan (1) Acute respiratory failure with hypercapnia Status: Acute (2) Bilateral leg ulcer Status: Acute (3) Leukopenia Status: Acute (4) Mucositis Status: Acute (5) Neutropenia Status: Acute (6) Severe sepsis Status: Acute (7) Sore throat Status: Acute (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
--- NOTE | 2018-07-09 21:36 | PN ---
DATE: 07/09/2018 ENDOCRINOLOGY FOLLOWUP NOTE LOCATION: Room 415. 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 His glycemic fluctuations have improved as noted. The glucose levels have ranged from 110 to 213 mg/dL. It was 226 at bedtime last night. LABORATORY DATA: His latest chemistry showed a BUN of 13, sodium 133, potassium 4.4, chloride 93, CO2 of 36, glucose 242 and creatinine 0.4. PLAN OF MANAGEMENT: So at this time, we will continue the same basal insulin given as Levemir at 14 units subcu every 12 hours at 6 a.m. and 6 p.m. daily as given. We will continue the low-dose correction scale using Humalog insulin done every 6 hours as ordered. We will obtain serial chemistries and supplement accordingly needed. We will follow and advise accordingly. Sheryl Adams MD
--- NOTE | 2018-07-09 22:39 | CP.PCM.PN ---
Subjective - Date & Time of Evaluation Date of Evaluation: 07/09/18 Time of Evaluation: 09:00 - Subjective Subjective: No complaints. Objective - Vital Signs/Intake and Output Vital Signs (last 24 hours): Temp Pulse Resp BP Pulse Ox 99.3 F 102 H 20 120/71 98 07/09/18 20:15 07/09/18 20:15 07/09/18 20:15 07/09/18 20:15 07/09/18 20:15 - Labs Labs: 07/08/18 15:27 07/08/18 15:27 - Head Exam Head Exam: ATRAUMATIC - Eye Exam Eye Exam: Normal appearance - ENT Exam ENT Exam: Mucous Membranes Dry - Respiratory Exam Respiratory Exam: NORMAL BREATHING PATTERN - Cardiovascular Exam Cardiovascular Exam: +S1, +S2 - GI/Abdominal Exam GI & Abdominal Exam: Normal Bowel Sounds Assessment and Plan (1) Anemia Assessment & Plan: stable chronic disease from malignancy anemia of chemotherapy Status: Acute (2) Sarcoma Assessment & Plan: stage IV - lung mets on salvage chemotherapy at [facility] [place] Status: Acute (3) History of DVT (deep vein thrombosis) Assessment & Plan: prior retroperitoneal bleeding on therapeutic anticoagulation on DVT prophylaxis Status: Acute
== END 2018-07-09 21:00 | disposition short-term general hospital (02) | DRG 157 ==
LOC: H.ER 13:48 → H.ERHOLD 17:42 → H.TEL 21:31 → H.ICU/CCU 06-29 11:41 → H.TEL 07-05 18:09
PROVIDERS: ADMIT Family Medicine Geriatric Medicine; ATTEND Family Medicine Geriatric Medicine
PROC: 5A1945Z Respiratory Ventilation, 24-96 Consecutive Hours (ICD-10-PCS; principal; 2018-06-29)
PROC: 0BH17EZ Insertion of Endotracheal Airway into Trachea, Via Natural or Artificial Opening (ICD-10-PCS; 2018-06-29)
PROC: 0CJS8ZZ Inspection of Larynx, Via Natural or Artificial Opening Endoscopic (ICD-10-PCS; 2018-06-29)
PROC: 5A09557 Assistance with Respiratory Ventilation, Greater than 96 Consecutive Hours, Continuous Positive Airway Pressure (ICD-10-PCS; 2018-07-02)
DX: K12.31 Oral mucositis (ulcerative) due to antineoplastic therapy (principal); J18.1 Lobar pneumonia, unspecified organism; J96.02 Acute respiratory failure with hypercapnia; A41.9 Sepsis, unspecified organism; R65.20 Severe sepsis without septic shock; J96.01 Acute respiratory failure with hypoxia; C78.02 Secondary malignant neoplasm of left lung; C49.22 Malignant neoplasm of connective and soft tissue of left lower limb, including hip; Z68.41 Body mass index [BMI] 40.0-44.9, adult; L97.919 Non-pressure chronic ulcer of unspecified part of right lower leg with unspecified severity; L97.929 Non-pressure chronic ulcer of unspecified part of left lower leg with unspecified severity; L03.115 Cellulitis of right lower limb; L03.116 Cellulitis of left lower limb; J90 Pleural effusion, not elsewhere classified; J98.11 Atelectasis; E87.3 Alkalosis; E87.1 Hypo-osmolality and hyponatremia; E66.2 Morbid (severe) obesity with alveolar hypoventilation; B37.0 Candidal stomatitis; T45.1X5A Adverse effect of antineoplastic and immunosuppressive drugs, initial encounter; Y95 Nosocomial condition; D64.81 Anemia due to antineoplastic chemotherapy; D70.1 Agranulocytosis secondary to cancer chemotherapy; G89.3 Neoplasm related pain (acute) (chronic); B95.62 Methicillin resistant Staphylococcus aureus infection as the cause of diseases classified elsewhere; E11.65 Type 2 diabetes mellitus with hyperglycemia; I87.2 Venous insufficiency (chronic) (peripheral); D70.3 Neutropenia due to infection; D63.0 Anemia in neoplastic disease; B96.89 Other specified bacterial agents as the cause of diseases classified elsewhere; J39.8 Other specified diseases of upper respiratory tract; Z51.5 Encounter for palliative care; Z93.1 Gastrostomy status; Z99.81 Dependence on supplemental oxygen; Z85.46 Personal history of malignant neoplasm of prostate; Z86.718 Personal history of other venous thrombosis and embolism; Z86.711 Personal history of pulmonary embolism; Z87.891 Personal history of nicotine dependence; Z91.19 Patient's noncompliance with other medical treatment and regimen; Z92.3 Personal history of irradiation; Z79.4 Long term (current) use of insulin; Z79.891 Long term (current) use of opiate analgesic; F32.9 Major depressive disorder, single episode, unspecified; J44.9 Chronic obstructive pulmonary disease, unspecified; I10 Essential (primary) hypertension; F41.1 Generalized anxiety disorder; E78.5 Hyperlipidemia, unspecified; E78.00 Pure hypercholesterolemia, unspecified; Z79.84 Long term (current) use of oral hypoglycemic drugs